=== PATIENT | male | born 1960 | race Two or more races ===

== ENCOUNTER 2021-10-10 12:40 | Inpatient (IN) | payer OTHER ==
[~2021-10-10] VITALS: Ht 185.4 cm; Wt 111.1 kg
[2021-10-10] MEDS ORDERED: LORAZEPAM 1 MG TABLET FOR AGITATION/ANXIETY PO PRN (15:00)
[2021-10-10] MEDS ORDERED: MAGNESIUM HYDROXIDE 30 ML UDC PO PRN (15:00)
[2021-10-10] MEDS ORDERED: ZOLPIDEM TARTRATE 10 MG TABLET PO PRN (15:00)
[2021-10-10 16:00] VITALS: BP 135/84
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
[2021-10-10 20:37] VITALS: BP 142/86
[2021-10-11 08:00] VITALS: BP 155/97
[2021-10-11] MEDS ORDERED: HYDROCHLOROTHIAZIDE 25 MG TABLET PO SCH (09:00)
[2021-10-11] MEDS ORDERED: LOSARTAN POTASSIUM 50 MG TABLET PO SCH (09:00)
[2021-10-11] MEDS ORDERED: ATENOLOL 50 MG TABLET PO SCH (09:00)
[2021-10-11 16:00] VITALS: BP 151/86
--- NOTE | 2021-10-11 20:11 | NUR ---
patient remains isolative,withdrawn,blunted affect,no verbalization of thoughts and feelings.No s/s of acute distress noted,denies SI/HI.Will continue to monitor q15 min rounds for safety.
[2021-10-11 20:17] VITALS: BP 143/96
--- NOTE | 2021-10-11 21:51 | NUR ---
patient remains isolative,withdrawn,blunted affect,no verbalization of thoughts and feelings.No s/s of acute distress noted,denies SI/HI.Will continue to monitor q15 min rounds for safety.
[2021-10-12 08:00] VITALS: BP 149/90
[2021-10-12] MEDS: LOSARTAN PO SCH (08:10)
[2021-10-12] MEDS: ATENOLOL 50 MG PO SCH (08:11)
[2021-10-12] MEDS: HYDROCHLOROTHIAZIDE PO SCH (08:11)
[2021-10-12 16:00] VITALS: BP 128/85
--- NOTE | 2021-10-12 19:45 | NUR ---
RN OPENING NOTES: RECEIVED PATIENT IN ROOM, AWAKE, A/O X3. APPROPRIATE AFFECT, PASSIVE, COOPERATIVE. ADMITS TO V/A HALLUCINATIONS. NO S/S OF DISTRESS NOTED. RESPIRATION EVEN AND UNLABORED WITH EQUAL RISE AND FALL OF THE CHEST, ON ROOM AIR. OFFERED FLUID AND SNACKS TOLERATED. BED IN LOWEST POSITION AND LOCKED, SIDE RAILS UP X2 FOR SAFETY. CALL MICHELLE WITHIN REACH. WILL CONTINUE TO MONITOR Q15 MIN FOR SAFETY, MOOD AND BEHAVIOR.
[2021-10-12 20:00] VITALS: BP 137/95
--- NOTE | 2021-10-13 06:51 | NUR ---
GPS RN CLOSING NOTES: PATIENT IS CURRENTLY AWAKE, A/O X3. PATIENT SLEPT 7HR THIS SHIFT. NO S/S OF DISTRESS NOTED. RESPIRATION EVEN AND UNLABORED WITH EQUAL RISE AND FALL OF THE CHEST, ON ROOM AIR. ALL PATIENT CARE NEEDS HAVE BEEN MET ANTICIPATED. WILL CONTINUE TO MONITOR AND ENDORSE TO AM SHIFT TO FOLLOW UP.
[2021-10-13 08:00] VITALS: BP 138/93
[2021-10-13] MEDS: LOSARTAN PO SCH (08:20)
[2021-10-13] MEDS: ATENOLOL 50 MG PO SCH (08:21)
[2021-10-13] MEDS: HYDROCHLOROTHIAZIDE PO SCH (08:21)
--- NOTE | 2021-10-13 09:40 | NUR ---
RN Notes: Received pt. awake in bed, responsive to staffs, no distress and no agitation noted. Ate 100% for breakfast, compliant on meds. Pt. went for smoking. Encouraged to verbalize feelings and motivated to attend group activity. Needs attended and will continue to monitor for safety.
[2021-10-13 16:00] VITALS: BP 128/91
--- NOTE | 2021-10-13 20:02 | NUR ---
GPS RN NOTE: RECEIVED PATIENT RESTING IS IN HIS BED, ISOLATIVE, DENIES SI/HI AT THIS TIME. CALM AND COOPERATIVE. NO ACUTE DISTRESS NOTED. AMBULATORY, STEADY GAIT. ABLE TO MAKE NEEDS KNOWN. ALL NEEDS ATTENDED AND ANTICIPATED. SAFETY MEASURES IN PLACE. WILL CONTINUE MONITORING Q15MIN FOR SAFETY AND BEHAVIOR.
[2021-10-13 20:10] VITALS: BP 142/93
[2021-10-14] MEDS: ATENOLOL 50 MG PO SCH (09:33)
[2021-10-14] MEDS: HYDROCHLOROTHIAZIDE PO SCH (09:33)
[2021-10-14] MEDS: LOSARTAN PO SCH (09:33)
[2021-10-14 16:36] VITALS: BP 152/86
--- NOTE | 2021-10-14 19:30 | NUR ---
GPS RN NOTE, RECEIVED PATIENT AWAKE AND IN BED, NO S/S OR COMPLAINTS OF PAIN AT THIS TIME. PATIENT IS DISPLAYING NO S/S OF APPARENT DISTRESS AT THIS TIME. PATIENT BREATHING IS UNLABORED WITH EQUAL RISE AND FALL OF THE CHEST. PATIENT IS ALERT AND ORIENTED X 3 ON ROOM AIR WITH A SPO2 99%. PATIENT IS COMPLIANT WITH MEDICATIONS, CALM, POLITE, MAKES NEEDS KNOWN, AND COOPERATIVE. PATIENT DENIES SUICIDAL AND HOMICIDAL IDEATIONS AT THIS TIME. PATIENT ASSISTED WITH TURNING AND REPOSITIONING Q2HR AND PRN FOR COMFORT AND CIRCULATION. PATIENT HAS NO NEEDS AT THIS TIME. PATIENT EDUCATED ON THE USE OF THE CALL MICHELLE. PATIENT BED SIDE RAILS UP X 2 FOR SAFETY. PATIENT BED IS LOCKED, LOW, WITH BED ALARM ON. WILL CONTINUE TO MONITOR THIS PATIENT Q15 MINUTES WITH THE HELP OF STAFF TO MAINTAIN SAFETY.
[2021-10-14 20:00] VITALS: BP 126/88
[2021-10-15 08:00] VITALS: BP 143/77
[2021-10-15] MEDS: ATENOLOL 50 MG PO SCH (08:39)
[2021-10-15] MEDS: LOSARTAN PO SCH (08:39)
[2021-10-15] MEDS: HYDROCHLOROTHIAZIDE PO SCH (08:39)
--- NOTE | 2021-10-15 09:39 | NUR ---
RN-CO: RECEIVED PATIENT AWAKE, COMPLIANT WITH WITH MEDICATIONS AND TREATMENT. GOES OUT TO SMOKE. HE DENIED PAIN AND DISCOMFORTS. I WILL CONTINUE TO MONITOR AND NOTIFY .
--- NOTE | 2021-10-15 21:39 | NUR ---
Received patient in bed awake,guarded and paranoid but pleasant upon approach.Patient goes out to smoke with MD order.No s/s of acute distress noted.Will continue tomonitor q15 min rounds for safety.
[2021-10-16 08:00] VITALS: BP 138/94
[2021-10-16] MEDS: ATENOLOL 50 MG PO SCH (08:56)
[2021-10-16] MEDS: HYDROCHLOROTHIAZIDE PO SCH (08:56)
[2021-10-16] MEDS: LOSARTAN PO SCH (08:56)
[2021-10-16] MEDS: IBUPROFEN 200 MG TABLET PO PRN (14:33)
[2021-10-16 16:00] VITALS: BP 128/78
--- NOTE | 2021-10-16 16:25 | NUR ---
Patient alert ,verbally responsive ,poor insight ,poor judgment ,easily irritable and anxious ,socialize with select peers ,no plan for self care .
--- NOTE | 2021-10-16 20:32 | NUR ---
Patient remains withdrawn,limited visibility,blunted affect,no s/s of acute distress noted.Will continue to monitor q15 min rounds for safety.
[2021-10-16 20:53] VITALS: BP 138/76
[2021-10-17 08:00] VITALS: BP 157/93
[2021-10-17] MEDS: HYDROCHLOROTHIAZIDE PO SCH (08:50)
[2021-10-17] MEDS: LOSARTAN PO SCH (08:50)
[2021-10-17] MEDS: ATENOLOL 50 MG PO SCH (08:50)
--- NOTE | 2021-10-17 09:00 | NUR ---
Patient alert ,verbally responsive ,poor insight ,poor judgment ,easily irritable and anxious ,labile ,hearing voices ,no plan for self care .
[2021-10-17] MEDS ORDERED: LORAZEPAM 1 MG TABLET FOR AGITATION/ANXIETY PO PRN (13:00)
--- NOTE | 2021-10-17 13:00 | NUR ---
Patient alert ,verbally responsive ,poor insight ,poor judgment ,easily irritable and anxious ,labile ,hearing voices ,no plan for self care .
[2021-10-17 16:00] VITALS: BP 95/60
[2021-10-17 20:53] VITALS: BP 134/74
--- NOTE | 2021-10-18 05:35 | NUR ---
Patient remains preoccupied to his own thoughts,blunted affect,blunted affect,no s/s ofa cute distress noted.Will continue to monitor q15 min rounds for safety.
[2021-10-18 08:00] VITALS: BP 108/56
[2021-10-18] MEDS: ATENOLOL 50 MG PO SCH (08:13)
[2021-10-18] MEDS: LOSARTAN PO SCH (08:13)
[2021-10-18] MEDS: HYDROCHLOROTHIAZIDE PO SCH (08:13)
[2021-10-18] MEDS: INVEST MED Kar XT OR PLACEBO 50/20 MG PO SCH ×2 (09:48→21:25)
--- NOTE | 2021-10-18 10:45 | NUR ---
RN-CO: PATIENT IS COOPERATIVE TO CARE. HE STATED THAT HE STILL HAS AH/VH BUT HE DENIED COMMAND HALLUCINATION. HE GOES OUT MOST OF THE TIME TO SMOKE. HE WATCHES TV WITH PEERS IN THE DINNING ROOM. I DENIED ADVERSE REACTION IN THE INVESTIGATIONAL MEDICINE.
[2021-10-18 16:00] VITALS: BP 154/90
[2021-10-18 20:32] VITALS: BP 141/86
--- NOTE | 2021-10-18 22:49 | NUR ---
GPS/WHARF TENDER HELPER NOTES: PT. IN HIS ROOM AWAKE. NO DISTRESS OR AGITATION NOTED. QUIET AT THIS TIME. COOPERATIVE. NO C/O PAIN OR DISCOMFORT. SAFETY ENVIRONMENT OBSERVED AT ALL TIMES. WILL CONTINUE TO MONITOR Q 15 MIN FOR SAFETY AND BEHAVIOR.
--- NOTE | 2021-10-18 22:50 | NUR ---
GPS/CREW CHIEF NOTES: PT. REQUESTED FOR AMBIEN 10MG PO PRN ORDERED. BUT PT. NOT IN OMNICELL AND UNABLE TO PULL OUT MEDICATION. PT. UPSET. CALLED OUTSIDE PHARMACY AND THEY STATED THEY CAN'T DO ANYTHING ON THEIR END. ALSO NOTIFIED ADMITTING, POSITION CLASSIFICATION SPECIALIST AND DR. HE AWARE. AFTER EXPLAINING SITUATION TO PT., PT. STATED THAT ITS FINE AND HE WILL JUST TAKE IT LEIF. NIGHT.
--- NOTE | 2021-10-19 07:15 | NUR ---
RN-NOTES RECEIVED PATIENT SITTING IN BED INTERACTING WITH ROOM MATE,NO ACUTE DISTRESS NOTED.
[2021-10-19 08:00] VITALS: BP 145/97
--- NOTE | 2021-10-19 08:05 | NUR ---
RN-NOTES PATIENT OFF THE UNIT FOR SMOKING.
[2021-10-19] MEDS: ATENOLOL 50 MG PO SCH (09:04)
[2021-10-19] MEDS: LOSARTAN PO SCH (09:04)
[2021-10-19] MEDS: HYDROCHLOROTHIAZIDE PO SCH (09:04)
--- NOTE | 2021-10-19 09:05 | NUR ---
RN-NOTES PATENT BACK IN THE UNIT,NO ACUTE DISTRESS NOTED.
--- NOTE | 2021-10-19 09:45 | NUR ---
RN-NOTES PATIENT OFF THE UNIT FOR SMOKING.
--- NOTE | 2021-10-19 10:15 | NUR ---
RN-NOTES PATENT BACK IN THE UNIT,NO ACUTE DISTRESS NOTED.
[2021-10-19] MEDS: INVEST MED Kar XT OR PLACEBO 50/20 MG PO SCH ×2 (10:24→21:49)
[2021-10-19] MEDS ORDERED: LORAZEPAM 1 MG TABLET FOR AGITATION/ANXIETY PO PRN (12:30)
[2021-10-19 16:00] VITALS: BP 156/107
--- NOTE | 2021-10-19 19:46 | NUR ---
RN OPENING NOTES: RECEIVED PATIENT IN BED, AWAKE, A/O X3. APPROPRIATE AFFECT, CALM AND COOPERATIVE. PATIENT DENIES SI/HI, A/V HALLUCINATIONS AT THIS TIME. NO S/S OF DISTRESS. RESPIRATION EVEN AND UNLABORED WITH EQUAL RISE AND FALL OF THE CHEST, ON ROOM AIR. OFFERED FLUID AND SNACKS TOLERATED. BED IN LOWEST POSITION AND LOCKED, SIDE RAILS UP X2 FOR SAFETY. CALL MICHELLE WITHIN REACH. WILL CONTINUE TO MONITOR Q15 MIN FOR SAFETY, MOOD AND BEHAVIOR.
[2021-10-19 20:00] VITALS: BP 159/97
[2021-10-19] MEDS: ZOLPIDEM TARTRATE 10 MG TABLET PO PRN (21:10)
--- NOTE | 2021-10-19 21:11 | NUR ---
GPS RN NOTES: Patient requested for sleep medication. Ambien 10mg/1tab given PO at 2109. Will continue to monitor.
--- NOTE | 2021-10-20 07:03 | NUR ---
GPS RN CLOSING NOTES: PATIENT IS AWAKE, A/O X3. PATIENT SLEPT 7HR THIS SHIFT. NO S/S OF DISTRESS NOTED. RESPIRATION EVEN AND UNLABORED WITH EQUAL RISE AND FALL OF THE CHEST, ON ROOM AIR. ALL PATIENT CARE NEEDS HAVE BEEN MET ANTICIPATED. WILL CONTINUE TO MONITOR AND ENDORSE TO AM SHIFT TO FOLLOW UP.
--- NOTE | 2021-10-20 07:15 | NUR ---
RN-NOTES RECEIVED PT IN THE ROOM AWAKE INTERACTING WITH ROOM MATE,EASILY IRRITABLE AND ANGRY COMPLIANT WITH MEDICATION. GOES OUT WITH ANOTHER CLINICAL TRIAL PT TO SMOKE. WILL CONTINUE TO MONITOR FOR SAFETY AND BEHAVIOR.
[2021-10-20 08:00] VITALS: BP 122/91
[2021-10-20] MEDS: ATENOLOL 50 MG PO SCH (08:39)
[2021-10-20] MEDS: HYDROCHLOROTHIAZIDE PO SCH (08:39)
[2021-10-20] MEDS: LOSARTAN PO SCH (08:39)
[2021-10-20] MEDS: INVEST MED Kar XT OR PLACEBO 50/20 MG PO SCH ×2 (10:04→22:11)
[2021-10-20] MEDS: MAG HYDROX/AL HYDROX/SIMETH 30 ML UDC PO PRN (11:01)
--- NOTE | 2021-10-20 11:10 | NUR ---
RN-NOTES PATIENT REQUESTING MAALOX FOR HIS HEARTBURN. MAALOX 30ML GIVEN PRN ORDER. WILL CONT. MONITORING .
--- NOTE | 2021-10-20 12:10 | NUR ---
RN-NOTES PATIENT STATED" MAALOX HELP WITH THE HEARTBURN".
--- NOTE | 2021-10-20 14:20 | NUR ---
RN-NOTES PATIENT WAS OFF THE UNIT NET MAKER BY VARUN (DR. HE STAFF) IN STABLE CONDITION.
--- NOTE | 2021-10-20 14:30 | NUR ---
RN-NOTES PATIENT BACK IN THE UNIT ACCOMPANIED BY VARUN (DR. HE STAFF) IN STABLE CONDITION.
[2021-10-20 16:00] VITALS: BP 158/103
[2021-10-20 20:00] VITALS: BP 143/94
--- NOTE | 2021-10-20 20:10 | NUR ---
GPS RN NOTE, PATIENT HAS A COMPLAINT OF FEELING ANXIOUS AND IS REQUESTING ATIVAN AT THIS TIME. PATIENT VITAL SIGNS ARE STABLE. GAVE ATIVAN 1 MG PO Q6HR PRN ORDERED. WILL REASSESS FOR ANXIETY AND I WILL CONTINUE TO MONITOR THIS PATIENT WITH THE HELP OF STAFF.
[2021-10-20 20:41] VITALS: BP 143/94
[2021-10-21] MEDS: MAG HYDROX/AL HYDROX/SIMETH 30 ML UDC PO PRN (01:30)
--- NOTE | 2021-10-21 01:31 | NUR ---
GPS RN NOTE, PATIENT HAS A COMPLAINT OF INDIGESTION AND IS REQUESTING MAALOX AT THIS TIME. PATIENT VITAL SIGNS ARE STABLE. GAVE MAALOX 30ML PO Q6HR PRN ORDERED. WILL REASSESS FOR INDIGESTION AND I WILL CONTINUE TO MONITOR THIS PATIENT WITH THE HELP OF STAFF.
--- NOTE | 2021-10-21 02:30 | NUR ---
GPS RN NOTE, PATIENT HAS A COMPLAINT OF FREQUENT URINATION THAT IS KEEPING UP AT NIGHT AND REQUESTING FLOMAX. WILL ENDORSE TO A.M. SHIFT NURSE TO INFORM DR HE OF PATIENT COMPLAINT AND REQUEST. WILL CONTINUE TO MONITOR THIS PATIENT WITH THE HELP OF STAFF.
[2021-10-21 08:00] VITALS: BP 138/93
[2021-10-21] MEDS: LOSARTAN PO SCH ×2 (08:35→17:49)
[2021-10-21] MEDS: ATENOLOL 50 MG PO SCH (08:35)
[2021-10-21] MEDS: HYDROCHLOROTHIAZIDE PO SCH ×2 (08:36→17:49)
[2021-10-21] MEDS: INVEST MED Kar XT OR PLACEBO 50/20 MG PO SCH ×2 (10:15→21:57)
[2021-10-21 20:00] VITALS: BP 130/94
[2021-10-21] MEDS: ZOLPIDEM TARTRATE 10 MG TABLET PO PRN (21:57)
[2021-10-21] MEDS: TAMSULOSIN 0.4 MG CAP.SR.24H PO SCH (21:57)
--- NOTE | 2021-10-21 21:57 | NUR ---
GPS RN NOTE, PATIENT HAS A COMPLAINT OF NOT BEING ABLE TO SLEEP AND IS REQUESTING AMBIEN AT THIS TIME. PATIENT VITAL SIGNS ARE STABLE. GAVE AMBIEN 10MG PO HS PRN ORDERED. WILL REASSESS FOR INSOMNIA AND I WILL CONTINUE TO MONITOR THIS PATIENT WITH THE HELP OF STAFF.
[2021-10-22] MEDS: IBUPROFEN 200 MG TABLET PO PRN ×2 (06:21→21:43)
--- NOTE | 2021-10-22 06:24 | NUR ---
GPS RN NOTE, PATIENT HAS A COMPLAINT OF GENERALIZED PAIN AT 8 OUT 10 ON THE PAIN SCALE AND IS REQUESTING IBUPROFEN AT THIS TIME. PATIENT VITAL SIGNS ARE STABLE. GAVE IBUPROFEN 600 MG PO Q8HR PRN ORDERED . WILL REASSESS PAIN AND I WILL CONTINUE TO MONITOR THIS PATIENT WITH THE HELP OF STAFF.
[2021-10-22] MEDS: LOSARTAN PO SCH ×2 (08:06→16:18)
[2021-10-22] MEDS: ATENOLOL 50 MG PO SCH (08:06)
[2021-10-22] MEDS: HYDROCHLOROTHIAZIDE PO SCH ×2 (08:06→16:18)
[2021-10-22] MEDS: INVEST MED Kar XT OR PLACEBO 50/20 MG PO SCH ×2 (10:03→21:59)
--- NOTE | 2021-10-22 10:43 | NUR ---
RN-CO: PATIENT STATED HE STILL HAS AH/VH. HE C/O HEARTBURN SINCE HE TOOK INVESTIGATIONAL MEDICINE. HE GOES OUT TO SMOKE EVERY TIME. HE IS COOPERATIVE TO STAFF.
--- NOTE | 2021-10-22 19:40 | NUR ---
GPS RN NOTE RECEIVED PATIENT AWAKE AND IN BED, NO S/S OR C/O PAIN AT THIS TIME. PATIENT IS DISPLAYING NO S/S OF APPARENT DISTRESS AT THIS TIME. PATIENT BREATHING IS UNLABORED WITH EQUAL RISE AND FALL OF THE CHEST. PATIENT IS ALERT AND ORIENTED X 4, ON ROOM AIR. PATIENT IS COMPLIANT WITH MEDICATIONS, CALM, POLITE, MAKES NEEDS KNOWN, AND COOPERATIVE. PATIENT DENIES SUICIDAL AND HOMICIDAL IDEATIONS AT THIS TIME. PATIENT EDUCATED ON THE USE OF THE CALL MICHELLE. PATIENT BED SIDE RAILS UP X 2 FOR SAFETY. PATIENT BED IS LOCKED, LOW, WITH BED ALARM ON. WILL CONTINUE TO MONITOR THIS PATIENT Q15 MINUTES WITH THE HELP OF STAFF TO MAINTAIN SAFETY.
[2021-10-22 20:12] VITALS: BP 149/88
[2021-10-22 20:18] VITALS: BP 149/88
--- NOTE | 2021-10-22 20:35 | NUR ---
GPS RN NOTE PATIENT IS OUT OF UNIT FOR SMOKE BREAK.
--- NOTE | 2021-10-22 21:09 | NUR ---
PATIENT BACK TO THE UNIT FROM SMOKE BREAK.
[2021-10-22] MEDS: TAMSULOSIN 0.4 MG CAP.SR.24H PO SCH (21:38)
--- NOTE | 2021-10-22 21:45 | NUR ---
GPS RN NOTE: HEADACHE PATIENT C/O HEADACHE AND WANTED TO TAKE MOTRIN. PRN IBUPROFEN 600 MG PO ADMINISTERED ORDERED. WILL CONTINUE TO MONITOR.
[2021-10-22] MEDS: ZOLPIDEM TARTRATE 10 MG TABLET PO PRN (22:14)
--- NOTE | 2021-10-22 22:16 | NUR ---
GPS RN NOTE: INSOMNIA PATIENT COMPLAINT OF NOT BEING ABLE TO SLEEP AND IS REQUESTING AMBIEN AT THIS TIME. PATIENT VITAL SIGNS ARE STABLE. GAVE AMBIEN 10MG PO HS PRN ORDERED. WILL REASSESS FOR INSOMNIA AND I WILL CONTINUE TO MONITOR THIS PATIENT WITH THE HELP OF STAFF.
--- NOTE | 2021-10-23 05:48 | NUR ---
PATIENT IS OUT OF UNIT FOR SMOKE BREAK.
--- NOTE | 2021-10-23 06:19 | NUR ---
PATIENT BACK TO THE UNIT FROM SMOKE BREAK.
--- NOTE | 2021-10-23 06:26 | NUR ---
GPS RN NOTE PATIENT SLEPT WELL AFTER TAKING AMBIEN PRN. MED COMPLAINT. NO BEHAVIORAL EPISODE NOTED THROUGH OUT THE NIGHT.
[2021-10-23 08:00] VITALS: BP 118/61
[2021-10-23] MEDS: HYDROCHLOROTHIAZIDE PO SCH ×2 (08:45→17:40)
[2021-10-23] MEDS: LOSARTAN PO SCH ×2 (08:45→17:40)
[2021-10-23] MEDS: ATENOLOL 50 MG PO SCH (08:45)
[2021-10-23] MEDS: INVEST MED Kar XT OR PLACEBO 50/20 MG PO SCH ×2 (09:35→21:40)
[2021-10-23] MEDS: MAG HYDROX/AL HYDROX/SIMETH 30 ML UDC PO PRN (10:01)
--- NOTE | 2021-10-23 13:00 | NUR ---
Patient remains isolative and withdrawn ,no interaction with peers ,no plan for self care ,labile and cooperative ,will continue to monitor for safety q15 minutes ,encourage patient to verbalize feelings and thoughts redirect as needed.
[2021-10-23 16:00] VITALS: BP 116/71
--- NOTE | 2021-10-23 18:06 | NUR ---
Patient alert ,verbally responsive ,poor insight ,poor judgment,preoccupied with his own thoughts,patient hearing voices ,easily irritable and anxious no plan for self care.
[2021-10-23] MEDS: IBUPROFEN 200 MG TABLET PO PRN (18:08)
--- NOTE | 2021-10-23 20:17 | NUR ---
RN OPENING NOTES: RECEIVED PATIENT AMBULATING IN HALLWAY ON HIS WAY FOR A SMOKE BREAK WITH PEERS. APPROPRIATE AFFECT, CALM AND COOPERATIVE. DENIES SI/HI, A/V HALLUCINATIONS AT THIS TIME. NO S/S OF DISTRESS. RESPIRATION EVEN AND UNLABORED WITH EQUAL RISE AND FALL OF THE CHEST, ON ROOM AIR. WILL CONTINUE TO MONITOR.
[2021-10-23 20:21] VITALS: BP 143/76
[2021-10-23] MEDS: ZOLPIDEM TARTRATE 10 MG TABLET PO PRN (21:14)
--- NOTE | 2021-10-23 21:16 | NUR ---
GPS RN NOTES: PATIENT REQUESTED FOR SLEEP MEDICATION D/T INSOMNIA. AMBIEN 10MG GIVEN PO AT 2113. WILL CONTINUE TO MONITOR.
[2021-10-23] MEDS: TAMSULOSIN 0.4 MG CAP.SR.24H PO SCH (21:40)
--- NOTE | 2021-10-24 06:54 | NUR ---
GPS RN CLOSING NOTES: PATIENT IS AWAKE, A/O X3. PATIENT SLEPT 5HR THIS SHIFT. PATIENT LEFT THE UNIT 3X FOR A SMOKE THIS SHIFT. NO S/S OF DISTRESS NOTED. RESPIRATION EVEN AND UNLABORED WITH EQUAL RISE AND FALL OF THE CHEST, ON ROOM AIR. ALL PATIENT CARE NEEDS HAVE BEEN MET ANTICIPATED. WILL CONTINUE TO MONITOR AND ENDORSE TO AM SHIFT TO FOLLOW UP.
[2021-10-24 08:00] VITALS: BP 130/95
[2021-10-24] MEDS: ATENOLOL 50 MG PO SCH (08:15)
[2021-10-24] MEDS: HYDROCHLOROTHIAZIDE PO SCH ×2 (08:16→17:53)
[2021-10-24] MEDS: LOSARTAN PO SCH ×2 (08:16→17:54)
[2021-10-24] MEDS: INVEST MED Kar XT OR PLACEBO 50/20 MG PO SCH ×2 (09:57→21:59)
[2021-10-24] MEDS: IBUPROFEN 200 MG TABLET PO PRN ×2 (10:35→21:59)
--- NOTE | 2021-10-24 10:35 | NUR ---
given motrin for headache.leaving floor often for smoke.
[2021-10-24 16:00] VITALS: BP 113/68
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
[2021-10-24 17:53] VITALS: BP 120/67
--- NOTE | 2021-10-24 18:00 | NUR ---
RN NOTES: RECEIVED PATIENT FROM GPS AMBULATORY AND GOING OUT FOR A SMOKE BREAK WITH ROOMMATE. WITH APPROPRIATE AFFECT, CALM AND COOPERATIVE. DENIES SI/HI, A/V HALLUCINATIONS AT THIS TIME. NO S/S OF DISTRESS. RESPIRATION EVEN AND UNLABORED WITH EQUAL RISE AND FALL OF THE CHEST, ON ROOM AIR. WILL CONTINUE TO MONITOR.
--- NOTE | 2021-10-24 18:33 | NUR ---
RN NOTES PATIENT IS OUT FOR A SMOKE BREAK. WILL ENDORSE TO NEXT SHIFT FOR ULICES.
[2021-10-24 20:00] VITALS: BP 94/45
--- NOTE | 2021-10-24 21:44 | NUR ---
RN OPENING NOTES Patient is A&Ox4. Calm and cooperative. States he is feeling good and is not having any psych symptoms at this time. Patient is having pleasant conversation/interacting with roommate. No side effects from investigational med. Will continue to monitor. Addendum: 10/24/21 at 2146 by DOLORES CAMPOS RN time 1999
[2021-10-24] MEDS: TAMSULOSIN 0.4 MG CAP.SR.24H PO SCH (21:59)
[2021-10-24 23:33] VITALS: BP 94/45
--- NOTE | 2021-10-25 06:48 | NUR ---
Patient stable overnight. No behaviors. Slept intermittently. Denies any side effects from investigational meds. Currently awake in room in no signs of distress.
--- NOTE | 2021-10-25 07:22 | NUR ---
RN OPENING NOTES RECEIVED PATIENT IN BED, AWAKE, A/O X4, VERBALLY RESPONSIVE. NO SIGNS OF ACUTE DISTRESS NOTED. ON ROOM AIR, NO SOB NOTED. NO IV ACCESS. REMAINS ON CLINICAL TRIAL. NO SIGNS OF UNTOWARD BEHAVIOR NOTED. SAFETY MEASURES IN PLACE. WILL CONTINUE TO MONITOR.
[2021-10-25 08:00] VITALS: BP 116/85
[2021-10-25] MEDS: LOSARTAN PO SCH ×2 (09:29→17:24)
[2021-10-25] MEDS: HYDROCHLOROTHIAZIDE PO SCH ×2 (09:30→17:24)
[2021-10-25] MEDS: ATENOLOL 50 MG PO SCH (09:30)
[2021-10-25] MEDS: INVEST MED Kar XT OR PLACEBO 50/20 MG PO SCH ×2 (10:02→22:00)
[2021-10-25 16:00] VITALS: BP 112/85
--- NOTE | 2021-10-25 18:53 | NUR ---
RN CLOSING NOTES PATIENT IN BED, AWAKE, ALERT AND ORIENTED X4. STABLE ON ROOM AIR. AMBULATORY. REMAINS ON CLINICAL TRIAL. DENIES ANY ADVERSE REACTION FROM INVESTIGATIONAL MEDICATION. NO IV ACCESS. SAFETY MEASURES MAINTAINED. WILL ENDORSE TO NEXT SHIFT FOR CONTINUITY OF CARE.
--- NOTE | 2021-10-25 19:15 | NUR ---
RN OPENING NOTES RECEIVED PATIENT LAYING AWAKE IN BED. A/O X4. PATIENT WITH REGULAR AND UNLABORED BREATHING ON ROOM AIR TOLERATED WELL. NO SIGNS AND SYMPTOMS OF DISTRESS NOTED AT THIS TIME. NO COMPLAINS OF PAIN OR DISCOMFORT AT THIS TIME. SAFETY PRECAUTIONS ENFORCED WITH BED LOCKED AND AT LOWEST POSITION. CALL LIGHT WITHIN REACH AT ALL TIMES. WILL CONTINUE TO MONITOR PATIENT.
[2021-10-25 20:00] VITALS: BP 120/83
[2021-10-25] MEDS: IBUPROFEN 200 MG TABLET PO PRN (22:02)
[2021-10-25] MEDS: TAMSULOSIN 0.4 MG CAP.SR.24H PO SCH (22:03)
--- NOTE | 2021-10-26 06:55 | NUR ---
RN CLOSING NOTES PATIENT STILL LAYING AWAKE IN BED. A/O X4. PATIENT WITH REGULAR AND UNLABORED BREATHING ON ROOM AIR TOLERATED WELL. NO SIGNS AND SYMPTOMS OF DISTRESS NOTED AT THIS TIME. NO COMPLAINS OF PAIN OR DISCOMFORT AT THIS TIME. SAFETY PRECAUTIONS ENFORCED WITH BED LOCKED AND AT LOWEST POSITION. CALL LIGHT WITHIN REACH AT ALL TIMES. WILL ENDORSE CONTINUITY OF CARE TO DAY SHIFT NURSE.
--- NOTE | 2021-10-26 07:48 | NUR ---
RN OPENING NOTES Patient seen comfortably lying in bed, breathing even and unlabored, no SOB, no apparent distress noted, denies any pain or discomfort at this time, no grimacing. Call light left within reach, safety precautions in place, brakes locked, side rails up X 2, will monitor closely for any changes.
[2021-10-26 08:00] VITALS: BP 153/100
[2021-10-26] MEDS: LOSARTAN PO SCH ×2 (09:08→16:47)
[2021-10-26] MEDS: ATENOLOL 50 MG PO SCH (09:08)
[2021-10-26] MEDS: HYDROCHLOROTHIAZIDE PO SCH ×2 (09:08→16:47)
[2021-10-26] MEDS: BISACODYL SUPP (10 MG) 10 MG/SUPP.RECT SUPP.RECT RC PRN (09:47)
--- NOTE | 2021-10-26 10:00 | NUR ---
Patient's investigational medication given at 10:00am, scanner was not working properly, medication scanned at 10:03am but given at 10:00am. No apparent distress noted with patient at this time.
[2021-10-26] MEDS: INVEST MED Kar XT OR PLACEBO 50/20 MG PO SCH ×2 (10:03→22:01)
[2021-10-26] MEDS: SENNOSIDES 8.6 MG TABLET PO SCH ×2 (12:54→21:26)
[2021-10-26] MEDS: IBUPROFEN 200 MG TABLET PO PRN ×2 (12:58→21:35)
--- NOTE | 2021-10-26 18:22 | NUR ---
RN CLOSING NOTES Patient lying in bed, no shortness of breath, respirations even and unlabored, denies any pain or discomfort, no apparent distress noted. Patient on monitoring for tremors, none noted during shift, no hallucinations, and no delusions during shift. All medications given per MD order, tolerating well, kept clean and dry, all needs attended, call light left within reach, safety precautions in place, brakes locked, side rails up X 2, will endorse to next shift for continuity of care.
--- NOTE | 2021-10-26 19:31 | NUR ---
MS RN OPENING NOTES: PATIENT WAS ON CLINICAL TRIAL AMBULATORY A/OX4 ABLE TO MAKE NEEDS KNOWN, DURING ROUND PATIENT WAS NOT IN ROOM PER AM CN PATIENT WAS SMOKING, ON ROOM AIR SATURATING WELL, WILL CONTINUE TO MONITOR.
[2021-10-26 20:00] VITALS: BP 127/90
[2021-10-26] MEDS: TAMSULOSIN 0.4 MG CAP.SR.24H PO SCH (22:01)
--- NOTE | 2021-10-27 06:52 | NUR ---
MS RN CLOSING NOTES: PATIENT SLEEP IN BED COMFORTABLY, AROUSABLE TO VERBAL STIMULI, BED IN LOW POSITION, CALL LIGHTS WITHIN REACH, NO COMPLAIN OF PAIN AND DISCOMFORT AT THIS TIME, ON ROOM AIR SATURATING WELL, PATIENT IS A/OX4 AMBULATORY, ON MEDICATION COMPLIANCE, NO CHANGES ON BEHAVIOR WAS OBSERVED, ON CONTINUE MONITORING, ENDORSE TO INCOMING SHIFT.
[2021-10-27] MEDS: IBUPROFEN 200 MG TABLET PO PRN (06:54)
--- NOTE | 2021-10-27 07:30 | NUR ---
MS RN OPENING NOTES RECEIVED PATIENT IN BED WITH EYES CLOSED. EASILY AWAKENS TO VERBAL STIMULI, A/O X4. ON RA WITH NO S/SX OF RESPIRATORY DISTRESS NOTED. NO PAIN VERBALIZED AT THIS TIME. PATIENT IS CALM AND COOPERATIVE ON CLINICAL OBSERVATION. SAFETY MEASURES IN PLACE: BED IN LOWEST POSITION, WHEELS LOCKED, SIDE RAILS UP X2, CALL LIGHT WITHIN REACH. WILL CONTINUE TO MONITOR
[2021-10-27 07:54] VITALS: BP 144/78
[2021-10-27] MEDS: HYDROCHLOROTHIAZIDE PO SCH ×2 (08:56→16:57)
[2021-10-27] MEDS: SENNOSIDES 8.6 MG TABLET PO SCH ×2 (08:56→22:00)
[2021-10-27] MEDS: ATENOLOL 50 MG PO SCH (08:57)
[2021-10-27] MEDS: LOSARTAN PO SCH ×2 (08:57→16:57)
[2021-10-27] MEDS: INVEST MED Kar XT OR PLACEBO 50/20 MG PO SCH ×2 (09:49→22:00)
[2021-10-27 16:03] VITALS: BP 109/78
[2021-10-27] MEDS: ACETAMINOPHEN ES 500 MG TABLET PO PRN (18:25)
--- NOTE | 2021-10-27 18:49 | NUR ---
MS RN CLOSING NOTES PATIENT REMAINED CALM AND COOPERATIVE DURING SHIFT. A/O X4. NO CHANGES IN CONDITION. ALL MEDICATIONS TAKEN AND SAFETY MEASURES IN PLACE: BED IN LOWEST POSITION, WHEELS LOCKED, SIDE RAILS UP X2, CALL LIGHT WITHIN REACH. WILL ENDORSE TO PAINTINGS RESTORER NURSE FOR ULICES
[2021-10-27 20:00] VITALS: BP 127/89
--- NOTE | 2021-10-27 20:30 | NUR ---
RN OPENING NOTE PATIENT JUST CAME BACK FROM A SMOKE BREAK. NOT IN ANY APPARENT DISTRESS. PATIENT IS A/O X 4, ABLE TO MAKE NEEDS KNOWN. CURRENTLY ON RA, TOLERATING WELL. BREATHING EVEN AND UNLABORED. PATIENT IS A CLINICAL TRIAL PATIENT OF DR. HOWARD. PATIENT DOES NOT REPORT ANY PAIN OR DISCOMFORT AT THIS TIME. NO IV ACCESS NOTED. SAFETY MEASURES IN PLACE: BED LOCKED AND IN LOWEST POSITION, CALL LIGHT WITHIN REACH, SIDE RAILS UP. WILL MONITOR PATIENT CLOSELY.
[2021-10-27] MEDS: TAMSULOSIN 0.4 MG CAP.SR.24H PO SCH (22:00)
[2021-10-28 08:00] VITALS: BP 109/70
--- NOTE | 2021-10-28 08:11 | NUR ---
RN OPENING NOTE PATIENT RECEIVED IN BED, AO x 4, ABLE TO RESPONDS ALL STIMULI. IN NO ACUTE DISTRESS NOTED. RESPIRATORY EVEN AND UNLABORED ON ROOM AIR. SKIN IS WARM TO TOUCH, KEEP CLEAN/DRY. KEPT ELEVATED HOB FOR ENSURE AIRWAY AND ASPIRATION PRECAUTION, ALSO LOWEST POSITION OF THE BED, S/R UP X 2, ALL SAFETY PRECAUTION APPLIED. CALL LIGHT WITHIN REACH, WILL CONTINUE TO MONITOR.
[2021-10-28] MEDS: ATENOLOL 50 MG PO SCH (08:39)
[2021-10-28] MEDS: HYDROCHLOROTHIAZIDE PO SCH ×2 (08:42→17:00)
[2021-10-28] MEDS: LOSARTAN PO SCH ×2 (08:42→17:00)
[2021-10-28] MEDS: SENNOSIDES 8.6 MG TABLET PO SCH ×2 (09:52→21:53)
[2021-10-28] MEDS: INVEST MED Kar XT OR PLACEBO 50/20 MG PO SCH ×2 (09:56→21:53)
[2021-10-28] MEDS: IBUPROFEN 200 MG TABLET PO PRN (12:41)
--- NOTE | 2021-10-28 18:30 | NUR ---
RN CLOSE NOTE PATIENT IN BED, IN NO ACUTE DISTRESS OBSERVED. RESPIRATION EVEN AND UNLABORED ON ROOM AIR. SKIN IS WARM TO TOUCH KEEP CLEAN//DRY. KEPT ELEVATED HOB FOR ENSURE AIRWAY AND ASPIRATION PRECAUTION. ALSO LOWEST POSITION OF THE BED FOR SAFETY. CALL LIGHT WITHIN REACH, WILL ENDORSE TO GEOPHYSICAL PROSPECTING PERMIT AGENT.
[2021-10-28 20:36] VITALS: BP 102/72
--- NOTE | 2021-10-28 20:37 | NUR ---
RN OPENING NOTE PATIENT IN BED, AWAKE USING HIS PHONE. NOT IN ANY APPARENT DISTRESS. PATIENT IS A/O X 4, ABLE TO MAKE NEEDS KNOWN. CURRENTLY ON RA, TOLERATING WELL. BREATHING EVEN AND UNLABORED. PATIENT IS INDEPENDENT WITH ADLS AND AMBULATION. PATIENT IS A CLINICAL TRIAL PATIENT OF DR. HOWARD. PATIENT DOES NOT REPORT ANY PAIN OR DISCOMFORT AT THIS TIME. NO IV ACCESS NOTED. SAFETY MEASURES IN PLACE: BED LOCKED AND IN LOWEST POSITION, CALL LIGHT WITHIN REACH, SIDE RAILS UP. WILL MONITOR PATIENT CLOSELY.
[2021-10-28] MEDS: TAMSULOSIN 0.4 MG CAP.SR.24H PO SCH (21:53)
--- NOTE | 2021-10-29 07:38 | NUR ---
RN OPENING NOTE RECEIVED PATIENT IN BED, AO x 4, ABLE TO RESPONDS ALL STIMULI. IN NO ACUTE DISTRESS NOTED. RESPIRATORY EVEN AND UNLABORED ON ROOM AIR. SKIN IS WARM TO TOUCH, KEEP CLEAN/DRY. SAFETY PRECAUTIONS IN PLACE: BED IN LOWEST LOCKED POSITION OF THE BED, S/R UP X 2, SIDE RAILS UP X 2. CALL LIGHT WITHIN REACH, WILL CONTINUE TO MONITOR.
[2021-10-29] MEDS: ATENOLOL 50 MG PO SCH (09:25)
[2021-10-29] MEDS: HYDROCHLOROTHIAZIDE PO SCH ×2 (09:25→16:20)
[2021-10-29] MEDS: SENNOSIDES 8.6 MG TABLET PO SCH ×2 (09:25→20:37)
[2021-10-29] MEDS: LOSARTAN PO SCH ×2 (09:25→16:21)
[2021-10-29] MEDS: INVEST MED Kar XT OR PLACEBO 50/20 MG PO SCH ×2 (10:05→21:33)
--- NOTE | 2021-10-29 18:28 | NUR ---
RN CLOSING NOTE PATIENT IN BED, AO x 4, ABLE TO RESPONDS ALL STIMULI. IN NO ACUTE DISTRESS NOTED. RESPIRATORY EVEN AND UNLABORED ON ROOM AIR. SKIN IS WARM TO TOUCH, KEEP CLEAN/DRY. SAFETY PRECAUTIONS IN PLACE: BED IN LOWEST LOCKED POSITION OF THE BED, S/R UP X 2, SIDE RAILS UP X 2. CALL LIGHT WITHIN REACH. NO EPS NTED. WILL ENDORSE TO ONCOMING SHIFT FOR ULICES.
--- NOTE | 2021-10-29 20:00 | NUR ---
RN OPENING NOTE PATIENT RESTING IN HIS ROOM. NOT IN ANY APPARENT DISTRESS. PATIENT IS A/O X 4, ABLE TO MAKE NEEDS KNOWN. CURRENTLY ON RA, TOLERATING WELL. BREATHING EVEN AND UNLABORED. PATIENT DOES NOT REPORT ANY PAIN OR DISCOMFORT AT THIS TIME. SAFETY MEASURES IN PLACE: BED LOCKED AND IN LOWEST POSITION, CALL LIGHT WITHIN REACH, SIDE RAILS UP. WILL CONTINUE TO MONITOR FOR SAFETY AND BEHAVIOR .
[2021-10-29 20:17] VITALS: BP 109/83
[2021-10-29] MEDS: TAMSULOSIN 0.4 MG CAP.SR.24H PO SCH (21:33)
--- NOTE | 2021-10-30 06:43 | NUR ---
RN CLOSING NOTES: PATIENT REMAINED CALM AND COOPERATIVE DURING SHIFT. A/O X4. NO CHANGES IN CONDITION. ALL MEDICATIONS TAKEN AND SAFETY MEASURES IN PLACE, DENIES ANY PAIN DISCOMFORT AT THIS TIME, CALL LIGHT WITHIN REACH. WILL CONTINUE TO MONITOR FOR SAFETY AND BEHAVIOR ,WILL ENDORSE TO DAY SHIFT NURSE FOR UILCES.
--- NOTE | 2021-10-30 07:44 | NUR ---
MS RN OPENING NOTES PATIENT RECEIVED IN HIS ROOM. A/O X 4, ABLE TO MAKE NEEDS KNOWN, DENIES ANY PAIN OR DISCOMFORTS AT THIS TIME. PT ON CLINICAL TRIAL. AMBULATORY WITH STEADY GAIT. ON ROOM AIR, TOLERATING WELL. BREATHING EVEN AND UNLABORED. CALL LIGHT WITHIN REACH. WILL CONTINUE TO MONITOR PT FOR SAFETY AND BEHAVIOR.
[2021-10-30 08:00] VITALS: BP 109/69
[2021-10-30] MEDS: LOSARTAN PO SCH ×2 (08:50→17:02)
[2021-10-30] MEDS: ATENOLOL 50 MG PO SCH (08:50)
[2021-10-30] MEDS: HYDROCHLOROTHIAZIDE PO SCH ×2 (08:50→17:02)
[2021-10-30] MEDS: SENNOSIDES 8.6 MG TABLET PO SCH ×2 (08:55→21:55)
[2021-10-30] MEDS: INVEST MED Kar XT OR PLACEBO 50/20 MG PO SCH ×2 (10:05→22:07)
[2021-10-30 16:00] VITALS: BP 151/80
--- NOTE | 2021-10-30 18:31 | NUR ---
MS RN CLOSING NOTES PATIENT RESTING IN HIS BED AT THIS TIME. A/O X4. ABLE TO MAKE NEEDS KNOWN. NO C/O PAIN OR DISCOMFORTS VOICED DURING SHIFT. DENIES VISUAL AND AUDITORY HALLUCINATIONS. PT IS AMBULATORY. ON ROOM AIR, BREATHING EVEN AND UNLABORED. INVESTIGATIONAL MEDICATION GIVEN AND TOLERATED WITH NO S/S OF ADVERSE REACTIONS NOTED. BED IN LOWEST LOCKED POSITION WITH SR-UP X2. CALL LIGHT WITHIN REACH. WILL ENDORSE ULICES TO CADDIE NURSE.
[2021-10-30 20:00] VITALS: BP 117/75
--- NOTE | 2021-10-30 20:16 | NUR ---
MS/TELE/RN AT INITIAL SHIFT ROUND AT 1930, RECEIVED PATIENT LYING IN BED AWAKE, ALERT, ORIENTED, COMFORTABLE, NO C/O PAIN, NO DISTRESS NOTED, CALL LIGHT IN REACH. INFORMED PATIENT NOT TO EAT NOR DRINK AT 2100, ONE HOUR PRIOR TO TAKING THE INVESTIGATIONAL MEDICATION AT 2200. VERBALISED UNDERSTANDING. ALL NEEDS ATTENDED. WILL MONITOR.
--- NOTE | 2021-10-30 21:04 | NUR ---
MS/TELE/RN NO CHANGE IN CONDITION. ENDORSED TO JAQUELINE RIGGINS, FOR CONTINUITY OF CARE.
[2021-10-30] MEDS: TAMSULOSIN 0.4 MG CAP.SR.24H PO SCH (21:55)
[2021-10-31 08:00] VITALS: BP 109/75
[2021-10-31] MEDS: HYDROCHLOROTHIAZIDE PO SCH ×2 (08:16→16:01)
[2021-10-31] MEDS: LOSARTAN PO SCH ×2 (08:16→16:01)
[2021-10-31] MEDS: ATENOLOL 50 MG PO SCH (08:16)
[2021-10-31] MEDS: SENNOSIDES 8.6 MG TABLET PO SCH ×2 (08:17→22:01)
[2021-10-31] MEDS: INVEST MED Kar XT OR PLACEBO 50/20 MG PO SCH ×2 (10:02→21:59)
[2021-10-31 16:00] VITALS: BP 100/71
--- NOTE | 2021-10-31 18:17 | NUR ---
MS RN CLOSING NOTES PATIENT RESTING IN HIS BED AT THIS TIME. A/O X4. ABLE TO MAKE NEEDS KNOWN. NO C/O PAIN OR DISCOMFORTS VOICED DURING SHIFT. DENIES VISUAL AND AUDITORY HALLUCINATIONS. PT IS AMBULATORY. ON ROOM AIR, BREATHING EVEN AND UNLABORED. INVESTIGATIONAL MEDICATION GIVEN AND TOLERATED WITH NO S/S OF ADVERSE REACTIONS NOTED. BED IN LOWEST LOCKED POSITION WITH SR-UP X2. CALL LIGHT WITHIN REACH. WILL ENDORSE ON COMING SHIFT
--- NOTE | 2021-10-31 19:30 | NUR ---
MS RN OPENING NOTES PATIENT RESTING IN HIS BED AT THIS TIME. A/O X4. ABLE TO MAKE NEEDS KNOWN. DENIES VISUAL AND AUDITORY HALLUCINATIONS. PT IS AMBULATORY. ON ROOM AIR, BREATHING EVEN AND UNLABORED. INVESTIGATIONAL MEDICATION GIVEN AND TOLERATED WELL. PER PT WOULD LIKE TO GET EYE DROPS FOR RED EYES TOMORROW WILL ENDORSE TO DAY SHIFT NURSE. BED IN LOWEST LOCKED POSITION WITH SR-UP X2. CALL LIGHT WITHIN REACH. WILL CONTINUE TO MONITOR.
[2021-10-31 20:00] VITALS: BP 127/81
[2021-10-31] MEDS: TAMSULOSIN 0.4 MG CAP.SR.24H PO SCH (22:01)
--- NOTE | 2021-11-01 06:42 | NUR ---
MS RN CLOSING NOTES PATIENT RESTING IN HIS BED AT THIS TIME. A/O X4. ABLE TO MAKE NEEDS KNOWN. DENIES VISUAL AND AUDITORY HALLUCINATIONS. PT IS AMBULATORY. ON ROOM AIR, BREATHING EVEN AND UNLABORED. INVESTIGATIONAL MEDICATION GIVEN AND TOLERATED WELL. PER PT WOULD LIKE TO GET EYE DROPS FOR RED EYES TODAY WILL ENDORSE TO DAY SHIFT NURSE. BED IN LOWEST LOCKED POSITION WITH SR-UP X2. CALL LIGHT WITHIN REACH. WILL ENDORSE CARE TO DAY SHIFT.
[2021-11-01] MEDS: SENNOSIDES 8.6 MG TABLET PO SCH ×2 (08:37→21:59)
[2021-11-01] MEDS: LOSARTAN PO SCH (08:37)
[2021-11-01] MEDS: HYDROCHLOROTHIAZIDE PO SCH ×2 (08:37→16:05)
[2021-11-01] MEDS: ATENOLOL 50 MG PO SCH (08:37)
[2021-11-01] MEDS: INVEST MED Kar XT OR PLACEBO 50/20 MG PO SCH ×2 (09:50→22:00)
--- NOTE | 2021-11-01 11:46 | NUR ---
RN NOTE PATIENT COMPLAINED OF ITCHY WATERY EYES, NOTIFIED GAVE NEW ORDER FOR ARTIFICIAL TEARS
[2021-11-01] MEDS ORDERED: POLYVINYL ALCOHOL 15 ML BOTTLE EACHEYE PRN (12:00)
[2021-11-01] MEDS: LOSARTAN POTASSIUM 50 MG TABLET PO SCH (16:05)
[2021-11-01] MEDS: IBUPROFEN 200 MG TABLET PO PRN (18:27)
--- NOTE | 2021-11-01 19:30 | NUR ---
RN OPENING NOTES RECEIVED PT IN BED, AWAKE, WATCHING TV. AOx4, ABLE TO MAKE NEEDS KNOWN. ON RA AND TOLERATING WELL. NO SOB NOTED. NO S/SX OF RESPIRATORY DISTRESS NOTED. CLINICAL TRIAL PATIENT WITH NO IV ACCESS PRESENT. SAFETY PRECAUTIONS IN PLACE: BED IN LOWEST, LOCKED POSITION, SIDERAILS UPx2, AND BRAKES ON. TABLE AND CALL LIGHT WITHIN REACH. WILL CONTINUE TO MONITOR.
[2021-11-01 20:00] VITALS: BP 123/90
[2021-11-01] MEDS: TAMSULOSIN 0.4 MG CAP.SR.24H PO SCH (21:59)
[2021-11-02 04:00] VITALS: BP 115/84
--- NOTE | 2021-11-02 06:43 | NUR ---
RN CLOSING NOTES PT IN BED, AWAKE. AOx4, ABLE TO MAKE NEEDS KNOWN. ON RA AND TOLERATING WELL. NO SOB NOTED. NO S/SX OF RESPIRATORY DISTRESS NOTED. CLINICAL TRIAL PATIENT WITH NO IV ACCESS PRESENT. INVESTIGATIONAL MEDICATION ADMINISTERED ON TIME. ALL NEEDS MET. PT KEPT CLEAN AND DRY. SAFETY PRECAUTIONS IN PLACE: BED IN LOWEST, LOCKED POSITION, SIDERAILS UPx2, AND BRAKES ON. TABLE AND CALL LIGHT WITHIN REACH. WILL ENDORSE TO ONCOMING SHIFT FOR ULICES.
[2021-11-02 08:00] VITALS: BP 121/78
--- NOTE | 2021-11-02 08:00 | NUR ---
RN OPENING NOTE PATIENT IN BED RESTING, AWAKE, A/O X4, NO S/S OF PAIN NOTED AT THIS TIME. ON ROOM AIR, NO DISTRESS OR SHORTNESS OF BREATH NOTED. NO IV ACCESS, CLINICAL TRIAL PATIENT. FALL AND SAFETY MEASURES IN PLACE, BED IN LOW AND LOCK POSITION, CALL LIGHT AND TABLE WITHIN EASY REACH, SIDE RAILS UP X2. WILL CONTINUE TO MONITOR.
[2021-11-02] MEDS: HYDROCHLOROTHIAZIDE PO SCH ×2 (09:30→17:37)
[2021-11-02] MEDS: ATENOLOL 50 MG PO SCH (09:31)
[2021-11-02] MEDS: SENNOSIDES 8.6 MG TABLET PO SCH ×2 (09:31→20:12)
[2021-11-02] MEDS: LOSARTAN POTASSIUM 50 MG TABLET PO SCH ×2 (09:31→17:38)
[2021-11-02] MEDS: INVEST MED Kar XT OR PLACEBO 50/20 MG PO SCH ×2 (09:32→21:31)
[2021-11-02 16:00] VITALS: BP 122/98
[2021-11-02] MEDS: ACETAMINOPHEN ES 500 MG TABLET PO PRN (16:08)
--- NOTE | 2021-11-02 18:50 | NUR ---
RN CLOSING NOTE PATIENT IN BED RESTING, AWAKE, A/O X4, NO S/S OF PAIN NOTED AT THIS TIME. ON ROOM AIR, NO DISTRESS OR SHORTNESS OF BREATH NOTED. NO IV ACCESS, CLINICAL TRIAL PATIENT. ALL SCHEDULE MEDICATIONS ADMINISTERED. FALL AND SAFETY MEASURES IN PLACE, BED IN LOW AND LOCK POSITION, CALL LIGHT AND TABLE WITHIN EASY REACH, SIDE RAILS UP X2. WILL ENDORSE TO PILOT.
--- NOTE | 2021-11-02 19:15 | NUR ---
MS RN OPENING NOTES: RECEIVED PATIENT RESTING IN BED, AWAKE, TALKING TO HIS ROOMMATE. NO S/S OF DISTRESS NOTED. NO COMPLAIN OF PAIN. CALL LIGHT WITHIN REACH. BED IN LOWEST AND LOCKED POSITION.
[2021-11-02 20:00] VITALS: BP 115/84
[2021-11-02] MEDS: IBUPROFEN 200 MG TABLET PO PRN (20:13)
[2021-11-02] MEDS: TAMSULOSIN 0.4 MG CAP.SR.24H PO SCH (21:31)
--- NOTE | 2021-11-03 07:00 | NUR ---
MS RN OPENING NOTES PATIENT A/O X 4, AMBULATORY WITH STEADY GAIT, TOLERATING WELL ON ROOM AIR WITH NO S/S OF RESPIRATORY DISTRESS. NO COMPLAINTS OF PAIN OR DISCOMFORT AT THIS TIME. SAFETY MEASURES IN PLACE: BED IN LOWEST LOCKED POSITION, SIDE RAILS UP X 2, CALL LIGHT WITHIN REACH. WILL CONTINUE TO MONITOR.
[2021-11-03 08:00] VITALS: BP 119/83
[2021-11-03] MEDS: SENNOSIDES 8.6 MG TABLET PO SCH ×2 (08:59→21:07)
[2021-11-03] MEDS: LOSARTAN POTASSIUM 50 MG TABLET PO SCH ×2 (08:59→16:58)
[2021-11-03 09:00] VITALS: BP 120/97
[2021-11-03] MEDS: ATENOLOL 50 MG PO SCH ×2 (09:00→09:47)
[2021-11-03] MEDS: HYDROCHLOROTHIAZIDE PO SCH ×3 (09:00→16:58)
[2021-11-03] MEDS: INVEST MED Kar XT OR PLACEBO 50/20 MG PO SCH ×2 (09:47→21:08)
[2021-11-03 16:16] VITALS: BP 109/58
[2021-11-03] MEDS: ACETAMINOPHEN ES 500 MG TABLET PO PRN ×2 (17:01→21:07)
--- NOTE | 2021-11-03 17:04 | NUR ---
MS RN NOTES PATIENT COMPLAINT OF 3/10 LOWER BACK PAIN AND REQUESTING PAIN MEDICATION. PRN TYLENOL 1000 MG PO ADMINISTERED ORDERED. WILL CONTINUE TO MONITOR FOR S/S OF PAIN.
--- NOTE | 2021-11-03 19:00 | NUR ---
MS RN CLOSING NOTE PATIENT A/O X 4, AMBULATORY WITH STEADY GAIT, TOLERATING WELL ON ROOM AIR WITH NO S/S OF RESPIRATORY DISTRESS. NO COMPLAINTS OF PAIN OR DISCOMFORT AT THIS TIME. SAFETY MEASURES IN PLACE: BED IN LOWEST LOCKED POSITION, SIDE RAILS UP X 2, CALL LIGHT WITHIN REACH. WILL ENDORSE TO SEWING MACHINE ATTACHMENT TESTER FOR ULICES.
--- NOTE | 2021-11-03 19:40 | NUR ---
MS RN OPENING NOTES PATIENT RECEIVED LEAVING UNIT TO GO SMOKE, PER MD HAS PERMISSION; PATIENT ALERT AND ORIENTED X4; BREATHING EVEN AND UNLABORED; TOLERATES ROOM AIR WELL; AMBULATORY WITH STEADY GAIT; PER MD ORDER, CONTINUE INVESTIGATIONAL DRUG IS, NO HOLDS ON ANY MEDICATIONS AT THIS TIME; SAFETY PRECAUTIONS IMPLEMENTED, BED LOCKED IN LOW POSITION; CALL LIGHT ON BED/WITHIN REACH; WILL CONT PLAN OF CARE AND CONT TO MONITOR FOR SAFETY AND BEHAVIOR
[2021-11-03 20:00] VITALS: BP 125/75
--- NOTE | 2021-11-03 21:04 | NUR ---
MS PARSONS NOTES PATIENT REQUESTING TYLENOL 1000MG FOR PAIN RELIEF. PER PROTOCOL PATIENT ALREADY HAD MED 1700, IT IS PRESCRIBED Q8HR PRN; PATIENT ADAMANT ON NEEDING PAIN MED FOR HIS PAIN. PATIENT OFFERED MOTRIN BUT PATIENT REFUSED IBUPROFEN; PATIENT WAS INFORMED MED IS NOT DUE. PATIENT CONSTANTLY CALLING FOR PAIN MEDICATION, CHARGE NURSE AWARE; PAIN MED GIVEN AND PATIENT WENT TO BED; WILL INFORM ONCOMING SHIFT. WILL CONT TO MONITOR Addendum: 11/04/21 at 321 by ANGELLA MCNEIL RN INCIDENT REPORT FILED. NURSE FROM PREVIOUS SHIFT DID NOT ENDORSE HE HAD JUST RECENTLY GIVEN PAIN MEDICATION; DID NOT REALIZE MEDICATION WAS ALREADY GIVEN DUE TO PATIENT BEING TOO ADAMANT. Addendum: 11/04/21 at 033 by ANGELLA MCNEIL RN PATIENT KEPT CALLING NURSING STATION, SPECIFICALLY ASKING FOR TYLENOL. CHARGE NURSE AWARE
[2021-11-03] MEDS: TAMSULOSIN 0.4 MG CAP.SR.24H PO SCH (21:25)
--- NOTE | 2021-11-04 04:51 | NUR ---
MS RN NOTES PATIENT UPSET, PATIENT IS IN PAIN AND WANTS TYLENOL AGAIN, PATIENT DOESN'T CARE FOR MOTRIN. PATIENT STATED, "THIS IS WHY I CANNOT FUCK YA'LL BECAUSE YOU GUYS CAN'T GIVE ME ANY PAIN MEDICATION WHEN I AM IN PAIN. PATIENT WAS RE-INFORMED AND RE-EDUCATED OF DR. REYNOSO. PATIENT UNABLE TO RECEIVE TYLENOL UNTIL LATER TODAY. PATIENT REALLY UPSET, SAID "FUCK OFF". PATIENT WALKED OUT OF ROOM AND LEFT UNIT FOR SOME AIR. PATIENT ALLOWED TO GO OUTSIDE, PER MD. CHARGE NURSE MADE AWARE, WILL CONT TO MONITOR
--- NOTE | 2021-11-04 05:03 | NUR ---
MS RN NOTES MADE MD AWARE OF PATIENT'S BEHAVIOR AND REQUEST IF POSSIBLE TO CHANGE ORDER FROM Q8 TO Q6. PATIENT STILL NOT BACK ON UNIT. CHARGE NURSE ALSO AWARE OF SITUATION, WILL CONT TO MONITOR
--- NOTE | 2021-11-04 05:07 | NUR ---
MS RN NOTES PATIENT BACK ON UNIT.
--- NOTE | 2021-11-04 05:13 | NUR ---
MS RN NOTES PATIENT VERY UPSET, PATIENT VERBALIZING HE WANTS TO LEAVE AMA DUE TO [facility]OPS NOT PROVIDING RELIEF FOR ITCHINESS/DRYNESS/REDNESS AND FOR HOSPITAL NOT BEING ABLE TO PROVIDE PAIN RELIEF WHEN HE IS IN PAIN. MD MADE AWARE; CHARGE NURSE AWARE. AWAITING FOR MD ORDERS, WILL CONT TO MONITOR
--- NOTE | 2021-11-04 05:35 | NUR ---
MS RN NOTES PATIENT SHOWERING AT THIS TIME
--- NOTE | 2021-11-04 06:36 | NUR ---
MS RN CLOSING NOTES PATIENT RESTING IN BED COMFORTABLY, BREATHING EVEN AND UNLABORED; NO SOB NOTED; TOLERATING ROOM AIR WELL; NO DISTRESS NOTED AT THIS TIME, NO PAIN NOTED AT THIS TIME; PATIENT AMBULATORY WITH STEADY GAIT, ABLE TO MAKE NEEDS KNOWN. A/OX4, PATIENT HAS A LOT OF CONCERNS, CHARGE NURSE IS AWARE; MD MADE AWARE, AWAITING FOR NEW ORDERS AND TO SPEAK WITH MD. WILL INFORM DAY SHIFT. PATIENT ALSO WANTS TO SPEAK TO MD IF POSSIBLE. PATIENT APOLOGIZED FOR PRIOR BEHAVIOR AND FOR YELLING/CURSING AT STAFF; ALL NEEDS RENDERED; SAFETY PRECAUTIONS IMPLEMENTED; BED LOCKED IN LOW POSITION; SIDE RAILSX2, CALL LIGHT WITHIN REACH; WILL ENDORSE ULICES TO ONCOMING SHIFT.
--- NOTE | 2021-11-04 07:00 | NUR ---
MS RN OPENING NOTES PATIENT RESTING IN BED, A/O X 4, TOLERATING WELL ON ROOM AIR WITH NO S/S RESPIRATORY DISTRESS. BREATHING EVEN AND UNLABORED WITH NO S/S OF PAIN OR DISCOMFORT AT THIS TIME. PATIENT AMBULATORY WITH STEADY GAIT. SAFETY MEASURES IN PLACE: BED IN LOWEST LOCKED POSITION, SIDE RAILS UP X 2, CALL LIGHT WITHIN REACH. WILL CONTINUE TO MONITOR.
--- NOTE | 2021-11-04 07:37 | NUR ---
RN NOTE GAVE NEW ORDER FOR TYLENOL Q4HRS PRN FOR PAIN
[2021-11-04 08:00] VITALS: BP 133/100
[2021-11-04] MEDS: HYDROCHLOROTHIAZIDE PO SCH ×2 (08:53→17:58)
[2021-11-04] MEDS: ATENOLOL 50 MG PO SCH (08:54)
[2021-11-04] MEDS: SENNOSIDES 8.6 MG TABLET PO SCH ×2 (08:54→21:27)
[2021-11-04] MEDS: LOSARTAN POTASSIUM 50 MG TABLET PO SCH ×2 (08:55→17:58)
[2021-11-04] MEDS: INVEST MED Kar XT OR PLACEBO 50/20 MG PO SCH ×2 (10:08→22:02)
[2021-11-04] MEDS: ACETAMINOPHEN ES 500 MG TABLET PO PRN (11:58)
--- NOTE | 2021-11-04 11:58 | NUR ---
MS RN NOTES PATIENT COMPLAINT OF 3/10 LOWER BACK PAIN AND REQUESTING MEDICATION. PRN TYLENOL 1000 MG PO ADMINISTERED ORDERED. WILL CONTINUE TO MONITOR S/S OF PAIN.
[2021-11-04 16:00] VITALS: BP 155/100
--- NOTE | 2021-11-04 19:00 | NUR ---
MS RN CLOSING NOTE PATIENT RESTING IN BED, A/O X 4, TOLERATING WELL ON ROOM AIR WITH NO S/S RESPIRATORY DISTRESS. BREATHING EVEN AND UNLABORED WITH NO S/S OF PAIN OR DISCOMFORT AT THIS TIME. PATIENT AMBULATORY WITH STEADY GAIT. SAFETY MEASURES IN PLACE: BED IN LOWEST LOCKED POSITION, SIDE RAILS UP X 2, CALL LIGHT WITHIN REACH. WILL ENDORSE TO PLUSH WEAVER FOR ULICES.
--- NOTE | 2021-11-04 19:35 | NUR ---
RN NOTES RECEIVED PATIENT AWAKE ON BED, A/OX4, AMBULATORY DENIES PAIN, NO SOB CALL [facility] WITHIN REACH, SIDERILSUPX2, WILL CONTINUE TO MONITOR
[2021-11-04 20:00] VITALS: BP_SYST 108; BP_SYST 129; BP_DIAS 85
[2021-11-04] MEDS: TAMSULOSIN 0.4 MG CAP.SR.24H PO SCH (21:29)
--- NOTE | 2021-11-05 06:02 | NUR ---
RN NOTES RECEIVED PATIENT AWAKE ON BED, A/OX4, AMBULATORY DENIES PAIN, NO SOB CALL [facility] WITHIN REACH, [id number], WILL CONTINUE TO MONITOR Addendum: 11/05/21 at 0604 by SHABANA LOPEZ RN WRONG TIME AND DATE
--- NOTE | 2021-11-05 06:04 | NUR ---
RN NOTES AWAKE, DENIES PAIN CLM AND COOPERATIVE, PT. NEEDS ATTENDED
--- NOTE | 2021-11-05 07:19 | NUR ---
MS RN OPENING NOTE RECEIVED PATIENT RESTING IN BED, A/O X 4. ON ROOM AIR, TOLERATING WELL. NO S/S OF PAIN OR DISCOMFORT AT THIS TIME. PATIENT UNDER INVESTIGATIONAL DRUG, UNDER DR. HE. PATIENT AMBULATORY WITH STEADY GAIT. SAFETY MEASURES IN PLACE: BED IN LOWEST LOCKED POSITION, SIDE RAILS UP X 2, CALL LIGHT WITHIN REACH. WILL CONTINUE TO MONITOR.
[2021-11-05 08:00] VITALS: BP 111/60
[2021-11-05] MEDS: ATENOLOL 50 MG PO SCH (08:48)
[2021-11-05] MEDS: HYDROCHLOROTHIAZIDE PO SCH ×2 (08:48→17:22)
[2021-11-05] MEDS: SENNOSIDES 8.6 MG TABLET PO SCH ×2 (08:48→21:20)
[2021-11-05] MEDS: LOSARTAN POTASSIUM 50 MG TABLET PO SCH ×2 (08:49→17:22)
[2021-11-05] MEDS: INVEST MED Kar XT OR PLACEBO 50/20 MG PO SCH ×2 (10:04→21:58)
--- NOTE | 2021-11-05 13:20 | NUR ---
MS RN NOTE VS WNL. PATIENT REMAINS STABLE WITH NO BEHAVIORAL PROBLEMS.
[2021-11-05 16:00] VITALS: BP 105/78
--- NOTE | 2021-11-05 18:54 | NUR ---
MS RN CLOSING NOTE PATIENT AWAKE, A/O X 4. ON ROOM AIR, TOLERATING WELL. NO S/S OF PAIN OR DISCOMFORT AT THIS TIME. PATIENT UNDER INVESTIGATIONAL DRUG, UNDER DR. HE. PATIENT AMBULATORY WITH STEADY GAIT. SAFETY MEASURES IN PLACE: BED IN LOWEST LOCKED POSITION, SIDE RAILS UP X 2, CALL LIGHT WITHIN REACH. NO BEHAVIORAL PROBLEM, EPS OR AKATHISIA DURING THE SHIFT. ENDORSED TO NEXT SHIFT FOR CONTINUITY OF CARE.
[2021-11-05 20:00] VITALS: BP 116/71
--- NOTE | 2021-11-05 20:13 | NUR ---
MS RN NOTES: RECEIVED PATIENT IN BED, A/O X3. APPROPRIATE AFFECT, CALM AND COOPERATIVE. DENIES A/V HALLUCINATIONS, DENIES SI/HI AT THIS TIME. NO S/S OF DISTRESS. RESPIRATION EVEN AND UNLABORED WITH EQUAL RISE AND FALL OF THE CHEST, ON ROOM AIR. OFFERED FLUID AND SNACKS TOLERATED. WILL CONTINUE TO MONITOR.
[2021-11-05 20:20] VITALS: BP 116/71
[2021-11-05] MEDS: TAMSULOSIN 0.4 MG CAP.SR.24H PO SCH (21:58)
--- NOTE | 2021-11-06 03:52 | NUR ---
MS RN NOTES: PATIENT REFUSED WEEKLY SKIN ASSESSMENT. PER PATIENT "MY SKIN IS OKAY".
--- NOTE | 2021-11-06 06:59 | NUR ---
GPS RN CLOSING NOTES: PATIENT IS CURRENTLY OUT OF THE UNIT FOR A SMOKE BREAK. COMPLIANT WITH MEDS THIS SHIFT. NO S/S OF DISTRESS NOTED. RESPIRATION EVEN AND UNLABORED WITH EQUAL RISE AND FALL OF THE CHEST, ON ROOM AIR. ALL PATIENT CARE NEEDS HAVE BEEN MET ANTICIPATED. WILL CONTINUE TO MONITOR AND ENDORSE TO AM SHIFT.
--- NOTE | 2021-11-06 07:47 | NUR ---
RN OPENING NOTE Patient sitting on bed, about to eat his breakfast. A/O x 4, able to make needs known. On room air, breathing evenly and unlabored. No SOB or s/s of distress noted. No IV access due to clinical trial status. Safety precautions in place: bed in low, locked position; siderails up x 2; call light within reach. Will continue to monitor.
[2021-11-06 08:00] VITALS: BP 129/85
[2021-11-06] MEDS: HYDROCHLOROTHIAZIDE PO SCH ×2 (09:10→17:06)
[2021-11-06] MEDS: ATENOLOL 50 MG PO SCH (09:10)
[2021-11-06] MEDS: LOSARTAN POTASSIUM 50 MG TABLET PO SCH ×2 (09:10→17:06)
[2021-11-06] MEDS: SENNOSIDES 8.6 MG TABLET PO SCH ×2 (09:10→21:04)
--- NOTE | 2021-11-06 10:01 | NUR ---
RN NOTE Patient not in his room, will wait for patient to come back to give his investigational drug.
--- NOTE | 2021-11-06 10:26 | NUR ---
RN NOTE Called patient to return to room for investigational drug, patient said he will return to room.
[2021-11-06] MEDS: INVEST MED Kar XT OR PLACEBO 50/20 MG PO SCH ×2 (10:46→21:04)
--- NOTE | 2021-11-06 10:46 | NUR ---
RN NOTE Patient just got back to his room, investigational drug given.
[2021-11-06] MEDS: MAG HYDROX/AL HYDROX/SIMETH 30 ML UDC PO PRN ×2 (12:26→21:08)
--- NOTE | 2021-11-06 12:26 | NUR ---
RN NOTE Patient complained of indigestion, PRN Maalox given. Will continue to monitor patient.
[2021-11-06 16:00] VITALS: BP 135/87
--- NOTE | 2021-11-06 18:54 | NUR ---
MS RN CLOSING NOTE Patient in bed, resting. A/O x 4, able to make needs known. Stable on room air, breathing evenly and unlabored. No SOB or s/s of distress noted. No IV access due to clinical trial status. No akathisia, tremors, or EPS noted. Patient reports to have visual and auditory hallucinations earlier today, but stated that hallucinations were not as much as before. Safety precautions maintained: bed in low, locked position; siderails up x 2; call light within reach. Will endorse to slot shift supervisor nurse for ULICES.
--- NOTE | 2021-11-06 19:35 | NUR ---
MS RN OPENING NOTES: RECEIVED PATIENT IN THE ROOM, AWAKE, A/O X4 NO S/S OF DISTRESS NOTED. NO COMPLAIN OF PAIN. CALL LIGHT WITHIN REACH. BED IN LOWEST AND LOCKED POSITION. REMINDED PATIENT NPO AFTER 2200, AND NO ATIVAN AND AMBIEN TONIGHT, PATIENT VERBALIZED UNDERSTANDING.
[2021-11-06 20:00] VITALS: BP 126/76
--- NOTE | 2021-11-06 20:10 | NUR ---
ANDREZ FERNANDEZ AWARE THAT PATIENT IS NPO AFTER 2200.
[2021-11-06] MEDS: TAMSULOSIN 0.4 MG CAP.SR.24H PO SCH (21:04)
--- NOTE | 2021-11-07 07:30 | NUR ---
RN MS NOTES PT IN BED, AWAKE, ALERT AND ORIENTED, NOT IN PAIN OR DISTRESS, AMBULATES IN THE ROOM WITH STEADY GAIT, CALL LIGHT WITHIN REACH.
[2021-11-07] MEDS: SENNOSIDES 8.6 MG TABLET PO SCH ×2 (09:00→21:39)
[2021-11-07] MEDS: HYDROCHLOROTHIAZIDE PO SCH ×2 (09:00→17:42)
[2021-11-07] MEDS: LOSARTAN POTASSIUM 50 MG TABLET PO SCH ×2 (09:00→17:42)
[2021-11-07] MEDS: ATENOLOL 50 MG PO SCH (09:00)
--- NOTE | 2021-11-07 09:30 | NUR ---
RN NOTES PT WAS PICKED UP FOR LAB DRAW, KEPT NPO.
--- NOTE | 2021-11-07 10:00 | NUR ---
RN NOTES INVESTIGATIONAL MED SCHEDULED AT 1000 NOT YET GIVEN, PT IS OUT FOR LAB DRAW.
[2021-11-07] MEDS: INVEST MED Kar XT OR PLACEBO 50/20 MG PO SCH ×2 (12:51→21:39)
[2021-11-07] MEDS ORDERED: LORAZEPAM 1 MG TABLET FOR AGITATION/ANXIETY PO PRN (13:00)
[2021-11-07] MEDS ORDERED: ZOLPIDEM TARTRATE 10 MG TABLET PO PRN (13:00)
--- NOTE | 2021-11-07 18:54 | NUR ---
RN NOTES PT IN HIS ROOM, NO COMPLAINT OF PAIN OR ANY DISCOMFORT, COMPLIANT WITH MEDS, NO BEHAVIOR PROBLEM AT THIS TIME.
--- NOTE | 2021-11-07 19:27 | NUR ---
MS RN OPENING NOTES PATIENT RECEIVED RESTING IN BED; PATIENT ALERT AND ORIENTED X4; BREATHING EVEN AND UNLABORED; TOLERATES ROOM AIR WELL; AMBULATORY WITH STEADY GAIT; PER MD, PT HAS PERMISSION TO LEAVE UNIT TO SMOKE BUT MUST USE SIGN IN AND SIGN OUT SHEET; PER MD ORDER, CONTINUE INVESTIGATIONAL DRUG IS, NO HOLDS ON ANY MEDICATIONS OR DIET AT THIS TIME; SAFETY PRECAUTIONS IMPLEMENTED, BED LOCKED IN LOW POSITION; CALL LIGHT ON BED/WITHIN REACH; WILL CONT PLAN OF CARE AND CONT TO MONITOR FOR SAFETY AND BEHAVIOR
[2021-11-07 20:00] VITALS: BP 109/70
[2021-11-07] MEDS: TAMSULOSIN 0.4 MG CAP.SR.24H PO SCH (21:39)
[2021-11-07] MEDS: MAG HYDROX/AL HYDROX/SIMETH 30 ML UDC PO PRN (21:44)
--- NOTE | 2021-11-08 06:45 | NUR ---
MS RN CLOSING NOTES PATIENT RESTING IN BED; PATIENT ALERT AND ORIENTED X4; BREATHING EVEN AND UNLABORED; TOLERATES ROOM AIR WELL; AMBULATORY WITH STEADY GAIT; PER MD, PT HAS PERMISSION TO LEAVE UNIT TO SMOKE BUT MUST USE SIGN IN AND SIGN OUT SHEET; PER MD ORDER, CONTINUE INVESTIGATIONAL DRUG IS, NO HOLDS ON ANY MEDICATIONS OR DIET AT THIS TIME; PT DENIES PAIN, NO DISTRESS NOTED; NO IV SITE, MD AWARE; ALL NEEDS RENDERED; SAFETY PRECAUTIONS IMPLEMENTED, BED LOCKED IN LOW POSITION; CALL LIGHT ON BED/WITHIN REACH; WILL ENDORSE CONTINUITY OF CARE TO ONCOMING SHIFT
--- NOTE | 2021-11-08 07:30 | NUR ---
RN MS NOTES PT IN BED, AWAKE, ALERT AND ORIENTED, EATING BREAKFAST, NO COMPLAINT OF PAIN AT THIS TIME, RESPIRATIONS NORMAL, AMBULATES WITH STEADY GAIT, CALL LIGHT WITHIN REACH, NEEDS ATTENDED.
[2021-11-08 08:00] VITALS: BP 109/74
[2021-11-08] MEDS: LOSARTAN POTASSIUM 50 MG TABLET PO SCH ×2 (09:33→17:13)
[2021-11-08] MEDS: SENNOSIDES 8.6 MG TABLET PO SCH ×2 (09:33→20:23)
[2021-11-08] MEDS: HYDROCHLOROTHIAZIDE PO SCH ×2 (09:34→17:12)
[2021-11-08] MEDS: ATENOLOL 50 MG PO SCH (09:34)
[2021-11-08] MEDS: INVEST MED Kar XT OR PLACEBO 50/20 MG PO SCH ×2 (10:00→22:01)
[2021-11-08 16:00] VITALS: BP 110/64
--- NOTE | 2021-11-08 17:30 | NUR ---
RN MS NOTES PT IN HIS ROOM, AWAKE, ALERT AND ORIENTED, EATING DINNER, NO COMPLAINT OF PAIN, NOT IN DISTRESS, PM MEDS GIVEN ORDERED, COMPLIANT WITH CARE, NO BEHAVIOR PROBLEM NOTED.
--- NOTE | 2021-11-08 19:40 | NUR ---
Patient is on unit A&Ox4. Denies side effects of investigational meds though does report constipation. Will give routine senna and prune juice and check back. No behavioral issues at this time. Will continue with plan of care.
[2021-11-08 20:00] VITALS: BP 117/69
[2021-11-08] MEDS: BISACODYL SUPP (10 MG) 10 MG/SUPP.RECT SUPP.RECT RC PRN (20:30)
--- NOTE | 2021-11-08 21:00 | NUR ---
Patient reports not having BM in 2.5 days requests suppository. Given as per order. Taught patient the correct way to self administer. Patient verbalized understanding and taught back. Will reassess if effective.
[2021-11-08] MEDS: TAMSULOSIN 0.4 MG CAP.SR.24H PO SCH (22:01)
--- NOTE | 2021-11-09 06:18 | NUR ---
RN CLOSING NOTES Patient is A&Ox4. Woke up early to smoke outside at 0430. Patient reports still unable to have BM. Patient states he usually has his BMs after breakfast. Advised patient to wait until after breakfast and if no BM by lunch follow up with AM staff. Educated pt. that staying hydrated helps especially warm water. No behaviors overnight. Patient currently laying in bed awake. Denies needs at this time.
--- NOTE | 2021-11-09 07:40 | NUR ---
RN OPENING NOTE PATIENT RECEIVED, AO X 4, ABLE TO RESPONDS ALL STIMULI. IN NO ACUTE DISTRESS NOTED. RESPIRATORY EVEN AND UNLABORED ON ROOM. SKIN IS WARM TO TOUCH, KEEP CLEAN/DRY, INTACT IV SITE. KEPT ELEVATED HOB FOR ENSURE AIRWAY AND ASPIRATION PRECAUTION, ALSO LOWEST POSITION OF THE BED, S/R UP X 2, ALL SAFETY PRECAUTION APPLIED. CALL LIGHT WITHIN REACH, WILL CONTINUE TO MONITOR.
[2021-11-09] MEDS: HYDROCHLOROTHIAZIDE PO SCH ×2 (09:18→18:36)
[2021-11-09] MEDS: ATENOLOL 50 MG PO SCH (09:18)
[2021-11-09] MEDS: BISACODYL SUPP (10 MG) 10 MG/SUPP.RECT SUPP.RECT RC PRN (09:18)
[2021-11-09] MEDS: LOSARTAN POTASSIUM 50 MG TABLET PO SCH ×2 (09:19→18:37)
[2021-11-09] MEDS: SENNOSIDES 8.6 MG TABLET PO SCH ×2 (09:19→21:03)
[2021-11-09] MEDS: INVEST MED Kar XT OR PLACEBO 50/20 MG PO SCH ×2 (09:57→21:58)
--- NOTE | 2021-11-09 17:42 | NUR ---
RN CLOSE NOTE PATIENT IN BED, IN NO ACUTE DISTRESS OBSERVED. RESPIRATION EVEN AND UNLABORED ON ROOM AIR. SKIN IS WARM TO TOUCH KEEP CLEAN//DRY, INTACT IV SITE, ORAL CARE PROVIDED. KEPT ELEVATED HOB FOR ENSURE AIRWAY AND ASPIRATION PRECAUTION. ALSO LOWEST POSITION OF THE BED FOR SAFETY. CALL LIGHT WITHIN REACH, WILL ENDORSE TO MAINTENANCE ASSOCIATE.
[2021-11-09 20:00] VITALS: BP 130/84
--- NOTE | 2021-11-09 20:55 | NUR ---
RN NOTES RECEIVED PATIENT AWAKE ON BED, A/OX4, AMBULATORY CALM AND COOPERATIVE, NOT IN DISTRESS, DENIES PAIN, CALL LIGHT WITHIN REACH, SIDERAILSUPX2, WILL CONTINUE TO MONITOR Addendum: 11/09/21 at 2055 by SHABANA LOPEZ RN RIGHT TIME 1999
[2021-11-09] MEDS: TAMSULOSIN 0.4 MG CAP.SR.24H PO SCH (21:03)
--- NOTE | 2021-11-10 06:43 | NUR ---
RN NOTES AWAKE, NOT IN DISTRESS, NO PAIN NOTED, MORNING CARE RENDERED
--- NOTE | 2021-11-10 07:34 | NUR ---
RN OPENING NOTE PATIENT RECEIVED IN BED, AO X 4, ABLE TO RESPONDS ALL STIMULI. IN NO ACUTE DISTRESS NOTED. RESPIRATORY EVEN AND UNLABORED ON ROOM. SKIN IS WARM TO TOUCH, KEEP CLEAN/DRY. KEPT ELEVATED HOB FOR ENSURE AIRWAY AND ASPIRATION PRECAUTION, ALSO LOWEST POSITION OF THE BED, S/R UP X 2, ALL SAFETY PRECAUTION APPLIED. CALL LIGHT WITHIN REACH, WILL CONTINUE TO MONITOR.
[2021-11-10 08:21] VITALS: BP 107/65
[2021-11-10] MEDS: HYDROCHLOROTHIAZIDE PO SCH ×2 (09:00→17:09)
[2021-11-10] MEDS: LOSARTAN POTASSIUM 50 MG TABLET PO SCH ×2 (09:00→17:11)
[2021-11-10] MEDS: ATENOLOL 50 MG PO SCH ×2 (09:00→17:09)
[2021-11-10] MEDS: SENNOSIDES 8.6 MG TABLET PO SCH ×2 (09:49→21:24)
[2021-11-10] MEDS: INVEST MED Kar XT OR PLACEBO 50/20 MG PO SCH ×2 (10:00→21:25)
[2021-11-10 16:33] VITALS: BP 126/62
--- NOTE | 2021-11-10 18:29 | NUR ---
RN CLOSE NOTE PATIENT REMANS AO X4, IN NO ACUTE DISTRESS OBSERVED. RESPIRATION EVEN AND UNLABORED ON ROOM AIR. SKIN IS WARM TO TOUCH KEEP CLEAN//DRY. KEPT ELEVATED HOB FOR ENSURE AIRWAY AND ASPIRATION PRECAUTION. ALSO LOWEST POSITION OF THE BED FOR SAFETY. CALL LIGHT WITHIN REACH, WILL ENDORSE TO SLP TEACHER.
--- NOTE | 2021-11-10 19:37 | NUR ---
RN OPENING NOTE PATIENT HAS SIGNED OUT FOR A CIGARETTE BREAK UPON COMING ON SHIFT. PER DAY SHIFT NURSE, PATIENT A/OX4. NO S/S OF DISTRESS. NO IV ACCESS PATIENT IS HERE FOR A CLINICAL TRIAL. SAFETY MEASURES IN PLACE: BED AT LOWEST POSITION, LOCKED, RAILS UP X2, CALL MICHELLE ON BED AND THEREFORE WITHIN REACH UPON PATIENT'S RETURN. WILL CONTINUE TO MONITOR PATIENT THROUGHOUT SHIFT.
[2021-11-10 20:18] VITALS: BP 114/67
[2021-11-10] MEDS: ACETAMINOPHEN ES 500 MG TABLET PO PRN (20:29)
[2021-11-10] MEDS: TAMSULOSIN 0.4 MG CAP.SR.24H PO SCH (21:25)
--- NOTE | 2021-11-11 06:55 | NUR ---
RN CLOSING NOTE PATIENT ASLEEP IN BED. A/OX4. NO S/S OF DISTRESS; BREATHING ON RM AIR W/O DIFFICULTY. NO IV ACCESS PATIENT IS HERE FOR A CLINICAL TRIAL. SAFETY MEASURES IN PLACE: BED AT LOWEST POSITION, LOCKED, RAILS UP X2, CALL MICHELLE ON BED AND THEREFORE WITHIN REACH UPON PATIENT'S RETURN. WILL ENDORSE TO NEXT SHIFT FOR ULICES.
--- NOTE | 2021-11-11 07:35 | NUR ---
RN OPENING NOTE PATIENT ASLEEP IN BED. A/OX4. NO S/S OF DISTRESS; BREATHING ON RM AIR W/O DIFFICULTY. NO IV ACCESS PATIENT IS HERE FOR A CLINICAL TRIAL. SAFETY MEASURES IN PLACE: BED AT LOWEST POSITION, LOCKED, RAILS UP X2, CALL MICHELLE ON BED AND THEREFORE WITHIN REACH UPON PATIENT'S RETURN. WILL CONTINUE TO MONITOR.
[2021-11-11 08:00] VITALS: BP 113/77
[2021-11-11] MEDS: SENNOSIDES 8.6 MG TABLET PO SCH ×2 (08:33→22:00)
[2021-11-11] MEDS: LOSARTAN POTASSIUM 50 MG TABLET PO SCH ×2 (08:33→17:00)
[2021-11-11] MEDS: HYDROCHLOROTHIAZIDE PO SCH ×2 (08:33→17:00)
[2021-11-11] MEDS: INVEST MED Kar XT OR PLACEBO 50/20 MG PO SCH ×2 (10:25→22:00)
[2021-11-11 16:00] VITALS: BP 127/75
--- NOTE | 2021-11-11 19:06 | NUR ---
RN CLOSING NOTE PATIENT WENT OUT AND HE HAVEN'T BEEN BACK FOR MORE THAN 2 HOURS. A/OX4. NO S/S OF DISTRESS; BREATHING ON RM AIR W/O DIFFICULTY. NO IV ACCESS PATIENT IS HERE FOR A CLINICAL TRIAL. SAFETY MEASURES IN PLACE: BED AT LOWEST POSITION, LOCKED, RAILS UP X2, CALL MICHELLE ON BED AND THEREFORE WITHIN REACH UPON PATIENT'S RETURN. WILL ENDORSE TO NEXT SHIFT FOR ULICES.
--- NOTE | 2021-11-11 19:15 | NUR ---
RN OPENING NOTES RECEIVED PATIENT LAYING AWAKE IN BED. A/0 X4. PATIENT WITH REGULAR AND UNLABORED BREATHING ON ROOM AIR , TOLERATED WELL. NO SIGNS AND SYMPTOMS OF DISTRESS NOTED AT THIS TIME. NO COMPLAINS OF PAIN OR DISCOMFORT AT THIS TIME. SAFETY PRECAUTIONS ENFORCED WITH BED LOCKED AND AT LOWEST POSITION. CALL LIGHT WITHIN REACH AT ALL TIMES. WILL CONTINUE TO MONITOR PATIENT.
[2021-11-11 20:00] VITALS: BP 106/63
[2021-11-11] MEDS: TAMSULOSIN 0.4 MG CAP.SR.24H PO SCH (22:00)
--- NOTE | 2021-11-12 06:42 | NUR ---
RN CLOSING NOTES PATIENT STILL LAYING AWAKE IN BED. A/0 X4. PATIENT WITH REGULAR AND UNLABORED BREATHING ON ROOM AIR , TOLERATED WELL. NO SIGNS AND SYMPTOMS OF DISTRESS NOTED AT THIS TIME. NO COMPLAINS OF PAIN OR DISCOMFORT AT THIS TIME. SAFETY PRECAUTIONS ENFORCED WITH BED LOCKED AND AT LOWEST POSITION. CALL LIGHT WITHIN REACH AT ALL TIMES. WILL ENDORSE CONTINUITY OF CARE TO DAY SHIFT NURSE.
--- NOTE | 2021-11-12 07:50 | NUR ---
MS RN OPENING NOTE Patient sitting on bed, about to eat his breakfast. A/O x 4, able to make needs known. On room air, breathing evenly and unlabored. No SOB or s/s of distress noted. No IV access due to clinical trial status. No complains of any pain or discomfort at this time. Safety precautions in place: bed in low, locked position; siderails up x 2; call light within reach. Will continue to monitor.
[2021-11-12 08:00] VITALS: BP 137/90
[2021-11-12] MEDS: LOSARTAN POTASSIUM 50 MG TABLET PO SCH ×2 (08:33→16:42)
[2021-11-12] MEDS: ATENOLOL 50 MG PO SCH (08:34)
[2021-11-12] MEDS: SENNOSIDES 8.6 MG TABLET PO SCH ×2 (08:34→21:50)
[2021-11-12] MEDS: HYDROCHLOROTHIAZIDE PO SCH ×2 (08:34→16:41)
[2021-11-12] MEDS: INVEST MED Kar XT OR PLACEBO 50/20 MG PO SCH ×2 (09:57→22:01)
[2021-11-12 16:00] VITALS: BP 144/92
--- NOTE | 2021-11-12 18:52 | NUR ---
MS RN CLOSING NOTE Patient in bed, awake. A/O x 4, able to make needs known. stable on room air, breathing evenly and unlabored. No SOB or s/s of distress noted. No IV access due to clinical trial status. No akathisia, tremors or EPS noted. Safety precautions maintained: bed in low, locked position; siderails up x 2; call light within reach. Will endorse to cow trimmer nurse for ULICES.
[2021-11-12 20:00] VITALS: BP 126/85
[2021-11-12] MEDS: TAMSULOSIN 0.4 MG CAP.SR.24H PO SCH (21:50)
--- NOTE | 2021-11-13 07:31 | NUR ---
MS RN OPENING NOTES RECEIVED PATIENT RESTING IN BED. A/OX4. ON ROOM AIR, NO S/S OF DISTRESS NOTED, BREATHING EVEN AND UNLABORED. NO IV ACCESS PER CLINICAL TRIAL PROTOCOL. SAFETY MEASURES IN PLACE: BED AT LOWEST LOCKED POSITION, SIDE RAILS UP X2, CALL MICHELLE W/I EASY REACH. WILL CONTINUE TO MONITOR.
[2021-11-13 08:00] VITALS: BP 117/69
[2021-11-13] MEDS: ATENOLOL 50 MG PO SCH (10:00)
[2021-11-13] MEDS: HYDROCHLOROTHIAZIDE PO SCH ×2 (10:01→16:39)
[2021-11-13] MEDS: INVEST MED Kar XT OR PLACEBO 50/20 MG PO SCH ×2 (10:01→22:00)
[2021-11-13] MEDS: SENNOSIDES 8.6 MG TABLET PO SCH ×2 (10:03→21:45)
[2021-11-13] MEDS: LOSARTAN POTASSIUM 50 MG TABLET PO SCH ×2 (10:08→16:41)
--- NOTE | 2021-11-13 18:22 | NUR ---
MS RN CLOSING NOTE PATIENT RESTING IN BED AT THIS TIME. A/O X4. ABLE TO MAKE NEEDS KNOWN. AMBULATORY WITH STEADY GAIT. ON ROOM AIR, TOLERATING WELL, BREATHING EVEN AND UNLABORED, NO SOB NOTED DURING SHIFT. NO IV ACCESS PER CLINICAL TRIAL POLICY. NO AKATHISIA, TREMORS OR EPS NOTED DURING SHIFT. SAFETY MEASURES IN PLACE: BED AT LOWEST POSITION, LOCKED, RAILS UP X2, CALL MICHELLE ON BED AND THEREFORE WITHIN REACH UPON PATIENT'S RETURN. WILL ENDORSE ULICES TO BUSINESS TRANSFORMATION CONSULTANT NURSE.
--- NOTE | 2021-11-13 19:45 | NUR ---
MS RN OPENING NOTE RECEIVED PATIENT IN BED WATCHING TV. A/OX4. NO S/S OF APPARENT DISTRESS IN ROOM AIR. NO S/O PAIN. NOT EXHIBITING S/S OF ANY PSYCH INSTABILITY, AKATHISIA, TREMORS. NO IV ACCESS PATIENT IS CLINICAL TRIAL. REMINDED OF 2200 MEDICATIONS. WILL CONTINUE WITH PATIENT'S CARE PLAN.
[2021-11-13 20:00] VITALS: BP 91/56
--- NOTE | 2021-11-13 21:08 | NUR ---
MS RN NOTE PATIENT NOT IN ROOM AT THIS TIME.
[2021-11-13] MEDS: TAMSULOSIN 0.4 MG CAP.SR.24H PO SCH (21:45)
--- NOTE | 2021-11-14 07:30 | NUR ---
MS RN OPENING NOTE RECEIVED PATIENT IN BED WATCHING TV. A/OX4. NO S/S OF APPARENT DISTRESS IN ROOM AIR. NO S/O PAIN. NOT EXHIBITING S/S OF ANY PSYCH INSTABILITY, AKATHISIA, TREMORS. NO IV ACCESS SAFETY MEASURES IN PLACED. PATIENT IS CLINICAL TRIAL. WILL CONTINUE TO MONITOR
[2021-11-14 08:00] VITALS: BP 122/73
[2021-11-14] MEDS: ATENOLOL 50 MG PO SCH (08:56)
[2021-11-14] MEDS: HYDROCHLOROTHIAZIDE PO SCH ×2 (08:56→16:40)
[2021-11-14] MEDS: SENNOSIDES 8.6 MG TABLET PO SCH ×2 (08:57→21:32)
[2021-11-14] MEDS: LOSARTAN POTASSIUM 50 MG TABLET PO SCH ×2 (08:57→16:39)
[2021-11-14] MEDS: INVEST MED Kar XT OR PLACEBO 50/20 MG PO SCH ×2 (10:03→22:00)
[2021-11-14 16:00] VITALS: BP 128/79
--- NOTE | 2021-11-14 18:43 | NUR ---
MS RN CLOSING NOTE RECEIVED PATIENT IN BED WATCHING TV. A/OX4. NO S/S OF APPARENT DISTRESS IN ROOM AIR. NO S/O PAIN. NOT EXHIBITING S/S OF ANY PSYCH INSTABILITY, AKATHISIA, TREMORS. NO IV ACCESS SAFETY MEASURES IN PLACED. PATIENT IS CLINICAL TRIAL. WILL ENDORSE TO ONCOMING PM SHIFT FOR ULICES
--- NOTE | 2021-11-14 19:45 | NUR ---
MS RN OPENING NOTE PATIENT WENT DOWN DURING CHANGE OF SHIFT REPORT. REMINDED OF HIS 2200 MEDICATION. PATIENT ACKNOWLEDGED.
[2021-11-14 20:00] VITALS: BP 83/59
[2021-11-14] MEDS: TAMSULOSIN 0.4 MG CAP.SR.24H PO SCH (21:32)
--- NOTE | 2021-11-15 06:55 | NUR ---
MS RN CLOSING NOTE WANT DOWN BEFORE ULICES REPORT. MADE PATIENT SIGNED ON SIGNING SHEET.
--- NOTE | 2021-11-15 07:35 | NUR ---
MS RN OPENING NOTES RECEIVED PATIENT IN HIS ROOM STANDING. A/OX4. ABLE TO MAKE NEEDS KNOWN, DENIES PAIN OR ANY DISCOMFORTS AT THIS TIME. ON ROOM AIR, NO S/S OF DISTRESS NOTED, BREATHING EVEN AND UNLABORED. NO IV ACCESS PER CLINICAL TRIAL PROTOCOL. SAFETY MEASURES IN PLACED. CALL LIGHT W/I EASY REACH OF PT. WILL CONTINUE TO MONITOR.
[2021-11-15 08:00] VITALS: BP 98/72
[2021-11-15] MEDS: LOSARTAN POTASSIUM 50 MG TABLET PO SCH ×2 (09:00→17:19)
[2021-11-15] MEDS: HYDROCHLOROTHIAZIDE PO SCH ×2 (09:00→17:17)
[2021-11-15] MEDS: ATENOLOL 50 MG PO SCH (09:00)
[2021-11-15] MEDS: SENNOSIDES 8.6 MG TABLET PO SCH ×2 (09:35→21:15)
[2021-11-15] MEDS: INVEST MED Kar XT OR PLACEBO 50/20 MG PO SCH ×2 (09:57→22:03)
[2021-11-15 16:00] VITALS: BP 129/75
--- NOTE | 2021-11-15 18:54 | NUR ---
MS RN CLOSING NOTE PATIENT IN BED CHATTING WITH HIS ROOM MATE. A/O X4. ABLE TO MAKE NEEDS KNOWN. AMBULATORY WITH STEADY GAIT. ON ROOM AIR, TOLERATING WELL, BREATHING EVEN AND UNLABORED, NO SOB NOTED DURING SHIFT. NO IV ACCESS PER CLINICAL TRIAL POLICY. NO AKATHISIA, TREMORS OR EPS NOTED DURING SHIFT. NO BEHAVIORAL PROBLEM NOTED THIS SHIFT. SAFETY MEASURES IN PLACE. CALL LIGHT W/I REACH. 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
[2021-11-15 20:00] VITALS: BP 108/69
[2021-11-15] MEDS: TAMSULOSIN 0.4 MG CAP.SR.24H PO SCH (22:03)
--- NOTE | 2021-11-16 08:00 | NUR ---
RN NOTES AMBULATORY W/ STEADY GAIT; CONTINUES ON CT, NO ADVERSE CHANGE NOTED. SAFETY MEASURES IN PLACE. WILL CONTINUE TO MONITOR.
[2021-11-16] MEDS: ATENOLOL 50 MG PO SCH (08:53)
[2021-11-16] MEDS: SENNOSIDES 8.6 MG TABLET PO SCH ×2 (08:54→21:53)
[2021-11-16] MEDS: HYDROCHLOROTHIAZIDE PO SCH ×2 (08:54→16:28)
[2021-11-16] MEDS: LOSARTAN POTASSIUM 50 MG TABLET PO SCH ×2 (08:54→16:28)
[2021-11-16] MEDS: INVEST MED Kar XT OR PLACEBO 50/20 MG PO SCH ×2 (10:00→22:00)
[2021-11-16 16:00] VITALS: BP 112/54
--- NOTE | 2021-11-16 19:31 | NUR ---
RN OPENING NOTES RECEIVED PT IN BED, AWAKE, VERBAL. AOx4. ON RA AND TOLERATING WELL. NO SOB NOTED. NO S/SX OF RESPIRATORY DISTRESS NOTED. NO IV ACCESS PATIENT IS CLINCAL TRIAL PATIENT. SAFETY PRECAUTIONS IN PLACE: BED IN LOWEST, LOCKED POSITION, SIDERAILS UPx2, AND BRAKES ON. TABLE AND CALL LIGHT WITHIN REACH. WILL CONTINUE TO MONITOR.
[2021-11-16 20:00] VITALS: BP 105/63
[2021-11-16] MEDS: TAMSULOSIN 0.4 MG CAP.SR.24H PO SCH (21:53)
--- NOTE | 2021-11-17 06:51 | NUR ---
RN CLOSING NOTES PT IN BED, AWAKE, VERBAL. AOx4. ON RA AND TOLERATING WELL. NO SOB NOTED. NO S/SX OF RESPIRATORY DISTRESS NOTED. NO IV ACCESS PATIENT IS CLINCAL TRIAL PATIENT. ALL NEEDS MET. PT KEPT CLEAN AND DRY. ADMINISTERED INVESTIGATIONAL MEDICATIONS. HELD LORAZEPAM AND AMBIEN PER MD ORDER AFTER 2200. SAFETY PRECAUTIONS IN PLACE: BED IN LOWEST, LOCKED POSITION, SIDERAILS UPx2, AND BRAKES ON. TABLE AND CALL LIGHT WITHIN REACH. WILL ENDORSE TO ONCOMING SHIFT FOR ULICES.
[2021-11-17] MEDS: ATENOLOL 50 MG PO SCH (08:19)
[2021-11-17] MEDS: HYDROCHLOROTHIAZIDE PO SCH ×2 (08:19→17:05)
[2021-11-17] MEDS: SENNOSIDES 8.6 MG TABLET PO SCH ×2 (08:20→21:53)
[2021-11-17] MEDS: LOSARTAN POTASSIUM 50 MG TABLET PO SCH ×2 (08:20→17:06)
[2021-11-17 08:21] VITALS: BP 130/81
[2021-11-17] MEDS: INVEST MED Kar XT OR PLACEBO 50/20 MG PO SCH ×2 (09:40→21:53)
[2021-11-17] MEDS ORDERED: ZOLPIDEM TARTRATE 10 MG TABLET PO PRN (13:00)
[2021-11-17] MEDS ORDERED: LORAZEPAM 1 MG TABLET FOR AGITATION/ANXIETY PO PRN (13:00)
--- NOTE | 2021-11-17 19:02 | NUR ---
RN NOTES CONTINUES ON CLINICAL TRIAL; CT MEDS GIVEN TODAY. NO ADVERSE CHANGE NOTED. SAFETY MEASURES MAINTAINED. WILL ENDORSE TO BRAKE COUPLER ROAD FREIGHT RN FOR ULICES.
--- NOTE | 2021-11-17 19:30 | NUR ---
RN OPENING NOTE PATIENT IN BED, AWAKE WATCHING TV. PATIENT IS A CLINICAL TRIAL PATIENT OF DR. HE. PATIENT IS A/O X 4 ABLE TO MAKE NEEDS KNOWN. PATIENT INDEPENDENT WITH ACTIVITIES. NO IV ACCESS NOTED. PATIENT IS ON RA, TOLERATING WELL. BREATHING EVEN AND UNLABORED. SAFETY MEASURES IN PLACE: BED LOCKED AND IN LOWEST POSITION, CALL LIGHT WITHIN REACH, SIDE RAILS UP. WILL MONITOR PATIENT CLOSELY.
[2021-11-17 20:00] VITALS: BP 124/68
[2021-11-17] MEDS: TAMSULOSIN 0.4 MG CAP.SR.24H PO SCH (21:53)
--- NOTE | 2021-11-17 21:56 | NUR ---
RN NOTE STUDY MEDS GIVEN SUCCESSFULLY
--- NOTE | 2021-11-18 06:56 | NUR ---
RN CLOSING NOTE PATIENT IN BED, AWAKE. PATIENT IS A CLINICAL TRIAL PATIENT OF DR. HE. PATIENT IS A/O X 4 ABLE TO MAKE NEEDS KNOWN. PATIENT INDEPENDENT WITH ACTIVITIES. NO IV ACCESS NOTED. PATIENT IS ON RA, TOLERATING WELL. BREATHING EVEN AND UNLABORED. SAFETY MEASURES IN PLACE: BED LOCKED AND IN LOWEST POSITION, CALL LIGHT WITHIN REACH, SIDE RAILS UP. ALL NEEDS MET AND ATTENDED. ALL ORDERS CARRIED OUT. WILL ENDORSE TO DAY SHIFT NURSE FOR ULICES.
[2021-11-18 08:00] VITALS: BP 136/100
[2021-11-18] MEDS: SENNOSIDES 8.6 MG TABLET PO SCH ×2 (09:10→21:06)
[2021-11-18] MEDS: LOSARTAN POTASSIUM 50 MG TABLET PO SCH ×2 (09:10→17:18)
[2021-11-18] MEDS: ATENOLOL 50 MG PO SCH (09:11)
[2021-11-18] MEDS: HYDROCHLOROTHIAZIDE PO SCH ×2 (09:11→17:19)
[2021-11-18] MEDS: INVEST MED Kar XT OR PLACEBO 50/20 MG PO SCH ×2 (09:57→21:06)
[2021-11-18 16:00] VITALS: BP 136/100
--- NOTE | 2021-11-18 18:00 | NUR ---
received pt. in am,vitals stable,down to smoke often.mood stable,day uneventful.
--- NOTE | 2021-11-18 19:35 | NUR ---
MS RN OPENING NOTES: RECEIVED PATIENT RESTING IN BED, NO S/S OF DISTRESS NOTED. NO COMPLAIN OF PAIN. CALL LIGHT WITHIN REACH. BED IN LOWEST AND LOCKED POSITION.
[2021-11-18 20:00] VITALS: BP_SYST 128; BP_SYST 132; BP_DIAS 93; BP_DIAS 94
[2021-11-18] MEDS: TAMSULOSIN 0.4 MG CAP.SR.24H PO SCH (21:06)
--- NOTE | 2021-11-19 07:18 | NUR ---
MS RN OPENING NOTES RECEIVED PATIENT AWAKE AND RESTING IN BED. A/OX4. ABLE TO MAKE NEEDS KNOWN, DENIES PAIN OR ANY DISCOMFORTS AT THIS TIME. ON ROOM AIR, NO S/S OF DISTRESS NOTED, BREATHING EVEN AND UNLABORED. NO IV ACCESS PER CLINICAL TRIAL PROTOCOL. SAFETY MEASURES IN PLACED. CALL LIGHT W/I EASY REACH OF PT. WILL CONTINUE TO MONITOR.
[2021-11-19] MEDS: LOSARTAN POTASSIUM 50 MG TABLET PO SCH ×2 (08:59→16:46)
[2021-11-19] MEDS: SENNOSIDES 8.6 MG TABLET PO SCH ×2 (09:00→21:33)
[2021-11-19] MEDS: HYDROCHLOROTHIAZIDE PO SCH ×2 (09:00→16:42)
[2021-11-19] MEDS: ATENOLOL 50 MG PO SCH (09:00)
[2021-11-19] MEDS: INVEST MED Kar XT OR PLACEBO 50/20 MG PO SCH ×2 (10:02→21:33)
--- NOTE | 2021-11-19 18:44 | NUR ---
MS PARSONS OPENING NOTES PT AWAKE WATCHING TELEVISION AT THIS TIME. A/OX4, ABLE TO VERBALIZED NEEDS. NO COMPLAINT OF ANY PAIN AT THIS TIME.NO CARDIAC OR RESPIRATORY DISTRESS NOTED, ON ROOM AIR TOLERATED WELL. NO IV ACCESS PER PT IS ON CLINICAL TRIAL. SAFETY MEASURES MAINTAINED. CALL LIGHT IN EASY REACH FOR HELP. WILL ENDORSE ULICES TO NEXT SHIFT. Addendum: 11/19/21 at 1859 by VERA PAINTING RN DISREGARD THE PROGRESS NOTES, ITS NOT OPENING NOTES . ITS CLOSING NOTES.
--- NOTE | 2021-11-19 18:59 | NUR ---
MS RN CLOSING NOTES: PT AWAKE WATCHING TELEVISION AT THIS TIME. A/OX4, ABLE TO VERBALIZED NEEDS. NO COMPLAINT OF ANY PAIN AT THIS TIME.NO CARDIAC OR RESPIRATORY DISTRESS NOTED, ON ROOM AIR TOLERATED WELL. NO IV ACCESS PER PT IS ON CLINICAL TRIAL. SAFETY MEASURES MAINTAINED. CALL LIGHT IN EASY REACH FOR HELP. WILL ENDORSE ULICES TO NEXT SHIFT.
--- NOTE | 2021-11-19 19:59 | NUR ---
MS RN OPENING NOTES PT AWAKE WATCHING TELEVISION AT THIS TIME. A/OX4, ABLE TO VERBALIZED NEEDS. NO COMPLAINT OF ANY PAIN AT THIS TIME.ON ROOM AIR TOLERATED WELL.NO SIGN SOB/DISTRESS NOTED.CONTINUE ON CLINICAL TRIAL. SAFETY MEASURES MAINTAINED. CALL LIGHT IN EASY REACH FOR HELP.CONTINUE TO MONITOR.
[2021-11-19 20:00] VITALS: BP 101/67
[2021-11-19] MEDS: TAMSULOSIN 0.4 MG CAP.SR.24H PO SCH (21:33)
[2021-11-20 02:49] VITALS: BP 101/67
--- NOTE | 2021-11-20 06:36 | NUR ---
MS RN CLOSING NOTES PATIENT IN BED SLEEPING NO SIGN SOB/DISTRESS NOTED.ON ROOM AIR XIMENA WELL. NO COMPLAINE OF PAIN DURING SHIFT. STILL ON CLINICAL TRIAL. SAFETY MEASURES MAINTAINED. CALL LIGHT IN EASY REACH. WILL ENDORSE TO NEXT SHIFT.
--- NOTE | 2021-11-20 07:30 | NUR ---
MS RN OPENING NOTES RECEIVED PATIENT ON BED, AWAKE AND A/O X4. ON ROOM AIR TOLERATING WELL. NO SOB NOTED. NOT IN DISTRESS. WITH NO COMPLAINTS OF PAIN OR DISCOMFORT AT THIS TIME. WITH NO IV ACCESS. ON CLINICAL TRIAL STATUS. SAFETY MEASURES IN PLACED. CALL LIGHT WITHIN REACH. BED ON LOWEST LOCKED POSITION, SIDE RAILS UP X2. WILL CONTINUE TO MONITOR.
[2021-11-20] MEDS: SENNOSIDES 8.6 MG TABLET PO SCH ×2 (08:55→21:50)
[2021-11-20] MEDS: HYDROCHLOROTHIAZIDE PO SCH ×2 (08:55→16:18)
[2021-11-20] MEDS: ATENOLOL 50 MG PO SCH (08:55)
[2021-11-20] MEDS: LOSARTAN POTASSIUM 50 MG TABLET PO SCH ×2 (08:55→16:18)
[2021-11-20] MEDS: INVEST MED Kar XT OR PLACEBO 50/20 MG PO SCH ×2 (10:00→21:50)
--- NOTE | 2021-11-20 10:00 | NUR ---
RN NOTE INVESTIGATIONAL MEDICATION GIVEN.
[2021-11-20 16:00] VITALS: BP 123/76
--- NOTE | 2021-11-20 18:29 | NUR ---
MS RN CLOSING NOTES PATIENT ON BED, AWAKE AND A/O X4. ON ROOM AIR TOLERATING WELL. NO SOB NOTED. NOT IN DISTRESS. WITH NO COMPLAINTS OF PAIN OR DISCOMFORT AT THIS TIME. WITH NO IV ACCESS. ON CLINICAL TRIAL STATUS. DUE MEDS GIVEN. SAFETY MEASURES IN PLACED. CALL LIGHT WITHIN REACH. BED ON LOWEST LOCKED POSITION, SIDE RAILS UP X2. WILL ENDORSE TO NEXT SHIFT FOR ULICES.
--- NOTE | 2021-11-20 19:20 | NUR ---
RN NOTE PT AWAKE IN BED, WATCHING TV. A/OX4. DENIES ANY PAIN. DENIES SOB. NO BEHAVIORAL ISSUES NOTED. SAFETY INSTRUCTIONS PROVIDED AND INSTRUCTED TO CALL FOR ANY ASSISTANCE NEEDED. PT VERBALIZED UNDERSTANDING. WILL CONT TO MONITOR.
[2021-11-20 20:00] VITALS: BP 141/80
[2021-11-20] MEDS: TAMSULOSIN 0.4 MG CAP.SR.24H PO SCH (21:53)
--- NOTE | 2021-11-21 07:15 | NUR ---
MS RN NOTES PATIENT IN BED ALERT ORIENTED X 4. NO ACUTE DISTRESS NOTED. BREATHING UNLABORED. SAFETY MEASURES IN PLACE. CALL LIGHT WITHIN REACH. WILL CONTINUE TO MONITOR ACCORDINGLY.
[2021-11-21 08:00] VITALS: BP 127/73
[2021-11-21] MEDS: INVEST MED Kar XT OR PLACEBO 50/20 MG PO SCH (10:00)
[2021-11-21] MEDS: ATENOLOL 50 MG PO SCH (10:51)
[2021-11-21 10:52] VITALS: BP 127/73
[2021-11-21] MEDS: LOSARTAN POTASSIUM 50 MG TABLET PO SCH (10:52)
[2021-11-21] MEDS: HYDROCHLOROTHIAZIDE PO SCH (10:52)
[2021-11-21] MEDS: SENNOSIDES 8.6 MG TABLET PO SCH (10:52)
--- NOTE | 2021-11-21 10:57 | NUR ---
Investigational medication not given and not delivered by pharmacy, patient for discharge home. Dr coughlin aware
--- NOTE | 2021-11-21 11:20 | NUR ---
MS INSTRUCTIONAL SUPPORT SERVICES DIRECTOR NOTES PATIENT DISCHARGE HOME, ALERT ORIENTED X 4. NO ACUTE DISTRESS NOTED. BREATHING UNLABORED. DISCHARGE INSTRUCTIONS GIVEN TO THE PATIENT, VERBALIZED UNDERSTANDING. ALL BELONGINGS ACCOUNTED FOR. ASSISTED TO THE LOBBY WITH TARUN FROM DR PATTON'S OFFICE IN STABLE CONDITION
== END 2021-11-21 10:55 | disposition home or self-care (01) | DRG 951 ==
LOC: MEDOV2 14:00 → MED 10-24 18:09
PROVIDERS: ADMIT Psychiatry & Neurology Psychiatry; ATTEND Psychiatry & Neurology Psychiatry
DX: Z00.6 Encounter for examination for normal comparison and control in clinical research program (principal); F20.0 Paranoid schizophrenia; F41.9 Anxiety disorder, unspecified; G47.00 Insomnia, unspecified; I10 Essential (primary) hypertension; K59.00 Constipation, unspecified; H57.89 Other specified disorders of eye and adnexa
CPT/HCPCS: 87081-TC; G0378

== ENCOUNTER 2022-05-08 14:40 | Inpatient (IN) | payer OTHER ==
[2022-05-07 20:00] VITALS: BP 135/64
[~2022-05-08] VITALS: Ht 185.4 cm; Wt 112.5 kg
[2022-05-08 15:24] VITALS: BP 105/65
[2022-05-08] MEDS ORDERED: MAGNESIUM HYDROXIDE 30 ML UDC PO PRN (15:30)
[2022-05-08] MEDS ORDERED: MAG HYDROX/AL HYDROX/SIMETH 30 ML UDC PO PRN (15:30)
[2022-05-08] MEDS ORDERED: LORAZEPAM 1 MG TABLET FOR AGITATION PO PRN (15:30)
--- NOTE | 2022-05-08 15:30 | NUR ---
RN ADMITTING NOTES PATIENT ARRIVED ON UNIT AMBULATORY WITH SUITCASE. A.Ox4 ABLE TO MAKE NEEDS KNOWN. NO IV ACCESS, ON ROOM AIR NO S/S OF RESPIRATORY DISTRESS. NO COMPLAINT OF PAIN OR DISCOMFORT. FULL BODY ASSESSMENT COMPLETED: CARDIAC WNL, RESPIRATORY WNL, SKIN INTACT, GI/ PATIENT IS CONTINENT AND USES BATHROOM. V/S TAKEN AND STABLE. PATIENT ORIENTED TO ROOM, UNIT, STAFF AND CALL LIGHT. ALL BELONGINGS DOCUMENTED. SAFETY MEASURES IN PLACE: BED LOCKED AND IN LOWEST POSITION, SIDE RAILS UP x2, CALL LIGHT WITHIN REACH. WILL CONTINUE TO MONITOR.
[2022-05-08 16:03] VITALS: BP 105/65
[2022-05-08] MEDS: HCTZ 25 MG PO SCH (17:00)
[2022-05-08] MEDS: LOSARTAN 50 MG PO SCH (17:00)
--- NOTE | 2022-05-08 17:19 | NUR ---
RN NOTES PATIENT REFUSED EVENING HOME MEDICATION, SAID HE WILL TAKE IT TOMORROW. WILL CONTINUE TO MONITOR.
--- NOTE | 2022-05-08 18:37 | NUR ---
RN CLOSING NOTES PATIENT AWAKE IN BED, A/Ox4, ABLE TO MAKE NEEDS KNOWN. STABLE ON ROOM AIR NO S/S OF RESPIRATORY DISTRESS, NO S/S OF PAIN OR DISCOMFORT NOTED. NO IV ACCESS, SKIN INTACT. SAFETY MEASURES MAINTAINED: BED LOCKED AND IN LOWEST POSITION, SIDE RAILS UP x2, CALL LIGHT WITHIN REACH. WILL ENDORSE TO NEXT SHIFT ANY ULICES.
--- NOTE | 2022-05-08 19:25 | NUR ---
RN OPENING NOTES RECEIVED PT LAYING IN BED, AWAKE, ON PHONE. AOx4,ABLE TO MAKE NEEDS KNOWN. ON RA AND TOLERATING WELL. NO SOB NOTED. NO S/SX OF RESPIRATORY DISTRESS NOTED. IV IS NOT PRESENT D/T CLINICAL TRIAL STATUS. SAFETY PRECAUTIONS IN PLACE: BED IN LOWEST, LOCKED POSITION, SIDERAILS UPx2, AND BRAKES ON. TABLE AND CALL LIGHT WITHIN REACH. ALL NEEDS MET AT THIS TIME.
[2022-05-08] MEDS ORDERED: ABILIFY 20 MG PO ONE (22:00)
[2022-05-08] MEDS ORDERED: ARIPIPRAZOLE 5 MG TABLET ONE (22:14)
--- NOTE | 2022-05-09 06:56 | NUR ---
RN CLOSING NOTES PT LAYING IN BED, ASLEEP, AWAKENS TO VERBAL STIMULI. AOx4,ABLE TO MAKE NEEDS KNOWN. ON RA AND TOLERATING WELL. NO SOB NOTED. NO S/SX OF RESPIRATORY DISTRESS NOTED. IV IS NOT PRESENT D/T CLINICAL TRIAL STATUS. ALL ORDERS CARRIED OUT. ALL NEEDS MET. PT KEPT CLEAN AND DRY. SAFETY PRECAUTIONS IN PLACE: BED IN LOWEST, LOCKED POSITION, SIDERAILS UPx2, AND BRAKES ON. TABLE AND CALL LIGHT WITHIN REACH. WILL ENDORSE TO ONCOMING SHIFT FOR ULICES.
--- NOTE | 2022-05-09 07:30 | NUR ---
RN Receiving Report PT AOx4 able to express his own concerns. Patient states he has no complains, ambulating unit, steady gait. Discussed plan of care with patient he verbalized agreement. All safety precautions taken, call light and table within reach. Bed at lowest position. Will continue to monitor throughout shift and provide care as needed.
[2022-05-09 08:00] VITALS: BP 172/99
[2022-05-09] MEDS: HCTZ 25 MG PO SCH ×2 (08:55→17:30)
[2022-05-09] MEDS: TAMSULOSIN 0.4 MG PO SCH (08:56)
[2022-05-09] MEDS: LOSARTAN 50 MG PO SCH ×2 (08:56→17:29)
[2022-05-09 16:00] VITALS: BP 144/73
--- NOTE | 2022-05-09 18:09 | NUR ---
RN Closing Report PT AOx4 able to express his own concerns. All medications have been administered as ordered. Patient able to ambulate around nursing floor safely. All safety precautions taken, call light and table within reach. Bed at lowest position. Will continue to monitor throughout shift and provide care as needed.
--- NOTE | 2022-05-09 19:51 | NUR ---
RN NOTES PATIENT NOT IN ROOM AT THIS TIME.
[2022-05-09 20:00] VITALS: BP 152/111
--- NOTE | 2022-05-09 20:00 | NUR ---
RN OPENING NOTES RECEIVED PT IN ROOM, AWAKE, WATCHING TV. AOx4, ABLE TO MAKE NEEDS KNOWN. ON RA AND TOLERATING WELL. NO SOB NOTED. NO S/SX OF RESPIRATORY DISTRESS NOTED. NO IV ACCESS DUE TO CLINICAL TRIAL STATUS. SAFETY PRECAUTIONS IN PLACE: BED IN LOWEST, LOCKED POSITION, SIDERAILS UPx2, AND BRAKES ON. TABLE AND CALL LIGHT WITHIN REACH. ALL NEEDS MET AT THIS TIME.
[2022-05-09] MEDS ORDERED: ABILIFY 15 MG PO ONE (22:00)
--- NOTE | 2022-05-10 07:30 | NUR ---
RN Receiving Report. Patient AOx4, able to express his own concerns. Patient ambulating in his room, steady gait, performing ADL's. Patient shows no signs of distress or discomfort. Introduced myself and discussed plan of care with patient, patient agrees. All safety precautions taken, call light and table within reach, bed at lowest position.
--- NOTE | 2022-05-10 07:34 | NUR ---
RN CLOSING NOTES PT IN ROOM, AWAKE, WATCHING TV. AOx4, ABLE TO MAKE NEEDS KNOWN. ON RA AND TOLERATING WELL. NO SOB NOTED. NO S/SX OF RESPIRATORY DISTRESS NOTED. NO IV ACCESS DUE TO CLINICAL TRIAL STATUS. ALL ORDERS CARRIED OUT. ALL NEEDS MET. PT KEPT CLEAN AND DRY. SAFETY PRECAUTIONS IN PLACE: BED IN LOWEST, LOCKED POSITION, SIDERAILS UPx2, AND BRAKES ON. TABLE AND CALL LIGHT WITHIN REACH. WILL ENDORSE TO ONCOMING SHIFT FOR ULICES.
[2022-05-10 09:03] VITALS: BP 130/92
[2022-05-10] MEDS: TAMSULOSIN 0.4 MG PO SCH (09:33)
[2022-05-10] MEDS: LOSARTAN 50 MG PO SCH ×2 (09:33→16:15)
[2022-05-10] MEDS: HCTZ 25 MG PO SCH ×2 (09:33→16:15)
--- NOTE | 2022-05-10 18:36 | NUR ---
RN Closing Report. Patient AOx4 able to express his own concerns. Patient remained safe throughout shift, all safety precautions taken. Patient ambulated around unit, steady gait, no incidents to report. Call light and table within reach, bed at lowest position. Will endorse report to night nurse for continuity of care.
--- NOTE | 2022-05-10 19:55 | NUR ---
noc rn opening received patient a/ox4. no s/s of apparent distress on room air. denies any pain at this time. safety in place. will continue with the plan of care for patient.
[2022-05-10 20:45] VITALS: BP 123/70
[2022-05-10] MEDS ORDERED: ABILIFY 5 MG PO ONE (22:00)
--- NOTE | 2022-05-11 07:09 | NUR ---
noc rn closing note patient in bed with eyes closed, easy to arouse. no s/s of apparent distress on room air. denies pain at this time. all needs attended. scheduled medication administered. safety kept in place the whole shift. will endorse to morning shift rn for continuity of care.
[2022-05-11 08:40] VITALS: BP 108/70
[2022-05-11] MEDS: HCTZ 25 MG PO SCH ×2 (09:00→19:16)
[2022-05-11] MEDS: LOSARTAN 50 MG PO SCH ×2 (09:00→19:17)
[2022-05-11] MEDS: TAMSULOSIN 0.4 MG PO SCH (12:23)
[2022-05-11] MEDS: IBUPROFEN 200 MG TABLET PO PRN (12:32)
[2022-05-11 16:34] VITALS: BP 128/72
--- NOTE | 2022-05-11 19:30 | NUR ---
MS RN OPENING NOTES RECEIVED PATIENT SITTING ON BED. A/O X4, IN PLEASANT MOOD. BREATHING EVEN AND NON-LABORED ON ROOM AIR. NOT IN APPARENT DISTRESS. DENIES PAIN AT THIS TIME. NO IV ACCESS, ON CLINICAL TRIAL. SAFETY MEASURES IN PLACE: BED LOCKED AND IN LOWEST POSITION, SIDE RAILS UP x2, CALL LIGHT WITHIN REACH. WILL CONTINUE POC.
[2022-05-11 20:00] VITALS: BP 103/68
--- NOTE | 2022-05-11 20:26 | NUR ---
RN CLOSING NOTES PT IN BED AOx4, ABLE TO MAKE NEEDS KNOWN. BREATHING ON RA AND TOLERATING WELL. NO SOB NOTED. NO S/SX OF RESPIRATORY DISTRESS NOTED. NO IV ACCESS DUE TO CLINICAL TRIAL STATUS. ALL ORDERS CARRIED OUT. ALL NEEDS MET. PT KEPT CLEAN AND DRY. ALL SAFETY MEASURES IN PLACE: BED IN LOWEST, LOCKED POSITION, SIDERAILS UPx2. TABLE AND CALL LIGHT WITHIN REACH. WILL ENDORSE TO ONCOMING SHIFT FOR ULICES.
--- NOTE | 2022-05-12 06:32 | NUR ---
MS RN CLOSING NOTES PATIENT LYING IN BED ASLEEP, EASY TO AROUSE. A/O X4. ABLE TO VERBALIZED NEEDS. NO SOB OR NOTED, TOLERATING ROOM AIR WELL. NOT IN ACUTE DISTRESS. NO PAIN NOTED. AFEBRILE. NO IV ACCESS, ON CLINICAL TRIAL. NO UNUSUAL BEHAVIOR NOTED DURING SHIFT. ALL DUE MEDS GIVEN AND NEEDS ATTENDED. SAFETY MEASURES MAINTAINED. WILL ENDORSE TO NEXT SHIFT FOR ULICES.
--- NOTE | 2022-05-12 08:00 | NUR ---
MS RN OPENING NOTES RECEIVED PATIENT SITTING ON BED. A/O X4, IN PLEASANT MOOD. NO SOB OR DISTRESS NOTED , ON ROOM AIR. . N O C/O OF PAIN AND DISCOMFORT AT THIS TIME. NO IV ACCESS, ON CLINICAL TRIAL. NO BEHAVIOR NOTED , SAFETY MEASURES IN PLACE: BED LOCKED AND IN LOWEST POSITION, SIDE RAILS UP x2, CALL LIGHT WITHIN REACH. WILL CONTINUE POC.
[2022-05-12] MEDS: TAMSULOSIN 0.4 MG PO SCH (08:52)
[2022-05-12] MEDS: LOSARTAN 50 MG PO SCH ×2 (08:52→17:27)
[2022-05-12] MEDS: HCTZ 25 MG PO SCH ×2 (08:52→17:27)
--- NOTE | 2022-05-12 18:33 | NUR ---
MS RN CLOSING NOTES PATIENT ON BED AWAKE A/O X4, IN PLEASANT MOOD. NO SOB OR DISTRESS NOTED , ON ROOM AIR. . ALL DUE MEDS GIVEN ORDERED , NO C/O OF PAIN AND DISCOMFORT AT THIS TIME. NO IV ACCESS, ON CLINICAL TRIAL. NO BEHAVIOR NOTED , SAFETY MEASURES IN PLACE: BED LOCKED AND IN LOWEST POSITION, SIDE RAILS UP x2, CALL LIGHT WITHIN REACH. WILL ENDORSED TO NEXT SHIFT .
--- NOTE | 2022-05-12 19:30 | NUR ---
MS RN OPENING NOTES PATIENT WALKING IN HALLWAY AT BEGINNING OF SHIFT. A/O X 4 AND ABLE TO MAKE NEEDS KNOWN. PLEASANT AND SOCIAL WITH STAFF. VITAL SIGNS STABLE. NO DYSPNEA OR SOB NOTED. BREATHING IS EVEN AND UNLABORED ON ROOM AIR. DENIES PAIN OR DISCOMFORT. PATIENT IS HERE FOR A CLINICAL TRIAL AND DOES NOT HAVE IV ACCESS. NO BEHAVIORS NOTED. SAFETY MEASURES IN PLACE: BED LOCKED AND IN LOWEST POSITION, SIDE RAILS UP x2, CALL LIGHT WITHIN REACH. WILL CONTINUE TO MONITOR DURING SHIFT.
[2022-05-12 20:00] VITALS: BP_SYST 123; BP_SYST 124; BP_SYST 153; BP_DIAS 58; BP_DIAS 73; BP_DIAS 78
--- NOTE | 2022-05-12 23:55 | NUR ---
MS RN NOTE CHARGE NURSE SHABANA IS TAKING OVER CARE OF THIS PATIENT ON CLINICAL TRIAL. HE IS CURRENTLY LYING IN BED ASLEEP. VSS OF 1999. BREATHING IS EVEN AND UNLABORED. NO BEHAVIORS OR MENTAL STATUS CHANGES NOTED DURING SHIFT. NO MEDICATIONS WERE HELD THIS SHIFT PER ADMISSION ORDERS.
[2022-05-13 08:00] VITALS: BP 103/60
--- NOTE | 2022-05-13 08:08 | NUR ---
MS RN CLOSING NOTE PATIENT SLEEPING IN BED. A/O X 4 AND ABLE TO MAKE NEEDS KNOWN. PLEASANT AND SOCIAL WITH STAFF. VITAL SIGNS STABLE. NO DYSPNEA OR SOB NOTED. BREATHING IS EVEN AND UNLABORED ON ROOM AIR. DENIES PAIN OR DISCOMFORT. PATIENT IS HERE FOR A CLINICAL TRIAL AND DOES NOT HAVE IV ACCESS. NO BEHAVIORS OR MENTAL STATUS CHANGES NOTED. SAFETY MEASURES MAINTAINED: BED LOCKED AND IN LOWEST POSITION, SIDE RAILS UP x2, CALL LIGHT WITHIN REACH. WILL ENDORSE TO NEXT SHIFT FOR ULICES.
[2022-05-13] MEDS: LOSARTAN 50 MG PO SCH ×2 (09:25→16:41)
[2022-05-13] MEDS: TAMSULOSIN 0.4 MG PO SCH (09:26)
[2022-05-13] MEDS: HCTZ 25 MG PO SCH ×2 (09:27→16:41)
[2022-05-13 16:00] VITALS: BP 143/100
--- NOTE | 2022-05-13 18:50 | NUR ---
MS PARSONS OPENING NOTES PATIENT ON BED AWAKE AND A/O X4. ON ROOM AIR TOLERATING WELL. NO SOB NOTED. NOT IN DISTRESS. WITH NO IV ACCESS. ON CLINICAL TRIAL. DUE MEDS GIVEN. SAFETY MEASURES IN PLACED. CALL LIGHT WITHIN REACH. BED ON LOWEST LOCKED POSITION, SIDE RAILS UP X2. WILL ENDORSE TO NEXT SHIFT FOR ULICES. Addendum: 05/13/22 at 1852 by FACUNDO MEYER RN ERROR.
--- NOTE | 2022-05-13 18:52 | NUR ---
MS RN CLOSING NOTES PATIENT ON BED AWAKE AND A/O X4. ON ROOM AIR TOLERATING WELL. NO SOB NOTED. NOT IN DISTRESS. WITH NO IV ACCESS. ON CLINICAL TRIAL. DUE MEDS GIVEN. SAFETY MEASURES IN PLACED. CALL LIGHT WITHIN REACH. BED ON LOWEST LOCKED POSITION, SIDE RAILS UP X2. WILL ENDORSE TO NEXT SHIFT FOR ULICES.
--- NOTE | 2022-05-13 19:51 | NUR ---
MS RN OPENING NOTES RECEIVED PATIENT IN BED AAOX4 XIMENA WELL ON ROOM AIR.NO SOB/DISTRESS NOTED,NO IV ACCESS, ON CLINICAL TRIAL.NO BEHAVIOR CHANGES AT THIS TIME,SAFETY MEASURES IN PLACE: CALL LIGHT WITHIN REACH. WILL CONTINUE TO MONITOR.
[2022-05-13 20:00] VITALS: BP 127/72
--- NOTE | 2022-05-14 06:24 | NUR ---
MS RN CLOSING NOTES; PATIENT IN BED AAOX4 XIMENA WELL ON ROOM AIR.NO SOB/DISTRESS NOTED,NO IV ACCESS, ON CLINICAL TRIAL.NO BEHAVIOR CHANGES AT THIS TIME,SAFETY MEASURES IN PLACE: CALL LIGHT WITHIN REACH. WILL ENDORSED TO NEXT SHIFT.
[2022-05-14 08:00] VITALS: BP 114/77
[2022-05-14] MEDS: HCTZ 25 MG PO SCH ×2 (10:05→17:00)
[2022-05-14] MEDS: LOSARTAN 50 MG PO SCH ×2 (10:05→17:00)
[2022-05-14] MEDS: TAMSULOSIN 0.4 MG PO SCH (10:05)
[2022-05-14 16:00] VITALS: BP 141/91
[2022-05-14 20:00] VITALS: BP 112/73
[2022-05-15 08:00] VITALS: BP 110/75
--- NOTE | 2022-05-15 08:08 | NUR ---
MS RN OPENING NOTES: RECEIVED PATIENT SITTING ON BED. A/O X4, ABLE TO MAKE NEEDS KNOWN. NO S/S SOB AND ACUTE DISTRESS NOTED, ON ROOM AIR TOLERATING WELL. NO C/O OF PAIN AND DISCOMFORT AT THIS TIME. NO IV ACCESS, ON CLINICAL TRIAL. SAFETY MEASURES IN PLACE: BED LOCKED AND IN LOWEST POSITION, SIDE RAILS UP x2, CALL LIGHT WITHIN REACH. WILL CONTINUE WITH PLAN OF CARE DURING SHIFT.
--- NOTE | 2022-05-15 09:00 | NUR ---
AM VITALS FOR HTN MEDS BP- 110/75, HR- 79
[2022-05-15] MEDS: HCTZ 25 MG PO SCH ×2 (09:17→16:50)
[2022-05-15] MEDS: LOSARTAN 50 MG PO SCH ×2 (09:17→16:50)
[2022-05-15] MEDS: TAMSULOSIN 0.4 MG PO SCH (09:17)
--- NOTE | 2022-05-15 16:58 | NUR ---
PM VITALS BP- 112/67 HR- 99
--- NOTE | 2022-05-15 18:59 | NUR ---
MS RN CLOSING NOTES: PT CURRENTLY NOT IN ROOM, LEFT AROUND 530PM. ALL DUE MEDS GIVEN AND NEEDS MET, ENDORSED TO PM SHIFT.
--- NOTE | 2022-05-15 19:15 | NUR ---
no rn opening patient not in room during change of shift report.
--- NOTE | 2022-05-15 19:47 | NUR ---
MS PARSONS OPENING NOTES: PT CURRENTLY NOT IN ROOM. Addendum: 05/15/22 at 2019 by RADHA SHEN RN WRONG PT.
[2022-05-15 20:00] VITALS: BP 132/74
--- NOTE | 2022-05-15 20:20 | NUR ---
rn note patient currently in room. a/ox4. no s/s of apparent distress on room air. no c/o pain at this time. introduced self to patient and encouraged to verbalized needs/ concerns. safety in place. will cont. with plan of care for patient.
--- NOTE | 2022-05-16 07:22 | NUR ---
noc rn closing report given to Colby for continuity of patient care.
--- NOTE | 2022-05-16 07:35 | NUR ---
RN OPENING NOTES - CLINICAL TRIAL RECEIVED PATIENT IN BED, LISTENING TO MUSIC, AOX4, COOPERATIVE, PATIENT IS ON ROOM AIR, NOT IN ANY APPARENT DISTRESS, DENIES PAIN AT THIS TIME, NO IV LINE PER PROTOCOL. SAFETY PRECAUTIONS IN PLACE, BED IN LOWEST POSITION, SIDE RAILS UP, TRAY TABLE AND CALL LIGHT WITHIN REACH. WILL CONTINUE TO MONITOR DURING MY SHIFT.
[2022-05-16 08:00] VITALS: BP 112/46
[2022-05-16] MEDS: HCTZ 25 MG PO SCH ×2 (09:08→17:26)
[2022-05-16] MEDS: LOSARTAN 50 MG PO SCH ×2 (09:08→17:26)
[2022-05-16] MEDS: TAMSULOSIN 0.4 MG PO SCH (09:08)
--- NOTE | 2022-05-16 16:55 | NUR ---
RN NOTES CURRENTLY NOT IN THE ROOM FOR THE 1700 HOME MEDS. WILL CHECK AGAIN.
--- NOTE | 2022-05-16 18:22 | NUR ---
RN CLOSING NOTES - CLINICAL TRIAL PATIENT IN BED, EATING DINNER, AOX4, COOPERATIVE, ON ROOM AIR, NOT IN ANY APPARENT DISTRESS, DIDNT SHOW ANY CHANGES IN BEHAVIOR DURING MY SHIFT. NO IV LINE PER PROTOCOL. ALL NEEDS MET, ALL DUE MEDS GIVE, SAFETY PRECAUTIONS IN PLACE, BED IN LOWEST POSITION, SIDE RAILS UP, TRAY TABLE AND CALL LIGHT WITHIN REACH. WILL ENDORSE TO PAID INTERN NURSE.
--- NOTE | 2022-05-16 19:19 | NUR ---
RN OPENING NOTES - CLINICAL TRIAL PATIENT AOX4,COOPERATIVE, ON ROOM AIR, NOT IN ANY APPARENT DISTRESS, DOES NOT SHOW ANY CHANGES IN BEHAVIOR AT THIS TIME. NO IV LINE PER PROTOCOL. ALL NEEDS MET, SAFETY PRECAUTIONS IN PLACE, BED IN LOWEST POSITION, SIDE RAILS UP, TRAY TABLE AND CALL LIGHT WITHIN REACH.
[2022-05-16 20:00] VITALS: BP 107/76
--- NOTE | 2022-05-17 06:40 | NUR ---
RN CLOSING NOTES - CLINICAL TRIAL PATIENT AOX4,COOPERATIVE, ON ROOM AIR, NOT IN ANY APPARENT DISTRESS, DOES NOT SHOW ANY CHANGES IN BEHAVIOR AT THIS TIME. NO IV LINE PER PROTOCOL. ALL NEEDS MET, SAFETY PRECAUTIONS IN PLACE, BED IN LOWEST POSITION, SIDE RAILS UP, TRAY TABLE AND CALL LIGHT WITHIN REACH. WILL ENDORSE CARE TO DAY SHIFT NURSE.
--- NOTE | 2022-05-17 07:10 | NUR ---
RN OPENING NOTES PATIENT AWAKE IN ROOM RESTING, A/O X 4. NO S/S OF PAIN NOTED AT THIS TIME. ON ROOM AIR, NO DISTRESS OR SHORTNESS OF BREATH NOTED. NO IV ACCESS, CLINICAL TRIAL PATIENT. FALL AND SAFETY MEASURES IN PLACE, BED IN LOW LOCK POSITION, CALL LIGHT AND TABLE WITHIN EASY REACH, SIDE RAILS UP X2. WILL CONTINUE TO MONITOR.
[2022-05-17] MEDS: LOSARTAN 50 MG PO SCH ×2 (09:05→17:13)
[2022-05-17] MEDS: TAMSULOSIN 0.4 MG PO SCH (09:05)
[2022-05-17 10:30] VITALS: BP 102/70
[2022-05-17] MEDS: HCTZ 25 MG PO SCH ×2 (10:30→17:13)
--- NOTE | 2022-05-17 19:37 | NUR ---
RN CLOSING NOTES PATIENT AWAKE IN ROOM RESTING, A/O X 4. NO S/S OF PAIN NOTED AT THIS TIME. ON ROOM AIR, NO DISTRESS OR SHORTNESS OF BREATH NOTED. NO IV ACCESS, CLINICAL TRIAL PATIENT. FALL AND SAFETY MEASURES IN PLACE, BED IN LOW LOCK POSITION, CALL LIGHT AND TABLE WITHIN EASY REACH, SIDE RAILS UP X2. WILL ENDORSE TO CARRIER PACKER.
[2022-05-17 20:39] VITALS: BP 161/90
--- NOTE | 2022-05-18 06:16 | NUR ---
END OF SHIFT REPORT Patient is Alert Oriented x4. Independent with ambulation. No SI/HI, calm, no aggressive behavior. No IV line, no labs. Patient on Clinical Trial. Plan to start study drug medication on 05/26/22. Will endorse to oncoming RN.
[2022-05-18 07:00] VITALS: BP 123/65
--- NOTE | 2022-05-18 07:00 | NUR ---
MS RN OPENING NOTES PATIENT CURRENTLY OUT OF UNIT, WILL ASSESS UPON RETURN
[2022-05-18] MEDS: LOSARTAN 50 MG PO SCH ×3 (08:28→18:04)
[2022-05-18] MEDS: TAMSULOSIN 0.4 MG PO SCH ×2 (08:28→09:00)
[2022-05-18] MEDS: HCTZ 25 MG PO SCH ×3 (08:28→18:04)
--- NOTE | 2022-05-18 12:20 | NUR ---
MS RN NOTES PATIENT RETURNED TO UNIT. A/O X 3, ABLE TO MAKE NEEDS KNOWN, TOLERATING ON ROOM AIR WITH NO S/S RESPIRATORY DISTRESS. NO COMPLAINTS OF PAIN OR DISCOMFORT AT THIS TIME. SAFETY MEASURES IN PLACE: BED IN LOWEST LOCKED POSITION, SIDE RAILS UP X 2, CALL LIGHT WITHIN REACH. WILL CONTINUE TO MONITOR.
--- NOTE | 2022-05-18 19:30 | NUR ---
noc rn opening received patient in bed, a/ox4. no s/s of apparent distress on room air. denies pain at this time. introduced myself to patient and encouraged to verbalized any needs and concerns. will continue with plan of care.
[2022-05-18 20:00] VITALS: BP 124/76
--- NOTE | 2022-05-19 07:43 | NUR ---
MS RN OPENING NOTES: RECEIVED PATIENT SITTING IN BED. A/O X4, ABLE TO MAKE NEEDS KNOWN. NO NOTED S/S SOB AND ACUTE DISTRESS, ON ROOM AIR TOLERATING WELL. NO C/O OF PAIN AND DISCOMFORT AT THIS TIME. NO IV ACCESS, ON CLINICAL TRIAL. SAFETY MEASURES IN PLACE: BED LOCKED AND IN LOWEST POSITION, SIDE RAILS UP x2, CALL LIGHT WITHIN REACH. WILL CONTINUE WITH PLAN OF CARE DURING SHIFT.
--- NOTE | 2022-05-19 07:56 | NUR ---
noc rn closing report given to Beth for continuity of patient care.
[2022-05-19 08:00] VITALS: BP 126/79
[2022-05-19] MEDS: TAMSULOSIN 0.4 MG PO SCH (08:38)
[2022-05-19] MEDS: LOSARTAN 50 MG PO SCH ×2 (08:39→18:02)
[2022-05-19] MEDS: HCTZ 25 MG PO SCH ×2 (08:39→18:01)
--- NOTE | 2022-05-19 08:39 | NUR ---
AM VITALS - BP - 126/79, HR- 78
--- NOTE | 2022-05-19 18:41 | NUR ---
MS RN CLOSING NOTES: PATIENT SITTING IN BED. A/O X4, ABLE TO MAKE NEEDS KNOWN. NO NOTED S/S SOB AND ACUTE DISTRESS, ON ROOM AIR TOLERATING WELL. NO C/O OF PAIN AND DISCOMFORT AT THIS TIME. NO IV ACCESS, ON CLINICAL TRIAL. AM AND PM HOME MEDS GIVEN, ALL NEEDS ARE MET. SAFETY MEASURES IN PLACE: BED LOCKED AND IN LOWEST POSITION, SIDE RAILS UP x2, CALL LIGHT AND TABLE WITHIN REACH; WILL ENDORSE TO PM SHIFT.
[2022-05-19 20:00] VITALS: BP 128/84
--- NOTE | 2022-05-19 20:06 | NUR ---
RN OPENING NOTE PATIENT AWAKE IN BED. A/OX4. NO S/S OF DISTRESS, BREATHING WITHOUT DIFFICULTY ON ROOM AIR. PATIENT IS CLINICAL TRIAL. SAFETY MEASURES IN PLACE: BED LOCKED AND AT LOWEST POSITION, RAILS UP X2, CALL MICHELLE WITHIN REACH. WILL CONTINUE TO MONITOR PATIENT.
--- NOTE | 2022-05-20 06:56 | NUR ---
RN CLOSING NOTE PATIENT HAS SIGNED OUT TO GO FOR A CIGARETTE, AND IS EXPECTED BACK SOON. A/OX4. NO S/S OF DISTRESS, BREATHING WITHOUT DIFFICULTY ON ROOM AIR. NO BEHAVIORAL CHANGES OF NOTE. PATIENT HAS BEEN COOPERATIVE AND CORDIAL WITH STAFF. SAFETY MEASURES IN PLACE: BED LOCKED AND AT LOWEST POSITION, RAILS UP X2, CALL MICHELLE WITHIN REACH. WILL ENDORSE TO NEXT SHIFT FOR ULICES.
[2022-05-20 08:37] VITALS: BP 116/78
[2022-05-20] MEDS: TAMSULOSIN 0.4 MG PO SCH (09:16)
[2022-05-20] MEDS: LOSARTAN 50 MG PO SCH ×2 (09:16→16:12)
[2022-05-20] MEDS: HCTZ 25 MG PO SCH ×2 (09:16→16:12)
--- NOTE | 2022-05-20 18:02 | NUR ---
SHIFT SUMMARY PATIENT IS A/O X4, ON RA SATURATING WELL. AMBULATORY WITH STEADY GAIT. MEDS GIVEN ORDERED. TOLERATING DIET WELL. SAFETY MEASURES MAINTAINED. BED IN LOWEST POSITION, BRAKES LOCKED. SIDE RAILS UP X2. CALL LIGHT WITHIN REACH. WILL ENDORSE CONTINUITY OF CARE TO ONCOMING SHIFT.
--- NOTE | 2022-05-20 19:50 | NUR ---
RN OPENING NOTE PATIENT AWAKE IN BED, ALERT/ORIENTED X 4, PT ABLE TO MAKE NEEDS KNOW. PT STABLE ON RA, NO S/S OF DISTRESS OR SOB NOTED, BREATHING EVEN AND UNLABORED. NO IV ACCESS D/T CLINICAL TRIAL STATUS. PATIENT AMBULATORY AND STEADY. SAFETY MEASURES IN PLACE: CALL LIGHT AND TABLE WITHIN REACH, BED LOCKED IN LOWEST POSITION, SIDE RAILS UP X 2. WILL CONTINUE TO MONITOR PATIENT
[2022-05-20 20:00] VITALS: BP 102/66
[2022-05-20] MEDS: ZOLPIDEM TARTRATE 10 MG TABLET PO PRN (20:56)
[2022-05-20] MEDS: IBUPROFEN 200 MG TABLET PO PRN (20:56)
[2022-05-21] MEDS: IBUPROFEN 200 MG TABLET PO PRN ×3 (05:08→21:38)
--- NOTE | 2022-05-21 07:04 | NUR ---
MS RN CLOSING NOTE PATIENT AWAKE IN BED, ALERT/ORIENTED X 4, PT ABLE TO MAKE NEEDS KNOW. PT STABLE ON RA, NO S/S OF DISTRESS OR SOB NOTED, BREATHING EVEN AND UNLABORED. NO IV ACCESS D/T CLINICAL TRIAL STATUS. PATIENT AMBULATORY AND STEADY. MEDICATIONS GIVEN ORDERED, PT NEEDS MET THROUGHOUT SHIFT. SAFETY MEASURES IN PLACE: CALL LIGHT AND TABLE WITHIN REACH, BED LOCKED IN LOWEST POSITION, SIDE RAILS UP X 2. WILL ENDORSE TO DAYSHIFT NURSE FOR CONTINUITY OF CARE
[2022-05-21 08:00] VITALS: BP 125/78
[2022-05-21] MEDS: TAMSULOSIN 0.4 MG PO SCH (09:11)
[2022-05-21] MEDS: LOSARTAN 50 MG PO SCH ×2 (09:11→17:33)
[2022-05-21] MEDS: HCTZ 25 MG PO SCH ×2 (09:11→17:33)
[2022-05-21 16:00] VITALS: BP 114/66
--- NOTE | 2022-05-21 18:40 | NUR ---
RN CLOSING NOTES PATIENT AWAKE IN ROOM RESTING, A/O X 4. NO S/S OF PAIN NOTED AT THIS TIME. ON ROOM AIR, NO DISTRESS OR SHORTNESS OF BREATH NOTED. NO IV ACCESS, CLINICAL TRIAL PATIENT. SCHEDULE MEDICATIONS ADMINISTERED. FALL AND SAFETY MEASURES IN PLACE, BED IN LOW LOCK POSITION, CALL LIGHT AND TABLE WITHIN EASY REACH, SIDE RAILS UP X2. WILL ENDORSE TO RADIO MECHANIC HELPER.
--- NOTE | 2022-05-21 19:30 | NUR ---
MS RN OPENING NOTE RECEIVED PT AWAKE IN BED. A/O X4 AND ABLE TO MAKE NEEDS KNOWN. PT STABLE ON ROOM AIR. NO SOB OR S/S OF RESPIRATORY DISTRESS. BREATHING EVEN AND UNLABORED. NO IV ACCESS DUE TO CLINICAL TRAIL STATUS. SAFETY PRECAUTIONS IN PLACE. BED IN LOWEST LOCKED POSITION, HOB ELEVATED, SIDE RAILS UP X2, AND CALL LIGHT AND TABLE WITHIN REACH. ALL NEEDS MET AT THIS TIME.
[2022-05-21 20:00] VITALS: BP 113/67
[2022-05-21] MEDS: ZOLPIDEM TARTRATE 10 MG TABLET PO PRN (21:38)
--- NOTE | 2022-05-21 21:38 | NUR ---
RN NOTE PT COMPLAINED OF HEADACHE 11/28. ADMINISTERED IBUPROFIN 600 MG ORDERED FOR MODERATE PAIN. PT ALSO REQUESTED SLEEPING MEDICATION. ADMINISTERED AMBIEN 10 MG ORDERED FOR INSOMNIA. SNACKS PROVIDED. ALL NEEDS MET AT THIS TIME.
[2022-05-22] MEDS: IBUPROFEN 200 MG TABLET PO PRN (06:37)
--- NOTE | 2022-05-22 06:40 | NUR ---
RN NOTE PT COMPLAINED OF HEADACHE 11/28. ADMINISTERED IBUPROFIN 600 MG ORDERED FOR MODERATE PAIN. ALL NEEDS MET AT THIS TIME.
--- NOTE | 2022-05-22 06:53 | NUR ---
MS RN CLOSING NOTE PT AWAKE IN BED. A/O X4 AND ABLE TO MAKE NEEDS KNOWN. PT STABLE ON ROOM AIR. NO SOB OR S/S OF RESPIRATORY DISTRESS. BREATHING EVEN AND UNLABORED. NO IV ACCESS DUE TO CLINICAL TRAIL STATUS. ALL DUE MEDS GIVEN ORDERED. SAFETY PRECAUTIONS IN PLACE AT ALL TIMES. BED IN LOWEST LOCKED POSITION, HOB ELEVATED, SIDE RAILS UP X2, AND CALL LIGHT AND TABLE WITHIN REACH. ALL NEEDS MET AT THIS TIME AND WILL ENDORSE TO ONCOMING NURSE FOR ULICES.
--- NOTE | 2022-05-22 07:00 | NUR ---
RN OPENING NOTE RECEIVED PATIENT IN BED, AWAKE,ALERT AND ORIENTED X 4. NO SOB OR CARDIAC DISTRESS NOTED. PER NOC SHIFT NO BEHAVIORAL CHANGES OBSERVED. WILL MONITOR PT ACCORDINGLY. SAFETY MEASURES IN PLACE. KEPT BED IN LOWEST AND LOCKED POSITION. CALL LIGHT WITHIN EASY REACH. KEPT RESTED AND COMFORTABLE.
[2022-05-22] MEDS: LOSARTAN 50 MG PO SCH ×3 (08:54→16:43)
[2022-05-22] MEDS: TAMSULOSIN 0.4 MG PO SCH (08:54)
[2022-05-22] MEDS: HCTZ 25 MG PO SCH ×3 (08:54→16:43)
--- NOTE | 2022-05-22 16:43 | NUR ---
RN NOTES: PATIENT BLOOD PRESSURE IS LOW 98/58, 65HR. PATIENT MADE AWARE.
--- NOTE | 2022-05-22 19:00 | NUR ---
alert and orientated x4 friendly and polite leaves the floor but does return
--- NOTE | 2022-05-23 07:08 | NUR ---
MS RN OPENING NOTES RECEIVED PATIENT AWAKE WALKING THE HALLS. A/Ox4, ABLE TO MAKE NEEDS KNOWN. ON ROOM AIR, NO S/S OF RESPIRATORY DISTRESS. NO IV ACCESS, CLINICAL TRIAL. HAS BATHROOM PRIVILEGE. SAFETY PRECAUTIONS IN PLACE. BED IN LOWEST LOCKED POSITION, HOB ELEVATED, SIDE RAILS UP X2, AND CALL LIGHT AND TABLE WITHIN REACH. WILL CONTINUE TO MONITOR.
[2022-05-23 08:00] VITALS: BP 142/72
[2022-05-23] MEDS: LOSARTAN 50 MG PO SCH ×2 (08:44→16:05)
[2022-05-23] MEDS: HCTZ 25 MG PO SCH ×2 (08:44→16:05)
[2022-05-23] MEDS: TAMSULOSIN 0.4 MG PO SCH (08:45)
--- NOTE | 2022-05-23 18:36 | NUR ---
MS RN CLOSING NOTES PATIENT AWAKE IN ROOM, A/Ox4, ABLE TO MAKE NEEDS KNOWN. STABLE ON ROOM AIR, NO S/S OF RESPIRATORY DISTRESS. NO IV ACCESS, CLINICAL TRIAL. HAS BATHROOM PRIVILEGE. ALL PRESCRIBED MEDICATION ADMINISTERED. SAFETY PRECAUTIONS MAINTAINED: BED IN LOWEST LOCKED POSITION, HOB ELEVATED, SIDE RAILS UP X2, AND CALL LIGHT AND TABLE WITHIN REACH. WILL ENDORSE TO NEXT SHIFT ANY ULICES.
[2022-05-23 20:00] VITALS: BP 91/42
--- NOTE | 2022-05-23 21:33 | NUR ---
received in bed asleep lyingleft side rep even and unlabored
[2022-05-24] MEDS: IBUPROFEN 200 MG TABLET PO PRN (02:16)
--- NOTE | 2022-05-24 02:19 | NUR ---
RN NOTE PRIMARY RN OCCUPIED WITH RAPID RESPONSE OF ANOTHER PATIENT AT THIS TIME. PATIENT REQUESTING ATIVAN AND IBUPROFEN. VERIFIED WITH RN IF OKAY TO GIVE. MEDICATIONS GIVEN ORDERED
[2022-05-24 08:00] VITALS: BP 115/74
[2022-05-24] MEDS: TAMSULOSIN 0.4 MG PO SCH (09:14)
[2022-05-24] MEDS: HCTZ 25 MG PO SCH ×2 (09:14→17:14)
[2022-05-24] MEDS: LOSARTAN 50 MG PO SCH ×2 (09:14→17:14)
[2022-05-24 17:57] VITALS: BP 115/71
--- NOTE | 2022-05-24 19:35 | NUR ---
MS RN OPENING NOTE RECEIVED PATIENT SLEEPING IN BED. A/Ox4, ABLE TO MAKE NEEDS KNOWN. ON ROOM AIR, NO S/S OF RESPIRATORY DISTRESS. NO IV ACCESS NOTED. PT ON CLINICAL TRIAL. HAS BATHROOM PRIVILEGE. SAFETY PRECAUTIONS IN PLACE. BED IN LOWEST LOCKED POSITION, HOB ELEVATED, SIDE RAILS UP X2, AND CALL LIGHT AND TABLE WITHIN REACH. WILL CONTINUE TO MONITOR.
[2022-05-24 20:00] VITALS: BP 108/45
[2022-05-25] MEDS: IBUPROFEN 200 MG TABLET PO PRN ×2 (01:12→17:49)
--- NOTE | 2022-05-25 06:58 | NUR ---
MS RN CLOSING NOTE LEFT PT WALKING IN HALLWAY. A/O x4, ABLE TO MAKE NEEDS KNOWN. ON RA, BREATHING EVENLY AND UNLABORED. NO SOB NOTED. NO S/SX OF RESPIRATORY DISTRESS NOTED. NO C/O PAIN OR DISCOMFORT AT THIS TIME. PT HAD AN EPISODE OF HEADACHE DURING SHIFT. MOTRIN WAS ADMINISTERED TO PT. MED WAS EFFECTIVE. NO IV ACCESS. SAFETY PRECAUTIONS IN PLACE: BED IN LOWEST, LOCKED POSITION, SIDE RAILS UP x2, AND BRAKES ON. TABLE AND CALL LIGHT WITHIN REACH. WILL ENDORSE PT TO INCOMING SHIFT NURSE FOR ULICES.
--- NOTE | 2022-05-25 07:40 | NUR ---
RN OPENING NOTE- CLINICAL TRIAL PT AWAKE, A/Ox4, ABLE TO MAKE NEEDS KNOWN. ON ROOM AIR, NO S/S OF RESPIRATORY DISTRESS. NO IV ACCESS NOTED. NO HALLUCINATIONS, NO DELUSIONS, NO EPS OR TREMULOUSNESS, SAFETY PRECAUTIONS IN PLACE. BED IN LOWEST LOCKED POSITION, HOB ELEVATED, SIDE RAILS UP X2, AND CALL LIGHT AND TABLE WITHIN REACH. WILL CONTINUE TO MONITOR. ASSIST PRN
[2022-05-25] MEDS: LOSARTAN 50 MG PO SCH ×2 (09:00→17:00)
[2022-05-25] MEDS: HCTZ 25 MG PO SCH ×2 (09:00→17:00)
[2022-05-25] MEDS: TAMSULOSIN 0.4 MG PO SCH (09:45)
[2022-05-25] MEDS ORDERED: LORAZEPAM 1 MG TABLET FOR AGITATION PO PRN (13:00)
[2022-05-25] MEDS ORDERED: ZOLPIDEM TARTRATE 10 MG TABLET PO PRN (13:00)
[2022-05-25 16:00] VITALS: BP 109/61
--- NOTE | 2022-05-25 18:36 | NUR ---
RN CLOSING NOTE- CLINICAL TRIAL PT NO CHANGES. A/Ox4, ABLE TO MAKE NEEDS KNOWN. ON ROOM AIR, NO S/S OF RESPIRATORY DISTRESS. NO IV ACCESS NOTED. NO HALLUCINATIONS, NO DELUSIONS, NO EPS OR TREMULOUSNESS, SAFETY PRECAUTIONS IN PLACE. BED IN LOWEST LOCKED POSITION, HOB ELEVATED, SIDE RAILS UP X2, AND CALL LIGHT AND TABLE WITHIN REACH. WILL CONTINUE TO MONITOR. ASSIST PRN
--- NOTE | 2022-05-25 19:40 | NUR ---
RN OPENING NOTE RECEIVED PATIENT IN BED; AWAKE, ALERT AND ORIENTED X 4; WALKING IN THE HALLWAY WITH STEADY GAIT. ON ROOM AIR; TOLERATING WELL. BREATHING EVEN AND NONLABORED. NO S/S OF RESPIRATORY DISTRESS. NO IV ACCESS. ON CLINICAL TRIAL. ABLE TO MAKE NEEDS KNOWN. SAFETY MEASURES IMPLEMENTED: CALL LIGHT AND TABLE WITHIN REACH, SIDE RAILS UP X 2, BED IN LOWEST LOCKED POSITION. WILL CONTINUE PLAN OF CARE.
[2022-05-25 20:00] VITALS: BP 108/53
--- NOTE | 2022-05-26 07:00 | NUR ---
RN CLOSING NOTE PATIENT IN BED; AWAKE, A/O X 4. STABLE ON ROOM AIR. BREATHING EVENLY AND NONLABORED. NOT IN ANY FORM OF RESPIRATORY DISTRESS. NO IV ACCESS. ON CLINICAL TRIAL. ALL NEEDS ATTENDED. SAFETY MEASURES MAINTAINED: CALL LIGHT AND TABLE WITHIN REACH, SIDE RAILS UP X 2, BED IN LOWEST LOCKED POSITION. ENDORSED TO MORNING SHIFT FOR ULICES.
--- NOTE | 2022-05-26 07:30 | NUR ---
RN Receiving report. Patient AOx4 able to express his own concerns. Patient ambulates through unit with no balance issues. Discussed plan of care, patient verbalized understanding. All safety precautions taken, call light and table within reach, bed at lowest position. Will continue to monitor and provide care as needed.
[2022-05-26 08:00] VITALS: BP_SYST 132; BP_SYST 142; BP_DIAS 76; BP_DIAS 91
[2022-05-26] MEDS: HCTZ 25 MG PO SCH ×3 (09:10→17:00)
[2022-05-26] MEDS: TAMSULOSIN 0.4 MG PO SCH (09:10)
[2022-05-26] MEDS: LOSARTAN 50 MG PO SCH ×3 (09:10→17:00)
[2022-05-26] MEDS: INVEST MED CVL-231-2002 PO SCH (09:11)
--- NOTE | 2022-05-26 10:05 | NUR ---
rn supervisor electronics assembly informed that pt did not return from out of pass. called x2 on his cell phone, no answer. Clinical trial team informed. Addendum: 05/26/22 at 2243 by JEFF GIANG this note is for 2100
--- NOTE | 2022-05-26 16:00 | NUR ---
Med Non-Admin Did not administered 1600 meds since patient is not in unit. Called, l/m on cell #
--- NOTE | 2022-05-26 18:30 | NUR ---
Med Non-Admin Did not administered 1600 meds since patient is not in unit. Called l/m to call back
--- NOTE | 2022-05-26 18:38 | NUR ---
RN Closing Note Patient AOx4 able to express his own concerns. Patient remained safe throughout shift. All safety precautions taken, call light and table within reach, bed at lowest position. Will endorse to night nurse for continuity of care.
--- NOTE | 2022-05-26 19:30 | NUR ---
RN OPENING NOTE PT NOT ON UNIT AT THIS TIME. WAS ENDORSED FROM PREVIOUS SHIFT THEY HAVE LEFT MESSAGES FOR PT. CALLED PT AND LEFT MESSAGE WELL. LEFT MESSAGE FOR DR HE AT THIS TIME. CHARGE NURSE JEFF ROSALES.
--- NOTE | 2022-05-26 20:38 | NUR ---
RN NOTE TRIED CALLING PT AGAIN, LEFT VOICEMAIL. NO RESPONSE YET FROM DR HE. CHARGE NURSE JEFF ROSALES.
--- NOTE | 2022-05-26 21:00 | NUR ---
rn supervisor home energy consultant informed that pt did not return from out of pass. called x2 on his cell phone, no answer. Clinical trial team informed.
--- NOTE | 2022-05-26 21:40 | NUR ---
RN NOTE WAS ABLE TO SPEAK TO DR HE CLINICAL TRAIL COORDINATOR JACEY CONNERILLO AT . INFORMED HER THAT PATIENT IS NOT ON THE UNIT AND IS NOT REACHABLE BY PHONE, MULTIPLE MESSAGES LEFT. ALSO INFORMED THAT MESSAGE WAS SENT TO DR HE WITH NO RESPONSE. SHE STATED "I WILL LET DR HE KNOW". CHARGE NURSE JEFF ROSALES.
--- NOTE | 2022-05-27 04:58 | NUR ---
RN NOTE RECEIVED MESSAGE FROM DR HE STATING "WELL. WE'LL SEE WHAT HAPPENS." INFORMED HIM THAT PT STILL NOT ARRIVED ON UNIT AT THIS TIME AND THAT WE WILL KEEP HIM UPDATED IF PT RETURNS THIS MORNING. CHANGE NURSE AND INTEGRATION SPECIALIST AWARE.
--- NOTE | 2022-05-27 05:43 | NUR ---
RN NOTE PT RETURNED TO THE UNIT A THIS TIME. LEFT MESSAGE FOR DR HE. PT STATED HE STAYED AT HIS SISTERS HOUSE BECAUSE THE BUSSES STOPPED RUNNING AND HE HAD NO WAY TO GET BACK. INFORMED PT THAT HE SHOULD HAVE CALLED TO INFORM US AND PT STATED HE UNDERSTOOD. CHARGE NURSE AND FINANCIAL PROCESSING CLERK AWARE.
[2022-05-27] MEDS: IBUPROFEN 200 MG TABLET PO PRN (06:05)
--- NOTE | 2022-05-27 06:05 | NUR ---
RN NOTE PT COMPLAINED OF HEADACHE 10/29. ADMINISTERED MOTRIN 600 MG FOR MODERATE PAIN ORDERED. MADE COMFORTABLE IN BED. ALL NEEDS MET AT THIS TIME.
--- NOTE | 2022-05-27 06:38 | NUR ---
RN CLOSING NOTE PT AWAKE IN BED. A/O X4 AND ABLE TO MAKE NEEDS KNOWN. PT STABLE ON ROOM AIR. NO SOB OR S/S OF RESPIRATORY DISTRESS. BREATHING EVEN AND UNLABORED. NO IV ACCESS DUE TO CLINICAL TRAIL STATUS. SAFETY PRECAUTIONS IN PLACE. BED IN LOWEST LOCKED POSITION, SIDE RAILS UP X2, AND CALL LIGHT AND TABLE WITHIN REACH. ALL NEEDS MET AT THIS TIME AND WILL ENDORSE TO ONCOMING NURSE FOR ULICES.
--- NOTE | 2022-05-27 07:30 | NUR ---
RN Opening Note. Patient AOx4 able to express his own concerns. Patient ambulates through unit with no balance issues. Discussed plan of care, patient verbalized understanding. All safety precautions taken, call light and table within reach, bed at lowest position. Will continue to monitor and provide care as needed.
[2022-05-27] MEDS: TAMSULOSIN 0.4 MG PO SCH (08:41)
[2022-05-27] MEDS: LOSARTAN 50 MG PO SCH ×2 (08:42→17:52)
[2022-05-27] MEDS: HCTZ 25 MG PO SCH ×2 (08:42→17:52)
[2022-05-27] MEDS: INVEST MED CVL-231-2002 PO SCH (09:31)
[2022-05-27] MEDS: ACETAMINOPHEN ES 500 MG TABLET PO PRN (12:08)
[2022-05-27 20:00] VITALS: BP 119/64
--- NOTE | 2022-05-27 20:31 | NUR ---
RN Opening Note. Patient AOx4 able to express his own concerns. Patient ambulates through unit with no balance issues. Discussed plan of care, patient verbalized understanding. All safety precautions taken, call light and table within reach, bed at lowest position. all safety measures followed.
--- NOTE | 2022-05-28 06:41 | NUR ---
RN Closing Note Patient AOx4 able to express his own concerns.all nursing needs met. candlelight within reach. will endorse care to day shift nurse.
[2022-05-28 08:00] VITALS: BP 106/71
[2022-05-28] MEDS: TAMSULOSIN 0.4 MG PO SCH (09:30)
[2022-05-28] MEDS: LOSARTAN 50 MG PO SCH ×2 (09:30→17:14)
[2022-05-28] MEDS: HCTZ 25 MG PO SCH ×2 (09:37→17:15)
[2022-05-28] MEDS: INVEST MED CVL-231-2002 PO SCH (09:57)
[2022-05-28 17:00] VITALS: BP 154/78
--- NOTE | 2022-05-28 18:25 | NUR ---
RN CLOSING NOTE PATIENT RECEIVED IN BED AND AWAKE. A/O X 4, AND ABLE TO AMBULATE THROUGHOUT UNIT AND VERBALIZE NEEDS. PATIENT REMAINS ON CLINICAL TRIAL STATUS. TOLERATED ALL SCHEDULED MEDICATIONS WELL. INVESTIGATIONAL MEDICATION ADMINISTERED @ 1000. TOLERATED WELL. PATIENT TOLERATED ALL MEALS AND OTHER RENDERED CARE WELL. SAFETY MEASURES IN PLACE WITH BED LOW AND LOCKED. SIDE-RAIL UP X2 WITH CALL LIGHT WITHIN REACH. WILL CONTINUE TO MONITOR.
[2022-05-28 20:00] VITALS: BP 127/72
--- NOTE | 2022-05-29 07:39 | NUR ---
noc rn closing report given to JAQUELINE Cruz for continuity of patient care.
[2022-05-29 08:02] VITALS: BP 131/79
[2022-05-29] MEDS: HCTZ 25 MG PO SCH ×2 (09:03→16:52)
[2022-05-29] MEDS: LOSARTAN 50 MG PO SCH ×2 (09:03→16:52)
[2022-05-29] MEDS: TAMSULOSIN 0.4 MG PO SCH (09:03)
[2022-05-29] MEDS: INVEST MED CVL-231-2002 PO SCH (10:01)
[2022-05-29 16:00] VITALS: BP 118/85
--- NOTE | 2022-05-29 18:26 | NUR ---
RN CLOSING NOTE PATIENT RECEIVED SITTING ON AND AWAKE. A/O X 4, AND ABLE TO AMBULATE THROUGHOUT UNIT AND VERBALIZE NEEDS. PATIENT REMAINS ON CLINICAL TRIAL STATUS. TOLERATED ALL SCHEDULED MEDICATIONS WELL. INVESTIGATIONAL MEDICATION ADMINISTERED @ 1000. TOLERATED WELL. PATIENT TOLERATED ALL MEALS AND OTHER RENDERED CARE WELL. SAFETY MEASURES IN PLACE WITH BED LOW AND LOCKED. SIDE-RAIL UP X2 WITH CALL LIGHT WITHIN REACH. WILL CONTINUE TO MONITOR.
--- NOTE | 2022-05-29 20:24 | NUR ---
noc rn opening received patient in bed on the phone with someone. alert and oriented. no s/s of apparent distress. no c/o pain. introduced myself. and encouraged to verbalized needs and concerns. will continue with plan of care.
--- NOTE | 2022-05-30 07:30 | NUR ---
RN OPENING NOTES PATIENT AWAKE IN BED RESTING, A/O X 4. NO S/S OF PAIN NOTED AT THIS TIME. ON ROOM AIR, NO DISTRESS OR SHORTNESS OF BREATH NOTED. NO IV ACCESS, CLINICAL TRIAL PATIENT. FALL AND SAFETY MEASURES IN PLACE, BED IN LOW LOCK POSITION, CALL LIGHT AND TABLE WITHIN EASY REACH, SIDE RAILS UP X2. WILL CONTINUE TO MONITOR.
--- NOTE | 2022-05-30 07:31 | NUR ---
noc rn closing needs attended. report given to JAQUELINE Jesus for continuity of care.
[2022-05-30] MEDS: TAMSULOSIN 0.4 MG PO SCH (09:45)
[2022-05-30] MEDS: LOSARTAN 50 MG PO SCH ×2 (09:45→17:18)
[2022-05-30] MEDS: HCTZ 25 MG PO SCH ×2 (09:45→17:18)
[2022-05-30] MEDS: INVEST MED CVL-231-2002 PO SCH (10:00)
--- NOTE | 2022-05-30 18:30 | NUR ---
RN CLOSING NOTES PATIENT AWAKE IN BED RESTING, A/O X 4. NO S/S OF PAIN NOTED AT THIS TIME. ON ROOM AIR, NO DISTRESS OR SHORTNESS OF BREATH NOTED. NO IV ACCESS, CLINICAL TRIAL PATENT. SCHEDULE MEDICATIONS ADMINISTERED. ALL NEEDS ATTENDED AND ANTICIPATED. FALL AND SAFETY MEASURES IN PLACE, BED IN LOW LOCK POSITION, CALL LIGHT AND TABLE WITHIN EASY REACH, SIDE RAILS UP X2. WILL ENDORSE TO OPERATIONS SUPERVISOR CHEMICAL CLEANING.
--- NOTE | 2022-05-30 19:15 | NUR ---
RN NOTES: UPON ENDORSEMENT HE IS LYING ON HIS BED, WHEN RN ENTERED HE WAS ASLEEP, AFTER SOMETIME HE GET UP, ORIENTED TO UNIT AND STAFF ON DUTY.NO SIGN OF RESPIRATORY DISCOMFORT, NO PAIN, WILL CONTINUE TO MONITOR BEHAVIOR AND FOR ANY SYMPTOMS, KEPT CALL LIGHT WIHTIN EASY REACH, SAFETY PRECAUTION OBSERVED.
--- NOTE | 2022-05-31 02:32 | NUR ---
RN NOTES: ASLEEP IN THE NIGHT HE DID NOT GET UP AND GO DOWN IN THE EVENING TIME.
[2022-05-31 04:00] VITALS: BP 111/78
--- NOTE | 2022-05-31 04:00 | NUR ---
RN NOTES: UPON HE WAKE UP HE WENT DOWN TO SMOKE AT AROUND 0400.
--- NOTE | 2022-05-31 07:05 | NUR ---
RN NOTES: HE DID NOT RETUNRED BACK YET UPON ENDORSEMENT, HE SLEEP WELL LAST NIGHT, NO BEHAVIOR NOTED, ENDORSED FOR CONTINUITY OF CARE.
--- NOTE | 2022-05-31 07:28 | NUR ---
RN NOTES: WHILE DOING ENDORSEMENT TO INCOMING SHIFT HE CAME BACK TO HIS ROOM.
[2022-05-31 08:00] VITALS: BP 120/79
[2022-05-31] MEDS: TAMSULOSIN 0.4 MG PO SCH (09:19)
[2022-05-31] MEDS: HCTZ 25 MG PO SCH ×2 (09:23→17:14)
[2022-05-31] MEDS: LOSARTAN 50 MG PO SCH ×2 (09:23→17:14)
[2022-05-31] MEDS: INVEST MED CVL-231-2002 PO SCH (09:57)
--- NOTE | 2022-05-31 19:10 | NUR ---
MS RN CLOSING NOTE PATIENT IN BED, AWAKE,ALERT AND ORIENTED X 4. NO SOB OR CARDIAC DISTRESS NOTED. NO BEHAVIORAL CHANGES OBSERVED IN MORNING SHIFT. KEPT RESTED AND COMFORTABLE. SAFETY MEASURES IN PLACE. KEPT BED IN LOWEST AND LOCKED POSITION. CALL LIGHT WITHIN EASY REACH. ENDORSED TO NOC SHIFT FOR ULICES.
--- NOTE | 2022-05-31 19:30 | NUR ---
MS RN OPENING NOTES RECEIVED PATIENT LAYING IN BED AWAKE. A/O X4. BREATHING EVEN AND NON-LABORED ON ROOM AIR. NOT IN APPARENT DISTRESS. DENIES PAIN AT THIS TIME. NO IV ACCESS, ON CLINICAL TRIAL. SAFETY PRECAUTIONS IN PLACE: BED LOW AND LOCKED, SIDE RAILS UP X2, CALL LIGHT WITHIN REACH. WILL CONTINUE POC.
[2022-05-31 20:00] VITALS: BP 119/64
--- NOTE | 2022-06-01 06:31 | NUR ---
MS RN CLOSING NOTES PATIENT IN BED SLEEPING INTERMITTENTLY. A/O X4. NO SOB OR NOTED, TOLERATING ROOM AIR WELL. AFEBRILE. NO UNUSUAL BEHAVIOR NOTED THROUGHOUT THE SHIFT. SAFETY PRECAUTIONS MAINTAINED. WILL ENDORSE TO NEXT SHIFT FOR ULICES.
[2022-06-01 07:00] VITALS: BP 121/79
--- NOTE | 2022-06-01 07:26 | NUR ---
MS RN OPENING NOTES PATIENT CURRENTLY NOT PRESENT IN THE UNIT.
[2022-06-01] MEDS: HCTZ 25 MG PO SCH ×2 (08:29→17:16)
[2022-06-01] MEDS: TAMSULOSIN 0.4 MG PO SCH (08:29)
[2022-06-01] MEDS: LOSARTAN 50 MG PO SCH ×2 (08:29→17:16)
[2022-06-01] MEDS: INVEST MED CVL-231-2002 PO SCH (12:00)
--- NOTE | 2022-06-01 19:30 | NUR ---
MS RN OPENING NOTE RECEIVED PATIENT IN BED; AWAKE, ALERT AND ORIENTED X 4. ON ROOM AIR; TOLERATING WELL. BREATHING EVEN AND NONLABORED. NO S/S OF RESPIRATORY DISTRESS. DENIES ANY PAIN OR DISCOMFORT AT THIS TIME. NO IV ACCESS. ON CLINICAL TRIAL. ABLE TO MAKE NEEDS KNOWN. FALL AND SAFETY PRECAUTIONS IMPLEMENTED: CALL LIGHT AND TABLE WITHIN EASY REACH, SIDE RAILS UP X 2, BED IN LOWEST LOCKED POSITION. WILL CONTINUE PLAN OF CARE.
--- NOTE | 2022-06-01 19:35 | NUR ---
MS JAQUELINE Opening Note Received patient in bed; awake, alert and oriented x 2; with episodes of confusion. Breathing even and nonlabored. On room air; tolerating well. Not in any form of respiratory distress. No s/s of any pain or discomfort noted at this time. With IV access on right hand 20g; intact and patent running with 1/2 NS 1L regulated @ 75 ml/hr; flushes well. Able to make needs known. Safety precautions implemented: call light and table within reach, side rails up x 3, bed in lowest locked position. Will continue plan of care. Addendum: 06/02/22 at 0523 by DAVID LUCERO RN This is a wrong entry.
[2022-06-01 20:00] VITALS: BP 139/87
--- NOTE | 2022-06-01 20:39 | NUR ---
MS RN CLOSING NOTES PATIENT LAYING IN BED AWAKE. A/O X4. BREATHING EVEN AND NON-LABORED ON ROOM AIR. NOT IN APPARENT DISTRESS. DENIES PAIN AT THIS TIME. NO IV ACCESS, ON CLINICAL TRIAL. SAFETY PRECAUTIONS IN PLACE: BED LOW AND LOCKED, SIDE RAILS UP X2, CALL LIGHT WITHIN REACH. ALL DUE MEDS GIVEN ORDERED. WILL ENDORSE FOR ULICES.
[2022-06-01 22:31] VITALS: BP 139/87
--- NOTE | 2022-06-02 06:40 | NUR ---
MS RN CLOSING NOTE PATIENT IN BED; AWAKE, A/O X 4. STABLE ON ROOM AIR. BREATHING EQUAL AND UNLABORED. IN NO APPARENT DISTRESS. NO C/O ANY PAIN OR DISCOMFORT AT THIS TIME. NO IV ACCESS. ON CLINICAL TRIAL. SAFETY PRECAUTIONS MAINTAINED: CALL LIGHT AND TABLE WITHIN EASY REACH, SIDE RAILS UP X 2, BED IN LOWEST LOCKED POSITION. ENDORSED TO MORNING SHIFT FOR ULICES.
--- NOTE | 2022-06-02 07:20 | NUR ---
MS RN OPENING NOTES PATIENT IN BED ALERT ORIENTED X 4, NO ACUTE DISTRESS NOTED, BREATHING UNLABORED, NO SOB NOTED. DENIED ANY PAIN. SAFETY MEASURES IN PLACE, CALL LIGHT WITHIN REACH. WILL CONTINUE TO MONITOR ACCORDINGLY.
[2022-06-02 08:00] VITALS: BP 111/69
[2022-06-02] MEDS: TAMSULOSIN 0.4 MG PO SCH (08:34)
[2022-06-02] MEDS: LOSARTAN 50 MG PO SCH ×2 (08:34→16:17)
[2022-06-02] MEDS: HCTZ 25 MG PO SCH ×2 (08:34→16:17)
[2022-06-02] MEDS: INVEST MED CVL-231-2002 PO SCH (10:15)
[2022-06-02 16:00] VITALS: BP 103/67
--- NOTE | 2022-06-02 19:00 | NUR ---
MS RN CLOSING NOTES PATIENT IN BED ALERT ORIENTED X 4, NO ACUTE DISTRESS NOTED, BREATHING UNLABORED, NO SOB NOTED. DENIED ANY PAIN. SAFETY MEASURES IN PLACE, CALL LIGHT WITHIN REACH. WILL ENDORSE TO NIGHT NURSE FOR CONTINUITY OF CARE.
--- NOTE | 2022-06-02 19:30 | NUR ---
MS RN OPENING NOTE RECEIVED PATIENT IN BED ALERT ORIENTED X 4. NO ACUTE DISTRESS NOTED, BREATHING EVEN UNLABORED, NO SOB NOTED. DENIED ANY PAIN OR DISCOMFORT. SAFETY MEASURES IN PLACE: SIDE RAILS INCREASED X 2, CALL LIGHT WITHIN REACH, BED LOCKED IN LOW POSITION. WILL CONTINUE TO MONITOR ACCORDINGLY.
[2022-06-02 20:00] VITALS: BP 118/75
--- NOTE | 2022-06-03 07:30 | NUR ---
MS RN NOTE REPORT GIVEN TO CHARGE NURSE SHABANA FOR CONTINUITY OF CARE.
[2022-06-03 08:00] VITALS: BP 121/58
[2022-06-03] MEDS: HCTZ 25 MG PO SCH ×2 (09:49→16:31)
[2022-06-03] MEDS: TAMSULOSIN 0.4 MG PO SCH (09:49)
[2022-06-03] MEDS: LOSARTAN 50 MG PO SCH ×2 (09:49→16:31)
[2022-06-03] MEDS: INVEST MED CVL-231-2002 PO SCH (09:50)
--- NOTE | 2022-06-03 10:07 | NUR ---
MS RN OPENING NOTE RECEIVED PATIENT IN BED ALERT ORIENTED X 4. NO ACUTE DISTRESS NOTED, BREATHING EVEN UNLABORED, NO SOB NOTED. DENIED ANY PAIN OR DISCOMFORT. SAFETY MEASURES IN PLACE: SIDE RAILS INCREASED X 2, CALL LIGHT WITHIN REACH, BED LOCKED IN LOW POSITION.ALL DUE MEDICATIONS GIVEN, TOLERATED WELL. WILL CONTINUE PLAN OF CARE.
[2022-06-03 20:00] VITALS: BP 104/61
--- NOTE | 2022-06-03 22:00 | NUR ---
MS RN NOTE REPORT GIVEN TO CHARGE NURSE SHABANA FOR CONTINUITY OF CARE.
[2022-06-04 08:00] VITALS: BP 107/74
[2022-06-04] MEDS: HCTZ 25 MG PO SCH ×2 (09:34→17:47)
[2022-06-04] MEDS: TAMSULOSIN 0.4 MG PO SCH (09:34)
[2022-06-04] MEDS: LOSARTAN 50 MG PO SCH ×2 (09:34→17:46)
[2022-06-04] MEDS: INVEST MED CVL-231-2002 PO SCH (10:25)
--- NOTE | 2022-06-04 19:49 | NUR ---
noc rn opening received patient in bed. alert and oriented. no s/s of apparent distress. no c/o pain. introduced myself. and encouraged to verbalized needs and concerns. will continue with plan of care.
[2022-06-04 20:00] VITALS: BP 129/68
--- NOTE | 2022-06-05 07:30 | NUR ---
MS RN OPENING NOTE RECEIVED PT AWAKE AND RESTING IN BED. PT IS ON CLINICAL TRIAL. PT IS AMBULATORY. A/O X4, ABLE TO MAKE NEEDS KNOWN. ON ROOM AIR, TOLERATING WELL. NO SOB NOTED. NOT IN ANY SIGN OF RESPIRATORY DISTRESS. PT HAS NO IV ACCESS. NO BEHAVIOR PROBLEM NOTED AT THIS TIME. SAFETY MEASURE IN PLACE: BED IN LOWEST AND LOCKED POSITION, BED RAILS UPX2, AND CALL LIGHT WITHIN REACH. WILL CONTINUE TO MONITOR PT.
--- NOTE | 2022-06-05 07:38 | NUR ---
noc rn closing needs attended. report given to alyssa Valero for continuity of patient care.
[2022-06-05] MEDS: LOSARTAN 50 MG PO SCH ×2 (09:02→16:27)
[2022-06-05] MEDS: HCTZ 25 MG PO SCH ×2 (09:02→16:27)
[2022-06-05] MEDS: TAMSULOSIN 0.4 MG PO SCH (09:02)
[2022-06-05] MEDS: INVEST MED CVL-231-2002 PO SCH (10:01)
--- NOTE | 2022-06-05 18:52 | NUR ---
MS RN CLOSING NOTE PT AWAKE AND RESTING IN BED. PT IS ON CLINICAL TRIAL. PT IS AMBULATORY. A/O X4, ABLE TO MAKE NEEDS KNOWN. ON ROOM AIR, TOLERATING WELL. NO SOB NOTED. NOT IN ANY SIGN OF RESPIRATORY DISTRESS. PT HAS NO IV ACCESS. NO BEHAVIOR PROBLEM NOTED AT THIS TIME. ALL NEEDS ATTENDED. KEPT CLEAN AND COMFORTABLE. SAFETY MEASURE IN PLACE: BED IN LOWEST AND LOCKED POSITION, BED RAILS UPX2, AND CALL LIGHT WITHIN REACH. WILL ENDORSE TO GASOLINE PUMP INSTALLER NURSE FOR ULICES.
--- NOTE | 2022-06-05 19:30 | NUR ---
MS RN OPENING NOTES RECEIVED PATIENT LAYING IN BED AWAKE. A/O X4. BREATHING EVEN AND NON-LABORED ON ROOM AIR. NOT IN APPARENT DISTRESS. DENIES PAIN AT THIS TIME. NO IV ACCESS, ON CLINICAL TRIAL. PATIENT PROVIDED WITH SNACKS PER REQUEST. SAFETY PRECAUTIONS IN PLACE: BED LOW AND LOCKED, SIDE RAILS UP X2, CALL LIGHT WITHIN REACH.
[2022-06-05 20:22] VITALS: BP 100/53
[2022-06-06 07:00] VITALS: BP 127/83
--- NOTE | 2022-06-06 07:16 | NUR ---
MS RN CLOSING NOTES PATIENT WALKING IN THE HALLWAY. IN STABLE CONDITION THROUGHOUT THE SHIFT. NO BEHAVIORAL ISSUES NOTED. ALL NEEDS ATTENDED. SAFETY PRECAUTIONS MAINTAINED. WILL ENDORSE TO NEXT SHIFT FOR ULICES.
[2022-06-06] MEDS: LOSARTAN 50 MG PO SCH ×2 (09:10→16:54)
[2022-06-06] MEDS: HCTZ 25 MG PO SCH ×2 (09:11→16:54)
[2022-06-06] MEDS: TAMSULOSIN 0.4 MG PO SCH (09:11)
[2022-06-06] MEDS: INVEST MED CVL-231-2002 PO SCH (10:06)
[2022-06-06 16:00] VITALS: BP 110/65
--- NOTE | 2022-06-06 18:44 | NUR ---
MS RN CLOSING NOTE PT AWAKE AND RESTING IN BED. PT IS ON CLINICAL TRIAL. PT IS AMBULATORY. A/O X4, ABLE TO MAKE NEEDS KNOWN. ON ROOM AIR, TOLERATING WELL. NO SOB NOTED. NOT IN ANY SIGN OF RESPIRATORY DISTRESS. PT HAS NO IV ACCESS. NO BEHAVIOR PROBLEM NOTED AT THIS TIME. ALL NEEDS ATTENDED. KEPT CLEAN AND COMFORTABLE. SAFETY MEASURE IN PLACE: BED IN LOWEST AND LOCKED POSITION, BED RAILS UPX2, AND CALL LIGHT WITHIN REACH. WILL ENDORSE TO FILLETER NURSE FOR ULICES.
--- NOTE | 2022-06-06 19:10 | NUR ---
MS RN OPENING NOTES RECEIVED PATIENT SITTING IN BED. AWAKE. A/O X4. BREATHING EVEN AND NON-LABORED ON ROOM AIR. NO S/S OF SOB OR DISTRESS. PATIENT DENIES OF HAVING PAIN. PATIENT IS ON CLINICAL TRIAL, NO IV ACCESS. EDUCATED PATIENT TO LET NURSE KNOW IF HE HAD BEHAVIORAL CHANGES; PATIETN VERBALIZED UNDERSTANDING . SAFETY PRECAUTIONS IN PLACE: BED IN LOW AND LOCKED POSITION, SIDE RAILS UP X2, CALL LIGHT WITHIN REACH. WILL CONTINUE MONITORING PATIENT'S CONDITION; AND PROVIDE PATIENT CARE NEEDED.
[2022-06-06 20:00] VITALS: BP 123/78
--- NOTE | 2022-06-07 07:27 | NUR ---
MS RN OPENING NOTES PATIENT RESTING IN HIS BED AT THIS TIME. A/O X4. ABLE TO MAKE NEEDS KNOWN, DENIES PAIN OR ANY DISCOMFORTS AT THIS TIME. ON ROOM AIR, BREATHING EVEN AND NON-LABORED, NO S/S OF SOB OR DISTRESS NOTED. PATIENT IS ON CLINICAL TRIAL. CALL LIGHT WITHIN REACH. WILL CONTINUE MONITORING PATIENT'S BEHAVIOR.
--- NOTE | 2022-06-07 07:30 | NUR ---
MS RN CLOSING NOTE CHANGE SHIFT REPORT GIVEN TO DEVORAH. NEED TO ENDORSE AND FOLLOW UP WITH THE MEDICATION AND PATIENT CARE ARRANGEMENT ON 06/07/2022 AND 06/14/2022. PATIENT IS IN HIS ROOM, DRINKING COFFEE. NO S/S OF DISTRESS; NO COMPLAINS OF PAIN. PATIENT DENIES OF HAVING ANY BEHAVIORAL CHANGES OR THOUGHTS.
[2022-06-07 08:00] VITALS: BP 142/97
[2022-06-07] MEDS: TAMSULOSIN 0.4 MG PO SCH (08:57)
[2022-06-07] MEDS: LOSARTAN 50 MG PO SCH ×2 (08:57→17:13)
[2022-06-07] MEDS: HCTZ 25 MG PO SCH ×2 (08:58→17:13)
[2022-06-07] MEDS: INVEST MED CVL-231-2002 PO SCH (10:03)
[2022-06-07 16:00] VITALS: BP 117/80
--- NOTE | 2022-06-07 18:36 | NUR ---
MS RN CLOSING NOTES PT IN HIS ROOM RIGHT NOW TIDYING UP HIS BED. A/O X4, ABLE TO MAKE NEEDS KNOWN. AMBULATORY WITH STEADY GAIT. ON ROOM AIR, TOLERATING WELL, NO SOB NOTED DURING THE DAY. ON CLINICAL TRIAL MEDICATION AND TOLERATED WELL. NO INAPPROPRIATE BEHAVIOR EXHIBITED DURING SHIFT. NEEDS ATTENDED WELL. CALL LIGHT WITHIN REACH. WILL ENDORSE PLAN OF CARE TO DRY ICE MAKER NURSE.
--- NOTE | 2022-06-07 19:40 | NUR ---
MS RN Opening Note Received patient in bed; awake, alert and oriented x 4. On room air; tolerating well. Breathing equal and unlabored. No s/s of respiratory distress. Denies any pain or discomfort at this time. No IV access. On clinical trial. Able to make needs known. Fall and safety precautions implemented: call light and table within reach, side rails up x 2, bed in lowest locked position. Will continue plan of care.
[2022-06-07 20:00] VITALS: BP 142/77
--- NOTE | 2022-06-08 06:50 | NUR ---
MS RN Closing Note Patient in bed; awake, a/o x 4. Stable on room air. Breathing equal and unlabored. No s/s of respiratory distress. Denies any pain or discomfort at this time. No IV access. On clinical trial. Needs attended. Fall and safety precautions maintained: call light and table within reach, side rails up x 2, bed in lowest locked position. Endorsed to morning shift for ha.
--- NOTE | 2022-06-08 07:25 | NUR ---
MS RN OPENING NOTES PATIENT RECEIVED IN HIS BED AWAKE, A/O X4. ABLE TO MAKE NEEDS KNOWN, DENIES PAIN OR ANY DISCOMFORTS AT THIS TIME. ON ROOM AIR, BREATHING EVEN AND UN-LABORED, NO S/S OF SOB OR DISTRESS NOTED. PATIENT IS ON CLINICAL TRIAL. CALL LIGHT WITHIN REACH. WILL CONTINUE MONITORING PATIENT'S BEHAVIOR.
[2022-06-08 08:00] VITALS: BP 149/86
[2022-06-08] MEDS: LOSARTAN 50 MG PO SCH ×2 (08:28→16:14)
[2022-06-08] MEDS: HCTZ 25 MG PO SCH ×2 (08:28→16:14)
[2022-06-08] MEDS: TAMSULOSIN 0.4 MG PO SCH (08:28)
[2022-06-08] MEDS: INVEST MED CVL-231-2002 PO SCH (10:06)
[2022-06-08] MEDS ORDERED: ZOLPIDEM TARTRATE 10 MG TABLET PO PRN (13:00)
[2022-06-08] MEDS ORDERED: LORAZEPAM 1 MG TABLET FOR AGITATION PO PRN (13:00)
[2022-06-08 16:00] VITALS: BP 131/76
--- NOTE | 2022-06-08 18:46 | NUR ---
MS RN CLOSING NOTES PT WENT OUTSIDE TO SMOKE AT THIS TIME. HE IS A/O X4, ABLE TO MAKE NEEDS KNOWN. AMBULATORY WITH STEADY GAIT. ON ROOM AIR, TOLERATING WELL, NO SOB NOTED DURING THE DAY. ON CLINICAL TRIAL MEDICATION, TOLERATED WELL WITH NO INAPPROPRIATE BEHAVIOR EXHIBITED DURING SHIFT. WILL ENDORSE PLAN OF CARE TO SUPERVISOR NATURAL GAS PLANT NURSE.
[2022-06-08 20:00] VITALS: BP 123/79
[2022-06-09 08:06] VITALS: BP 125/81
[2022-06-09] MEDS: TAMSULOSIN 0.4 MG PO SCH (09:29)
[2022-06-09] MEDS: LOSARTAN 50 MG PO SCH ×2 (09:29→17:29)
[2022-06-09] MEDS: HCTZ 25 MG PO SCH ×2 (09:29→17:29)
[2022-06-09] MEDS: INVEST MED CVL-231-2002 PO SCH (09:30)
[2022-06-09 15:47] VITALS: BP 93/53
--- NOTE | 2022-06-09 19:51 | NUR ---
bulmaro rn opening patient sleeping during ha report.
[2022-06-10 07:00] VITALS: BP 135/81
--- NOTE | 2022-06-10 07:13 | NUR ---
MS RN OPENING NOTES RECEIVED PATIENT SLEEPING IN BED, ON ROOM AIR NO S/S OF RESPIRATORY DISTRESS. PATIENT IS CLINICAL TRAIL, NO IV ACCESS. A/Ox4, NO BEHAVIORAL ISSUES NOTED. SKIN INTACT, ABLE TO MAKE NEEDS KNOWN. SAFETY MEASURES IN PLACE: BED LOCKED AND IN LOWEST POSITION, CALL LIGHT WITHIN REACH, HOB ELEVATED, SIDE RAILS UPx2. WILL CONTINUE TO MONITOR.
--- NOTE | 2022-06-10 09:00 | NUR ---
RN NOTES PATIENT LEFT UNIT @0800, HAS NOT RETURNED YET, WILL ADMINISTER MEDICATION UPON RETURN.
[2022-06-10] MEDS: TAMSULOSIN 0.4 MG PO SCH (11:32)
[2022-06-10] MEDS: LOSARTAN 50 MG PO SCH ×2 (11:32→17:03)
[2022-06-10] MEDS: HCTZ 25 MG PO SCH ×2 (11:32→17:03)
[2022-06-10] MEDS: INVEST MED CVL-231-2002 PO SCH (11:32)
[2022-06-10 16:00] VITALS: BP 136/68
[2022-06-10] MEDS: ACETAMINOPHEN ES 500 MG TABLET PO PRN (18:45)
--- NOTE | 2022-06-10 18:49 | NUR ---
RN NOTES PATIENT COMPLAINED OF PAIN, REQUESTED PRN ES TYLENOL. MEDICATION ADMINISTERED, WILL CONTINUE TO MONITOR.
--- NOTE | 2022-06-10 18:54 | NUR ---
MS RN CLOSING NOTES PATIENT IN BED, WATCHING TV. STABLE ON ROOM AIR NO S/S OF RESPIRATORY DISTRESS. PATIENT IS CLINICAL TRAIL, NO IV ACCESS. A/Ox4, NO BEHAVIORAL ISSUES NOTED. SKIN INTACT, ABLE TO MAKE NEEDS KNOWN. SAFETY MEASURES MAINTAINED: BED LOCKED AND IN LOWEST POSITION, CALL LIGHT WITHIN REACH, HOB ELEVATED, SIDE RAILS UPx2. WILL ENDORSE TO NEXT SHIFT ANY ULICES.
--- NOTE | 2022-06-10 19:30 | NUR ---
noc rn opening received patient, was in the rest room during rounds. alert and oriented. no s/s of apparent distress. no c/o pain. introduced myself. and encouraged to verbalized needs and concerns. will continue with plan of care.
[2022-06-10 20:00] VITALS: BP 116/84
[2022-06-11 08:00] VITALS: BP 140/86
[2022-06-11] MEDS: TAMSULOSIN 0.4 MG PO SCH (09:55)
[2022-06-11] MEDS: LOSARTAN 50 MG PO SCH ×2 (09:55→17:38)
[2022-06-11] MEDS: HCTZ 25 MG PO SCH ×2 (09:55→17:38)
[2022-06-11] MEDS: INVEST MED CVL-231-2002 PO SCH (09:55)
[2022-06-11] MEDS: ACETAMINOPHEN ES 500 MG TABLET PO PRN (10:04)
[2022-06-11 16:00] VITALS: BP 136/80
--- NOTE | 2022-06-11 19:02 | NUR ---
RN CLOSING NOTE PATIENT RECEIVED IN BED AND AWAKE. REMAINS A/O X 4, AND ABLE TO AMBULATE THROUGHOUT UNIT AND VERBALIZE NEEDS. PATIENT REMAINS ON CLINICAL TRIAL STATUS. TOLERATED ALL SCHEDULED MEDICATIONS WELL INVESTIGATIONAL MEDICATION ADMINISTERED @ 1000. PATIENT TOLERATED ALL MEALS AND OTHER CARE GIVEN. SAFETY MEASURES IN PLACE WITH BED LOW AND LOCKED. SIDE-RAIL UP X2 WITH CALL LIGHT WITHIN REACH. WILL CONTINUE TO MONITOR.
--- NOTE | 2022-06-11 20:20 | NUR ---
RN OPENING NOTE PATIENT SLEEPING IN BED, PT ALERT/ORIENTED X 4, PT ABLE TO MAKE NEEDS KNOWN. PT STABLE ON RA, NO S/S OF DISTRESS OR SOB NOTED, BREATHING EVEN AND UNLABORED. NO IV ACCESS D/T CLINICAL TRIAL STATUS. SAFETY MEASURES IN PLACE: CALL LIGHT WITHIN REACH, SIDE RAILS UP X 2, BED LOCKED IN LOWEST POSITION. WILL CONTINUE TO MONITOR PATIENT
--- NOTE | 2022-06-12 06:54 | NUR ---
RN CLOSING NOTE PATIENT AWAKE IN ROOM, PT ALERT/ORIENTED X 4, PT ABLE TO MAKE NEEDS KNOWN. PT STABLE ON RA, NO S/S OF DISTRESS OR SOB NOTED, BREATHING EVEN AND UNLABORED. NO IV ACCESS D/T CLINICAL TRIAL STATUS. PATIENT NEEDS MET THROUGHOUT SHIFT. NO BEHAVIORAL OR MEDICAL CHANGES. SAFETY MEASURES IN PLACE: CALL LIGHT WITHIN REACH, SIDE RAILS UP X 2, BED LOCKED IN LOWEST POSITION. WILL ENDORSE TO DAYSHIFT RN FOR CONTINUITY OF CARE
[2022-06-12] MEDS: LOSARTAN 50 MG PO SCH ×2 (10:07→17:40)
[2022-06-12] MEDS: HCTZ 25 MG PO SCH ×2 (10:07→17:40)
[2022-06-12] MEDS: TAMSULOSIN 0.4 MG PO SCH (10:07)
[2022-06-12] MEDS: INVEST MED CVL-231-2002 PO SCH (10:07)
--- NOTE | 2022-06-12 19:58 | NUR ---
MS RN CLOSING NOTE PT AWAKE AND RESTING IN BED. PT IS ON CLINICAL TRIAL. PT IS AMBULATORY. A/O X4, ABLE TO MAKE NEEDS KNOWN. ON ROOM AIR, TOLERATING WELL. NO SOB NOTED. NOT IN ANY SIGN OF RESPIRATORY DISTRESS. PT HAS NO IV ACCESS. NO BEHAVIOR PROBLEM NOTED AT THIS TIME. ALL NEEDS ATTENDED. KEPT CLEAN AND COMFORTABLE. SAFETY MEASURE IN PLACE: BED IN LOWEST AND LOCKED POSITION, BED RAILS UPX2, AND CALL LIGHT WITHIN REACH. WILL ENDORSE TO ANIMATION DIRECTOR NURSE FOR ULICES.
--- NOTE | 2022-06-12 20:15 | NUR ---
RN OPENING NOTE PATIENT RETURNED TO UNIT FROM SMOKING OUTSIDE, PT ALERT/ORIENTED X 4, PT ABLE TO MAKE NEEDS KNOWN. PATIENT STATES HE HAS NO NEEDS AT THIS TIME. PT STABLE ON RA, NO S/S OF DISTRESS OR SOB NOTED, BREATHING EVEN AND UNLABORED. PATIENT PLEASANT, NO BEHAVIORAL ISSUES NOTED AT THIS TIME. SAFETY MEASURES IN PLACE: CALL LIGHT WITHIN REACH, SIDE RAILS UP X 2, BED LOCKED IN LOWEST POSITION, WILL CONTINUE TO MONITOR PATIENT
[2022-06-12 20:51] VITALS: BP 106/67
--- NOTE | 2022-06-13 06:59 | NUR ---
RN CLOSING NOTE PATIENT LAYING IN BED, PT ALERT/ORIENTED X 4, PT ABLE TO MAKE NEEDS KNOWN. PT STABLE ON RA, NO S/S OF DISTRESS OR SOB NOTED, BREATHING EVEN AND UNLABORED. NO IV ACCESS D/T CLINICAL TRIAL STATUS. PATIENT NEEDS MET THROUGHOUT SHIFT. NO BEHAVIORAL OR MEDICAL CHANGES. SAFETY MEASURES IN PLACE: CALL LIGHT WITHIN REACH, SIDE RAILS UP X 2, BED LOCKED IN LOWEST POSITION. WILL ENDORSE TO DAYSHIFT RN FOR CONTINUITY OF CARE
[2022-06-13 08:00] VITALS: BP 133/87
[2022-06-13] MEDS: TAMSULOSIN 0.4 MG PO SCH (08:23)
[2022-06-13] MEDS: LOSARTAN 50 MG PO SCH ×2 (08:23→16:17)
[2022-06-13] MEDS: HCTZ 25 MG PO SCH ×2 (08:23→16:17)
[2022-06-13] MEDS: INVEST MED CVL-231-2002 PO SCH (10:01)
[2022-06-13 15:57] VITALS: BP 118/74
--- NOTE | 2022-06-13 18:31 | NUR ---
MS RN CLOSING NOTE PT AWAKE AND RESTING IN BED. PT IS ON CLINICAL TRIAL. PT IS AMBULATORY. A/O X4, ABLE TO MAKE NEEDS KNOWN. ON ROOM AIR, TOLERATING WELL. NO SOB NOTED. NOT IN ANY SIGN OF RESPIRATORY DISTRESS. PT HAS NO IV ACCESS. NO BEHAVIOR PROBLEM NOTED AT THIS TIME. ALL NEEDS ATTENDED. KEPT CLEAN AND COMFORTABLE. SAFETY MEASURE IN PLACE: BED IN LOWEST AND LOCKED POSITION, BED RAILS UPX2, AND CALL LIGHT WITHIN REACH. WILL ENDORSE TO LABOR LAW PROFESSOR NURSE FOR ULICES.
--- NOTE | 2022-06-13 19:30 | NUR ---
MS RN OPENING NOTE RECEIVED PT IN BED, AWAKE, AMBULATORY, AND A/O X 4. ABLE TO VERBALIZE NEEDS. PT IS ON CLINICAL TRIAL. ON ROOM AIR, TOLERATING WELL. NO SOB NOTED UPON ASSESSMENT. NO S/SX OF ACUTE RESPIRATORY DISTRESS NOTED. PT HAS NO IV ACCESS. NO BEHAVIOR PROBLEM NOTED AT THIS TIME. ALL SAFETY MEASURES IN PLACE: BED IN LOWEST AND LOCKED POSITION, BED RAILS UP X 2, AND CALL LIGHT WITHIN REACH. WILL CONTINUE TO MONITOR PT.
[2022-06-13 20:00] VITALS: BP 125/76
--- NOTE | 2022-06-14 06:03 | NUR ---
RN NOTE NO SIGNIFICANT CHANGES T/O THE NIGHT. NO BEHAVIORAL PROBLEM NOTED. WILL ENDORSE TO AM SHIFT NURSE FOR ULICES.
[2022-06-14] MEDS: HCTZ 25 MG PO SCH ×2 (08:07→16:21)
[2022-06-14] MEDS: TAMSULOSIN 0.4 MG PO SCH (08:07)
[2022-06-14] MEDS: LOSARTAN 50 MG PO SCH ×2 (08:07→16:21)
[2022-06-14 08:27] VITALS: BP 137/81
[2022-06-14] MEDS: INVEST MED CVL-231-2002 PO SCH (10:03)
[2022-06-14 17:24] VITALS: BP 126/62
--- NOTE | 2022-06-14 18:35 | NUR ---
MS RN CLOSING NOTE PT AWAKE AND RESTING IN BED. PT IS ON CLINICAL TRIAL. PT IS AMBULATORY. A/O X4, ABLE TO MAKE NEEDS KNOWN. ON ROOM AIR, TOLERATING WELL. NO SOB NOTED. NOT IN ANY SIGN OF RESPIRATORY DISTRESS. PT HAS NO IV ACCESS. NO BEHAVIOR PROBLEM NOTED AT THIS TIME. ALL NEEDS ATTENDED. KEPT CLEAN AND COMFORTABLE. SAFETY MEASURE IN PLACE: BED IN LOWEST AND LOCKED POSITION, BED RAILS UPX2, AND CALL LIGHT WITHIN REACH. WILL ENDORSE TO SENIOR GRANTS OFFICER NURSE FOR ULICES.
--- NOTE | 2022-06-14 19:29 | NUR ---
MS PARSONS OPENING NOTE PT AWAKE AND RESTING IN BED. PT IS ON CLINICAL TRIAL. PT IS AMBULATORY. A/O X4, ABLE TO MAKE NEEDS KNOWN. ON ROOM AIR, TOLERATING WELL. NO SOB NOTED. NOT IN ANY SIGN OF RESPIRATORY DISTRESS. PT HAS NO IV ACCESS. NO BEHAVIOR PROBLEM NOTED AT THIS TIME. ALL NEEDS ATTENDED. KEPT CLEAN AND COMFORTABLE. SAFETY MEASURE IN PLACE: BED IN LOWEST AND LOCKED POSITION, BED RAILS UPX2, AND CALL LIGHT WITHIN REACH. PT TO BE NPO POST 2100 FOR LAB TESTING TOMORROW REMINDED PT OF THIS. Addendum: 06/15/22 at 0647 by RADHA SHEN RN PT NOT HAVING LABS TOMMORROW HE WILL HAVE THEM SATURDAY
--- NOTE | 2022-06-15 06:47 | NUR ---
MS RN CLOSING NOTE PT AWAKE AND RESTING IN BED. PT IS ON CLINICAL TRIAL. PT IS AMBULATORY. A/O X4, ABLE TO MAKE NEEDS KNOWN. ON ROOM AIR, TOLERATING WELL. NO SOB NOTED. NOT IN ANY SIGN OF RESPIRATORY DISTRESS. PT HAS NO IV ACCESS. NO BEHAVIOR PROBLEM NOTED AT THIS TIME. ALL NEEDS ATTENDED. KEPT CLEAN AND COMFORTABLE. SAFETY MEASURE IN PLACE: BED IN LOWEST AND LOCKED POSITION, BED RAILS UPX2, AND CALL LIGHT WITHIN REACH. WILL ENDORSE CARE TO DAY SHIFT NURSE.
--- NOTE | 2022-06-15 07:30 | NUR ---
RN MS NOTES PT IN HIS ROOM, AWAKE, ALERT AND ORIENTED, NO COMPLAINT OF PAIN, NOT IN DISTRESS, NO BEHAVIOR PROBLEM NOTED.
[2022-06-15 08:12] VITALS: BP 108/64
[2022-06-15] MEDS: LOSARTAN 50 MG PO SCH ×2 (08:43→17:27)
[2022-06-15] MEDS: TAMSULOSIN 0.4 MG PO SCH (08:43)
[2022-06-15] MEDS: HCTZ 25 MG PO SCH ×2 (08:44→17:27)
[2022-06-15] MEDS: INVEST MED CVL-231-2002 PO SCH (09:56)
[2022-06-15] MEDS ORDERED: LORAZEPAM 1 MG TABLET FOR AGITATION PO PRN (13:00)
[2022-06-15] MEDS ORDERED: ZOLPIDEM TARTRATE 10 MG TABLET PO PRN (13:00)
--- NOTE | 2022-06-15 18:13 | NUR ---
RN MS NOTES PT IN BED, AWAKE, ALERT AND ORIENTED, DENIES PAIN, NOT IN DISTRESS, PM MEDS GIVEN ORDERED, COMPLIANT AND COOPERATIVE, NO BEHAVIOR PROBLEM NOTED.
--- NOTE | 2022-06-15 19:05 | NUR ---
MS RN OPENING NOTES PATIENT IS LYING IN BED WATCHING TV. A/O X4. HE IS ON ROOM AIR, BREATHING EVEN AND NON-LABORED; TOLERATED WELL. NO S/S OF SOB OR DISTRESS. PATIENT DENIES OF HAVING PAIN. PATIENT IS ON CLINICAL TRIAL, NO IV ACCESS. EDUCATED PATIENT TO LET NURSE KNOW IF HE HAD BEHAVIORAL CHANGES; PATIETN VERBALIZED UNDERSTANDING . SAFETY PRECAUTIONS IN PLACE: BED IN LOW AND LOCKED POSITION, SIDE RAILS UP X 2, CALL LIGHT WITHIN REACH. WILL CONTINUE MONITORING PATIENT'S CONDITION AND PROVIDE PATIENT CARE NEEDED.
--- NOTE | 2022-06-16 07:09 | NUR ---
MS RN OPENING NOTES RECEIVED PATIENT AWAKE IN BED ON ROOM AIR, NO S/S OF RESPIRATORY DISTRESS. PATIENT IS A/Ox4. NO IV ACCESS SKIN INTACT. SAFETY PRECAUTIONS IN PLACE: BED LOCKED AND IN LOWEST POSITION, SIDE RAILS UPx2, HOB ELEVATED, CALL LIGHT WITHIN REACH. WILL CONTINUE TO MONITOR.
--- NOTE | 2022-06-16 07:31 | NUR ---
MS RN CLOSING NOTES PATIENT IS IN BED SLEEPING. HE IS ON ROOM AIR, BREATHING EVEN AND UNLABORED; TOLERATED WELL. NO S/S OF SOB OR DISTRESS. PATIENT DENIES OF HAVING BEHAVIORAL CHANGES . SAFETY PRECAUTIONS IN PLACE: BED IN LOW AND LOCKED POSITION, SIDE RAILS UP X 2, CALL LIGHT WITHIN REACH. WILL ENDORSE NEXT SHIFT NURSE FOR CONTINUE PATIENT CARE.
[2022-06-16 08:00] VITALS: BP 106/73
[2022-06-16] MEDS: LOSARTAN 50 MG PO SCH ×2 (09:06→16:31)
[2022-06-16] MEDS: TAMSULOSIN 0.4 MG PO SCH (09:06)
[2022-06-16] MEDS: HCTZ 25 MG PO SCH ×2 (09:06→16:31)
[2022-06-16] MEDS: INVEST MED CVL-231-2002 PO SCH (09:07)
[2022-06-16 15:55] VITALS: BP 96/56
--- NOTE | 2022-06-16 16:32 | NUR ---
RN NOTES PATIENT NOTED WITH DECREASED BLOOD PRESSURE, HOME MEDICATION HELD.
--- NOTE | 2022-06-16 18:47 | NUR ---
MS RN CLOSING NOTES PATIENT AWAKE IN BED ON ROOM AIR, NO S/S OF RESPIRATORY DISTRESS. PATIENT IS A/Ox4. NO IV ACCESS SKIN INTACT. ALL PRESCRIBED MEDICATION ADMINISTERED. SAFETY PRECAUTIONS MAINTAINED: BED LOCKED AND IN LOWEST POSITION, SIDE RAILS UPx2, HOB ELEVATED, CALL LIGHT WITHIN REACH. WILL ENDORSE TO NEXT SHIFT ANY ULICES.
[2022-06-17 08:00] VITALS: BP 123/77
[2022-06-17] MEDS: INVEST MED CVL-231-2002 PO SCH (09:59)
[2022-06-17] MEDS: HCTZ 25 MG PO SCH ×2 (10:02→17:42)
[2022-06-17] MEDS: TAMSULOSIN 0.4 MG PO SCH (10:02)
[2022-06-17] MEDS: LOSARTAN 50 MG PO SCH ×2 (10:02→17:42)
--- NOTE | 2022-06-17 18:30 | NUR ---
RN CLOSING NOTE PATIENT RECEIVED IN BED AND AWAKE. REMAINS A/O X 4, AND ABLE TO AMBULATE THROUGHOUT UNIT AND VERBALIZE NEEDS. PATIENT REMAINS ON CLINICAL TRIAL STATUS. TOLERATED ALL SCHEDULED MEDICATIONS WELL INVESTIGATIONAL MEDICATION ADMINISTERED @ 1000. PATIENT TOLERATED ALL MEALS AND OTHER CARE GIVEN, WITH NO REFUSALS OF MEALS. SAFETY MEASURES IN PLACE WITH BED LOW AND LOCKED. SIDE-RAIL UP X2 WITH CALL LIGHT WITHIN REACH. WILL CONTINUE TO MONITOR.
[2022-06-17 20:27] VITALS: BP 112/74
[2022-06-18 08:00] VITALS: BP 126/77
[2022-06-18] MEDS: HCTZ 25 MG PO SCH ×2 (09:39→16:50)
[2022-06-18] MEDS: LOSARTAN 50 MG PO SCH ×2 (09:39→16:50)
[2022-06-18] MEDS: TAMSULOSIN 0.4 MG PO SCH (09:40)
[2022-06-18] MEDS: INVEST MED CVL-231-2002 PO SCH (09:57)
[2022-06-18 16:00] VITALS: BP 120/70
--- NOTE | 2022-06-18 18:32 | NUR ---
RN CLOSING NOTE PATIENT RECEIVED IN BED AND AWAKE. REMAINS A/O X 4, .AND ABLE TO VERBALIZE NEEDS. PATIENT OBSERVED AMBULATING THROUGHOUT. REMAINS ON CLINICAL TRIAL STATUS. TOLERATED ALL SCHEDULED MEDICATIONS WELL INVESTIGATIONAL MEDICATION ADMINISTERED @ 1000. PATIENT TOLERATED ALL MEALS AND OTHER CARE GIVEN, WITH NO REFUSALS OF MEALS. SAFETY MEASURES IN PLACE WITH BED LOW AND LOCKED. SIDE-RAIL UP X2 WITH CALL LIGHT WITHIN REACH. WILL CONTINUE TO MONITOR.
--- NOTE | 2022-06-18 19:35 | NUR ---
MS RN OPENING NOTE RECEIVED PATIENT SLEEPING IN BED. PT A/O X4, ABLE TO VERBALIZE NEEDS. ON ROOM AIR, NO S/S OF RESPIRATORY DISTRESS. NO IV ACCESS, SKIN IS INTACT. SAFETY PRECAUTIONS IN PLACE: BED LOCKED, AND IN LOWEST POSITION, SIDE RAILS UP x2, HOB ELEVATED, CALL LIGHT WITHIN REACH. WILL CONTINUE TO MONITOR PT.
--- NOTE | 2022-06-19 07:00 | NUR ---
MS RN CLOSING NOTE LEFT PATIENT IN BED, SLEEPING. PT A/O X 4, AND ABLE TO VERBALIZE NEEDS. PT ON CLINICAL TRIAL STATUS. ALL NEEDS ATTENDED. SAFETY MEASURES IN PLACE WITH BED LOW AND LOCKED POSITION, SIDE-RAILS UP X2 WITH CALL LIGHT WITHIN REACH. WILL ENDORSE TO AM SHIFT NURSE FOR ULICES.
--- NOTE | 2022-06-19 07:55 | NUR ---
RN OPENING NOTE PT AWAKE IN ROOM, . PT A/O X4, ABLE TO VERBALIZE NEEDS. ON ROOM AIR, NO S/S OF RESPIRATORY DISTRESS. NO IV ACCESS, SKIN IS INTACT. NO TREMORS, DENIES SI HI [facility], SAFETY PRECAUTIONS IN PLACE: BED LOCKED, AND IN LOWEST POSITION, SIDE RAILS UP x2, HOB ELEVATED, CALL LIGHT WITHIN REACH. WILL CONTINUE TO MONITOR PT.
[2022-06-19 08:00] VITALS: BP 118/91
[2022-06-19] MEDS: HCTZ 25 MG PO SCH ×2 (08:56→17:00)
[2022-06-19] MEDS: TAMSULOSIN 0.4 MG PO SCH (08:56)
[2022-06-19] MEDS: LOSARTAN 50 MG PO SCH ×2 (08:57→17:00)
[2022-06-19] MEDS: INVEST MED CVL-231-2002 PO SCH (10:03)
[2022-06-19 16:00] VITALS: BP 115/62
--- NOTE | 2022-06-19 18:54 | NUR ---
RN CLOSING NOTE - PT AWAKE IN ROOM, . PT A/O X4, ABLE TO VERBALIZE NEEDS. ON ROOM AIR, NO S/S OF RESPIRATORY DISTRESS. NO IV ACCESS, SKIN IS INTACT. NO TREMORS, DENIES SI HI [facility], SAFETY PRECAUTIONS IN PLACE: BED LOCKED, AND IN LOWEST POSITION, SIDE RAILS UP x2, HOB ELEVATED, CALL LIGHT WITHIN REACH. WILL CONTINUE TO MONITOR PT.
--- NOTE | 2022-06-19 19:30 | NUR ---
MS RN OPENING NOTE RECEIVED PATIENT SLEEPING IN BED. PT A/O X4, ABLE TO VERBALIZE NEEDS. ON ROOM AIR WITH NO S/S OF RESPIRATORY DISTRESS. NO IV ACCESS, SKIN IS INTACT. SAFETY PRECAUTIONS IN PLACE: BED LOCKED, AND IN LOWEST POSITION, SIDE RAILS UP x2, HOB ELEVATED, CALL LIGHT WITHIN REACH. WILL CONTINUE TO MONITOR PT.
[2022-06-19 21:20] VITALS: BP 83/46
--- NOTE | 2022-06-20 07:10 | NUR ---
MS RN CLOSING NOTE PATIENT SLEEPING IN BED. PT A/O X4, ABLE TO VERBALIZE NEEDS. STABLE ON ROOM AIR WITH NO S/S OF RESPIRATORY DISTRESS. NO IV ACCESS, SKIN IS INTACT. SAFETY PRECAUTIONS MAINTAINED: BED LOCKED, AND IN LOWEST POSITION, SIDE RAILS UP x2, HOB ELEVATED, CALL LIGHT WITHIN REACH. WILL ENDORSE ULICES TO PHYSICIAN PEDIATRICIAN NURSE.
--- NOTE | 2022-06-20 07:35 | NUR ---
RN OPENING NOTES - CLINICAL TRIAL RECEIVED PATIENT IN BED, WATCHING TV, AOX4, COOPERATIVE, PATIENT IS ON ROOM AIR, NOT IN ANY APPARENT DISTRESS, DENIES PAIN AT THIS TIME, NO IV LINE PER PROTOCOL. SAFETY PRECAUTIONS IN PLACE, BED IN LOWEST POSITION, SIDE RAILS UP, TRAY TABLE AND CALL LIGHT WITHIN REACH. WILL CONTINUE TO MONITOR DURING MY SHIFT.
[2022-06-20 08:00] VITALS: BP 101/65
[2022-06-20] MEDS: HCTZ 25 MG PO SCH ×2 (08:54→16:58)
[2022-06-20] MEDS: TAMSULOSIN 0.4 MG PO SCH (08:54)
[2022-06-20] MEDS: LOSARTAN 50 MG PO SCH ×2 (08:54→16:58)
[2022-06-20] MEDS: INVEST MED CVL-231-2002 PO SCH (09:09)
[2022-06-20 16:00] VITALS: BP 124/69
[2022-06-20] MEDS: ACETAMINOPHEN ES 500 MG TABLET PO PRN (16:58)
--- NOTE | 2022-06-20 19:15 | NUR ---
RN CLOSING NOTES - CLINICAL TRIAL PATIENT IN BED, EATING DINNER, AOX4, COOPERATIVE, ON ROOM AIR, NOT IN ANY APPARENT DISTRESS, DIDNT SHOW ANY CHANGES IN BEHAVIOR DURING MY SHIFT. NO IV LINE PER PROTOCOL. ALL NEEDS MET, ALL DUE MEDS GIVE, SAFETY PRECAUTIONS IN PLACE, BED IN LOWEST POSITION, SIDE RAILS UP, TRAY TABLE AND CALL LIGHT WITHIN REACH. WILL ENDORSE HEALTH SYSTEM SHIFT NURSE.
--- NOTE | 2022-06-20 19:30 | NUR ---
MS RN OPENING NOTES RECEIVED PATIENT LAYING IN BED. A/O X4, HAVING AN ARGUMENT WITH ROOM MATE. ADVISED BOTH PATIENTS TO CALM DOWN, CALLED SECURITY. PATIENT HAS NO C/O PAIN OR DISCOMFORT. BREATHING EVEN AND NON-LABORED ON ROOM AIR. NO IV ACCESS, ON CLINICAL TRIAL. SAFETY PRECAUTIONS IN PLACE: BED LOW AND LOCKED, SIDE RAILS UP X2, CALL LIGHT WITHIN REACH. WILL CONTINUE POC.
[2022-06-20 20:00] VITALS: BP 147/86
--- NOTE | 2022-06-20 23:30 | NUR ---
MS RN NOTES ENDORSED TO PADMAJA DONALD.
[2022-06-21 07:00] VITALS: BP 132/90
--- NOTE | 2022-06-21 07:47 | NUR ---
RN OPENING NOTES - CLINICAL TRIAL RECEIVED PATIENT IN BED, WATCHING TV, AOX4, COOPERATIVE, ON ROOM AIR, NOT IN ANY APPARENT DISTRESS, BREATHING EVEN AND UNLABORED, DENIES PAIN AT THIS TIME, NO IV LINE PER PROTOCOL. SAFETY PRECAUTIONS IN PLACE, BED IN LOWEST POSITION, SIDE RAILS UP, TRAY TABLE AND CALL LIGHT WITHIN REACH. WILL CONTINUE TO MONITOR DURING MY SHIFT.
[2022-06-21] MEDS: TAMSULOSIN 0.4 MG PO SCH (08:07)
[2022-06-21] MEDS: LOSARTAN 50 MG PO SCH ×2 (08:07→16:32)
[2022-06-21] MEDS: HCTZ 25 MG PO SCH ×2 (08:07→16:37)
[2022-06-21] MEDS: INVEST MED CVL-231-2002 PO SCH (09:05)
[2022-06-21 16:00] VITALS: BP 133/74
--- NOTE | 2022-06-21 19:25 | NUR ---
RN CLOSING NOTES - CLINICAL TRIAL PATIENT IN BED, EATING DINNER, AOX4, COOPERATIVE, ON ROOM AIR, NOT IN ANY APPARENT DISTRESS, DIDNT SHOW ANY CHANGES IN BEHAVIOR DURING MY SHIFT. NO IV LINE PER PROTOCOL. ALL NEEDS MET, ALL DUE MEDS GIVE, SAFETY PRECAUTIONS IN PLACE, BED IN LOWEST POSITION, SIDE RAILS UP, TRAY TABLE AND CALL LIGHT WITHIN REACH. PATIENT IS AWARE THAT AMBIEN AND LORAZEPAM ARE ON HOLD TONIGHT. WILL ENDORSE TONIGHT SHIFT NURSE.
--- NOTE | 2022-06-21 19:30 | NUR ---
MS RN OPENING NOTES RECEIVED PATIENT LAYING IN BED AWAKE. A/O X4. BREATHING EVEN AND NON-LABORED ON ROOM AIR. NOT IN APPARENT DISTRESS. C/O MILD HEADACHE. NO IV ACCESS, ON CLINICAL TRIAL. REMINDED PATIENT THAT AMBIEN AND LORAZEPAM WILL BE ON HOLD TONIGHT AT 2100, VERBALIZED UNDERSTANDING. SAFETY PRECAUTIONS IN PLACE: BED LOW AND LOCKED, SIDE RAILS UP X2, CALL LIGHT WITHIN REACH. WILL CONTINUE TO MONITOR BEHAVIOR.
[2022-06-21 20:00] VITALS: BP 128/69
[2022-06-21] MEDS: ACETAMINOPHEN ES 500 MG TABLET PO PRN (20:02)
--- NOTE | 2022-06-21 20:03 | NUR ---
MS RN NOTES PRN TYLENOL 1000MG GIVEN TO PATIENT FOR HEADACHE. TOLERATED WELL.
--- NOTE | 2022-06-22 06:45 | NUR ---
MS RN CLOSING NOTES PATIENT WOKE UP AROUND 0400 AND WENT DOWNSTAIRS. JUST GOT BACK TO HIS ROOM. STABLE THROUGHOUT THE NIGHT. NO UNUSUAL BEHAVIOR NOTED. ALL DUE MEDS GIVEN AND NEEDS ATTENDED. SAFETY PRECAUTIONS MAINTAINED. WILL ENDORSE TO NEXT SHIFT FOR ULICES.
--- NOTE | 2022-06-22 07:00 | NUR ---
MS RN OPENING NOTES PATIENT CURRENTLY OFF OF UNIT, WILL ASSESS PATIENT UPON RETURN TO UNIT.
[2022-06-22] MEDS: TAMSULOSIN 0.4 MG PO SCH ×2 (09:00→09:06)
[2022-06-22] MEDS: LOSARTAN 50 MG PO SCH ×3 (09:00→17:00)
[2022-06-22] MEDS: HCTZ 25 MG PO SCH ×3 (09:00→17:00)
[2022-06-22] MEDS: INVEST MED CVL-231-2002 PO SCH ×2 (09:05→10:00)
--- NOTE | 2022-06-22 10:00 | NUR ---
MS RN NOTES PATIENT RECEIVED INVESTIGATIONAL DRUG IN OUTSIDE CLINIC TODAY, WAS ADVISED NOT TO ADMINISTER INVESTIGATIONAL DRUG IN HOSPITAL BY MD. INVESTIGATIONAL DRUG DOSE WAS RETURNED TO PHARMACY.
--- NOTE | 2022-06-22 11:00 | NUR ---
MS RN NOTES PATIENT LAYING IN BED, A/O X 3, ABLE TO MAKE NEEDS KNOWN, TOLERATING WELL ON ROOM AIR WITH NO S/S RESPIRATORY DISTRESS. NO COMPLAINTS OF PAIN OR DISCOMFORT AT THIS TIME. SAFETY MEASURES IN PLACE: BED IN LOWEST LOCKED POSITION, SIDE RAILS UP X 2, CALL LIGHT WITHIN REACH. WILL CONTINUE TO MONITOR.
[2022-06-22] MEDS ORDERED: ZOLPIDEM TARTRATE 10 MG TABLET PO PRN (13:00)
[2022-06-22] MEDS ORDERED: LORAZEPAM 1 MG TABLET FOR AGITATION PO PRN (13:00)
--- NOTE | 2022-06-22 18:42 | NUR ---
MS RN CLOSING NOTES PATIENT LAYING IN BED, A/O X 3, ABLE TO MAKE NEEDS KNOWN, TOLERATING WELL ON ROOM AIR WITH NO S/S RESPIRATORY DISTRESS. NO COMPLAINTS OF PAIN OR DISCOMFORT AT THIS TIME. SAFETY MEASURES IN PLACE: BED IN LOWEST LOCKED POSITION, SIDE RAILS UP X 2, CALL LIGHT WITHIN REACH. ALL NEEDS MET. WILL ENDORSE TO DISPATCH MACHINE RUNNER FOR ULICES.
--- NOTE | 2022-06-22 19:31 | NUR ---
RECEIVED PATIENT IN BED, ALERT/ORIENTED X4, ROOM AIR, NO DISTRESS, NO MEDICATION SCHEDULED FOR TONIGHT. WILL CONTINUE TO MONITOR.
[2022-06-22 20:00] VITALS: BP 127/84
[2022-06-22 20:30] VITALS: BP 127/84
[2022-06-22] MEDS: ACETAMINOPHEN ES 500 MG TABLET PO PRN (23:11)
--- NOTE | 2022-06-23 06:09 | NUR ---
NO CHANGE DURING SHIFT, SLEPT FOR 6 HOURS, NO BEHAVIORAL DISTURBANCE.
--- NOTE | 2022-06-23 07:20 | NUR ---
RN OPENING NOTES RECEIVED PATIENT IN BED AWAKE. A/O X4, VERBALLY RESPONSIVE. NO SIGNS OF ACUTE DISTRESS NOTED. DENIES ANY PAIN OR DISCOMFORT. REMAINS ON CLINICAL TRIAL. NO IV ACCESS. PATIENT APPEARS CALM AND PLEASANT. SAFETY MEASURE IN PLACE. BED IN LOWEST AND LOCKED POSITION. SIDE RAILS UP X2, CALL LIGHT AND TABLE PLACED WITHIN EASY REACH. WILL CONTINUE TO MONITOR PATIENT.
[2022-06-23 08:00] VITALS: BP 126/65
[2022-06-23] MEDS: TAMSULOSIN 0.4 MG PO SCH (08:57)
[2022-06-23] MEDS: HCTZ 25 MG PO SCH ×2 (08:57→17:11)
[2022-06-23] MEDS: LOSARTAN 50 MG PO SCH ×2 (08:58→17:11)
[2022-06-23] MEDS: INVEST MED CVL-231-2002 PO SCH (09:23)
[2022-06-23 16:00] VITALS: BP 123/74
--- NOTE | 2022-06-23 18:44 | NUR ---
RN CLOSING NOTE PATIENT IN BED AWAKE. A/O X4, VERBALLY RESPONSIVE. NO SIGNS OF ACUTE DISTRESS NOTED. REMAINS ON CLINICAL TRIAL. DUE MEDS GIVEN, NO ADVERSE REACTION NOTED. PATIENT PLEASANT AND COOPERATIVE . NO UNTOWARD BEHAVIOR NOTED. SAFETY MEASURE MAINTAINED, BED IN LOWEST AND LOCKED POSITION. SIDE RAILS UP X2, CALL LIGHT AND TABLE PLACED WITHIN EASY REACH. WILL ENDORSE TO NEXT SHIFT FOR CONTINUITY OF CARE.
--- NOTE | 2022-06-23 19:30 | NUR ---
MS RN NOTES RECEIVED PATIENT AWAKE IN BED.PATIENT IS A/O TIMES 4. NO SOB NOTED. NO DISTRESS NOTED. NOTED WITH PAIN . WILL ADMINISTER TYLENOL . ABLE TO MAKE NEEDS KNOWN. ALL SAFETY MEASURES IN PLACE. BED LOCKED IN THE LOWEST POSITION. CALL LIGHT AND TABLE IN EASY REACH. SIDE RAILS UP TIMES 2. WILL CONTINUE TO MONITOR CLOSELY.
[2022-06-23] MEDS: ACETAMINOPHEN ES 500 MG TABLET PO PRN (19:39)
[2022-06-23 20:00] VITALS: BP 111/64
--- NOTE | 2022-06-24 06:55 | NUR ---
MS RN CLOSING NOTES PATIENT AWAKE IN BED.PATIENT IS A/O TIMES 4. NO SOB NOTED. NO DISTRESS NOTED. ABLE TO MAKE NEEDS KNOWN. ALL SAFETY MEASURES IN PLACE. BED LOCKED IN THE LOWEST POSITION. CALL LIGHT AND TABLE IN EASY REACH. SIDE RAILS UP TIMES 2. NO BEHAVIORAL CHANGES NOTED. WILL ENDORSE FOR ULICES.
[2022-06-24 08:00] VITALS: BP 132/92
[2022-06-24] MEDS: INVEST MED CVL-231-2002 PO SCH (10:41)
[2022-06-24] MEDS: HCTZ 25 MG PO SCH ×2 (10:42→18:27)
[2022-06-24] MEDS: TAMSULOSIN 0.4 MG PO SCH (10:42)
[2022-06-24] MEDS: LOSARTAN 50 MG PO SCH ×2 (10:43→18:27)
[2022-06-24 16:00] VITALS: BP 124/83
[2022-06-24 20:00] VITALS: BP 129/81
--- NOTE | 2022-06-25 05:35 | NUR ---
RN CLOSING NOTES - CLINICAL TRIAL PATIENT IN BED, SLEEPING, EASILY AWAKEN, AOX4, COOPERATIVE, ON ROOM AIR, NOT IN ANY APPARENT DISTRESS, DIDNT SHOW ANY CHANGES IN BEHAVIOR DURING MY SHIFT. NO IV LINE PER PROTOCOL. ALL NEEDS MET, ALL DUE MEDS GIVE, SAFETY PRECAUTIONS IN PLACE, BED IN LOWEST POSITION, SIDE RAILS UP, TRAY TABLE AND CALL LIGHT WITHIN REACH. ENDORSED TO THE RN FOR CONTINUITY OF CARE.
--- NOTE | 2022-06-25 07:00 | NUR ---
MS RN OPENING NOTES: RECEIVED PT IN BED, AWAKE ALERT AND ORIENTED X4 AND ABLE TO MAKE NEEDS KNOWN. NO SOB OR CARDIAC DISTRESS NOTED, DENIES PAIN/DISCOMFORT AT THIS TIME. PER MUD BOSS RN NO HALLUCINATIONS/BEHAVIORAL ISSUES NOTED. NO IV ACCESS PT IS CLINICAL TRIAL.SAFETY MEASURES MAINTAINED: BED LOCKED AND IN LOWEST POSITION, SIDE RAILS UP X 2. CALL BUTTON IN EASY REACH FOR HELP.
[2022-06-25 08:00] VITALS: BP 154/84
[2022-06-25] MEDS: LOSARTAN 50 MG PO SCH ×2 (09:26→17:13)
[2022-06-25] MEDS: HCTZ 25 MG PO SCH ×2 (09:27→17:13)
[2022-06-25] MEDS: TAMSULOSIN 0.4 MG PO SCH (09:28)
[2022-06-25] MEDS: INVEST MED CVL-231-2002 PO SCH (10:09)
[2022-06-25 16:00] VITALS: BP 137/80
--- NOTE | 2022-06-25 18:43 | NUR ---
MS RN CLOSING NOTES: PATIENT IN BED, AWAKE ALERT AND ORIENTED X4 AND ABLE TO MAKE NEEDS KNOWN. NO SOB OR CARDIAC DISTRESS NOTED, DENIES PAIN/DISCOMFORT AT THIS TIME. NO HALLUCINATIONS/BEHAVIORAL ISSUES NOTED. NO IV ACCESS PT IS CLINICAL TRIAL.SAFETY MEASURES MAINTAINED: BED LOCKED AND IN LOWEST POSITION, SIDE RAILS UP X 2. CALL BUTTON IN EASY REACH FOR HELP. ENDORSED TO METAL CRAFTS TEACHER RN FOR CONTINUITY OF CARE.
--- NOTE | 2022-06-25 19:41 | NUR ---
RN OPENING NOTE PATIENT AWAKE IN BED. A/OX4. NO S/S OF DISTRESS, BREATHING WITHOUT DIFFICULTY ON ROOM AIR. PATIENT PRESENTS IN PLEASANT AND COOPERATIVE MOOD. SAFETY MEASURES IN PLACE: BED LOCKED AND AT LOWEST POSITION, RAILS UP X2, CALL MICHELLE WITHIN REACH. WILL CONTINUE TO MONITOR PATIENT.
[2022-06-25 20:00] VITALS: BP 105/69
--- NOTE | 2022-06-26 06:54 | NUR ---
RN CLOSING NOTE PATIENT AWAKE IN BED. A/OX4. NO S/S OF DISTRESS, BREATHING WITHOUT DIFFICULTY ON ROOM AIR. NO CHANGES IN BEHAVIOUR NOTED. PATIENT COMPLIANT AND CONSISTENTLY IN A PLEASANT MOOD. PATIENT NON-MALODOROUS. SAFETY MEASURES IN PLACE: BED LOCKED AND AT LOWEST POSITION, RAILS UP X2, CALL MICHELLE WITHIN REACH. WILL ENDORSE TO NEXT SHIFT FOR ULICES.
--- NOTE | 2022-06-26 07:40 | NUR ---
RN OPENING NOTE PT AWAKE IN ROOM. A/O X4, ABLE TO VERBALIZE NEEDS. ON ROOM AIR, NO S/S OF RESPIRATORY DISTRESS. DENIES PAIN AT THIS TIME. NO IV ACCESS, SKIN IS INTACT. NO TREMORS, DENIES SI HI AH VH. SAFETY PRECAUTIONS IN PLACE. BED IN LOWEST AND LOCKED POSITION, HOB ELEVATED, SIDE RAILS UP X2, AND CALL LIGHT AND TABLE WITHIN REACH. WILL CONTINUE TO MONITOR AND ASSIST.
[2022-06-26] MEDS: TAMSULOSIN 0.4 MG PO SCH (09:00)
[2022-06-26] MEDS: LOSARTAN 50 MG PO SCH ×2 (09:00→16:55)
[2022-06-26] MEDS: HCTZ 25 MG PO SCH ×2 (09:00→16:55)
[2022-06-26] MEDS: INVEST MED CVL-231-2002 PO SCH (10:05)
--- NOTE | 2022-06-26 18:46 | NUR ---
RN CLOSING NOTE PT AWAKE IN ROOM. PT A/O X4, ABLE TO VERBALIZE NEEDS. ON ROOM AIR, NO S/S OF RESPIRATORY DISTRESS. NO IV ACCESS, SKIN IS INTACT. NO TREMORS, DENIES SI HI AH VH, SAFETY PRECAUTIONS IN PLACE. BED IN LOWEST AND LOCKED POSITION, HOB ELEVATED, SIDE RAILS UP X2, CALL LIGHT AND TABLE WITHIN REACH. WILL ENDORSE TO [employer] OF [employer] NURSE FOR ULICES.
--- NOTE | 2022-06-26 19:53 | NUR ---
RN OPENING NOTE PATIENT ASLEEP IN BED. A/OX4. NO S/S OF DISTRESS; BREATHING WITHOUT DIFFICULTY ON ROOM AIR. NON-MALODOROUS. SAFETY MEASURES IN PLACE: BED LOCKED AND AT LOWEST POSITION, RAILS UP X2, CALL MICHELLE WITHIN REACH. WILL CONTINUE TO MONITOR PATIENT.
[2022-06-26 22:01] VITALS: BP 108/66
--- NOTE | 2022-06-27 06:54 | NUR ---
RN CLOSING NOTE PATIENT AWAKE IN BED. NO S/S OF DISTRESS, BREATHING WITHOUT DIFFICULTY ON ROOM AIR. PATIENT HAS BEEN COOPERATIVE, PLEASANT. PATIENT NON-MALODOROUS. SAFETY MEASURES IN PLACE: BED LOCKED AND IN LOWEST POSITION, RAILS UP X2, CALL MICHELLE WITHIN REACH. WILL ENDORSE TO NEXT SHIFT FOR ULICES.
[2022-06-27 07:00] VITALS: BP 147/80
[2022-06-27 07:08] VITALS: BP 110/70
[2022-06-27] MEDS: LOSARTAN 50 MG PO SCH ×2 (15:42→17:00)
[2022-06-27] MEDS: TAMSULOSIN 0.4 MG PO SCH (15:42)
[2022-06-27] MEDS: HCTZ 25 MG PO SCH ×2 (15:42→17:00)
[2022-06-27] MEDS: INVEST MED CVL-231-2002 PO SCH (15:43)
--- NOTE | 2022-06-27 19:30 | NUR ---
MS RN NOTES RECEIVED PATIENT AWAKE IN BED.PATIENT IS A/O TIMES 4. NO SOB NOTED. NO DISTRESS NOTED. ABLE TO MAKE NEEDS KNOWN. ALL SAFETY MEASURES IN PLACE. BED LOCKED IN THE LOWEST POSITION. CALL LIGHT AND TABLE IN EASY REACH. SIDE RAILS UP TIMES 2. WILL CONTINUE TO MONITOR CLOSELY.
[2022-06-27 20:00] VITALS: BP 130/78
--- NOTE | 2022-06-28 06:39 | NUR ---
MS RN CLOSING NOTES PATIENT AWAKE IN BED.PATIENT IS A/O TIMES 4. NO SOB NOTED. NO DISTRESS NOTED. ABLE TO MAKE NEEDS KNOWN. ALL SAFETY MEASURES IN PLACE. BED LOCKED IN THE LOWEST POSITION. CALL LIGHT AND TABLE IN EASY REACH. SIDE RAILS UP TIMES 2. WILL ENDORSE FOR ULICES.
--- NOTE | 2022-06-28 07:05 | NUR ---
MS RN PATIENT AT [facility], ALERT,ORIENTED X4, CLINICAL TRIAL PATIENT OF DR. tam, not in any form of distress, will monitor patient.
[2022-06-28 08:00] VITALS: BP 113/68
[2022-06-28] MEDS: TAMSULOSIN 0.4 MG PO SCH (09:40)
[2022-06-28] MEDS: LOSARTAN 50 MG PO SCH ×2 (09:40→17:08)
[2022-06-28] MEDS: HCTZ 25 MG PO SCH ×2 (09:41→17:08)
[2022-06-28] MEDS: INVEST MED CVL-231-2002 PO SCH (09:41)
--- NOTE | 2022-06-28 10:00 | NUR ---
ms shah breakfast served,due meds given,tolerated well.
--- NOTE | 2022-06-28 12:00 | NUR ---
ms rn was seen by dr. khan, no orders at this time.
--- NOTE | 2022-06-28 17:15 | NUR ---
ms rn on bed, waiting for dinner, no distress noted.
[2022-06-28] MEDS: ACETAMINOPHEN ES 500 MG TABLET PO PRN (19:01)
--- NOTE | 2022-06-28 19:40 | NUR ---
MS RN OPENING NOTE RECEIVED PATIENT IN BED; AWAKE, ALERT AND ORIENTED X 4. ON ROOM AIR; TOLERATING WELL. BREATHING EVEN AND NONLABORED. NOT IN ANY FORM OF RESPIRATORY DISTRESS. DENIES ANY PAIN OR DISCOMFORT AT THIS TIME. NO IV ACCESS. ON CLINICAL TRIAL. ABLE TO MAKE NEEDS KNOWN. FALL AND SAFETY PRECAUTIONS IMPLEMENTED: CALL LIGHT AND TABLE WITHIN EASY REACH, SIDE RAILS UP X 2, BED IN LOWEST LOCKED POSITION. WILL CONTINUE TO MONITOR THROUGHOUT SHIFT.
[2022-06-28 20:00] VITALS: BP 115/62
[2022-06-28 21:11] VITALS: BP 115/62
[2022-06-29 07:00] VITALS: BP 142/85
--- NOTE | 2022-06-29 07:10 | NUR ---
ms rn received on bed, awake,alert,oriented x4,not in any form of distress,respirations even and unlabored,no sob noted, clinical trial of dr. tam, will monitor patient.
[2022-06-29] MEDS: LOSARTAN 50 MG PO SCH ×2 (09:34→17:26)
[2022-06-29] MEDS: HCTZ 25 MG PO SCH ×2 (09:35→17:26)
[2022-06-29] MEDS: TAMSULOSIN 0.4 MG PO SCH (09:36)
[2022-06-29] MEDS: INVEST MED CVL-231-2002 PO SCH (09:36)
[2022-06-29] MEDS ORDERED: LORAZEPAM 1 MG TABLET FOR AGITATION PO PRN (13:00)
[2022-06-29] MEDS ORDERED: ZOLPIDEM TARTRATE 10 MG TABLET PO PRN (13:00)
[2022-06-29 20:00] VITALS: BP 90/43
--- NOTE | 2022-06-30 07:10 | NUR ---
ms rn received on bed, awake,alert,oriented x4.clinical trial patient of dr. tam, denies pain at this time, patient is compliant w/ his meds,all needs attended.
[2022-06-30 08:00] VITALS: BP 130/73
[2022-06-30] MEDS: HCTZ 25 MG PO SCH ×2 (09:10→17:55)
[2022-06-30] MEDS: LOSARTAN 50 MG PO SCH ×2 (09:10→17:55)
[2022-06-30] MEDS: TAMSULOSIN 0.4 MG PO SCH (09:11)
[2022-06-30] MEDS: INVEST MED CVL-231-2002 PO SCH (10:41)
[2022-06-30 16:00] VITALS: BP 126/70
--- NOTE | 2022-06-30 19:10 | NUR ---
RN opening notes Received Pt from morning nurse. Pt is sleeping in bed comfortably. Pt is alert and orientedX4. On room air. No SOB. No S/s of distress noted. Pt is a clinical trial. No IV sites. Safety precautions is maintained. bed at low position, brakes locked, side rails upX2. hob elevated and call light is within reach. Will continue to monitor.
[2022-07-01 04:00] VITALS: BP 136/88
[2022-07-01 08:00] VITALS: BP 130/88
[2022-07-01] MEDS: TAMSULOSIN 0.4 MG PO SCH (09:14)
[2022-07-01] MEDS: INVEST MED CVL-231-2002 PO SCH (09:14)
[2022-07-01] MEDS: LOSARTAN 50 MG PO SCH ×2 (09:15→17:39)
[2022-07-01] MEDS: HCTZ 25 MG PO SCH ×2 (09:15→17:20)
--- NOTE | 2022-07-01 11:30 | NUR ---
RN opening notes Received patient awake in bed a/ox4. On room air. No SOB. No S/s of distress noted. Pt is a clinical trial. No IV sites. Safety precautions is maintained. bed at low position, brakes locked, side rails upX2. hob elevated and call light is within reach. Will continue to monitor.
--- NOTE | 2022-07-01 11:39 | NUR ---
RN closing notes Pt is sitting in bed comfortably talking on the phone. Pt is alert and orientedX4. On room air. No SOB. No S/s of distress noted. Routine meds were given as ordered. Kept Pt clean, dry and comfortable. Safety precautions is maintained. bed at low position, brakes locked, side rails upX2. hob elevated and call light is within reach. Will endorse to am nurse for ULICES.
[2022-07-01 16:00] VITALS: BP 150/98
--- NOTE | 2022-07-01 18:47 | NUR ---
RN closing notes Pt awake,alert and orientedX4. On room air. No SOB. No S/s of distress noted. Routine meds were given as ordered. Kept Pt clean, dry and comfortable. Safety precautions is maintained. bed at low position, brakes locked, side rails upX2. hob elevated and call light is within reach. Will endorse to night nurse
--- NOTE | 2022-07-01 19:40 | NUR ---
RN OPENING NOTES: RECEIVED PATIENT AWAKE IN BED, BED IN LOW POSITION CALL LIGHTS WITHIN REACH, NO COMPLAIN OF PAIN AND DISCOMFORT AT THIS TIME, ON ROOM AIR SATURATING WELL, PATIENT IS A/OX4 ABLE TO MAKE NEEDS KNOWN, AMBULATORY, ON CLINICAL TRIAL NO CHANGES IN BEHAVIOR WAS OBSERVED, PATIENT KEPT CLEAN AND DRY ALL NEEDS MET WILL CONTINUE TO MONITOR.
--- NOTE | 2022-07-02 06:01 | NUR ---
RN CLOSING NOTES: PATIENT AWAKE IN BED BED IN LOW POSITION,CALL LIGHTS WITHIN REACH, NO COMPLAIN OF PAIN AND DISCOMFORT AT THIS TIME, ON ROOM AIR SATURATING WELL, PATIENT IS A/OX4 AMBULATORY, ON CLINICAL TRIAL NO CHANGES IN BEHAVIOR WAS OBSERVED, PATIENT KEPT CLEAN AND DRY ALL NEEDS MET, ENDORSE TO INCOMING SHIFT.
--- NOTE | 2022-07-02 07:40 | NUR ---
RN OPENING NOTE RECEIVED PT AWAKE IN ROOM, . PT A/O X4, ABLE TO VERBALIZE NEEDS. ON ROOM AIR, NO S/S OF RESPIRATORY DISTRESS. NO IV ACCESS, SKIN IS INTACT. NO TREMORS, DENIES SI HI [facility], SAFETY PRECAUTIONS IN PLACE: BED LOCKED, AND IN LOWEST POSITION, SIDE RAILS UP x2, HOB ELEVATED, CALL LIGHT WITHIN REACH. WILL CONTINUE TO MONITOR PT.
[2022-07-02 08:00] VITALS: BP 123/74
[2022-07-02] MEDS: LOSARTAN 50 MG PO SCH ×2 (09:29→16:51)
[2022-07-02] MEDS: HCTZ 25 MG PO SCH ×2 (09:30→16:52)
[2022-07-02] MEDS: TAMSULOSIN 0.4 MG PO SCH (09:31)
[2022-07-02] MEDS: INVEST MED CVL-231-2002 PO SCH (10:03)
[2022-07-02 17:00] VITALS: BP 111/61
--- NOTE | 2022-07-02 18:45 | NUR ---
RN CLOSING NOTE PT AWAKE IN ROOM, . PT A/O X4, ABLE TO VERBALIZE NEEDS. ON ROOM AIR, NO S/S OF RESPIRATORY DISTRESS. NO IV ACCESS, SKIN IS INTACT. NO TREMORS, DENIES SI HI [facility]. SAFETY MEASURES IMPLEMENTED. ALL NEEDS MET AND ATTENDED. ALL ORDERS CARRIED OUT. WILL ENDORSED TO HOT HEADER OPERATOR NURSE FOR ULICES.
--- NOTE | 2022-07-02 19:30 | NUR ---
noc rn opening received patient in room. introduced my self. encouraged verbalized needs and concerns. will cont. with plan of care.
[2022-07-02 20:00] VITALS: BP 118/65
--- NOTE | 2022-07-03 07:32 | NUR ---
noc rn closing needs attended. report given to JAQUELINE Grimes for continuity of patient care.
--- NOTE | 2022-07-03 07:35 | NUR ---
RN OPENING NOTE RECEIVED PT AWAKE IN ROOM, . PT A/O X4, ABLE TO VERBALIZE NEEDS. ON ROOM AIR, NO S/S OF RESPIRATORY DISTRESS. NO IV ACCESS, SKIN IS INTACT. NO TREMORS, DENIES SI HI [facility], SAFETY PRECAUTIONS IN PLACE: BED LOCKED, AND IN LOWEST POSITION, SIDE RAILS UP x2, HOB ELEVATED, CALL LIGHT WITHIN REACH. WILL CONTINUE TO MONITOR PT.
[2022-07-03] MEDS: HCTZ 25 MG PO SCH ×2 (08:57→16:40)
[2022-07-03] MEDS: TAMSULOSIN 0.4 MG PO SCH (08:58)
[2022-07-03] MEDS: LOSARTAN 50 MG PO SCH ×2 (08:59→16:48)
[2022-07-03] MEDS: INVEST MED CVL-231-2002 PO SCH (09:58)
--- NOTE | 2022-07-03 18:55 | NUR ---
RN CLOSING NOTE PT AWAKE IN ROOM, . PT A/O X4, ABLE TO VERBALIZE NEEDS. ON ROOM AIR, NO S/S OF RESPIRATORY DISTRESS. NO IV ACCESS, SKIN IS INTACT. NO TREMORS, DENIES SI HI [facility]. SAFETY MEASURES IMPLEMENTED. ALL NEEDS MET AND ATTENDED. ALL ORDERS CARRIED OUT. WILL ENDORSED TO EXPEDITIONARY FIGHTING VEHICLE CREWMAN NURSE FOR ULICES.
--- NOTE | 2022-07-03 19:30 | NUR ---
rn opening note patient in room during ha report. introduced myself and encouraged verbalized needs and concerns. will continue with patient care plan.
[2022-07-03 20:00] VITALS: BP 128/68
--- NOTE | 2022-07-04 07:36 | NUR ---
noc rn closing needs attended. report given to JAQUELINE Jesus for continuity of patient care.
--- NOTE | 2022-07-04 07:45 | NUR ---
RN OPENING NOTE PATIENT AWAKE IN BED RESTING AT THE MOMENT A/O X 4. NO S/S OF PAIN NOTED AT THIS TIME. ON ROOM AIR, NO DISTRESS OR SHORTNESS OF BREATH NOTED. NO IV ACCESS, CLINICAL TRIAL PATIENT. FALL AND SAFETY MEASURES IN PLACE, BED IN LOW AND LOCK POSITION, CALL LIGHT AND TABLE WITHIN EASY REACH, SIDE RAILS UP X2. WILL CONTINUE TO MONITOR.
[2022-07-04] MEDS: TAMSULOSIN 0.4 MG PO SCH (09:24)
[2022-07-04] MEDS: HCTZ 25 MG PO SCH ×2 (09:25→17:55)
[2022-07-04] MEDS: LOSARTAN 50 MG PO SCH ×2 (09:26→17:55)
[2022-07-04] MEDS: INVEST MED CVL-231-2002 PO SCH (10:25)
--- NOTE | 2022-07-04 19:34 | NUR ---
RN CLOSING NOTE PATIENT AWAKE IN BED RESTING AT THE MOMENT A/O X 4. NO S/S OF PAIN NOTED AT THIS TIME. ON ROOM AIR, NO DISTRESS OR SHORTNESS OF BREATH NOTED. NO IV ACCESS, CLINICAL TRIAL PATIENT. SCHEDULE MEDICATIONS ADMINISTERED FALL AND SAFETY MEASURES IN PLACE, BED IN LOW AND LOCK POSITION, CALL LIGHT AND TABLE WITHIN EASY REACH, SIDE RAILS UP X2. WILL ENDORSE TO SNOW REMOVER.
[2022-07-04 20:00] VITALS: BP 90/49
--- NOTE | 2022-07-04 20:00 | NUR ---
RN OPENING NOTE PATIENT ASLEEP IN BED. A/OX4. NO S/S OF DISTRESS, BREATHING WITHOUT DIFFICULTY ON ROOM AIR. NO BEHAVIOURAL CHANGES NOTED; NON-MALODOROUS. SAFETY MEASURES IN PLACE: BED LOCKED AND AT LOWEST POSITION, RAILS UP X2, CALL MICHELLE WITHIN REACH. WILL CONTINUE TO MONITOR PATIENT.
--- NOTE | 2022-07-05 06:58 | NUR ---
RN CLOSING NOTE PATIENT ASLEEP IN BED. A/OX4. NO S/S OF DISTRESS, BREATHING WITHOUT DIFFICULTY ON ROOM AIR. PATIENT COMPLETELY AND CONTINUOUSLY COOPERATIVE; NON-MALODOROUS. SAFETY MEASURES IN PLACE: BED LOCKED AND IN PLACE, RAILS UP X2, CALL MICHELLE WITHIN REACH. WILL ENDORSE TO NEXT SHIFT FOR ULICES.
--- NOTE | 2022-07-05 07:10 | NUR ---
MS RN RECEIVED ON BED, AWAKE,ALERT,ORIENTED X4, CLINICAL TRIAL OF DR. OLIVIER, NOT IN ANY FORM OF DISTRESS, RESPIRATIONS EVEN AND UNLABORED,NO SOB NOTED.WILL MONITOR PATIENT.
[2022-07-05 08:00] VITALS: BP 113/85
[2022-07-05] MEDS: TAMSULOSIN 0.4 MG PO SCH (09:14)
[2022-07-05] MEDS: LOSARTAN 50 MG PO SCH ×2 (09:15→17:03)
[2022-07-05] MEDS: HCTZ 25 MG PO SCH ×2 (09:16→17:02)
[2022-07-05] MEDS: INVEST MED CVL-231-2002 PO SCH (10:06)
--- NOTE | 2022-07-05 17:59 | NUR ---
ms rn inside room,no distress noted, all needs attended.
--- NOTE | 2022-07-05 19:43 | NUR ---
RN OPENING NOTE RECEIVED PATIENT ASLEEP IN BED. A/OX4 ABLE TO MAKE NEEDS KNOWN, ON ROOM AIR.NO SOB/DISTRESS NOTED, NO BEHAVIORAL CHANGES AT THIS TIME,SAFETY MEASURES IN PLACE: BED LOCKED AND AT LOWEST POSITION, RAILS UP X2, CALL MICHELLE WITHIN REACH. WILL CONTINUE TO MONITOR.
[2022-07-05 20:00] VITALS: BP 130/63
--- NOTE | 2022-07-06 06:18 | NUR ---
RN CLOSING NOTES; PATIENT ASLEEP IN BED. A/OX4 ABLE TO MAKE NEEDS KNOWN, ON ROOM AIR.NO SOB/DISTRESS NOTED, NO BEHAVIORAL CHANGES DURING SHIFT,SAFETY MEASURES IN PLACE: BED LOCKED AND AT LOWEST POSITION, RAILS UP X2, CALL MICHELLE WITHIN REACH. WILL ENDORSED TO NEXT SHIFT.
[2022-07-06 07:00] VITALS: BP 126/81
--- NOTE | 2022-07-06 07:20 | NUR ---
MS RN RECEIVED ON BED, AWAKE,ALERT,ORIENTED X4, CLINICAL TRIAL PATIENT OD DR. OLIVIER, DENIES PAIN AT THIS TIME, WILL MONITOR PATIENT,ALL NEEDS ATTENDED.
[2022-07-06] MEDS: HCTZ 25 MG PO SCH ×2 (09:00→17:05)
--- NOTE | 2022-07-06 09:00 | NUR ---
MS JAQUELINE BREAKFAST SERVED,DUE MEDS GIVEN,TOLERATED WELL.CALLED RX FOR MISSING ONE MED.
[2022-07-06] MEDS: TAMSULOSIN 0.4 MG PO SCH (09:56)
[2022-07-06] MEDS: LOSARTAN 50 MG PO SCH ×2 (09:56→17:05)
[2022-07-06] MEDS: INVEST MED CVL-231-2002 PO SCH (09:57)
--- NOTE | 2022-07-06 17:24 | NUR ---
ms rn on bed, no change of condition,all needs attended.
--- NOTE | 2022-07-06 19:30 | NUR ---
MS RN OPENING NOTES RECEIVED PATIENT AWAKE IN BED.PATIENT IS A/O TIMES 4. NO SOB NOTED. NO DISTRESS NOTED. ABLE TO MAKE NEEDS KNOWN. ALL SAFETY MEASURES IN PLACE. BED LOCKED IN THE LOWEST POSITION. CALL LIGHT AND TABLE IN EASY REACH. SIDE RAILS UP TIMES 2. WILL CONTINUE TO MONITOR CLOSELY.
[2022-07-06 20:00] VITALS: BP 108/61
--- NOTE | 2022-07-07 06:36 | NUR ---
MS RN CLOSING NOTES PATIENT AWAKE IN BED.PATIENT IS A/O TIMES 4. NO SOB NOTED. NO DISTRESS NOTED. ABLE TO MAKE NEEDS KNOWN. ALL SAFETY MEASURES IN PLACE. NO BEHAVIORAL CHANGES NOTED DURING SHIFT.BED LOCKED IN THE LOWEST POSITION. CALL LIGHT AND TABLE IN EASY REACH. SIDE RAILS UP TIMES 2. WILL ENDORSE FOR ULICES.
--- NOTE | 2022-07-07 07:30 | NUR ---
RN MS NOTES PT AWAKE, SITTING IN BED, EATING BREAKFAST, NO COMPLAINT OF PAIN, NOT IN DISTRESS, CALL LIGHT WITHIN REACH.
[2022-07-07 08:00] VITALS: BP 131/92
[2022-07-07] MEDS: LOSARTAN 50 MG PO SCH ×2 (08:35→17:00)
[2022-07-07] MEDS: ACETAMINOPHEN ES 500 MG TABLET PO PRN (08:36)
[2022-07-07] MEDS: HCTZ 25 MG PO SCH ×2 (08:36→16:59)
[2022-07-07] MEDS: TAMSULOSIN 0.4 MG PO SCH (08:36)
[2022-07-07] MEDS: INVEST MED CVL-231-2002 PO SCH (10:00)
[2022-07-07 16:00] VITALS: BP 126/89
--- NOTE | 2022-07-07 17:30 | NUR ---
RN MS NOTES PT IN BED, RESTING, NO BEHAVIOR PROBLEM NOTED, NEEDS ATTENDED.
[2022-07-08 08:00] VITALS: BP 120/94
[2022-07-08] MEDS: TAMSULOSIN 0.4 MG PO SCH (09:56)
[2022-07-08] MEDS: HCTZ 25 MG PO SCH ×2 (09:56→16:54)
[2022-07-08] MEDS: LOSARTAN 50 MG PO SCH ×2 (09:57→16:53)
[2022-07-08] MEDS: INVEST MED CVL-231-2002 PO SCH (09:59)
[2022-07-08 16:00] VITALS: BP 118/75
--- NOTE | 2022-07-08 19:30 | NUR ---
noc rn opening patient in room during ha report. introduced myself and encouraged patient to verbalized needs and concerns. will cont. to monitor.
[2022-07-08 20:41] VITALS: BP 114/74
[2022-07-09] MEDS: TAMSULOSIN 0.4 MG PO SCH ×3 (09:00→10:53)
[2022-07-09] MEDS: HCTZ 25 MG PO SCH ×3 (09:00→10:51)
[2022-07-09] MEDS: LOSARTAN 50 MG PO SCH ×3 (09:00→10:53)
[2022-07-09] MEDS: INVEST MED CVL-231-2002 PO SCH ×2 (10:00→10:23)
--- NOTE | 2022-07-09 10:09 | NUR ---
Patient's morning medications including investigative drug not given. Patient stated that he is already at Dr. Juan's office.
--- NOTE | 2022-07-09 10:53 | NUR ---
Patient discharged. Discharge instructions given and explained. Patient departed unit ambulatory.
[2022-07-09] MEDS ORDERED: LORAZEPAM 1 MG TABLET FOR AGITATION PO PRN (13:00)
[2022-07-09] MEDS ORDERED: ZOLPIDEM TARTRATE 10 MG TABLET PO PRN (13:00)
== END 2022-07-09 10:50 | disposition home or self-care (01) | DRG 951 ==
LOC: MED 14:40
PROVIDERS: ADMIT Psychiatry & Neurology Psychiatry; ATTEND Psychiatry & Neurology Psychiatry
DX: Z00.6 Encounter for examination for normal comparison and control in clinical research program (principal); F20.0 Paranoid schizophrenia; I10 Essential (primary) hypertension; F41.9 Anxiety disorder, unspecified; N40.0 Benign prostatic hyperplasia without lower urinary tract symptoms
CPT/HCPCS: 87081-TC; G0378

== ENCOUNTER 2022-10-09 09:49 | Inpatient (IN) | payer OTHER ==
[~2022-10-09] VITALS: Ht 185.4 cm; Wt 118.8 kg
[2022-10-09 15:00] VITALS: BP 103/70
[2022-10-09] MEDS ORDERED: IBUPROFEN 200 MG TABLET PO PRN (15:30)
[2022-10-09] MEDS ORDERED: ZOLPIDEM TARTRATE 10 MG TABLET PO PRN (15:30)
[2022-10-09] MEDS ORDERED: MAGNESIUM HYDROXIDE 30 ML UDC PO PRN (15:30)
[2022-10-09] MEDS ORDERED: LORAZEPAM 1 MG TABLET FOR AGITATION PO PRN (15:30)
[2022-10-09] MEDS ORDERED: MAG HYDROX/AL HYDROX/SIMETH 30 ML UDC PO PRN (15:30)
[2022-10-09 16:00] VITALS: BP 103/70
--- NOTE | 2022-10-09 16:28 | NUR ---
CT/MS RN-ADMISSION NOTES GIOVANNA FROM DR HE OFFICE BROUGHT IN A 61 Y/O MALE PATIENT AT 1430 FOR CLINICAL TRIAL WITH DX OF SCHIZOPHRENIA. PATIENT IS A/O X4. ABLE TO VERBALIZED NEEDS, DENIES PAIN OR ANY DISCOMFORTS, SAME DENIES SI/HI, VISUAL/AUDITORY HALLUCINATIONS AT THIS TIME. PT IS AMBULATORY WITH STEADY GAIT. ON ROOM AIR, BREATHING EVEN AND UNLABORED, NO ACUTE DISTRESS NOTED. PATIENT WAS ORIENTED IN THE UNIT, STAFF AND UNIT POLICIES. NO SKIN ISSUES NOTED. PATIENT CAN KEEP ALL PERSONAL BELONGINGS IN HIS ROOM AND CAN BE OFF UNIT FOR SMOKING. ALL SAFETY MEASURES IMPLEMENTED: BED IN LOWEST LOCKED POSITION AND CALL LIGHT W/I REACH. WILL CONTINUE TO MONITOR PT FOR SAFETY AND BEHAVIOR.
[2022-10-09] MEDS: HOME MED MISCELLANEOUS PO SCH (17:09)
--- NOTE | 2022-10-09 18:37 | NUR ---
MS RN CLOSING NOTES PATIENT RESTING IN BED WATCHING TV AT THIS TIME. A/O X4. ABLE TO MAKE NEEDS KNOWN. AMBULATORY. ON ROOM AIR, TOLERATING WELL, BREATHING EVEN AND UNLABORED. NEEDS ATTENDED WELL. SAFETY MEASURES KEPT IN PLACE: BED LOCKED AND IN LOWEST POSITION, SIDE RAILS UP X2 AND CALL LIGHT WITHIN REACH. WILL ENDORSE ULICES & POC TO NUCLEAR EQUIPMENT TEST ENGINEER NURSE.
[2022-10-09 20:00] VITALS: BP 137/99
--- NOTE | 2022-10-09 20:24 | NUR ---
RN OPENING NOTE PATIENT AWAKE IN BED. A/OX4. NO S/S OF DISTRESS, BREATHING WITHOUT DIFFICULTY ON ROOM AIR. PATIENT IS COOPERATIVE, PLEASANT DEMEANOR, AND NON-MALODOROUS. PATIENT IS RELAXING IN HIS BED. PATIENT STATED LAST CLINICAL TRIAL WAS FRUITFUL IN TREATING HIM W/ HIS SCHIZOPHRENIA, AND SEEMED HOPEFULLY AGAIN THIS TIME AROUND. SAFETY MEASURES IN PLACE: BED LOCKED AND AT LOWEST POSITION, MID-FOWLERS, RAILS UP X2, CALL MICHELLE WITHIN REACH. WILL CONTINUE TO MONITOR PATIENT.
[2022-10-09] MEDS ORDERED: HOME MED MISCELLANEOUS PO SCH ×2 (22:00)
--- NOTE | 2022-10-10 06:57 | NUR ---
RN CLOSING NOTE PATIENT ASLEEP IN BED. A/OX4. NO S/S OF DISTRESS, BREATHING WITHOUT DIFFICULTY ON ROOM AIR. PATIENT HAS SLEPT MOST OF THE SHIFT. PATIENT CORDIAL, POLITE, COOPERATIVE WITH STAFF. PATIENT'S APPEARANCE KEMPT. SAFETY MEASURES IN PLACE: BED LOCKED AND AT LOWEST POSITION, MID-FOWLERS, RAILS UP X2, CALL MICHELLE WITHIN REACH. WILL ENDORSE TO NEXT SHIFT FOR ULICES.
--- NOTE | 2022-10-10 07:30 | NUR ---
MS RN OPENING NOTE RECEIVED PT AWAKE AND RESTING IN BED. PT IS A/O X4, ABLE TO MAKE NEEDS KNOWN. PT ON ROOM AIR, TOLERATING WELL. NO SOB NOTED. NOT IN ANY SIGN OF RESPIRATORY DISTRESS. PT IS UNDER CLINICAL TRIAL. NO EPISODES OF UNTOWARD BEHAVIOR AT THIS TIME. SAFETY MEASURES IN PLACE: BED IN LOWEST AND LOCKED POSITION, SIDE RAILS UPX2, AND CALL LIGHT WITHIN REACH. WILL CONTINUE PT WITH PLAN OF CARE.
[2022-10-10 08:00] VITALS: BP 123/76
[2022-10-10] MEDS: HOME MED MISCELLANEOUS PO SCH ×7 (09:00→16:52)
--- NOTE | 2022-10-10 09:49 | NUR ---
RN NOTE ALL HOME MEDICATIONS SCHEDULED AT 0900 NOT ADMINISTERED. PT IS NOT IN THE UNIT AT THIS TIME.
[2022-10-10 16:00] VITALS: BP 137/79
--- NOTE | 2022-10-10 18:44 | NUR ---
MS RN CLOSING NOTE PT AWAKE AND RESTING IN BED. PT IS A/O X4, ABLE TO MAKE NEEDS KNOWN. PT ON ROOM AIR, TOLERATING WELL. NO SOB NOTED. NOT IN ANY SIGN OF RESPIRATORY DISTRESS. PT IS UNDER CLINICAL TRIAL. NO EPISODES OF UNTOWARD BEHAVIOR AT THIS TIME. ALL NEEDS ATTENDED. KEPT CLEAN AND COMFORTABLE AT ALL TIMES. SAFETY MEASURES IN PLACE: BED IN LOWEST AND LOCKED POSITION, SIDE RAILS UPX2, AND CALL LIGHT WITHIN REACH. WILL ENDORSE TO REGIONAL PLANNER NURSE FOR ULICES.
--- NOTE | 2022-10-10 19:05 | NUR ---
MS JAQUELINE OPENING NOTE PATIENT IS RESTING IN BED WATCHING TV. PT IS ALERT AND ORIENTED, AO X 2. SHE IS VERY FORGETFUL. PT IS ON RA, TOLERATED WELL. NO S/S OF DISTRESS OR SOB. PT DENIES OF HAVING ANY PAIN AT THIS MOMENT. IV ACCESS IS AT HER L WRIST, #20G, RUNNING D5 1/2NS @ 75 ML / HR. IV SITE IS PATENT AND INTACT. PT HAS PERSAUD CATHETER, DRAINING CLEAR, LIGHT YELLOW COLOR URINE FREELY. TEACH THE PT TO USE THE CALL LIGHT WHEN SHE NEEDS HELP. PT VERBALIZED UNDERSTANDING. SAFETY MEASURES ARE IN PLACED: BED IN LOWEST AND LOCKED POSITION; SIDE RAILS UP X 2; CALL LIGHT AND TABLE ARE WITHIN EASY REACH. WILL MONITOR THE PT AND PROVIDE THE CARE PT NEEDS. Addendum: 10/11/22 at 0032 by RYANN HOOPER RN ERROR. WRONG PT
--- NOTE | 2022-10-10 19:30 | NUR ---
MS RN OPENING NOTE PATIENT IS IN HIS ROOM WATCHING TV. HE IS ON CLINICAL TRIAL. PT IS ALERT AND ORIENTED, AO X 4. HE IS ON RA, TOLERATED WELL. NO S/S OF DISTRESS OR SOB. PT HAS ON IV ACCESS. HE DENIES OF HAVING PAIN OR DISCOMFORT. PT IS CALM; NO ANY BEHAVIORAL PROBLEM. SAFETY MEASURES ARE IN PLACED: BED IN LOWEST AND LOCKED POSITION; SIDE RAILS UP X 2; CALL LIGHT AND TABLE ARE WITHIN EASY REACH. WILL MONITOR THE PT AND PROVIDE THE CARE PT NEEDS.
[2022-10-10 20:00] VITALS: BP 135/88
[2022-10-10] MEDS ORDERED: HOME MED MISCELLANEOUS PO SCH ×2 (22:00)
--- NOTE | 2022-10-11 06:33 | NUR ---
MS RN CLOSING NOTE PATIENT WOKE UP AND RESTING IN BED. HE IS ALERT AND ORIENTED, AO X 4. HE IS ON RA, TOLERATED WELL. NO S/S OF DISTRESS OR SOB. PT DOES NOT HAVE IV ACCESS. HE DENIES OF HAVING PAIN OR DISCOMFORT. PT IS CALM; NOT SEEING ANY BEHAVIORAL PROBLEMS ON HIM . SAFETY MEASURES ARE IN PLACED: BED IN LOWEST AND LOCKED POSITION; SIDE RAILS UP X 2; CALL LIGHT AND TABLE ARE WITHIN EASY REACH. WILL ENDORSE NEXT SHIFT NURSE FOR CONTINUING PT CARE.
--- NOTE | 2022-10-11 08:21 | NUR ---
MS RN OPENING NOTE PATIENT IN BED RESTING. ALERT AND ORIENTED. ON RA, TOLERATED WELL WITH NO SOB OR S/S OF DISTRESS. BREATHING EVEN AND UNLABORED. ALL SAFETY MEASURES ARE IN PLACED WITH BED IN LOWEST AND LOCKED POSITION, SIDE RAILS UP X 2, AND CALL LIGHT AND TABLE ARE WITHIN REACH. WILL CONTINUE TO MONITOR.
[2022-10-11 08:29] VITALS: BP 113/61
[2022-10-11] MEDS: HOME MED MISCELLANEOUS PO SCH ×5 (08:50→22:01)
--- NOTE | 2022-10-11 18:56 | NUR ---
MS RN CLOSING NOTE PATIENT IN BED RESTING. ALERT AND ORIENTED X 4. ON RA, TOLERATING WELL WITH NO SOB OR S/S OF DISTRESS. BREATHING EVEN AND UNLABORED. ALL SAFETY MEASURES ARE IN PLACED WITH BED IN LOWEST AND LOCKED POSITION, SIDE RAILS UP X 2, AND CALL LIGHT AND TABLE ARE WITHIN REACH. WILL ENDORSE TO ONCOMING SHIFT FOR ULICES.
--- NOTE | 2022-10-11 19:31 | NUR ---
MS RN OPENING NOTES: RECEIVED PATIENT SLEEP IN BED COMFORTABLY, AROUSABLE TO STIMULI, BED IN LOW POSITION, CALL LIGHTS WITHIN REACH, NO COMPLAIN OF PAIN AND DISCOMFORT AT THIS TIME, ON ROOM AIR SATURATING WELL, PATIENT IS AMBULATORY, ABLE TO MAKE NEEDS KNOWN, ON CLINICAL TRIAL, NO CHANGES IN BEHAVIOR WAS OBSERVED, PATIENT KEPT CLEAN AND DRY ALL NEEDS MET WILL CONTINUE TO MONITOR.
[2022-10-11 20:00] VITALS: BP 105/64
--- NOTE | 2022-10-12 06:14 | NUR ---
MS RN CLOSING NOTES: PATIENT SLEEP IN BED COMFORTABLY, AROUSABLE TO VERBAL STIMULI, BED IN LOW POSITION CALL LIGHTS WITHIN REACH, NO COMPLAIN OF PAIN AND DISCOMFORT AT THIS TIME, PATIENT IS A/O X4 ABLE TO MAKE NEEDS KNOWN, ON CLINICAL TRIAL, NO CHANGES IN BEHAVIOR WAS OBSERVED, PATIENT KEPT CLEAN AND DRY ALL NEEDS MET ENDORSE TO INCOMING SHIFT.
--- NOTE | 2022-10-12 07:30 | NUR ---
RN NOTE RECEIVED PATIENT SITING IN BED, EATING BREAKFAST. NO SIGNS OF ACUTE DISTRESS NOTED. ON ROOM AIR, NO SOB NOTED, BREATHING EVEN AND UNLABORED. DENIES ANY PAIN OR DISCOMFORT. ON CLINICAL TRIAL. NO IV ACCESS. SAFETY MEASURE IN PLACE. WILL CONTINUE TO MONITOR PATIENT.
[2022-10-12] MEDS: HOME MED MISCELLANEOUS PO SCH ×5 (08:05→21:35)
--- NOTE | 2022-10-12 18:56 | NUR ---
RN CLOSING NOTE PATIENT IN BED, AWAKE, A/O X4, VERBALLY RESPONSIVE AND ABLE TO MAKE NEEDS KNOWN. NO SIGNS OF ACUTE DISTRESS NOTED. REMAINS STABLE ON ROOM AIR. BREATHING EVEN AND UNLABORED. DENIES ANY PAIN OR DISCOMFORT. ALL DUE MEDS GIVEN, TAKEN WELL. REMAINS ON CLINICAL TRIAL. NO UNTOWARD BEHAVIOR NOTED THROUGHOUT THE SHIFT. SAFETY MEASURE MAINTAINED. WILL ENDORSE TO NIGHTH SHIFT FOR CONTINUITY OF CARE.
--- NOTE | 2022-10-12 19:19 | NUR ---
RN OPENING NOTE PATIENT IN BED, AWAKE, A/O X4, VERBALLY RESPONSIVE AND ABLE TO MAKE NEEDS KNOWN. NO SIGNS OF ACUTE DISTRESS NOTED. REMAINS STABLE ON ROOM AIR. BREATHING EVEN AND UNLABORED. DENIES ANY PAIN OR DISCOMFORT. REMAINS ON CLINICAL TRIAL. NO BEHAVIOR ISSUES NOTED AT THIS TIME SAFETY MEASURE MAINTAINED.
[2022-10-12 20:00] VITALS: BP 128/73
--- NOTE | 2022-10-13 07:03 | NUR ---
RN CLOSING NOTE PT AWAKE, A/O X4, VERBALLY RESPONSIVE AND ABLE TO MAKE NEEDS KNOWN. NO SIGNS OF ACUTE DISTRESS NOTED. REMAINS STABLE ON ROOM AIR. BREATHING EVEN AND UNLABORED. DENIES ANY PAIN OR DISCOMFORT. REMAINS ON CLINICAL TRIAL. NO BEHAVIOR ISSUES NOTED AT THIS TIME SAFETY MEASURE MAINTAINED. PT GOING OUT FOR A SMOKE BREAK AT THIS TIME.
--- NOTE | 2022-10-13 07:25 | NUR ---
RN OPENING NOTE RECEIVED PATIENT IN BED, AWAKE, AMBULATORY. A/O X4, ABLE TO MAKE NEEDS KNOWN. DENIES ANY PAIN OR DISCOMFORT AT THIS TIME. ON ROOM AIR, NO SIGNS OF ACUTE DISTRESS NOTED. PATIENT ON CLINICAL TRIAL. NO IV ACCESS. SAFETY MEASURES IN PLACE: BED LOCKED AND IN LOWEST POSITION, SIDE RAILS UP X 2, CALL LIGHT AND TRAY TABLE WITHIN EASY REACH. WILL CONTINUE TO MONITOR.
[2022-10-13 08:00] VITALS: BP 133/94
[2022-10-13] MEDS: HOME MED MISCELLANEOUS PO SCH ×5 (08:03→21:01)
--- NOTE | 2022-10-13 18:41 | NUR ---
RN CLOSING NOTE PATIENT RESTING IN BED. A/O X 4, CALM AND COOPERATIVE. ABLE TO MAKE NEEDS KNOWN. DID NOT C/O PAIN/DISCOMFORT WITHIN THE SHIFT. ON ROOM AIR, TOLERATED WELL. NO IV ACCESS. NEEDS ATTENDED. SAFETY MEASURES IN PLACE: BED LOCKED AND IN LOWEST POSITION, SIDE RAILS UP X 2, CALL LIGHT AND TRAY TABLE WITHIN EASY REACH. WILL ENDORSE ULICES TO FLUORESCENT LAMP REPLACER.
[2022-10-13 20:00] VITALS: BP 128/83
[2022-10-14 07:00] VITALS: BP 139/86
--- NOTE | 2022-10-14 07:15 | NUR ---
RN OPENING NOTE PATIENT IN BED, AWAKE, AMBULATORY. A/O X4, ABLE TO MAKE NEEDS KNOWN. NO PAIN OR DISCOMFORT AT THIS TIME. ON ROOM AIR, NO SIGNS OF ACUTE DISTRESS NOTED. PATIENT ON CLINICAL TRIAL. NO IV ACCESS. ALL SAFETY MEASURES IN PLACE: BED LOCKED AND IN LOWEST POSITION, SIDE RAILS UP X 2, CALL LIGHT AND TRAY TABLE WITHIN EASY REACH. WILL CONTINUE TO MONITOR THE PATIENT
[2022-10-14] MEDS: HOME MED MISCELLANEOUS PO SCH ×5 (08:01→21:10)
--- NOTE | 2022-10-14 09:53 | NUR ---
Patient ran out of owned Tamsulosin med 0.4 mg po daily scheduled today at 9am. Informed Dr Collins who approved supply coming from [facility] pharmacy. Charge nurse aware
[2022-10-14] MEDS ORDERED: TAMSULOSIN 0.4 MG CAP.SR.24H PO SCH (11:00)
--- NOTE | 2022-10-14 18:46 | NUR ---
RN CLOSING NOTE PATIENT IN BED, AWAKE, AMBULATORY. A/O X4, ABLE TO MAKE NEEDS KNOWN. NO PAIN OR DISCOMFORT AT THIS TIME. ON ROOM AIR, NO SIGNS OF ACUTE DISTRESS NOTED. PATIENT ON CLINICAL TRIAL. NO IV ACCESS. ALL MEDICATIONS GIVEN SCHEDULED AND PER MD ORDER. ALL SAFETY MEASURES IN PLACE: BED LOCKED AND IN LOWEST POSITION, SIDE RAILS UP X 2, CALL LIGHT AND TRAY TABLE WITHIN EASY REACH. WILL ENDORSE TO PUBLICIST NURSE FOR ULICES.
--- NOTE | 2022-10-14 19:05 | NUR ---
MS RN OPENING NOTE RECEIVED PATIENT IN BED, AWAKE, AMBULATORY. A/O X4, ABLE TO MAKE NEEDS KNOWN. NO PAIN OR DISCOMFORT AT THIS TIME. ON ROOM AIR, NO SIGNS OF ACUTE DISTRESS NOTED. PATIENT ON CLINICAL TRIAL. NO IV ACCESS. ALL SAFETY MEASURES IN PLACE: BED LOCKED AND IN LOWEST POSITION, SIDE RAILS UP X 2, CALL LIGHT AND TRAY TABLE WITHIN EASY REACH. WILL CONTINUE TO MONITOR CLOSELY.
[2022-10-14 20:00] VITALS: BP 150/93
[2022-10-14] MEDS: TAMSULOSIN 0.4 MG CAP.SR.24H PO SCH (21:10)
--- NOTE | 2022-10-15 06:28 | NUR ---
MS RN BURT NOTE PATIENT AWAKE, AMBULATORY. A/O X4, ABLE TO MAKE NEEDS KNOWN. NO PAIN OR DISCOMFORT AT THIS TIME. ON ROOM AIR, NO SIGNS OF ACUTE DISTRESS NOTED. PATIENT ON CLINICAL TRIAL. NO IV ACCESS. ALL SAFETY MEASURES IN PLACE: BED LOCKED AND IN LOWEST POSITION, SIDE RAILS UP X 2, CALL LIGHT AND TRAY TABLE WITHIN EASY REACH. WILL ENDORSE FOR ULICES.
--- NOTE | 2022-10-15 07:20 | NUR ---
RN NOTES PATIENT CURRENTLY OUT OF UNIT. ENDORSED TO INCOMING SHIFT NURSE DEONDRE FOR CONTINUITY OF CARE .
--- NOTE | 2022-10-15 07:38 | NUR ---
MS RN OPENING NOTE (DAYSHIFT) Patient still off unit not in his room. Will continue to re-check and look out for patient's return to unit.
[2022-10-15 08:39] VITALS: BP 144/92
[2022-10-15] MEDS: HOME MED MISCELLANEOUS PO SCH ×3 (12:09→19:18)
--- NOTE | 2022-10-15 18:56 | NUR ---
MS RN CLOSING NOTE (DAYSHIFT) PATIENT IN BED, AWAKE, AMBULATORY. A/O X4, ABLE TO MAKE NEEDS KNOWN. NO PAIN OR DISCOMFORT AT THIS TIME. ON ROOM AIR, NO SIGNS OF ACUTE DISTRESS NOTED. PATIENT ON CLINICAL TRIAL. NO IV ACCESS. ALL MEDICATIONS GIVEN SCHEDULED AND PER MD ORDER. ALL SAFETY MEASURES IN PLACE: BED LOCKED AND IN LOWEST POSITION, SIDE RAILS UP X 2, CALL LIGHT AND TRAY TABLE WITHIN EASY REACH. NO ABNORMAL BEHAVIOR NOTED. WILL ENDORSE TO DRESSMAKER HELPER NURSE FOR ULICES.
[2022-10-15 20:00] VITALS: BP 133/76
[2022-10-15] MEDS: TAMSULOSIN 0.4 MG CAP.SR.24H PO SCH (21:21)
--- NOTE | 2022-10-16 06:43 | NUR ---
MS RN CLOSING NOTE PATIENT IN BED, AWAKE, AMBULATORY. A/O X4, ABLE TO MAKE NEEDS KNOWN. NO PAIN OR DISCOMFORT AT THIS TIME. ON ROOM AIR, NO SIGNS OF ACUTE DISTRESS NOTED. PATIENT ON CLINICAL TRIAL. NO IV ACCESS. ALL SAFETY MEASURES IN PLACE: BED LOCKED AND IN LOWEST POSITION, SIDE RAILS UP X 2, CALL LIGHT AND TRAY TABLE WITHIN EASY REACH. WILL ENDORSE FOR ULICES.
[2022-10-16 08:00] VITALS: BP 134/91
[2022-10-16] MEDS: HOME MED MISCELLANEOUS PO SCH ×3 (08:50→16:56)
[2022-10-16 16:00] VITALS: BP 138/84
--- NOTE | 2022-10-16 18:51 | NUR ---
MS RN CLOSING NOTE PATIENT IN BED, AWAKE, AMBULATORY. A/O X4, ABLE TO MAKE NEEDS KNOWN. NO PAIN OR DISCOMFORT AT THIS TIME. ON ROOM AIR, NO SIGNS OF ACUTE DISTRESS NOTED. PATIENT ON CLINICAL TRIAL. NO IV ACCESS. ALL DUE MEDS GIVEN ORDERED , WENT OUT ON PASS TO SMOKE , ALL SAFETY MEASURES IN PLACE: BED LOCKED AND IN LOWEST POSITION, SIDE RAILS UP X 2, CALL LIGHT AND TRAY TABLE WITHIN EASY REACH. WILL CONTINUE TO MONITOR CLOSELY.
--- NOTE | 2022-10-16 19:55 | NUR ---
MS RN OPENING NOTES RECEIVED PATIENT IN BED, AWAKE, AMBULATORY. A/O X4, ABLE TO MAKE NEEDS KNOWN. NO PAIN OR DISCOMFORT AT THIS TIME. ON ROOM AIR, NO SIGNS OF ACUTE DISTRESS NOTED. PATIENT ON CLINICAL TRIAL. NO IV ACCESS. ALL SAFETY MEASURES IN PLACE: BED LOCKED AND IN LOWEST POSITION, SIDE RAILS UP X 2, CALL LIGHT AND TRAY TABLE WITHIN EASY REACH. WILL CONTINUE TO MONITOR CLOSELY.
[2022-10-16 20:05] VITALS: BP 143/90
[2022-10-16] MEDS: TAMSULOSIN 0.4 MG CAP.SR.24H PO SCH (22:23)
[2022-10-17 07:00] VITALS: BP 140/89
--- NOTE | 2022-10-17 07:10 | NUR ---
RN OPENING NOTE- NO CHANGES, PATIENT IN BED, AWAKE, AMBULATORY. A/O X4, ABLE TO MAKE NEEDS KNOWN. NO PAIN OR DISCOMFORT AT THIS TIME. ON ROOM AIR, NO SIGNS OF ACUTE DISTRESS NOTED. PATIENT ON CLINICAL TRIAL. NO EPS, DENIES SI HI AH VH, NO IV ACCESS. ALL SAFETY MEASURES IN PLACE: BED LOCKED AND IN LOWEST POSITION, SIDE RAILS UP X 2, CALL LIGHT AND TRAY TABLE WITHIN EASY REACH. MONITOR / ASSIST
--- NOTE | 2022-10-17 07:33 | NUR ---
MS RN [id number] NOTES PATIENT IN BED, AWAKE, AMBULATORY. A/O X4, ABLE TO MAKE NEEDS KNOWN. NO PAIN OR DISCOMFORT AT THIS TIME. ON ROOM AIR, NO SIGNS OF ACUTE DISTRESS NOTED. PATIENT ON CLINICAL TRIAL. NO IV ACCESS. ALL SAFETY MEASURES IN PLACE: BED LOCKED AND IN LOWEST POSITION, SIDE RAILS UP X 2, CALL LIGHT AND TRAY TABLE WITHIN EASY REACH. WILL ENDORSE TO THE NEXT SHIFT.
[2022-10-17] MEDS: HOME MED MISCELLANEOUS PO SCH ×3 (09:06→17:54)
[2022-10-17] MEDS ORDERED: LORAZEPAM 1 MG TABLET FOR AGITATION PO PRN (13:00)
[2022-10-17] MEDS ORDERED: ZOLPIDEM TARTRATE 10 MG TABLET PO PRN (13:00)
--- NOTE | 2022-10-17 18:35 | NUR ---
RN CLOSING NOTE- PATIENT AMBULATORY. A/O X4, ABLE TO MAKE NEEDS KNOWN. NO PAIN OR DISCOMFORT AT THIS TIME. ON ROOM AIR, NO SIGNS OF ACUTE DISTRESS NOTED. PATIENT ON CLINICAL TRIAL. NO EPS, DENIES SI HI AH VH. NO IV ACCESS. ALL SAFETY MEASURES IN PLACE: BED LOCKED AND IN LOWEST POSITION, SIDE RAILS UP X 2, CALL LIGHT AND TRAY TABLE WITHIN EASY REACH. WILL ENDORSE TO THE NEXT SHIFT.
--- NOTE | 2022-10-17 19:45 | NUR ---
MS RN OPENING NOTES - PATIENT JUST CAME BACK FROM SMOKING. A/O X4. BREATHING EVEN AND NON-LABORED ON ROOM AIR. NOT IN APPARENT DISTRESS. NO C/O PAIN AT THIS TIME. NO IV ACCESS, ON CLINICAL TRIAL. SAFETY PRECAUTIONS IN PLACE: BED LOCKED AND IN LOW POSITION, SIDE RAILS UP X2, CALL LIGHT WITHIN REACH. WILL CONTINUE TO MONITOR FOR SAFETY AND BEHAVIOR.
[2022-10-17 20:00] VITALS: BP 129/76
[2022-10-17 21:00] VITALS: BP 129/76
[2022-10-17] MEDS: TAMSULOSIN 0.4 MG CAP.SR.24H PO SCH (21:05)
[2022-10-18 07:00] VITALS: BP 127/93
--- NOTE | 2022-10-18 07:00 | NUR ---
MS RN CLOSING NOTES - PATIENT RESTING IN BED, ABLE TO VERBALIZE NEEDS. NO CARDIAC OR RESPIRATORY DISTRESS NOTED. AFEBRILE. DENIES PAIN AT THIS TIME. INSTRUCTED TO WAIT FOR BLOOD DRAW BEFORE EATING, OKAY TO DRINK FLUIDS. ALL DUE MEDS GIVEN AND NEEDS ATTENDED. SAFETY PRECAUTIONS MAINTAINED. WILL ENDORSE TO NEXT SHIFT FOR ULICES.
--- NOTE | 2022-10-18 07:15 | NUR ---
RN OPENING NOTE- UNCHANGED, PATIENT IN ROOM, AWAKE, AMBULATORY. A/O X4, ABLE TO MAKE NEEDS KNOWN. FOR AM LABS AT DR HE OFFICE. NO PAIN OR DISCOMFORT AT THIS TIME. ON ROOM AIR, NO SIGNS OF ACUTE DISTRESS NOTED. PATIENT ON CLINICAL TRIAL. NO EPS, DENIES SI HI AH VH, NO IV ACCESS. DENIES SI HI AH VH, NO EPS, NO TREMORS. ALL SAFETY MEASURES IN PLACE: BED LOCKED AND IN LOWEST POSITION, SIDE RAILS UP X 2, CALL LIGHT AND TRAY TABLE WITHIN EASY REACH. MONITOR / ASSIST
[2022-10-18] MEDS: HOME MED MISCELLANEOUS PO SCH ×3 (08:31→16:04)
[2022-10-18 16:00] VITALS: BP 120/68
--- NOTE | 2022-10-18 18:26 | NUR ---
RN CLOSING NOTE- PT REMAINS THE SAME, AWAKE, AMBULATORY. A/O X4, ABLE TO MAKE NEEDS KNOWN. NO PAIN OR DISCOMFORT AT THIS TIME. ON ROOM AIR, NO SIGNS OF ACUTE DISTRESS NOTED. PATIENT ON CLINICAL TRIAL. NO EPS, DENIES SI HI AH VH, NO IV ACCESS. DENIES SI HI AH VH, NO EPS, NO TREMORS. ALL SAFETY MEASURES IN PLACE: BED LOCKED AND IN LOWEST POSITION, SIDE RAILS UP X 2, CALL LIGHT AND TRAY TABLE WITHIN EASY REACH. MONITOR / ASSIST
--- NOTE | 2022-10-18 19:00 | NUR ---
RN OPENING NOTES PT IS AWAKE IN HIS ROOM. PT IS A/0 X 4, ABLE TO MAKE NEEDS KNOWN. PT IS IN RA, TOLERATING WELL, BREATHING EVEN AND UNLABORED @ THIS TIME. PT HAS NO IV PRESENT. SAFETY MEASURES IS IN PLACE. BED AT ITS LOWEST AND LOCKED POSITION. SIDE RAILS UP X 2. BEDSIDE TABLE AND CALL LIGHT IS EASY REACH. WILL CONTINUE TO MONITOR PT ACCORDINGLY.
[2022-10-18 20:00] VITALS: BP 153/86
[2022-10-18] MEDS: TAMSULOSIN 0.4 MG CAP.SR.24H PO SCH (21:12)
[2022-10-18 22:00] VITALS: BP 153/86
--- NOTE | 2022-10-19 06:39 | NUR ---
RN CLOSING NOTE PT IS AWAKE AND RESTING COMFORTABLY IN BED IN HIS ROOM. PT IS A/0 X 4, ABLE TO MAKE NEEDS KNOWN. PT IS IN RA, W/ NO S & SX OF RESPIRATORY DISTRESS NOTED @ THIS TIME. PT HAS NO IV PRESENT. NO BEHAVIORAL CHANGES OBSERVED @ THIS TIME. SAFETY MEASURES IS IN PLACE. BED AT ITS LOWEST AND LOCKED POSITION. SIDE RAILS UP X 2. BEDSIDE TABLE AND CALL LIGHT IS EASY REACH. WILL ENDORSE PT TO THE NEXT SHIFT FOR CONTINUITY OF CARE.
[2022-10-19 07:00] VITALS: BP 173/107
--- NOTE | 2022-10-19 07:42 | NUR ---
RN OPENING NOTE PT IS ASLEEP, EASILY BEING AWAKENED. PT IS A/O X 4, ABLE TO MAKE NEEDS KNOWN. PT IS ON RA, TOLERATING WELL, BREATHING EVEN AND NON LABORED. PT HAS NO IV PRESENT. PATIENT IS ON CT. SAFETY MEASURES IN PLACE, BED AT LOWEST AND LOCKED POSITION. SIDE RAILS UP X 2. BEDSIDE TABLE AND CALL LIGHT IS EASY REACH. WILL CONTINUE AND ASSIST.
[2022-10-19] MEDS: HOME MED MISCELLANEOUS PO SCH ×3 (08:35→17:13)
--- NOTE | 2022-10-19 18:49 | NUR ---
RN CLOSING NOTE PT IS AWAKE AND RESTING COMFORTABLY IN BED IN HIS ROOM. PT IS A/O X 4, ABLE TO MAKE NEEDS KNOWN. PT IS ON RA, NO S/S OF RESPIRATORY DISTRESS/ SOB NOTED AT THIS TIME. PT HAS NO IV PRESENT. PATIENT IS ON CLINICAL TRIAL. NO BEHAVIORAL CHANGES OBSERVED DURING THE SHIFT. SAFETY MEASURES IS IN PLACE. BED AT LOWEST AND LOCKED POSITION. SIDE RAILS UP X 2. BEDSIDE TABLE AND CALL LIGHT WITHIN EASY REACH. WILL ENDORSE PT TO ONCOMING RN SHIFT FOR ULICES.
--- NOTE | 2022-10-19 19:10 | NUR ---
CEMENT MASON MAINTENANCE INITIAL NOTES Got report from am nurse and saw patient signing for going down for his smoking break with other clinical trial patient. He states he will come back later. No signs of any discomfort noted. will continue monitoring.
[2022-10-19 20:00] VITALS: BP 143/78
[2022-10-19] MEDS: TAMSULOSIN 0.4 MG CAP.SR.24H PO SCH (22:06)
--- NOTE | 2022-10-20 06:56 | NUR ---
OIL AND GAS WELL TREATMENT OPERATOR CLOSING NOTES PT WOKE UP AND ASKING FOR CREAMER AND SUGAR THEN HE WENT DOWN FOR SMOKE . SLEPT WELL AND NO SIGNS OF ANY BEHAVIORAL CHANGES NOTED . HE'S CALMED, COOPERATIVE AND PLEASANT TO STAFF. WILL CONTINUE MONITORING. ENDORSE TO AM NURSE FOR CONTINUITY OF CARE.
--- NOTE | 2022-10-20 07:30 | NUR ---
MS RN OPENING NOTES RECEIVED PATIENT SITING ON BED AWAKE AND A/O X4. ON ROOM AIR TOLERATING WELL. NOT IN DISTRESS. WITH NO IV ACCESS. ON CLINICAL TRIAL STATUS. NO UNUSUAL CHANGE OF BEHAVIOR. SAFETY MEASURES IN PLACE, CALL LIGHT WITHIN REACH. BED ON LOWEST LOCKED POSITION, SIDE RAILS UP X2. WILL CONTINUE TO MONITOR.
[2022-10-20 08:00] VITALS: BP 143/102
[2022-10-20] MEDS: HOME MED MISCELLANEOUS PO SCH ×3 (08:03→16:08)
[2022-10-20 16:02] VITALS: BP 153/101
--- NOTE | 2022-10-20 18:09 | NUR ---
MS RN CLOSING NOTES PATIENT ON BED AWAKE AND A/O X4. ON ROOM AIR TOLERATING WELL. NOT IN DISTRESS. WITH NO IV ACCESS. ON CLINICAL TRIAL STATUS. NO UNUSUAL CHANGE OF BEHAVIOR. DUE MEDS GIVEN. SAFETY MEASURES IN PLACE, CALL LIGHT WITHIN REACH. BED ON LOWEST LOCKED POSITION, SIDE RAILS UP X2. WILL ENDORSE TO NEXT SHIFT FOR ULICES.
--- NOTE | 2022-10-20 19:30 | NUR ---
PATIENT NOT IN ROOM AT THIS TIME
[2022-10-20 20:00] VITALS: BP 122/83
--- NOTE | 2022-10-20 21:00 | NUR ---
MS RN OPENING NOTES - PATIENT BACK IN HIS ROOM, HE SAID HE IS DOING HIS LAUNDRY DOWNSTAIRS. A/O X4. BREATHING EVEN AND NON-LABORED ON ROOM AIR. NOT IN APPARENT DISTRESS. DENIES PAIN AT THIS TIME. NO IV ACCESS, ON CLINICAL TRIAL. SAFETY PRECAUTIONS IN PLACE: BED LOCKED AND IN LOW POSITION, SIDE RAILS UP X2, CALL LIGHT WITHIN REACH. WILL CONTINUE TO MONITOR FOR SAFETY AND BEHAVIOR.
[2022-10-20] MEDS: TAMSULOSIN 0.4 MG CAP.SR.24H PO SCH (21:09)
[2022-10-20 21:16] VITALS: BP 122/83
--- NOTE | 2022-10-21 06:52 | NUR ---
MS RN CLOSING NOTES - NO UNUSUAL BEHAVIOR OBSERVED THROUGHOUT THE NIGHT. NO SOB OR . DENIES PAIN, N/V. ALL DUE MEDS GIVEN AND NEEDS ATTENDED. SAFETY PRECAUTIONS MAINTAINED. WILL ENDORSE TO NEXT SHIFT FOR ULICES.
[2022-10-21 07:00] VITALS: BP 148/96
--- NOTE | 2022-10-21 07:30 | NUR ---
PT RECEIVED RESTING COMFORTABLY IN BED. NO S/S OR C/O PAIN OR DISTRESS NOTED. SIDE RAILS UP X2, CALL LIGHT LEFT WITHIN REACH. WILL CONTINUE PLAN OF CARE.
[2022-10-21] MEDS: HOME MED MISCELLANEOUS PO SCH ×3 (08:45→17:00)
[2022-10-21 10:00] VITALS: BP 148/96
[2022-10-21 16:00] VITALS: BP 137/92
--- NOTE | 2022-10-21 18:30 | NUR ---
CHANGE OF SHIFT REPORT PT RESTING COMFORTABLY IN BED. NO S/S OR C/O PAIN OR DISTRESS NOTED. SIDE RAILS UP X2, CALL LIGHT LEFT WITHIN REACH. PT KEPT CLEAN, DRY, AND COMFORTABLE. WILL GIVE REPORT TO BECCA PARSONS.
--- NOTE | 2022-10-21 19:23 | NUR ---
MED HELD PT NOT IN ROOM
--- NOTE | 2022-10-21 20:01 | NUR ---
PATIENT ABSENT IN THE DEPARTMENT AT THIS TIME.
[2022-10-21] MEDS: TAMSULOSIN 0.4 MG CAP.SR.24H PO SCH (21:53)
--- NOTE | 2022-10-21 21:53 | NUR ---
MS RN OPENING NOTES - PATIENT BACK IN HIS ROOM, HE SAID HE WAS JUST SITTING IN HIS CAR AND WATCHING MOVIES IN HIS PHONE. A/O X4, GUARDED AND PARANOID BEHAVIOR NOTED. BREATHING EVEN AND NON-LABORED ON ROOM AIR. NOT IN APPARENT DISTRESS. DENIES PAIN AT THIS TIME. NO IV ACCESS, ON CLINICAL TRIAL. SAFETY PRECAUTIONS IN PLACE: BED LOCKED AND IN LOW POSITION, SIDE RAILS UP X2, CALL LIGHT WITHIN REACH. WILL CONTINUE TO MONITOR FOR SAFETY AND BEHAVIOR.
[2022-10-21 22:00] VITALS: BP 150/86
--- NOTE | 2022-10-22 06:34 | NUR ---
MS RN CLOSING NOTES - PATIENT LEFT THE UNIT AT 0610. NO SOB OR NOTED. NO C/O PAIN, N/V/D/C. ABLE TO VERBALIZE NEEDS. NO UNUSUAL BEHAVIOR SEEN THROUGHOUT THE NIGHT. ALL NEEDS ATTENDED AND ANTICIPATED. SAFETY MEASURES MAINTAINED. WILL ENDORSE TO NEXT SHIFT FOR ULICES.
--- NOTE | 2022-10-22 07:00 | NUR ---
MS RN OPENING NOTES PATIENT AWAKE, NO SOB OR NOTED. NO C/O PAIN, N/V/D/C. ABLE TO VERBALIZE NEEDS. NO UNUSUAL BEHAVIOR SEEN. PATIENT REQUESTED FOR HIS MEDICATIONS BUT ADVISED THAT 8AM WOULD BE THE EARLIEST MED RELEASE PER SCHEDULE. SAFETY MEASURES MAINTAINED. WILL CONTINUE TO MONITOR FOR ULICES.
[2022-10-22 08:00] VITALS: BP 153/100
[2022-10-22] MEDS: HOME MED MISCELLANEOUS PO SCH ×4 (08:08→21:16)
--- NOTE | 2022-10-22 19:38 | NUR ---
MS RN CLOSING NOTES PATIENT LEFT THE UNIT AT 0510 AND HASN'T COME BACK. SISTER TICO - [employer]: , WAS CALLED AT 1938 TO INFORM THAT THE PATIENT HAS SCHEDULED MEDICATION TO TAKE TONIGHT. LEFT 2 [facility] PHONE NUMBERS FOR SISTER TICO TO RETURN CALL FOR UPDATES. SISTER TICO COMMITTED TO CONTACT THE PATIENT AND REACH OUT TO [facility] LATER FOR ANY UPDATES. MEDS NOT YET TAKEN ENDORSED TO NURSE REBOLLAR FOR ULICES. Addendum: 10/22/22 at 1950 by CYNTHIA PRATT JR, RN IF FOR ANY REASON, PATIENT DID NOT RETURN, DR HE WILL BE INFORMED BY [facility] NURSE
[2022-10-22 20:00] VITALS: BP 120/97
--- NOTE | 2022-10-22 20:00 | NUR ---
POPCORN ATTENDANT INITIAL NOTES Seen pt in bed resting at this time. per Charge nurse he just came back around 19:45. Vital signs checked BP 120/74, PULSE 94, RESP 20, TEMP 98 , O2 sat 97%. Denies any discomfort. no signs of distress noted. No signs of any behavioral issue at this time. will continue monitoring. Place call light at reach.
[2022-10-22] MEDS: TAMSULOSIN 0.4 MG CAP.SR.24H PO SCH (21:25)
--- NOTE | 2022-10-23 06:52 | NUR ---
TELEVISION AUDIO ENGINEER CLOSING NOTES PATIENT ASLEEP IN BED. A/OX4. NO S/S OF DISTRESS, BREATHING WITHOUT DIFFICULTY ON ROOM AIR. PATIENT HAS SLEPT MOST OF THE SHIFT. PATIENT CALM , POLITE, COOPERATIVE WITH STAFF. PATIENT'S APPEARANCE KEMPT. SAFETY MEASURES IN PLACE: BED LOCKED AND AT LOWEST POSITION, MID-FOWLERS, RAILS UP X2, CALL MICHELLE WITHIN REACH. WILL ENDORSE TO AM NURSE FOR CONTINUITY OF CARE.
--- NOTE | 2022-10-23 07:24 | NUR ---
MS RN OPENING NOTE RECEIVED PATIENT AWAKE IN BED, AWAKE, AMBULATORY. A/O X4, ABLE TO MAKE NEEDS KNOWN. NO PAIN OR DISCOMFORT AT THIS TIME. ON ROOM AIR, NO SIGNS OF ACUTE DISTRESS NOTED. PATIENT ON CLINICAL TRIAL. NO IV ACCESS. ALL SAFETY MEASURES IN PLACE: BED LOCKED AND IN LOWEST POSITION, SIDE RAILS UP X 2, CALL LIGHT AND TRAY TABLE WITHIN EASY REACH. WILL CONTINUE TO MONITOR CLOSELY.
[2022-10-23 07:30] VITALS: BP 144/89
[2022-10-23] MEDS: HOME MED MISCELLANEOUS PO SCH ×3 (07:49→17:07)
--- NOTE | 2022-10-23 08:10 | NUR ---
RN NOTES PATIENT LEAVE @ 0810 AND VERBALIZED THAT HE'S GOING TO DR. HE.
[2022-10-23 16:00] VITALS: BP 142/100
--- NOTE | 2022-10-23 16:31 | NUR ---
RN NOTES PATIENT MOVED FROM ROOM 317-2 TO ROOM 316-2 THIS AFTERNOON.
--- NOTE | 2022-10-23 18:35 | NUR ---
MS RN CLOSING NOTES PATIENT WATCHING TV IN HIS ROOM, NO SOB OR NOTED. NO C/O PAIN. ABLE TO VERBALIZE NEEDS. NO UNUSUAL BEHAVIOR SEEN THROUGHOUT THE DAY. ALL NEEDS ATTENDED AND ANTICIPATED. SAFETY MEASURES MAINTAINED. WILL ENDORSE TO WELLNESS NURSE NURSE FOR ULICES.
[2022-10-23 20:00] VITALS: BP 138/70
--- NOTE | 2022-10-23 20:20 | NUR ---
RN OPENING NOTE PATIENT BACK IN ROOM WATCHING TV, WENT FOR A SMOKE. PATIENT ALERT/ORIENTED X 4, PT ABLE TO MAKE NEEDS KNOWN. INFORMED PATIENT THAT PER MD ORDERS CANNOT GIVE AMBIEN OR ATIVAN AFTER 2200, ASKED IF HE NEEDED EITHER MEDICATION BEFORE THEN BUT PATIENT REFUSED. SAFETY MEASURES IN PLACE: CALL LIGHT WITHIN REACH, SIDE RAILS UP X 2, BED LOCKED IN LOWEST POSITION. WILL CONTINUE TO MONITOR PATIENT
[2022-10-23] MEDS: TAMSULOSIN 0.4 MG CAP.SR.24H PO SCH (21:31)
--- NOTE | 2022-10-24 07:02 | NUR ---
RN CLOSING NOTE PATIENT AWAKE IN ROOM. PATIENT ALERT/ORIENTED X 4, PT ABLE TO MAKE NEEDS KNOWN. NO SIGNIFICANT CHANGES THIS SHIFT, NO BEHAVIORAL ISSUES NOTED, PT SLEPT WELL. SAFETY MEASURES IN PLACE: CALL LIGHT WITHIN REACH, SIDE RAILS UP X 2, BED LOCKED IN LOWEST POSITION. WILL ENDORSE TO DAYSHIFT RN FOR CONTINUITY OF CARE
--- NOTE | 2022-10-24 07:30 | NUR ---
MS RN OPENING NOTES RECEIVED PT AWAKE IN ROOM. ALERT, ORIENTED X4. ON ROOM AIR, AMBULATORY. DENIES PAIN/SOB. NO DISTRESS NOTED. NO BEHAVIORAL ISSUES NOTED. SAFETTY MEASURES IN PLACED. CALL LIGHT WITHIN REACH. WILL ADMINISTER MEDICATIONS SCHEDULED. WILL CONTINUE TO MONITOR.
[2022-10-24 08:00] VITALS: BP 152/104
[2022-10-24] MEDS: HOME MED MISCELLANEOUS PO SCH ×3 (08:37→18:04)
[2022-10-24] MEDS ORDERED: LORAZEPAM 1 MG TABLET FOR AGITATION PO PRN (13:00)
[2022-10-24] MEDS ORDERED: ZOLPIDEM TARTRATE 10 MG TABLET PO PRN (13:00)
--- NOTE | 2022-10-24 18:32 | NUR ---
MS RN CLOSING NOTES PT RESTING IN ROOM. ALERT, ORIENTED X4. ON ROOM AIR, AMBULATORY. DENIES PAIN/SOB. NO DISTRESS NOTED. NO BEHAVIORAL ISSUES NOTED. SAFETY MEASURES IN PLACED. CALL LIGHT WITHIN REACH. WILL ADMINISTER MEDICATIONS SCHEDULED. WILL ENDORSE TO NEXT SHIFT.
--- NOTE | 2022-10-24 19:00 | NUR ---
RN NOTES: FROM THE TIME OF ENDORSEMENT PER OUTGOING RN, HE IS AMBULATING AROUND THE UNIT AND GOING DOWN IN BETWEEN, HE WAS NOT BACK IN HIS ROOM YET.AMBULATORY.
[2022-10-24 20:00] VITALS: BP 129/89
[2022-10-24] MEDS: TAMSULOSIN 0.4 MG CAP.SR.24H PO SCH (21:56)
--- NOTE | 2022-10-24 22:30 | NUR ---
RN NOTES: CAME BACK TO HIS ROOM, DUE MEDS GIVEN, V/S TAKEN, AFTER THAT HE CHANGE AND PROCEED TO SLEEP.
--- NOTE | 2022-10-25 04:00 | NUR ---
RN NOTES; AWAKE, GIVEN COFFEE, WENT DOWN AROUND 0330 AND CAME BACK TO THE UNIT
--- NOTE | 2022-10-25 07:33 | NUR ---
RN NOTES: -AMBULATORY, STABLE, NO BEHAVIORAL CHANGES, ENDORSED FOR CONTINUITY OF CARE.
[2022-10-25 08:00] VITALS: BP 126/83
[2022-10-25] MEDS: HOME MED MISCELLANEOUS PO SCH ×3 (08:26→17:04)
[2022-10-25 16:00] VITALS: BP 153/100
--- NOTE | 2022-10-25 18:39 | NUR ---
END OF SHIFT SUMMARY PATIENT IS A/O X4. FREQUENTLY AMBULATES IN THE HALLWAY. ABLE TO MAKE NEEDS KNOWN. NO REPORTS OF TREMORS AND [place]. SAFETY MEASURES MAINTAINED. BED IN LOWEST POSITION, BRAKES LOCKED. SIDE RAILS UP X2. CALL LIGHT WITHIN REACH. WILL ENDORSE CONTINUITY OF CARE TO ONCOMING SHIFT.
[2022-10-25 20:00] VITALS: BP 137/78
--- NOTE | 2022-10-25 20:09 | NUR ---
MS RN OPENING NOTES: RECEIVED PATIENT AWAKE IN BED, BED IN LOW POSITION CALL LIGHTS WITHIN REACH, NO COMPLAIN OF PAIN AND DISCOMFORT AT THIS TIME, ON ROOM AIR SATURATING WELL, PATIENT IS A/O X4 ABLE TO MAKE NEEDS KNOWN, AMBULATORY, ON CLINICAL TRIAL, NO CHANGES IN BEHAVIOR WAS OBSERVED, KEPT CLEAN AND DRY ALL NEEDS MDET WILL CONTINUE TO MONITOR.
[2022-10-25] MEDS: TAMSULOSIN 0.4 MG CAP.SR.24H PO SCH (21:51)
--- NOTE | 2022-10-26 06:45 | NUR ---
MS RN CLOSING NOTES: PATIENT SLEEP IN BED COMFORTABLY, AROUSABLE TO VERBAL STIMULI, BED IN LOW POSITION CALL LIGHTS WITHIN REACH, NO COMPLAIN OF PAIN AND DISCOMFORT AT THIS TIME, ON ROOM AIR SATURATING WELL, PATIENT IS A/O X4 ABLE TO MAKE NEEDS KNOWN, AMBULATORY, ON CLINICAL TRIAL NO CHANGES IN BEHAVIOR WAS OBSERVED, PATIENT KEPT CLEAN AND DRY ALL NEEDS MET ENDORSE TO INCOMING SHIFT.
[2022-10-26 07:00] VITALS: BP 128/81
[2022-10-26] MEDS: HOME MED MISCELLANEOUS PO SCH ×3 (07:47→16:56)
--- NOTE | 2022-10-26 07:59 | NUR ---
MS GALLERY ASSISTANT OPENING NOTE CLINICAL TRIAL: PATIENT RECEIVED AWAKE, ON ROOM AIR, A0X4. AMBULATING, ABLE TO MAKE ALL NEEDS KNOWN. NO S/S OF SOB. DENIES PAIN. SAFETY MEASURES IN PLACE, CALL LIGHT WITHIN REACH.
--- NOTE | 2022-10-26 19:30 | NUR ---
MS RN OPENING NOTE PT NOT IN UNIT AT THIS TIME.
[2022-10-26 20:00] VITALS: BP 135/80
--- NOTE | 2022-10-26 20:00 | NUR ---
RN NOTE PT JUST ARRIVED TO UNIT. PATIENT A/O X4. ON ROOM AIR, WITH NO SOB OR DISTRESS NOTED. DENIES PAIN AT THIS TIME. AMBULATING, ABLE TO MAKE ALL NEEDS KNOWN. SAFETY MEASURES IN PLACE, BED LOCKED AND IN LOWEST POSITION, CALL LIGHT WITHIN REACH. WILL CONTINUE TO MONITOR AND ASSIST.
[2022-10-26] MEDS: TAMSULOSIN 0.4 MG CAP.SR.24H PO SCH (22:22)
[2022-10-27 07:00] VITALS: BP 134/103
--- NOTE | 2022-10-27 07:28 | NUR ---
MS RN CLOSING NOTES PT IN BED RESTING AT THIS TIME. A/O X4. STABLE ON ROOM AIR, WITH NO SOB OR DISTRESS NOTED. DENIES PAIN AT THIS TIME. AMBULATING, ABLE TO MAKE ALL NEEDS KNOWN. ALL CARE PROVIDED AND MEDS TOLERATED WELL. SAFETY MEASURES MAINTAINED, BED LOCKED AND IN LOWEST POSITION, CALL LIGHT WITHIN REACH. WILL ENDORSE ULICES TO DAY SHIFT NURSE.
[2022-10-27] MEDS: HOME MED MISCELLANEOUS PO SCH ×3 (08:31→17:10)
--- NOTE | 2022-10-27 19:02 | NUR ---
MS RN CLOSING NOTES PT IN BED WATCHING TV AT THIS TIME. A/O X4. STABLE ON ROOM AIR, WITH NO SOB OR DISTRESS NOTED. DENIES PAIN AT THIS TIME. AMBULATING, ABLE TO MAKE ALL NEEDS KNOWN. ALL CARE PROVIDED AND MEDS TOLERATED WELL. SAFETY MEASURES MAINTAINED, BED LOCKED AND IN LOWEST POSITION, CALL LIGHT WITHIN REACH. WILL ENDORSE ULICES TO COOKY PACKER NURSE FOR ULICES.
[2022-10-27 20:00] VITALS: BP 143/85
--- NOTE | 2022-10-27 20:00 | NUR ---
PATIENT IN ROOM, CALM, NO COMPLAIN OF HALLUCINATIONS. NEEDS ATTENDED, WILL CONTINUE TO MONITOR.
[2022-10-27] MEDS: TAMSULOSIN 0.4 MG CAP.SR.24H PO SCH (22:00)
--- NOTE | 2022-10-28 06:15 | NUR ---
NO BEHAVIORAL DISTURBANCE, CALM AND COOPERATIVE. NO PRN GIVEN. NOTIFY DR. HE FOR ANY BEHAVIORAL CHANGES.
--- NOTE | 2022-10-28 07:20 | NUR ---
MS RN OPENING NOTES RECEIVED PT IN BED RESTING AT THIS TIME. A/O X4. STABLE ON ROOM AIR, WITH NO SOB OR DISTRESS NOTED. DENIES PAIN AT THIS TIME. AMBULATING, ABLE TO MAKE ALL NEEDS KNOWN. SAFETY MEASURES MAINTAINED, BED LOCKED AND IN LOWEST POSITION, CALL LIGHT WITHIN REACH. WILL CONTINUE TO MONITOR THE PATIENT FOR ULICES
[2022-10-28] MEDS: HOME MED MISCELLANEOUS PO SCH ×3 (08:21→16:01)
[2022-10-28 09:32] VITALS: BP 145/95
[2022-10-28 16:28] VITALS: BP 110/62
--- NOTE | 2022-10-28 18:34 | NUR ---
MS RN CLOSING NOTES PT IN BED, RESTING, A/O X4. STABLE ON ROOM AIR, WITH NO SOB OR DISTRESS NOTED. DENIES PAIN AT THIS TIME. AMBULATING, ABLE TO MAKE ALL NEEDS KNOWN. ALL MEDS GIVEN PRESCRIBED AND CARE PROVIDED DURING THE SHIFT. PATIENT MOVING IN & OUT OF THE UNIT MULTIPLE TIMES DURING THE DAY. SAFETY MEASURES MAINTAINED, BED LOCKED, IN LOWEST POSITION, CALL LIGHT WITHIN REACH. WILL ENDORSE ULICES TO PM SHIFT NURSE FOR ULICES.
[2022-10-28 20:15] VITALS: BP 123/75
[2022-10-28] MEDS: TAMSULOSIN 0.4 MG CAP.SR.24H PO SCH (21:17)
--- NOTE | 2022-10-29 06:32 | NUR ---
RN CT CLOSING NOTES PATIENT IS IN BED, AWAKE AND COHERENT. AMBULATORY ON CLINICAL TRIAL. NO COMPLAIN OF PAIN OR DISCOMFOR AT THIS TIME. ALL DUE MEDICATIONS GIVEN ALL NEEDS ATTENDED. KEPT BED ON LOWER LOCKED POSITION KEPT SIDE RAILS UP X 2 ALL THE TIME. NO BEHAVIORAL CHANGES NOTED. KEPT CALL LIGHT WITHIN AT REACH, WILL CONTINUE TO MONITOR FOR ULICES
[2022-10-29 07:00] VITALS: BP 124/82
--- NOTE | 2022-10-29 07:45 | NUR ---
MS RN NOTES; RECEIVED PATIENT AWAKE IN BED, A/0 X3-4, ABLE TO MAKE NEEDS KNOWN, AMBULATORY, ON CLINICAL TRIAL STATUS. NO COMPLAIN OF PAIN OR DISCOMFORT AT THIS TIME.SAFETY MEASURES IN PLACE. KEPT CALL LIGHT AND TABLE WITHIN REACH, WILL CONT WITH PLAN OF CARE DURING SHIFT.
[2022-10-29] MEDS: HOME MED MISCELLANEOUS PO SCH ×3 (08:20→17:00)
--- NOTE | 2022-10-29 18:47 | NUR ---
RN NOTES: 1700 MED NON ADMIN, PT NOT PRESENT IN THE UNIT.
--- NOTE | 2022-10-29 18:57 | NUR ---
TECHNICAL INTERNSHIP CLOSING NOTE PATIENT ON CLINICAL TRIAL, NOT PRESENT IN HIS ROOM. CALLED TO HOME PHONE NUMBER LEFT A MESSAGE TO CHECK IN . PROVIDED UNIT PHONE NUMBER.
--- NOTE | 2022-10-29 19:46 | NUR ---
RN OPENING NOTES PATIENT CAME BACK TO THE UNIT AT 1946. ALERT ORIENTED TIMES 4. AMBULATORY. ABLE TO MAKE NEEDS KNOWN. NO PAIN NOTED. NO SOB NOTED. NO DISTRESS NOTED. ALL NEEDS ATTENDED. ALL SAFETY MEASURES IN PLACE. BED LOCKED IN THE LOWEST POSITION. CALL LIGHT AND TABLE IN EASY REACH. SIDE RAILS UP TIMES 2. WILL CONTINUE TO MONITOR CLOSELY.
[2022-10-29 20:00] VITALS: BP 147/87
[2022-10-29] MEDS: TAMSULOSIN 0.4 MG CAP.SR.24H PO SCH (21:53)
--- NOTE | 2022-10-30 06:49 | NUR ---
RN CLOSING NOTES RIP ENT IS ALERT ORIENTED TIMES 4. AMBULATORY. ABLE TO MAKE NEEDS KNOWN. NO PAIN NOTED. NO SOB NOTED. NO DISTRESS NOTED. ALL NEEDS ATTENDED. ALL SAFETY MEASURES IN PLACE. BED LOCKED IN THE LOWEST POSITION. CALL LIGHT AND TABLE IN EASY REACH. SIDE RAILS UP TIMES 2. DUE MEDS GIVEN ORDERED. WILL ENDORSE FOR ULICES..
--- NOTE | 2022-10-30 07:50 | NUR ---
MS RN OPENING NOTES PT WENT BACK TO ROOM AROUND 0750. PT IS AWAKE, A/O X4. STABLE ON ROOM AIR, WITH NO SOB OR DISTRESS NOTED. DENIES PAIN AT THIS TIME. AMBULATING, ABLE TO MAKE ALL NEEDS KNOWN. SAFETY MEASURES MAINTAINED, BED LOCKED AND IN LOWEST POSITION, CALL LIGHT WITHIN REACH. WILL CONTINUE TO MONITOR THE PATIENT FOR ULICES AND ADMINISTER SCHEDULED MEDS
[2022-10-30 08:00] VITALS: BP 144/94
[2022-10-30] MEDS: HOME MED MISCELLANEOUS PO SCH ×3 (08:02→18:33)
--- NOTE | 2022-10-30 09:15 | NUR ---
RN NOTES INSERTED NEW IV ACCESS ON LFA 20 G. RUNNING NS 100 ML/HR. NICOTINE PATCH GIVEN ON 924 ON LEFT UPPER ARM.
--- NOTE | 2022-10-30 18:37 | NUR ---
MS RN OPENING NOTES PT IS AWAKE, A/O X4. RESTING IN BED. STABLE ON ROOM AIR, WITH NO SOB OR DISTRESS NOTED. DENIES PAIN AT THIS TIME. AMBULATING, ABLE TO MAKE ALL NEEDS KNOWN. SAFETY MEASURES MAINTAINED, BED LOCKED AND IN LOWEST POSITION, CALL LIGHT WITHIN REACH. WILL CONTINUE TO MONITOR THE PATIENT FOR ULICES. ALL SCHEDULED ADMINISTERED. WILL ENDORSE TO NEXT SHIFT.
--- NOTE | 2022-10-30 19:30 | NUR ---
noc rn opening Patient not present in unit during ULICES report.
[2022-10-30 20:00] VITALS: BP 150/92
[2022-10-30] MEDS: TAMSULOSIN 0.4 MG CAP.SR.24H PO SCH (22:11)
[2022-10-30 23:41] VITALS: BP 132/79
--- NOTE | 2022-10-31 07:26 | NUR ---
noc rn note All needs attended. all scheduled medications administered. safety in place. endorsed to shaan Rizzo RN for continuity of care.
[2022-10-31] MEDS: HOME MED MISCELLANEOUS PO SCH ×6 (09:00→18:46)
[2022-10-31] MEDS ORDERED: ZOLPIDEM TARTRATE 10 MG TABLET PO PRN (13:00)
[2022-10-31] MEDS ORDERED: LORAZEPAM 1 MG TABLET FOR AGITATION PO PRN (13:00)
[2022-10-31 16:22] VITALS: BP 130/87
--- NOTE | 2022-10-31 18:51 | NUR ---
MS RN CLOSING NOTES PT IS AWAKE, A/O X4. RESTING IN BED. STABLE ON ROOM AIR, WITH NO SOB OR DISTRESS NOTED. DENIES PAIN AT THIS TIME. AMBULATING, ABLE TO MAKE ALL NEEDS KNOWN. SAFETY MEASURES MAINTAINED, BED LOCKED AND IN LOWEST POSITION, CALL LIGHT WITHIN REACH. WILL CONTINUE TO MONITOR THE PATIENT FOR ULICES. ALL SCHEDULED ADMINISTERED. WILL ENDORSE TO NEXT SHIFT.
--- NOTE | 2022-10-31 19:50 | NUR ---
MS RN OPENING NOTE PT IS AWAKE, RESTING IN BED. PT A/O X4, ABLE TO MAKE NEEDS KNOWN. STABLE ON ROOM AIR, WITH NO SOB OR DISTRESS NOTED. NO C/O PAIN OR DISCOMFORT AT THIS TIME. NO IV ACCESS, PT ON CLINICAL TRIAL. SAFETY MEASURES MAINTAINED, BED LOCKED AND IN LOWEST POSITION, CALL LIGHT WITHIN REACH. WILL CONTINUE TO MONITOR PATIENT.
[2022-10-31 20:00] VITALS: BP 138/92
[2022-10-31] MEDS: TAMSULOSIN 0.4 MG CAP.SR.24H PO SCH (21:55)
--- NOTE | 2022-11-01 06:49 | NUR ---
MS RN OPENING NOTE LEFT PT AWAKE, RESTING IN BED. PT A/O X4, ABLE TO MAKE NEEDS KNOWN. STABLE ON ROOM AIR, WITH NO SOB OR DISTRESS NOTED. NO C/O PAIN OR DISCOMFORT AT THIS TIME. NO IV ACCESS, PT ON CLINICAL TRIAL. SAFETY MEASURES MAINTAINED, BED LOCKED AND IN LOWEST POSITION, CALL LIGHT WITHIN REACH. WILL ENDORSE PATIENT TO MORNING SHIFT NURSE FOR CONTINUITY OF CARE.
[2022-11-01 07:00] VITALS: BP 152/83
--- NOTE | 2022-11-01 07:30 | NUR ---
RN OPENING NOTE- AOX4, INTERACTIVE, CALM, DENIES SI HI AH VH, NO EPS OR TREMORS NOTED. CHEST CLEAR TO AUSCULTATION, AMBULATORY, SKIN INTACT BRP. MONITOR / ASSIST
[2022-11-01] MEDS: HOME MED MISCELLANEOUS PO SCH ×3 (08:32→17:30)
--- NOTE | 2022-11-01 18:47 | NUR ---
RN CLOSING NOTES PT IS A/O X4, . STABLE, UNDERSTAND HIS NEEDS, COOPERATIVE. INTERACTIVE, CALM, DENIES SI HI AH VH, NO EPS OR TREMORS NOTED. AMBULATORY, SKIN INTACT. BRP. MONITOR / ASSIST. SAFETY MEASURES IN PLACE. ENDORSE TO NEXT SHIFT .
--- NOTE | 2022-11-01 19:30 | NUR ---
MS RN OPENING NOTE RECEIVED PATIENT FROM AM NURSE; A/O X4, ABLE TO MAKE NEEDS KNOWN; STABLE ON ROOM AIR, WITH NO SOB OR DISTRESS NOTED; NO COMPLAINTS OF PAIN OR DISCOMFORT AT THIS TIME; NO IV ACCESS, PT ON CLINICAL TRIAL; ENCOURAGED VERBALIZATION OF NEEDS; SAFETY MEASURES MAINTAINED, BED LOCKED AND IN LOWEST POSITION, CALL LIGHT WITHIN REACH; WILL CONTINUE TO MONITOR THROUGHOUT SHIFT
[2022-11-01] MEDS: TAMSULOSIN 0.4 MG CAP.SR.24H PO SCH (21:05)
[2022-11-01 21:41] VITALS: BP 141/94
--- NOTE | 2022-11-02 06:51 | NUR ---
MS RN CLOSING NOTE PATIENT IN BED, A/O X4, ABLE TO MAKE NEEDS KNOWN; STABLE ON ROOM AIR, WITH NO SOB OR DISTRESS NOTED; NO COMPLAINTS OF PAIN OR DISCOMFORT AT THIS TIME; NO IV ACCESS, PATIENT ON CLINICAL TRIAL; ADMINISTERED MEDICATIONS PRESCRIBED; PATIENT'S NEEDS ATTENDED; SAFETY MEASURES MAINTAINED, BED LOCKED AND IN LOWEST POSITION, CALL LIGHT WITHIN REACH; WILL ENDORSE TO AM NURSE FOR ULICES.
[2022-11-02 07:00] VITALS: BP 133/103
--- NOTE | 2022-11-02 07:39 | NUR ---
MS RN OPENING NOTE RECEIVED PATIENT FROM AM NURSE; A/O X4, ABLE TO MAKE NEEDS KNOWN; STABLE ON ROOM AIR, WITH NO SOB OR DISTRESS NOTED; NO COMPLAINTS OF PAIN OR DISCOMFORT AT THIS TIME, PT ON CLINICAL TRIAL; ENCOURAGED VERBALIZATION OF NEEDS; SAFETY MEASURES MAINTAINED, BED LOCKED AND IN LOWEST POSITION, CALL LIGHT WITHIN REACH; WILL MONITOR FOR ANY CHANGES
[2022-11-02] MEDS: HOME MED MISCELLANEOUS PO SCH ×3 (07:56→17:24)
--- NOTE | 2022-11-02 07:57 | NUR ---
RN NOTES PATIENT REQUESTED TO TAKE HIS PILLS EARLY
--- NOTE | 2022-11-02 18:58 | NUR ---
MS RN CLOSING NOTE PATIENT IN BED, A/O X4, ABLE TO MAKE NEEDS KNOWN; STABLE ON ROOM AIR, WITH NO SOB OR DISTRESS NOTED; NO COMPLAINTS OF PAIN OR DISCOMFORT AT THIS TIME; PATIENT ON CLINICAL TRIAL; ADMINISTERED MEDICATIONS PRESCRIBED; PATIENT'S NEEDS ATTENDED; SAFETY MEASURES MAINTAINED, BED LOCKED AND IN LOWEST POSITION, CALL LIGHT WITHIN REACH; WILL ENDORSE TO NEXT SHIFT , PATIENT WENT OUT ON PASS AT THIS TIME
--- NOTE | 2022-11-02 19:45 | NUR ---
MS RN OPENING NOTE PATIENT IN BED, A/O X4, ABLE TO MAKE NEEDS KNOWN; STABLE ON ROOM AIR, WITH NO SOB OR DISTRESS NOTED; NO COMPLAINTS OF PAIN OR DISCOMFORT AT THIS TIME; PATIENT ON CLINICAL TRIAL; PATIENT'S NEEDS ATTENDED; SAFETY MEASURES MAINTAINED, BED LOCKED AND IN LOWEST POSITION, CALL LIGHT WITHIN REACH.
[2022-11-02] MEDS: TAMSULOSIN 0.4 MG CAP.SR.24H PO SCH (22:01)
--- NOTE | 2022-11-03 06:40 | NUR ---
MS RN CLOSING NOTE PATIENT IN BED, A/O X4, ABLE TO MAKE NEEDS KNOWN; STABLE ON ROOM AIR, WITH NO SOB OR DISTRESS NOTED; NO COMPLAINTS OF PAIN OR DISCOMFORT AT THIS TIME; PATIENT ON CLINICAL TRIAL; PATIENT'S NEEDS ATTENDED; SAFETY MEASURES MAINTAINED, BED LOCKED AND IN LOWEST POSITION, CALL LIGHT WITHIN REACH.
[2022-11-03 08:00] VITALS: BP 141/95
[2022-11-03] MEDS: HOME MED MISCELLANEOUS PO SCH ×3 (08:29→17:00)
--- NOTE | 2022-11-03 09:33 | NUR ---
RN-NOTES RECEIVED PATIENT AROUND 0710 IN THE ROOM AWAKE,A/OX4 ,NO ACUTE DISTRESS NOTED.
[2022-11-03 16:00] VITALS: BP 137/83
--- NOTE | 2022-11-03 18:36 | NUR ---
RN-NOTES PATIENT IS VISIBLE IN THE UNIT A/O X4 GUARDED, COOPERATIVE WITH STAFF.AMBULATORY STEADY GAIT.COMPLIANT WITH MEDICATIONS. ABLE TO MAKE NEEDS KNOWN TO THE STAFF.PATIENT OFF THE UNIT SEVERAL TIMES FOR FRESH AIR AND SMOKE BREAK. 1700 PM MEDICATION WAS NOT ADMINISTER DUE TO IS OFF THE UNIT. PATIENT IS STILL OFF THE UNIT UNTIL THIS TIME. WILL ENDORSE TO INCOMING NURSE FOR THE CONTINUITY OF CARE.
--- NOTE | 2022-11-03 19:55 | NUR ---
RN-NOTES PATIENT IS VISIBLE IN THE UNIT A/O X4 FRIENDLY, COOPERATIVE WITH STAFF.AMBULATORY STEADY GAIT. ABLE TO MAKE NEEDS KNOWN TO THE STAFF. PT RETURNED TO UNIT.
[2022-11-03] MEDS: TAMSULOSIN 0.4 MG CAP.SR.24H PO SCH (22:01)
[2022-11-04 07:00] VITALS: BP 141/93
--- NOTE | 2022-11-04 07:55 | NUR ---
MS RN OPENING NOTE PATIENT IN BED, A/O X4, ABLE TO MAKE NEEDS KNOWN; STABLE ON ROOM AIR, WITH NO SOB OR DISTRESS NOTED; NO COMPLAINTS OF PAIN OR DISCOMFORT AT THIS TIME; PATIENT ON CLINICAL TRIAL; SAFETY MEASURES MAINTAINED, BED LOCKED AND IN LOWEST POSITION, CALL LIGHT WITHIN REACH.
[2022-11-04] MEDS: HOME MED MISCELLANEOUS PO SCH ×3 (08:13→17:10)
--- NOTE | 2022-11-04 19:40 | NUR ---
RN Opening Notes Received pt in room, awake. AOx4, able to make needs known. On 5LPM and tolerating well. No SOB noted. No s/sx of respiratory distress noted. No IV access due to clinical trial status. Safety precautions in place: bed in lowest, locked position, siderails upX2, and brake on. Table and call light within reach. All needs met at this time.
[2022-11-04 20:00] VITALS: BP 144/93
[2022-11-04] MEDS: TAMSULOSIN 0.4 MG CAP.SR.24H PO SCH (21:29)
--- NOTE | 2022-11-05 06:52 | NUR ---
RN Closing Notes Pt not in room at this time. Will endorse to oncoming shift for ULICES
--- NOTE | 2022-11-05 07:35 | NUR ---
MS RN OPENING NOTE PATIENT RESTING IN HIS BED, A/O X4, ABLE TO MAKE NEEDS KNOWN; STABLE ON ROOM AIR, WITH NO SOB OR DISTRESS NOTED; NO COMPLAINTS OF PAIN OR DISCOMFORT AT THIS TIME; PATIENT ON CLINICAL TRIAL; SAFETY MEASURES MAINTAINED, BED LOCKED AND IN LOWEST POSITION, CALL LIGHT WITHIN REACH.
[2022-11-05] MEDS: HOME MED MISCELLANEOUS PO SCH ×3 (08:10→16:16)
[2022-11-05 16:00] VITALS: BP 149/100
--- NOTE | 2022-11-05 19:25 | NUR ---
MSRN AMBULATORY, STATED WILL GO OUT FOR FEW MINUTES. SAFETY PRECAUTIONS EMPHASIZED WELL UNDERSTOOD.
[2022-11-05 20:00] VITALS: BP 106/54
[2022-11-05] MEDS: TAMSULOSIN 0.4 MG CAP.SR.24H PO SCH (21:07)
[2022-11-05 22:00] VITALS: BP 106/54
--- NOTE | 2022-11-05 22:40 | NUR ---
MSRN DUE MED ADMINISTERED. WENT BACK TO SLEEP.
[2022-11-06 07:00] VITALS: BP 141/96
--- NOTE | 2022-11-06 07:00 | NUR ---
MSRN HAD GOOD AMOUNT OF SLEEP. NO OTHER NEEDS MADE.
[2022-11-06] MEDS: HOME MED MISCELLANEOUS PO SCH ×3 (08:09→16:32)
[2022-11-06 16:00] VITALS: BP 144/90
--- NOTE | 2022-11-06 18:30 | NUR ---
END OF SHIFT SUMMARY PATIENT IS A/O X4. AMBULATORY WITH STEADY GAIT. ABLE TO MAKE NEEDS KNOWN. SATURATING WELL ON RA. NO REPORTS OF TREMORS/AKATHIS[place]. INDEPENDENT WITH REPOSITIONING. HOLD ATIVAN AND AMBIEN AT 2300. SAFETY MEASURES MAINTAINED. BED IN LOWEST POSITION, BRAKES LOCKED. SIDE RAILS UP X2. CALL LIGHT WITHIN REACH. WILL ENDORSE CONTINUITY OF CARE TO ONCOMING SHIFT.
[2022-11-06] MEDS: TAMSULOSIN 0.4 MG CAP.SR.24H PO SCH (21:40)
[2022-11-06 22:00] VITALS: BP 140/91
--- NOTE | 2022-11-07 06:24 | NUR ---
END OF SHIFT REPORT Patient in bed, Alert Oriented x4. Independent with ADL's. Slept most of the night, hours of sleep 6. Patient compliant with medication and treatment. Facing, calm. Denies pain or any discomfort. Plan for continue Clinical Trial of new Antipsychotic medication. Hold Lorazepam, Ambien on 11/13/2022 at 2300. NPO after 2100 on 11/13/2022. Water, study medication okay to give as per instruction on Clinical Trial Protocol under care of Dr. Collins. Will endorse to oncoming RN.
[2022-11-07] MEDS: HOME MED MISCELLANEOUS PO SCH ×3 (07:38→18:24)
--- NOTE | 2022-11-07 07:40 | NUR ---
RN MS NOTES PT IN BED, AWAKE, ALERT AND ORIENTED, NO COMPLAINT OF PAIN OR ANY DISCOMFORT, NOT IN DISTRESS, BLOOD PRESSURE TAKEN, BP MEDS GIVEN EARLIER REQUESTED BY PT, NEEDS ATTENDED.
[2022-11-07] MEDS ORDERED: LORAZEPAM 1 MG TABLET FOR AGITATION PO PRN (13:00)
[2022-11-07] MEDS ORDERED: ZOLPIDEM TARTRATE 10 MG TABLET PO PRN (13:00)
--- NOTE | 2022-11-07 18:37 | NUR ---
RN MS NOTES PT JUST GOT BACK IN THE UNIT, BP TAKEN, BP MEDS GIVEN ORDERED, NO BEHAVIOR ISSUES NOTED, NEEDS ATTENDED.
[2022-11-07 20:00] VITALS: BP 132/100
--- NOTE | 2022-11-07 20:30 | NUR ---
MS RN OPENING NOTES: RECEIVED PATIENT JUST CAME FROM BREAK, WENT STRAIGHT TO ROOM, PATIENT IS A/O X4 ABLE TO MAKE NEEDS KNOWN, AMBULATORY, ON ROOM AIR NO SOB WAS OBSERVED, NO BEHAVIORAL CHANGES WAS OBSERVED, PATIENT APPEARS CALM, PLEASANT, KEPT CLEAN AND DRY ALL NEEDS MET WILL CONTINUE TO MONITOR.
[2022-11-07 20:50] VITALS: BP 132/100
[2022-11-07] MEDS: TAMSULOSIN 0.4 MG CAP.SR.24H PO SCH (22:00)
--- NOTE | 2022-11-08 06:53 | NUR ---
MS RN CLOSING NOTES: PATIENT SLEEP IN BED COMFORTABLY, AROUSABLE TO VERBAL STIMULI, BED IN LOW POSITION CALL LIGHTS WITHIN REACH, NO COMPLAIN OF PAIN AND DISCOMFORT AT THIS TIME, ON ROOM AIR SATURATING WELL, PATIENT IS A/O X4 ABLE TO MAKE NEEDS KNOWN, AMBULATORY, ON CLINICAL TRIAL, NO CHANGES IN BEHAVIOR WAS OBSERVED, WILL CONTINUE TO MONITOR.
--- NOTE | 2022-11-08 07:55 | NUR ---
MS RN OPENING NOTES: PATIENT NOT IN ROOM AT THIS TIME, WILL CHECK AGAIN LATER. TO MONITOR.
[2022-11-08 08:14] VITALS: BP 126/86
[2022-11-08] MEDS: HOME MED MISCELLANEOUS PO SCH ×3 (09:00→16:58)
[2022-11-08 16:26] VITALS: BP 118/72
--- NOTE | 2022-11-08 18:35 | NUR ---
MS RN CLOSING NOTES: PATIENT AWAKE IN BED, A/OX4. BED IN LOW POSITION CALL LIGHTS WITHIN REACH, NO COMPLAIN OF PAIN AND DISCOMFORT AT THIS TIME, ON ROOM AIR SATURATING WELL, PATIENT IS A/O X4 ABLE TO MAKE NEEDS KNOWN, AMBULATORY, ON CLINICAL TRIAL, NO CHANGES IN BEHAVIOR WAS OBSERVED, WILL ENDORSE TO NEXT SHIFT NURSE FOR CONTINUING PT CARE.
--- NOTE | 2022-11-08 19:30 | NUR ---
RN opening notes Received Pt from morning nurse. Pt is sitting in bed comfortably. Pt is alert and orientedX4. Pt is a clinical trial. On room air. No SOB. No S/S of distress noted. Safety precautions is maintained. bed at low position, brakes locked, side rails upX2, hob elevated and call light is within reach. will continue to monitor.
[2022-11-08 20:00] VITALS: BP_SYST 114; BP_DIAS 100; BP_DIAS 60
[2022-11-08] MEDS: TAMSULOSIN 0.4 MG CAP.SR.24H PO SCH (21:21)
--- NOTE | 2022-11-09 06:30 | NUR ---
RN closing notes Pt is resting in bed comfortably. Pt is alert and orientedX4. Pt is a clinical trial. On room air. No SOB. No S/S of distress noted. VS is stable. Kept Pt clean, dry and comfortable. Safety precautions is maintained. bed at low position, brakes locked, side rails upX2, hob elevated and call light is within reach. Will endorse to am nurse for ULICES.
--- NOTE | 2022-11-09 07:38 | NUR ---
RN opening notes Patient was seen in the hallway and left the unit, advised to come back for his medications. Pt is alert and orientedX4. Pt is a clinical trial. On room air. No SOB. No S/S of distress noted. will continue to monitor
[2022-11-09] MEDS: HOME MED MISCELLANEOUS PO SCH ×3 (08:34→17:47)
--- NOTE | 2022-11-09 18:18 | NUR ---
RN closing notes Pt is resting in bed comfortably, alert and orientedX4. Pt is a clinical trial. On room air. No SOB. No S/S of distress noted. VS is stable. Kept Pt clean, dry and comfortable. Safety precautions is maintained. bed at low position, brakes locked, side rails upX2, hob elevated and call light is within reach. Will endorse to night nurse for ULICES.
[2022-11-09 20:00] VITALS: BP 98/58
--- NOTE | 2022-11-09 20:18 | NUR ---
RN OPENING NOTE Pt is resting in bed comfortably, alert and orientedX4. Pt is a clinical trial. On room air. No SOB. No S/S of distress noted. VS is stable. Kept Pt clean, dry and comfortable. Safety precautions is maintained. bed at low position, brakes locked, side rails upX2, hob elevated and call light is within reach.
[2022-11-09] MEDS: TAMSULOSIN 0.4 MG CAP.SR.24H PO SCH (21:09)
--- NOTE | 2022-11-10 06:49 | NUR ---
RN CLOSING NOTE Pt is resting in bed comfortably, alert and orientedX4. Pt is a clinical trial. On room air. No SOB. No S/S of distress noted. VS is stable. Kept Pt clean, dry and comfortable. No behavioral changed noted throughout the shift.Safety precautions is maintained. bed at low position, brakes locked, side rails upX2, hob elevated and call light is within reach.
--- NOTE | 2022-11-10 07:05 | NUR ---
RN OPENING NOTE RECEIVED PATIENT IN BED, AWAKE, A/O X4, VERBALLY RESPONSIVE AND ABLE TO MAKE NEEDS KNOWN. NO SIGNS OF ACUTE DISTRESS NOTED. STABLE ON ROOM AIR. DENIES ANY PAIN OR DISCOMFORT. REMAINS ON CLINICAL TRIAL. NO IV ACCESS. SAFETY MEASURE IN PLACE. BED IN LOW AND LOCKED POSITION. SIDE RAILS UP X2, CALL LIGHT PLACED WITHIN EASY REACH. WILL CONTINUE TO MONITOR PATIENT.
[2022-11-10] MEDS: HOME MED MISCELLANEOUS PO SCH ×3 (09:03→17:05)
[2022-11-10 16:00] VITALS: BP 115/76
--- NOTE | 2022-11-10 18:59 | NUR ---
RN CLOSING NOTE PATIENT IN BED, AWAKE, A/O X4, VERBALLY RESPONSIVE AND ABLE TO MAKE NEEDS KNOWN. NO SIGNS OF ACUTE DISTRESS NOTED. REMAINS STABLE ON ROOM AIR. BREATHING EVEN AND UNLABORED. DENIES ANY PAIN OR DISCOMFORT. ALL DUE MEDS GIVEN, TAKEN WELL. REMAINS ON CLINICAL TRIAL. NO UNTOWARD BEHAVIOR NOTED THROUGHOUT THE SHIFT. SAFETY MEASURE MAINTAINED. WILL ENDORSE TO PANEL GLUER FOR CONTINUITY OF CARE.
--- NOTE | 2022-11-10 19:35 | NUR ---
RN OPENING NOTE RECEIVED PATIENT IN BED, AWAKE, A/O X4, VERBALLY RESPONSIVE AND ABLE TO MAKE NEEDS KNOWN.NO SIGN BEHAVIORAL CHANGES AT THIS TIME,SAFETY MEASURE IN PLACE. BED IN LOW AND LOCKED POSITION. SIDE RAILS UP X2, CALL LIGHT PLACED WITHIN EASY REACH. WILL CONTINUE TO MONITOR.
[2022-11-10] MEDS: TAMSULOSIN 0.4 MG CAP.SR.24H PO SCH (21:10)
--- NOTE | 2022-11-11 06:31 | NUR ---
RN CLOSING NOTE;316 PATIENT IN BED, AWAKE, A/O X4, VERBALLY RESPONSIVE AND ABLE TO MAKE NEEDS KNOWN.NO SIGN BEHAVIORAL CHANGES AT THIS TIME,SAFETY MEASURE IN PLACE. BED IN LOW AND LOCKED POSITION. SIDE RAILS UP X2, CALL LIGHT PLACED WITHIN EASY REACH,WILL ENDORSED TO NEXT SHIFT.
[2022-11-11] MEDS: HOME MED MISCELLANEOUS PO SCH ×3 (08:45→16:24)
--- NOTE | 2022-11-11 17:25 | NUR ---
JAQUELINE NOTE- ARRIVED FROM ED FOR ADMISSION, ACUTE ABDOMEN/GASTRITIS/DIVERTICULOSIS. BEGIN ADMISSION PROCESS Addendum: 11/11/22 at 1759 by NORM HANCOCK RN ABOVE CHARTED WRONG PATIENT / USER ERROR
--- NOTE | 2022-11-11 19:30 | NUR ---
MS RN OPENING NOTES - RECEIVED PATIENT SITTING ON BED. A/O X4, GUARDED BEHAVIOR NOTED. BREATHING EVEN AND NON-LABORED ON ROOM AIR. NOT IN APPARENT DISTRESS. DENIES ANY PAIN AT THIS TIME. NO IV ACCESS, ON CLINICAL TRIAL. HE SAID HIS LAST BM WAS FROM THIS MORNING. SAFETY PRECAUTIONS IN PLACE: BED LOCKED AND IN LOW POSITION, SIDE RAILS UP X2, CALL LIGHT WITHIN REACH. WILL CONTINUE PLAN OF CARE.
[2022-11-11 20:00] VITALS: BP 142/95
[2022-11-11] MEDS: TAMSULOSIN 0.4 MG CAP.SR.24H PO SCH (21:05)
--- NOTE | 2022-11-12 06:55 | NUR ---
MS RN CLOSING NOTES - PATIENT WATCHING TV. ABLE TO VERBALIZE NEEDS. NO RESPIRATORY OR CARDIAC DISTRESS NOTED. NO UNWANTED BEHAVIOR NOTED. NO C/O PAIN OR DISCOMFORT AT THIS TIME. PATIENT SEEN WALKING IN THE HALLWAY AT 0330. ALL NEEDS ATTENDED AND ANTICIPATED. SAFETY PRECAUTIONS MAINTAINED. WILL ENDORSE TO NEXT SHIFT FOR ULICES.
--- NOTE | 2022-11-12 07:30 | NUR ---
RN- OPENING NOTES RECEIVED PATIENT AWAKE, A/O X4, AMBULATING IN THE HALLWAY. BREATHING EVEN AND NON LABORED WITH NO S/S OF DISTRESS. PATIENT IS A CLINICAL TRIAL. PATIENT IS VERBALLY RESPONSIVE AND ABLE TO MAKE NEEDS KNOWN. DENIES ANY PAIN OR DISCOMFORT. NO SIGNS OF BEHAVIORAL CHANGES AT THIS TIME. SAFETY MEASURES IN PLACE, BED IN LOCKED AND LOWEST POSITION, SIDE RAILS UP X2, BEDSIDE TABLE AND CALL LIGHT WITHIN REACH. WILL CONTINUE WITH PLAN OF CARE INDICATED.
[2022-11-12 08:00] VITALS: BP 136/92
[2022-11-12] MEDS: HOME MED MISCELLANEOUS PO SCH ×3 (08:20→17:41)
--- NOTE | 2022-11-12 18:51 | NUR ---
RN- CLOSING NOTES PATIENT AWAKE, A/O X4, CURRENTLY SIGNED OUT OF THE UNIT. BREATHING EVEN AND NON LABORED WITH NO S/S OF DISTRESS. PATIENT IS A CLINICAL TRIAL. PATIENT IS VERBALLY RESPONSIVE AND ABLE TO MAKE NEEDS KNOWN. DENIES ANY PAIN OR DISCOMFORT. ALL MEDICATIONS ADMINISTERED THROUGHOUT THE SHIFT. NO SIGNS OF BEHAVIORAL CHANGES AT THIS TIME. SAFETY MEASURES IN PLACE, BED IN LOCKED AND LOWEST POSITION, SIDE RAILS UP X2, BEDSIDE TABLE AND CALL LIGHT WITHIN REACH. WILL ENDORSE TO PIPE SMOKING MACHINE OPERATOR NURSE FOR CONTINUATION OF CARE.
[2022-11-12 21:20] VITALS: BP 129/81
[2022-11-12] MEDS: TAMSULOSIN 0.4 MG CAP.SR.24H PO SCH (21:54)
--- NOTE | 2022-11-13 06:32 | NUR ---
RN CLOSING NOTE; PATIENT IN BED, AWAKE, A/O X4, VERBALLY RESPONSIVE AND ABLE TO MAKE NEEDS KNOWN.NO SIGN BEHAVIORAL CHANGES DURING ,SAFETY MEASURE IN PLACE. BED IN LOW AND LOCKED POSITION. SIDE RAILS UP X2, CALL LIGHT PLACED WITHIN EASY REACH,WILL ENDORSED TO NEXT SHIFT.
--- NOTE | 2022-11-13 07:25 | NUR ---
MS RN OPENING NOTE RECEIVED PATIENT WHILE IN THE BATHROOM, A/O X4, ABLE TO MAKE NEEDS KNOWN; STABLE ON ROOM AIR, WITH NO SOB OR DISTRESS NOTED; NO COMPLAINTS OF PAIN OR DISCOMFORT AT THIS TIME; NO IV ACCESS, PT ON CLINICAL TRIAL, DENIES SI/HI AT THE MOMENT. SAFETY MEASURES MAINTAINED, BED LOCKED AND IN LOWEST POSITION, CALL LIGHT WITHIN REACH; WILL CONTINUE TO MONITOR THROUGHOUT SHIFT
[2022-11-13 08:00] VITALS: BP 145/90
[2022-11-13] MEDS: HOME MED MISCELLANEOUS PO SCH ×3 (08:38→17:11)
[2022-11-13 16:00] VITALS: BP 142/88
--- NOTE | 2022-11-13 19:12 | NUR ---
MS RN CLOSING NOTE PATIENT IN BED WATCHING TV, A/O X4, ABLE TO MAKE NEEDS KNOWN. NO SIGN BEHAVIORAL CHANGES NOTED DURING MY SHIFT. PATIENT HAS NO SI/DI. PATIENT IS AWARE OF NPO TONIGHT. SAFETY MEASURES MAINTAINED: BED IN LOWEST AND LOCKED POSITION, SIDE RAILS UP X2, CALL LIGHT PLACED WITHIN EASY REACH. ENDORSED TO SCIENCE INSTRUCTOR.
--- NOTE | 2022-11-13 19:50 | NUR ---
MS RN OPENING NOTES-CT RECEIVED PATIENT IN BED, AWAKE, AMBULATORY. A/O X4, ABLE TO MAKE NEEDS KNOWN. NO PAIN OR DISCOMFORT AT THIS TIME. ON ROOM AIR, NO SIGNS OF ACUTE DISTRESS NOTED. PATIENT ON CLINICAL TRIAL. NO IV ACCESS. ALL SAFETY MEASURES IN PLACE: BED LOCKED AND IN LOWEST POSITION, SIDE RAILS UP X 2, CALL LIGHT AND TRAY TABLE WITHIN EASY REACH. WILL CONTINUE TO MONITOR CLOSELY.
[2022-11-13] MEDS: TAMSULOSIN 0.4 MG CAP.SR.24H PO SCH (22:55)
[2022-11-14 07:00] VITALS: BP 149/101
--- NOTE | 2022-11-14 07:30 | NUR ---
MS RN OPENING NOTES-CT RECEIVED PATIENT IN BED, AWAKE, AMBULATORY. A/O X4, ABLE TO MAKE NEEDS KNOWN. NO PAIN OR DISCOMFORT AT THIS TIME. ON ROOM AIR, NO SIGNS OF ACUTE DISTRESS NOTED. PATIENT ON CLINICAL TRIAL. NO IV ACCESS. ALL SAFETY MEASURES IN PLACE: BED LOCKED AND IN LOWEST POSITION, SIDE RAILS UP X 2, CALL LIGHT AND TRAY TABLE WITHIN EASY REACH. WILL ADMINISTER SCHEDULED MEDS AND OBSERVE FOR ULICES.
--- NOTE | 2022-11-14 07:43 | NUR ---
MS RN CLOSING NOTES-CT PATIENT IN BED, AWAKE, AMBULATORY. A/O X4, ABLE TO MAKE NEEDS KNOWN. NO PAIN OR DISCOMFORT AT THIS TIME. ON ROOM AIR, NO SIGNS OF ACUTE DISTRESS NOTED. PATIENT ON CLINICAL TRIAL. NO IV ACCESS. SAFETY MEASURES MAINTAINED. WILL ENDORSE TO THE NEXT SHIFT.
[2022-11-14] MEDS: HOME MED MISCELLANEOUS PO SCH ×3 (08:26→17:06)
[2022-11-14] MEDS ORDERED: LORAZEPAM 1 MG TABLET FOR AGITATION PO PRN (13:00)
[2022-11-14] MEDS ORDERED: ZOLPIDEM TARTRATE 10 MG TABLET PO PRN (13:00)
[2022-11-14 16:00] VITALS: BP 104/47
--- NOTE | 2022-11-14 18:30 | NUR ---
MS RN CLOSING NOTES-CT PATIENT RESTING IN BED, AWAKE, AMBULATORY. A/O X4, ABLE TO MAKE NEEDS KNOWN. NO PAIN OR DISCOMFORT AT THIS TIME. ON ROOM AIR, NO SIGNS OF ACUTE DISTRESS NOTED. PATIENT ON CLINICAL TRIAL. NO IV ACCESS. ALL SAFETY MEASURES IN PLACE: BED LOCKED AND IN LOWEST POSITION, SIDE RAILS UP X 2, CALL LIGHT AND TRAY TABLE WITHIN EASY REACH. ALL MEDS ADMINISTERED SCHEDULED. WILL ENDORSE TO NEXT SHIFT.
--- NOTE | 2022-11-14 19:30 | NUR ---
RN opening notes Received Pt from morning nurse. Pt is laying in bed comfortably. Pt is alert and orientedX4. Pt is a clinical trial. On room air. No SOB. No S/S of distress noted. VS is stable. Safety precautions is maintained. Bed at low position, brakes locked, side rails upX2, hob elevated and call light is within reach. Will continue to monitor.
[2022-11-14 20:00] VITALS: BP 154/87
[2022-11-14] MEDS: TAMSULOSIN 0.4 MG CAP.SR.24H PO SCH (20:11)
[2022-11-15] MEDS: HOME MED MISCELLANEOUS PO SCH ×3 (08:17→18:21)
--- NOTE | 2022-11-15 20:09 | NUR ---
RN closing notes Pt is alert and orientedX4 on clinical trial. On room air. No SOB. No S/S of distress noted during the shift. Patient is out of the unit most of the time. VS is stable. Kept Pt clean, dry and comfortable. Safety precautions is maintained. bed at low position, brakes locked, side rails upX2, hob elevated and call light is within reach. Will endorse to pm nurse for ULICES.
[2022-11-15] MEDS: TAMSULOSIN 0.4 MG CAP.SR.24H PO SCH (21:30)
[2022-11-16 07:00] VITALS: BP 155/98
--- NOTE | 2022-11-16 07:06 | NUR ---
RN closing notes Pt is alert and orientedX4 on clinical trial. On room air. No SOB. No S/S of distress noted during the shift. Patient is out of the unit most of the time. VS is stable. Kept Pt clean, dry and comfortable. Safety precautions is maintained. bed at low position, brakes locked, side rails upX2, hob elevated and call light is within reach.
[2022-11-16 07:11] VITALS: BP 132/65
[2022-11-16] MEDS: HOME MED MISCELLANEOUS PO SCH ×3 (08:14→19:14)
[2022-11-16 20:00] VITALS: BP 148/105
[2022-11-16 20:24] VITALS: BP 148/105
--- NOTE | 2022-11-16 21:17 | NUR ---
RN closing notes Pt is A/OX4 on clinical trial. On room air. No SOB. No S/S of distress noted during the shift. Patient is out of the unit most of the time. Patient took all medications as ordered. VS is stable. Kept Pt clean, dry and comfortable. Safety precautions is maintained. bed at low position, brakes locked, side rails upX2, hob elevated and call light is within reach. Endorsed to pm nurse for ULICES.
[2022-11-16] MEDS: TAMSULOSIN 0.4 MG CAP.SR.24H PO SCH (21:58)
--- NOTE | 2022-11-17 05:09 | NUR ---
CLOSING NOTES SLEPT THRU THE NIGHT PRIOR TO SETTLING FOR SLEEP WAS COOPERATIVE AND [employer] CONTACT SPEECH CLEAR
--- NOTE | 2022-11-17 07:00 | NUR ---
MS RN OPENING NOTES: RECEIVED PT IN BED AWAKE, ALERT AND ORIENTED X 4 AND ABLE TO MAKE NEEDS KNOWN, NO SOB OR CARDIAC DISTRESS NOTED, DENIES PAIN AT THIS TIME. NO BEHAVIORAL CHANGES HAPPENED IN SHEET METAL ROOFER PER ELECTRIC VEHICLE ELECTRICIANSHEET METAL ROOFER. NO IV ACCESS. SAFETY MEASURES MAINTAINED: BED LOCKED AND IN LOWEST POSITION, SIDE RAILS UP X 2. CALL LIGHT IN EASY REACH AND WILL MONITOR FOR ANY SIGNIFICANT CHANGES.
[2022-11-17 08:00] VITALS: BP 129/92
[2022-11-17] MEDS: HOME MED MISCELLANEOUS PO SCH ×4 (09:27→17:34)
--- NOTE | 2022-11-17 19:01 | NUR ---
RN CLOSING NOTES: PATIENT IS OUT IN THE UNIT. ENDORSED TO BOX OFFICE AGENT RN FOR CONTINUITY OF CARE. UNABLE TO GIVE 1700 MEDS PT UNAVAILABLE.
[2022-11-17 20:00] VITALS: BP 119/84
--- NOTE | 2022-11-17 21:00 | NUR ---
MS RN OPENING NOTES: PATIENT CAME BACK AT 1999 ON STABLE CONDITION, AMBULATORY NO COMPLAIN OF PAIN AND DISCOMFORT AT THIS TIME, ON ROOM AIR SATURATING WELL, PATIENT IS A/O X4 ABLE TO MAKE NEEDS KNOWN, ON CLINICAL TRIAL NO CHANGES IN BEHAVIOR WAS OBSERVED, PATIENT KEPT CLEAN AND DRY ALL NEEDS MET WILL CONTINUE TO MONITOR.
[2022-11-17] MEDS: TAMSULOSIN 0.4 MG CAP.SR.24H PO SCH (22:02)
[2022-11-18 07:00] VITALS: BP 148/100
--- NOTE | 2022-11-18 07:30 | NUR ---
MS RN OPENING NOTES: RECEIVED PATIENT IN ROOM. AWAKE COMFORTABLE, AROUSABLE TO VERBAL STIMULI, BED IN LOW POSITION, CALL LIGHTS WITHIN REACH, NO COMPLAIN OF PAIN AND DISCOMFORT, ON ROOM AIR SATURATING WELL, NO BEHAVIORAL CHANGES DURING THE SHIFT, PATIENT KEPT CLEAN AND DRY. WILL ADMINSTEER SCHEDULED MEDS AND MONITOR FOR ULICES
--- NOTE | 2022-11-18 07:47 | NUR ---
MS RN CLOSING NOTES: PATIENT SLEEP IN BED COMFORTABLY, AROUSABLE TO VERBAL STIMULI, BED IN LOW POSITION, CALL LIGHTS WITHIN REACH, NO COMPLAIN OF PAIN AND DISCOMFORT, ON ROOM AIR SATURATING WELL, NO BEHAVIORAL CHANGES DURING THE SHIFT, PATIENT KEPT CLEAN AND DRY ALL NEEDS MET ENDORSE TO INCOMING SHIFT.
[2022-11-18] MEDS: HOME MED MISCELLANEOUS PO SCH ×3 (08:05→19:43)
--- NOTE | 2022-11-18 18:47 | NUR ---
MS RN CLOSING NOTES PT NOT PRESENT IN ROOM. UNABLE TO GIVE PM MEDS. WILL ENDORSE TO NEXT SHIFT.
--- NOTE | 2022-11-18 19:57 | NUR ---
MS RN OPENING NOTES: PATIENT CAME IN FROM OUTSIDE NO COMPLAIN OF PAIN AND DISCOMFORT AT THIS TIME ,ON ROOM AIR SATURATING WELL, NO COMPLAIN OF PAIN OF PAIN AND DISCOMFORT NO BEHAVIORAL CHANGES WAS OBSERVED, PATIENT KEPT CLEAN AND DRY ALL NEEDS MET WILL CONTINUE TO MONITOR.
[2022-11-18 20:00] VITALS: BP 124/86
[2022-11-18] MEDS: TAMSULOSIN 0.4 MG CAP.SR.24H PO SCH (22:16)
--- NOTE | 2022-11-19 06:14 | NUR ---
MS RN CLOSING NOTES: PATIENT SLEEP IN BED COMFORTABLY AROUSABLE TO VERBAL STIMULI, BED IN LOW POSITION, CALL LIGHTS WITHIN REACH, NO COMPLAIN OF PAIN AND DISCOMFORT AT THIS TIME, ON ROOM AIR SATURATING WELL, PATIENT ON CLINICAL TRILA NO CHANGES IN BEHAVIOR WAD OBSERVE, WILL CONTINUE TO MONITOR.
[2022-11-19 07:00] VITALS: BP 130/89
[2022-11-19] MEDS: HOME MED MISCELLANEOUS PO SCH ×3 (07:41→18:29)
--- NOTE | 2022-11-19 07:45 | NUR ---
MS RN OPENING NOTES: RECEIVED PATIENT IN ROOM. AWAKE COMFORTABLE, AROUSABLE TO VERBAL STIMULI, BED IN LOW POSITION, CALL LIGHTS WITHIN REACH, NO COMPLAIN OF PAIN AND DISCOMFORT, ON ROOM AIR SATURATING WELL, NO BEHAVIORAL CHANGES DURING THE SHIFT, PATIENT KEPT CLEAN AND DRY. ADMINISTERED BP MEDS EARLY PER PT REQUEST. V/S WITHIN NORMAL LIMITS. WILL CONTINUE TO MONITOR FOR ULICES.
[2022-11-19 18:29] VITALS: BP 139/86
--- NOTE | 2022-11-19 18:33 | NUR ---
MS RN CLOSING NOTES: PATIENT IN ROOM. AWAKE COMFORTABLE, AROUSABLE TO VERBAL STIMULI, BED IN LOW POSITION, CALL LIGHTS WITHIN REACH, NO COMPLAIN OF PAIN AND DISCOMFORT, ON ROOM AIR SATURATING WELL, NO BEHAVIORAL CHANGES DURING THE SHIFT, PATIENT KEPT CLEAN AND DRY. ADMINISTERED BP MEDS EARLY PER PT REQUEST. V/S WITHIN NORMAL LIMITS. WILL ENDORSE TO NEXT SHIFT. ALL MEDS ADMINISTERED ORDERED.
--- NOTE | 2022-11-19 19:25 | NUR ---
RN OPENING NOTE RECEIVED PATIENT IN BED, AWAKE, A/O X4, VERBALLY RESPONSIVE AND ABLE TO MAKE NEEDS KNOWN.NO SIGN BEHAVIORAL CHANGES AT THIS TIME,SAFETY MEASURE IN PLACE. BED IN LOW AND LOCKED POSITION. SIDE RAILS UP X2, CALL LIGHT WITHIN EASY REACH. WILL CONTINUE TO MONITOR.
[2022-11-19 20:00] VITALS: BP 118/71
[2022-11-19] MEDS: TAMSULOSIN 0.4 MG CAP.SR.24H PO SCH (21:05)
--- NOTE | 2022-11-20 06:18 | NUR ---
RN CLOSING NOTE; PATIENT IN BED, AWAKE, A/O X4, VERBALLY RESPONSIVE AND ABLE TO MAKE NEEDS KNOWN.NO SIGN BEHAVIORAL CHANGES DURING SHIFT,DUE MEDS GIVEN ORDER,ALL NEEDS ATTENDED,SAFETY MEASURE IN PLACE. BED IN LOW AND LOCKED POSITION. SIDE RAILS UP X2, CALL LIGHT WITHIN EASY REACH. WILL ENDORSED TO NEXT SHIFT.
[2022-11-20 08:00] VITALS: BP 123/89
[2022-11-20] MEDS: HOME MED MISCELLANEOUS PO SCH ×3 (08:03→17:00)
--- NOTE | 2022-11-20 18:51 | NUR ---
MS RN CLOSING NOTES PT NOT PRESENT IN ROOM. UNABLE TO GIVE PM MEDS. WILL ENDORSE TO NEXT SHIFT.
[2022-11-20 20:09] VITALS: BP 140/81
[2022-11-20] MEDS: TAMSULOSIN 0.4 MG CAP.SR.24H PO SCH (21:10)
--- NOTE | 2022-11-21 07:16 | NUR ---
MS RN OPENING NOTE RECEIVED PATIENT IN ROOM, A/O X4, ABLE TO MAKE NEEDS KNOWN, COOPERATIVE, STABLE ON ROOM AIR, WITH NO SOB OR DISTRESS NOTED; NO COMPLAINTS OF PAIN OR DISCOMFORT AT THIS TIME; NO IV ACCESS, PT ON CLINICAL TRIAL, DENIES SI/HI AT THE MOMENT. SAFETY MEASURES MAINTAINED, BED LOCKED AND IN LOWEST POSITION, CALL LIGHT WITHIN REACH; WILL CONTINUE TO MONITOR THROUGHOUT SHIFT
[2022-11-21 08:00] VITALS: BP 136/96
[2022-11-21] MEDS: HOME MED MISCELLANEOUS PO SCH ×3 (08:44→21:36)
[2022-11-21] MEDS ORDERED: LORAZEPAM 1 MG TABLET FOR AGITATION PO PRN (13:00)
[2022-11-21] MEDS ORDERED: ZOLPIDEM TARTRATE 10 MG TABLET PO PRN (13:00)
--- NOTE | 2022-11-21 19:30 | NUR ---
MS RN CLOSING NOTES PATIENT NOT IN HIS ROOM. ENDORSED PM MEDS TO NIGHT RN.
--- NOTE | 2022-11-21 20:30 | NUR ---
MS RN OPENING NOTE PATIENT CAME BACK TO THE UNIT. ALERT AND ORIENTED X 4. ABLE TO COMMUNICATE NEEDS WITH THE STAFFS. AFEBRILE AND NOT IN ANY FORM OF ACUTE DISTRESS. BREATHING EVEN AND NON LABORED. NO C/O PAIN OR DISCOMFORT. ON CLINICAL TRIAL, MONITORED FOR ANY BEHAVIORAL CHANGES. SAFETY MEASURES IN PLACE. KEPT BED IN LOCKED AND IN LOW POSITION. SIDE RAILS UP X2. ADVISED TO USE THE CALL LIGHT WHEN IN NEED OF ASSISTANCE.
[2022-11-21] MEDS: TAMSULOSIN 0.4 MG CAP.SR.24H PO SCH (21:36)
--- NOTE | 2022-11-22 06:30 | NUR ---
MS RN CLOSING NOTE PATIENT IN BED, AWAKE, ALERT AND ORIENTED X 4. ABLE TO COMMUNICATE NEEDS WITH THE STAFFS. AFEBRILE AND NOT IN ANY FORM OF ACUTE DISTRESS. BREATHING EVEN AND NON LABORED. NO C/O PAIN OR DISCOMFORT THROUGHOUT THE SHIFT. ON CLINICAL TRIAL, MONITORED FOR ANY BEHAVIORAL CHANGES. MEDICATED ORDERED. SAFETY MEASURES IN PLACE. KEPT BED IN LOCKED AND IN LOW POSITION. SIDE RAILS UP X2. ADVISED TO USE THE CALL LIGHT WHEN IN NEED OF ASSISTANCE. ALL NURSING NEEDS ATTENDED. ENDORSED TO INCOMING SHIFT FOR CONTINUITY OF CARE.
[2022-11-22 08:30] VITALS: BP 161/89
[2022-11-22] MEDS: HOME MED MISCELLANEOUS PO SCH ×3 (08:37→17:00)
--- NOTE | 2022-11-22 19:42 | NUR ---
MS RN CLOSING NOTES PATIENT NOT IN HIS ROOM. ENDORSED PM MEDS TO NIGHT RN.
--- NOTE | 2022-11-22 19:50 | NUR ---
MS RN OPENING NOTE RECEIVED PATIENT IN BED, AWAKE, ALERT AND ORIENTED X4. ABLE TO COMMUNICATE NEEDS WITH THE STAFFS. AFEBRILE AND NOT IN ANY FORM OF ACUTE DISTRESS. BREATHING EVEN AND NON LABORED. NO C/O PAIN OR DISCOMFORT AT THIS TIME. ON CLINICAL TRIAL, MONITORED FOR ANY BEHAVIORAL CHANGES. SAFETY MEASURES IN PLACE. KEPT BED IN LOCKED AND IN LOW POSITION. SIDE RAILS UP X2. ADVISED TO USE THE CALL LIGHT WHEN IN NEED OF ASSISTANCE.
[2022-11-22 20:09] VITALS: BP 122/45
--- NOTE | 2022-11-22 20:29 | NUR ---
MS RN NOTE CHECKED PATIENT'S BP 109/45 AND PATIENT REFUSED TO TAKE [place] SINCE BP WAS ALREADY LOW.
[2022-11-22] MEDS: TAMSULOSIN 0.4 MG CAP.SR.24H PO SCH (21:22)
--- NOTE | 2022-11-23 06:31 | NUR ---
MS RN CLOSING NOTE PATIENT IN BED, AWAKE, ALERT AND ORIENTED X4. ABLE TO MAKE NEEDS KNOWNS. AFEBRILE AND NOT IN ANY FORM OF ACUTE DISTRESS. BREATHING EVEN AND NON LABORED. ON CLINICAL TRAIL, MONITORED FOR ANY BEHAVIORAL CHANGES. MEDICATED ORDERED. CONSTANT VISUAL CHECK DONE TO ENSURE SAFETY. KEPT BED IN LOCKED AND IN LOW POSITION. SIDE RAILS UP X2. ADVISED TO USE THE CALL LIGHT WHEN IN NEED OF ASSISTANCE. ALL NURSING NEEDS ATTENDED. ENDORSED TO INCOMING SHIFT FOR CONTINUITY OF CARE.
[2022-11-23 08:00] VITALS: BP 130/91
--- NOTE | 2022-11-23 08:00 | NUR ---
MS (CLINICAL TRIAL) RN OPENING NOTE (DAY SHIFT) RECEIVED PATIENT IN ROOM, A/O X4, ABLE TO MAKE NEEDS KNOWN, COOPERATIVE, STABLE ON ROOM AIR, WITH NO SOB OR DISTRESS NOTED; NO COMPLAINTS OF PAIN OR DISCOMFORT AT THIS TIME; NO IV ACCESS, PT ON CLINICAL TRIAL, DENIES SI/HI AT THE MOMENT. SAFETY MEASURES MAINTAINED, BED LOCKED AND IN LOWEST POSITION, CALL LIGHT WITHIN REACH; WILL CONTINUE TO MONITOR AND CARE FOR PATIENT THROUGHOUT SHIFT PER MD POC.
[2022-11-23] MEDS: HOME MED MISCELLANEOUS PO SCH ×3 (09:24→18:46)
[2022-11-23 16:00] VITALS: BP 123/85
--- NOTE | 2022-11-23 18:55 | NUR ---
MS (CLINICAL TRIAL) RN CLOSING NOTE (DAY SHIFT) Patient showed no new behavioral changes, was cooperative and took all scheduled medicationsas prescribed. Denies SI and no signs of depression nor aggression observed. Will endose to manufacturing shift supervisor RNLakesha, for ULICES.
--- NOTE | 2022-11-23 19:30 | NUR ---
MS/CLINICAL TRIAL RN NOTES RECEIVED IN ROOM,LYING ON BED,A/O X4,AMBULATORY,VERBALIZED NEEDS,ED COMPLIANT,CALL LIGHT IN REACH,NEEDS ANTICIPATED.
[2022-11-23 20:00] VITALS: BP 113/54
[2022-11-23] MEDS: TAMSULOSIN 0.4 MG CAP.SR.24H PO SCH (21:19)
--- NOTE | 2022-11-23 21:19 | NUR ---
MS/CLINICAL TRIAL RN NOTES DUE PO FLOMAX ADMINISTERED
--- NOTE | 2022-11-24 06:18 | NUR ---
MS/CLINICAL TRIAL RN NOTES NO SIGNIFICANT CHANGE IN BEHAVIOR,SLEEP WELL WITHOUT PHARMACOLOGICAL INTERVENTION MED COMPLIANT.NO DISTRESS.
--- NOTE | 2022-11-24 07:09 | NUR ---
MS RN OPENING NOTE RECEIVED PATIENT RESTING IN BED, A/OX4, COMFORTABLE, ON ROOM AIR, NO S/S OF RESPIRATORY DISTRESS, NI IV ACCESS, PATIENT IS CLINICAL TRAL, BRP, SKIN IS INTACT, AMBULATES, FALL AND SAFETY MEASURES IN PLACE, BED IN LOW AND LOCK POSITION, CALL LIGHT AND TABLE WITHIN EASY REACH, SIDE RAILS UP X2.
[2022-11-24 08:00] VITALS: BP 132/77
[2022-11-24] MEDS: HOME MED MISCELLANEOUS PO SCH ×3 (08:26→20:28)
--- NOTE | 2022-11-24 18:27 | NUR ---
RN NOTES PATIENT STILL OFF UNIT, EVENING LOSARTAN UNABLE TO ADMINISTER.
--- NOTE | 2022-11-24 18:37 | NUR ---
MS RN CLOSING NOTE PATIENT IS STILL OF UNIT, A/OX4, COMFORTABLE, STABLE ON ROOM AIR, NO S/S OF RESPIRATORY DISTRESS, NI IV ACCESS, PATIENT IS ON CLINICAL TRIAL, BRP, SKIN IS INTACT,AMBULATES, FALL AND SAFETY MEASURES IN PLACE, BED IN LOW AND LOCK POSITION, CALL LIGHT AND TABLE WITHIN EASY REACH, SIDE RAILS UP X2.
--- NOTE | 2022-11-24 19:36 | NUR ---
noc rn opening Patient absent in unit during ha report.
[2022-11-24 20:00] VITALS: BP 110/72
--- NOTE | 2022-11-24 20:58 | NUR ---
bulmaro rn note Patient came in at around this time and asked for his 1700 Losartan tab. BP 110/72, hr of 106. Given late d/t that reason.
[2022-11-24] MEDS: TAMSULOSIN 0.4 MG CAP.SR.24H PO SCH (22:01)
--- NOTE | 2022-11-25 07:03 | NUR ---
noc rn closing note no behavioral changes throughout shift. will endorse to morning shift rn for continuity of care.
--- NOTE | 2022-11-25 07:06 | NUR ---
MS RN OPENING NOTES RECEIVED PATIENT IN BED, RESTING, A/Ox4, ON ROOM AIR, NO S/S OF RESPIRATORY DISTRESS. PATIENT IS CLINICAL TRIAL, NO IV ACCESS, SKIN INTACT. AMBULATORY. SAFETY MEASURES IN PLACE: BED LOCKED AND IN LOWEST POSITION, HOB ELEVATED, CALL LIGHT WITHIN REACH. SIDE RAILS UPx2. WILL CONTINUE TO MONITOR.
[2022-11-25 08:00] VITALS: BP 132/95
[2022-11-25] MEDS: HOME MED MISCELLANEOUS PO SCH ×3 (09:00→21:31)
--- NOTE | 2022-11-25 18:42 | NUR ---
MS RN CLOSING NOTES PATIENT NOT IN ROOM. A/Ox4, STABLE ON ROOM AIR, NO S/S OF RESPIRATORY DISTRESS. PATIENT IS CLINICAL TRIAL, NO IV ACCESS, SKIN INTACT. AMBULATORY. WILL ENDORSE TO NEXT SHIFT ANY ULICES.
--- NOTE | 2022-11-25 19:30 | NUR ---
RN NOTE PT NOT IN UNIT AT THIS TIME.
--- NOTE | 2022-11-25 21:00 | NUR ---
MS RN OPENING NOTES RECEIVED PATIENT AWAKE IN BED, A/Ox4. ON ROOM AIR, NO S/S OF RESPIRATORY DISTRESS. PATIENT IS CLINICAL TRIAL, NO IV ACCESS, SKIN INTACT. AMBULATORY. SAFETY MEASURES IN PLACE: BED LOCKED AND IN LOWEST POSITION, HOB ELEVATED, CALL LIGHT WITHIN REACH. SIDE RAILS UPx2. WILL CONTINUE TO MONITOR.
[2022-11-25] MEDS: TAMSULOSIN 0.4 MG CAP.SR.24H PO SCH (21:30)
--- NOTE | 2022-11-25 21:34 | NUR ---
RN NOTE PT HOME MED LOSARTAN 50 MG LATE ADMIN DUE TO PT NOT IN UNIT WHEN MED IS DUE. BP 126/79, HR 98.
[2022-11-25 21:44] VITALS: BP 126/79
--- NOTE | 2022-11-26 06:55 | NUR ---
MS RN CLOSING NOTES PATIENT STAYED IN ROOM DURING SHIFT, LEFT UNIT AT AROUND 0600. A/Ox4, ABLE TO MAKE NEEDS KNOWN. STABLE ON ROOM AIR, NO S/S OF RESPIRATORY DISTRESS. PATIENT IS CLINICAL TRIAL, NO IV ACCESS, SKIN INTACT. ALL CARE PROVIDED AND MEDS TOLERATED WELL. AMBULATORY. SAFETY MEASURES IN PLACE: BED LOCKED AND IN LOWEST POSITION, HOB ELEVATED, CALL LIGHT WITHIN REACH. SIDE RAILS UPx2. WILL ENDORSE ULICES TO DAY SHIFT NURSE.
--- NOTE | 2022-11-26 07:20 | NUR ---
RN OPENING NOTE RECEIVED PATIENT SITTING IN BED, AWAKE. NO SIGNS OF ACUTE DISTRESS NOTED. ON ROOM AIR, NO SOB NOTED, BREATHING EVEN AND UNLABORED. DENIES ANY PAIN OR DISCOMFORT. REMAINS ON CLINICAL TRIAL. NO IV ACCESS. SAFETY MEASURE IN PLACE. BED IN LOW AND LOCKED POSITION, SIDE RAILS UP X2, CALL LIGHT PLACED WITHIN EASY REACH. WILL CONTINUE TO MONITOR PATIENT.
[2022-11-26 08:00] VITALS: BP 140/89
[2022-11-26] MEDS: HOME MED MISCELLANEOUS PO SCH ×3 (09:04→17:18)
--- NOTE | 2022-11-26 12:28 | NUR ---
RN NOTE AT AROUND 0835, PER WITNESS JAVIER(RN), PATIENT JUST CAME OUT FROM THE UNIT'S RESTROOM AND LOST HIS BALANCE. PATIENT WAS ABLE TO HOLD ONTO THE RAILS SO HE DID NOT FALL HARD OR HIT HIS HEAD. PATIENT WAS THEN ASSISTED TO THE W/C WITH 2 PERSON ASSIST. ENCOURAGED PATIENT TO GO TO HIS ROOM AND PHYSICALLY ASSESS HIM BUT PATIENT REFUSE AND SAID THAT HE IS OK AND WANTS TO GO OUT FOR SMOKE. PATIENT WITHOUT ANY C/O PAIN. ABLE TO STAND UP AND AMBULATE INDEPENDENTLY WITHOUT DIFFICULTY. PATIENT LEFT THE UNIT AND WENT OUT TO SMOKE. DR. HE MADE AWARE OF INCIDENT. FALL PREVENTION EDUCATION PROVIDED TO PATIENT. ENCOURAGED TO WEAR NON-SLIP SLIPPERS/SHOES. WILL CONTINUE TO MONITOR PATIENT.
--- NOTE | 2022-11-26 19:00 | NUR ---
RN NOTE PATIENT STILL NOT BACK FROM OUT ON PASS. ENDORSED TO NIGHT NURSE.
--- NOTE | 2022-11-26 19:40 | NUR ---
RN OPENING NOTE PATIENT OUT THE HOSPITAL AT THIS TIME.
[2022-11-26 20:00] VITALS: BP 121/66
[2022-11-26] MEDS: TAMSULOSIN 0.4 MG CAP.SR.24H PO SCH (21:12)
--- NOTE | 2022-11-27 06:20 | NUR ---
MS RN CLOSING NOTE; PATIENT IN BED, AWAKE, AMBULATORY. A/O X4, ABLE TO MAKE NEEDS KNOWN. NO PAIN OR DISCOMFORT AT THIS TIME. ON ROOM AIR, NO SIGNS OF ACUTE DISTRESS NOTED. PATIENT ON CLINICAL TRIAL. NO IV ACCESS. SAFETY MEASURES MAINTAINED. WILL ENDORSE TO THE NEXT SHIFT.
--- NOTE | 2022-11-27 07:25 | NUR ---
MS RN OPENING NOTE; PATIENT IN BED, AWAKE, A/O X4, ABLE TO MAKE NEEDS KNOWN. NO SIGNS OF ACUTE DISTRESS NOTED. PATIENT ON CLINICAL TRIAL. NO IV ACCESS. SAFETY MEASURES MAINTAINED. WILL CONTINUE TO MONITOR THE PATIENT
[2022-11-27 08:00] VITALS: BP 135/88
[2022-11-27] MEDS: HOME MED MISCELLANEOUS PO SCH ×3 (08:27→17:34)
[2022-11-27] MEDS: ACETAMINOPHEN ES 500 MG TABLET PO PRN (14:26)
--- NOTE | 2022-11-27 19:35 | NUR ---
MS RN CLOSING NOTE; PATIENT IN BED, AWAKE, AMBULATORY. A/O X4, ABLE TO MAKE NEEDS KNOWN. NO PAIN OR DISCOMFORT AT THIS TIME. ON ROOM AIR, NO SIGNS OF ACUTE DISTRESS NOTED. PATIENT ON CLINICAL TRIAL. NO IV ACCESS. SAFETY MEASURES MAINTAINED. WILL BE ENDORSED TO PM SHIFT NURSE FOR ULICES
--- NOTE | 2022-11-27 19:36 | NUR ---
MS RN OPENING NOTES - RECEIVED PATIENT STEPPING OUT OF THE ELEVATOR. A/O X4. BREATHING EVEN AND NON-LABORED ON ROOM AIR. NOT IN APPARENT DISTRESS. NO C/O PAIN OR DISCOMFORT AT THIS TIME. ON CLINICAL TRIAL, NO IV ACCESS. SAFETY PRECAUTIONS IN PLACE: BED LOCKED AND IN LOW POSITION, SIDE RAILS UP X2, CALL LIGHT WITHIN REACH. WILL CONTINUE PLAN OF CARE.
[2022-11-27 20:00] VITALS: BP 126/74
[2022-11-27 20:59] VITALS: BP 126/74
[2022-11-27] MEDS: TAMSULOSIN 0.4 MG CAP.SR.24H PO SCH (21:28)
[2022-11-28 07:00] VITALS: BP 148/69
--- NOTE | 2022-11-28 07:01 | NUR ---
MS RN CLOSING NOTES - PATIENT AWAKE AND RESTING COMFORTABLY, ABLE TO VERBALIZE NEEDS. NO SOB OR NOTED, SATURATING WELL IN ROOM AIR. NO ACUTE DISTRESS. AFEBRILE. NO BEHAVIORAL CHANGES NOTED. ALL DUE MEDS GIVEN AND NEEDS ATTENDED. SAFETY PRECAUTIONS MAINTAINED. WILL ENDORSE TO NEXT SHIFT FOR ULICES.
[2022-11-28] MEDS: HOME MED MISCELLANEOUS PO SCH ×3 (08:46→16:24)
--- NOTE | 2022-11-28 10:05 | NUR ---
RN NOTE PT C/O PAIN ON RIGHT KNEE, SCALE OF 10/10. ASSESSED RIGHT KNEE PAIN, NO SWELLING, NO REDNESS NOTED. OFFERED TYLENOL BUT PATIENT REFUSED. ONLY WANTS TO HAVE X-RAY. DR. HE MADE AWARE WITH ORDER RECEIVED FOR RIGHT KNEE X-RAY, CARRIED OUT. PATIENT MADE AWARE OF ORDER.
[2022-11-28] MEDS ORDERED: ZOLPIDEM TARTRATE 10 MG TABLET PO PRN (13:00)
[2022-11-28] MEDS ORDERED: LORAZEPAM 1 MG TABLET FOR AGITATION PO PRN (13:00)
[2022-11-28] MEDS: ACETAMINOPHEN ES 500 MG TABLET PO PRN ×3 (13:54→15:57)
--- NOTE | 2022-11-28 13:56 | NUR ---
RN NOTE WENT TO PATIENT ROOM, INFORMED HIM OF RIGHT KNEE X-RAY RESULT. RESULT: NO EVIDENCE OF ACUTE FRACTURE OR DISLOCATION. PATIENT SAID HE STILL HAS A LITTLE BIT OF PAIN, OFFERED TYLENOL ORDERED AND SAID HE'LL TAKE IT, HE ALSO ASKED FOR VANILLA PUDDING WENT BACK TO THE PATIENT'S ROOM WITH VANILLA PUDDING AND TYLENOL, PATIENT SAID THAT HE DOESN'T NEED THE TYLENOL RIGHT NOW AND WILL JUST LET ME KNOW WHEN HE WANTS IT.
[2022-11-28 16:00] VITALS: BP 119/87
--- NOTE | 2022-11-28 16:05 | NUR ---
RN NOTE PATIENT REQUESTING FOR KNEE BRACE FOR C/O PAIN ON RIGHT KNEE. INFORMED DR. HE WITH ORDER RECEIVED. APPLIED ELASTIC BANDAGE/ADAM WRAP TO RIGHT KNEE FOR NOW WHILE WAITING FOR THE KNEE BRACE.
--- NOTE | 2022-11-28 18:00 | NUR ---
RN NOTE PATIENT LEFT UNIT TO SMOKE OUTSIDE.
--- NOTE | 2022-11-28 19:00 | NUR ---
RN NOTE PATIENT NOTE BACK YET TO THE UNIT. ENDORSED TO NEXT SHIFT.
--- NOTE | 2022-11-28 19:35 | NUR ---
RN OPENING NOTE PATIENT AWAKE IN ROOM (JUST RETURNING FROM SMOKE BREAK). A/OX4. NO S/S OF DISTRESS, BREATHING WITHOUT DIFFICULTY ON ROOM AIR. PATIENT PRESENTS IN COOPERATIVE MOOD, WELL KEMPT, AND NON-MALODOROUS (SAVE FOR CIGARETTE SCENT). SAFETY MEASURES IN PLACE: BED LOCKED AND AT LOWEST POSITION, RAILS UP X2, CALL MICHELLE WITHIN REACH. WILL CONTINUE TO MONITOR PATIENT.
[2022-11-28 20:00] VITALS: BP 127/66
[2022-11-28] MEDS: TAMSULOSIN 0.4 MG CAP.SR.24H PO SCH (21:20)
--- NOTE | 2022-11-29 06:59 | NUR ---
RN CLOSING NOTE PATIENT AWAKE IN BED. A/OX4. NO S/S OF DISTRESS, BREATHING WITHOUT DIFFICULTY ON ROOM AIR. PATIENT HAS BEEN COOPERATIVE AND IN A CONSISTENT PLEASANT MOOD. SAFETY MEASURES IN PLACE: BED LOCKED AND AT LOWEST POSITION, RAILS UP X2, CALL MICHELLE WITHIN REACH. WILL ENDORSE TO NEXT SHIFT FOR ULICES.
[2022-11-29 07:00] VITALS: BP 133/78
--- NOTE | 2022-11-29 07:15 | NUR ---
ms rn received patient awake,alert,oriented x4,not in any form of distress, on room air, denies pain at this time, clinical trial of dr. morse, will monitor patient.
--- NOTE | 2022-11-29 07:43 | NUR ---
ms rn patient having shower at this time, reminded to be in his room by 9 am for am meds.
--- NOTE | 2022-11-29 07:50 | NUR ---
ms rn patient went out, reminded again to come back for am meds since meds still not available at this time.
--- NOTE | 2022-11-29 10:31 | NUR ---
ms rn patient still not here at this time, waiting for him to come back for am meds.
[2022-11-29] MEDS: HOME MED MISCELLANEOUS PO SCH ×3 (11:39→20:20)
--- NOTE | 2022-11-29 19:00 | NUR ---
ms rn patirnt still outside, waiting for him to give his 1700 meds, endorsed to power and recovery shift engineer for ha.
--- NOTE | 2022-11-29 19:30 | NUR ---
noc rn opening Patient absent during ha report.
--- NOTE | 2022-11-29 20:22 | NUR ---
noc rn note Patient came back at around this time. V/S taken. Patient asked for his Losartan BP 129/75. 1700 Losartan given at this time.
[2022-11-29 20:57] VITALS: BP 129/75
[2022-11-29] MEDS: TAMSULOSIN 0.4 MG CAP.SR.24H PO SCH (22:23)
--- NOTE | 2022-11-30 07:20 | NUR ---
noc rn closing patient did not exhibit any behavioral changes. pleasant and compliant. endorsed to JAQUELINE Childs for continuity of care.
--- NOTE | 2022-11-30 07:30 | NUR ---
RN OPENING NOTE RECEIVED PATIENT IN BED, AWAKE, A/O X4, VERBALLY RESPONSIVE AND ABLE TO MAKE NEEDS KNOWN. NO SIGNS OF ACUTE DISTRESS NOTED. ON ROOM AIR, BREATHING EVEN AND UNLABORED. DENIES ANY PAIN AT THIS TIME. REMAINS ON CLINICAL TRIAL. NO IV ACCESS. PATIENT INDEPENDENT WITH ADL'S. WILL CONTINUE TO MONITOR FOR SAFETY AND BEHAVIOR.
[2022-11-30 08:00] VITALS: BP 122/81
[2022-11-30] MEDS: HOME MED MISCELLANEOUS PO SCH ×3 (08:33→18:50)
--- NOTE | 2022-11-30 09:20 | NUR ---
RN NOTE PATIENT WENT OUT TO SMOKE. IN STABLE CONDITION.
--- NOTE | 2022-11-30 16:10 | NUR ---
RN NOTE PATIENT WENT OUT TO SMOKE. REMINDED HIM OF HIS EVENING MEDS, PER PATIENT HE'LL TAKE IT WHEN HE COMES BACK.
--- NOTE | 2022-11-30 18:51 | NUR ---
RN NPOTE PATIENT BACK TO THE UNIT. EVENING MEDICATION GIVEN ORDERED. OFFERED NO COMPLAINTS. PATIENT JUST ASKED FOR A CUP OF COFFEE. WILL ENDORSE TO NEXT SHIFT FOR ULICES.
--- NOTE | 2022-11-30 19:00 | NUR ---
RN OPENING NOTE RECEIVED PT AWAKE IN BED. A/O X 4, ABLE TO MAKE NEEDS KNOWN. PT IS IN RA TOLERATING WELL, BREATHING EVEN AND UNLABORED @ THIS TIME. PT HAS NO IV PRESENT. SAFETY MEASURE IS IN PLACE. BED IN LOWEST & LOCKED POSITION. SIDE RAILS UP X 2. BEDSIDE TABLE AND CALL LIGHT IS WITHIN REACH. WILL CONTINUE TO MONITOR PT ACCORDINGLY.
[2022-11-30 20:00] VITALS: BP 113/74
[2022-11-30] MEDS: TAMSULOSIN 0.4 MG CAP.SR.24H PO SCH (21:41)
--- NOTE | 2022-12-01 06:40 | NUR ---
RN CLOSING NOTE PT AWAKE & RESTING COMFORTABLY IN BED. A/O X 4, RESPONSIVE AND FOLLOWS VERBAL COMMAND. PT IS IN RA W/ NO S &SX OF RESPIRATORY DISTRESS NOTED @ THIS TIME. PT HAS NO IV PRESENT. NO BEHAVIORAL CHANGES OBSERVED @ THIS TIME. ADMINISTERED MEDICATION ACCORDINGLY PER MD'S ORDER. SAFETY MEASURE IS IN PLACE. BED IN LOWEST & LOCKED POSITION. SIDE RAILS UP X 2. BEDSIDE TABLE AND CALL LIGHT IS WITHIN REACH. BED ALARM IS ON. WILL ENDORSE PT TO THE NEXT SHIFT FOR ULICES.
--- NOTE | 2022-12-01 07:17 | NUR ---
MS RN OPENING NOTE RECEIVED PATIENT IN BED, AWAKE, ALERT AND ORIENTED X4, ABLE TO MAKE NEEDS KNOWN. NO SIGNS OF ACUTE DISTRESS NOTED. ON ROOM AIR, BREATHING EVEN AND UNLABORED. DENIES ANY PAIN AT THIS TIME. REMAINS ON CLINICAL TRIAL.PATIENT INDEPENDENT WITH ADL'S. WITH GOOD DISPOSITION. WILL CONTINUE WITH PLAN OF CARE.
[2022-12-01 08:00] VITALS: BP 123/82
[2022-12-01] MEDS: HOME MED MISCELLANEOUS PO SCH ×3 (08:12→18:32)
--- NOTE | 2022-12-01 09:00 | NUR ---
ms rn breakfast served,due meds given,tolerated well, patient went out after.reminded him to come back for pm meds.
--- NOTE | 2022-12-01 14:30 | NUR ---
MS RN NOTE ENDORSED TO JAQUELINE MAHER FOR CONTINUITY OF CARE.
--- NOTE | 2022-12-01 14:35 | NUR ---
rn received report from Nneka shah, clinical trial patient awake,alert,oriented x4,not in any form of distress, on room air, tolerating diet well, denies pain at this time. wi;; continue to monitor patient.
--- NOTE | 2022-12-01 17:10 | NUR ---
RN NOTE WENT INSIDE PATIENT'S ROOM TO ADMINISTER SCHEDULED HOME MEDICATION HOWEVER PATIENT IS NOT IN ROOM.
[2022-12-01 18:28] VITALS: BP 106/68
--- NOTE | 2022-12-01 18:34 | NUR ---
ms rn on bed, no distress noted,all needs attended,will continue plan of care.
--- NOTE | 2022-12-01 18:34 | NUR ---
ms rn patient just came back, due meds given,tolerate dwell.
--- NOTE | 2022-12-01 19:15 | NUR ---
MS CLINICAL TRIAL RN NOTES NOT IN THE ROOM.
--- NOTE | 2022-12-01 20:30 | NUR ---
MS PARSONS CLINICAL TRIAL NOTES BACK FROM DOWNSTAIRS.
[2022-12-01] MEDS: TAMSULOSIN 0.4 MG CAP.SR.24H PO SCH (21:41)
--- NOTE | 2022-12-01 21:45 | NUR ---
MS RN NOTES DUE PO MEDS GIVEN SCHEDULED.
--- NOTE | 2022-12-02 06:22 | NUR ---
MS RN NOTES NO SIGNIFICANT CHANGE IN BEHAVIOR.CALL LIGHT IN REACH,NEEDS ATTENDED.
[2022-12-02 07:00] VITALS: BP 148/92
--- NOTE | 2022-12-02 07:30 | NUR ---
MS RN OPENING NOTE RECEIVED PATIENT IN BED, AWAKE, A/O X4, ABLE TO MAKE NEEDS KNOWN. NO SIGNS OF ACUTE DISTRESS NOTED. ON ROOM AIR, NO SOB NOTED, BREATHING EVEN AND UNLABORED. DENIES ANY PAIN AT THIS TIME. REMAINS ON CLINICAL TRIAL.PATIENT INDEPENDENT WITH ADL'S. WITH GOOD DISPOSITION. SAFETY MEASURES IN PLACE. BED IN LOW AND LOCKED POSITION. WILL CONTINUE WITH PLAN OF CARE.
[2022-12-02] MEDS: HOME MED MISCELLANEOUS PO SCH ×4 (08:27→18:30)
--- NOTE | 2022-12-02 17:10 | NUR ---
RN NOTE WENT INSIDE PATIENT'S ROOM TO ADMINISTER SCHEDULED HOME MEDICATION HOWEVER PATIENT IS NOT IN ROOM.
--- NOTE | 2022-12-02 18:06 | NUR ---
RN NOTE PATIENT IS NOT YET IN HIS ROOM.
--- NOTE | 2022-12-02 19:21 | NUR ---
RN CLOSING NOTES. PATIENT IS OFF UNIT. ENDORSED TO ON SITE SOIL EVALUATOR NURSE FOR CONTINUITY OF CARE.
[2022-12-02 20:00] VITALS: BP 106/75
--- NOTE | 2022-12-02 21:13 | NUR ---
MS RN OPENING NOTE PATIENT JUST CAME BACK TO THE UNIT, IN STABLE CONDITION AND NOT IN ANY FORM OF ACUTE DISTRESS. BREATHING EVEN AND NON LABORED. NO C/O PAIN OR DISCOMFORT REPORTED. NO BEHAVIORAL ISSUES NOTED AT THIS TIME. ON CLINICAL TRAIL. SAFETY MEASURES IN PLACE. KEPT BED IN LOCKED AND IN LOW POSITION. SIDE RAILS UP X2. ADVISED TO USE THE CALL LIGHT WHEN IN NEED OF ASSISTANCE.
[2022-12-02] MEDS: TAMSULOSIN 0.4 MG CAP.SR.24H PO SCH (21:15)
--- NOTE | 2022-12-03 06:30 | NUR ---
MS RN CLOSING NOTE PATIENT IN BED, AWAKE, ALERT AND ORIENTED X4. ABLE TO COMMUNICATE NEEDS WITH THE STAFFS. AFEBRILE AND NOT IN ANY FORM OF ACUTE DISTRESS. BREATHING EVEN AND NON LABORED. NO C/O PAIN OR DISCOMFORT THROUGHOUT THE SHIFT. ON CLINICAL TRIAL, MONITORED FOR ANY BEHAVIORAL CHANGES. DUE MEDS GIVEN. SAFETY MEASURES IN PLACE. KEPT BED IN LOCKED AND IN LOW POSITION. SIDE RAILS UP X2. ADVISED TO USE THE CALL LIGHT WHEN IN NEED OF ASSISTANCE. ALL NURSING NEEDS ATTENDED. ENDORSED TO INCOMING SHIFT FOR CONTINUITY OF CARE.
--- NOTE | 2022-12-03 07:00 | NUR ---
MS RN OPENING NOTE RECEIVED PATIENT IN STABLE CONDITION AND NOT IN ANY FORM OF ACUTE DISTRESS. BREATHING EVEN AND NON LABORED. NO C/O PAIN OR DISCOMFORT REPORTED. ON CLINICAL TRAIL. NO BEHAVIORAL ISSUES NOTED AT THIS TIME. SAFETY MEASURES IN PLACE. KEPT BED IN LOCKED AND IN LOW POSITION. SIDE RAILS UP X2. ADVISED TO USE THE CALL LIGHT WHEN IN NEED OF ASSISTANCE.
[2022-12-03 08:00] VITALS: BP 122/92
[2022-12-03] MEDS: HOME MED MISCELLANEOUS PO SCH ×3 (09:30→17:24)
--- NOTE | 2022-12-03 18:37 | NUR ---
MS RN CLOSING NOTE PATIENT IN BED, AWAKE, ALERT AND ORIENTED X4. PATIENT ON CLINICAL TRIAL, ABLE TO COMMUNICATE NEEDS, AFEBRILE, NO C/O PAIN OR DISCOMFORT, NOT IN ANY FORM OF ACUTE DISTRESS, BREATHING EVENLY AND UNLABORED. PATIENT MONITORED THROUGHOUT SHIFT FOR ANY BEHAVIORAL CHANGES. DUE MEDS GIVEN. SAFETY MEASURES IN PLACE. KEPT BED IN LOCKED, LOW POSITION, SIDE RAILS UP X2, CALL LIGHT WITHIN REACHED, WILL BE ENDORSED TO PM NURSE FOR ULICES.
--- NOTE | 2022-12-03 19:45 | NUR ---
SR. MANAGER MARKETING CLINICAL TRIAL NOTES Received report from am nurse and seen patient in the lobby talking to the information security systems instructor and saying that he stayed there for a while. He's pleasant , cooperative and calmed. will continue monitoring.
[2022-12-04] MEDS: TAMSULOSIN 0.4 MG CAP.SR.24H PO SCH ×2 (00:31→22:17)
--- NOTE | 2022-12-04 07:40 | NUR ---
MS RN OPENING NOTE RECEIVED PATIENT AWAKE IN BED, A/O X 4, ABLE TO MAKE NEEDS KNOWN; STABLE ON ROOM AIR, BREATHING EVEN AND UNLABORED. NO S/S OF DISTRESS NOTED; NO PAIN AT THIS TIME. NO IV ACCESS. SAFETY MEASURES IMPLEMENTED, BED LOCKED IN LOWEST POSITION, SIDE RAILS UP X 2, CALL LIGHT AND TABLE WITHIN REACH; WILL CONTINUE TO MONITOR PATIENT THROUGHOUT SHIFT.
[2022-12-04 08:00] VITALS: BP 114/82
[2022-12-04] MEDS: HOME MED MISCELLANEOUS PO SCH ×3 (09:13→18:24)
--- NOTE | 2022-12-04 19:44 | NUR ---
MS RN CLOSING NOTE PATIENT IN BED, AWAKE, ALERT AND ORIENTED X4. PATIENT ON CLINICAL TRIAL, ABLE TO COMMUNICATE NEEDS, NO PAIN OR DISCOMFORT, NOT IN ANY FORM OF ACUTE DISTRESS, BREATHING EVEN AND UNLABORED. PATIENT MONITORED THROUGHOUT SHIFT FOR ANY BEHAVIORAL CHANGES. DUE MEDS GIVEN. SAFETY MEASURES IN PLACE. KEPT BED IN LOCKED, LOW POSITION, SIDE RAILS UP X2, CALL LIGHT WITHIN REACHED, WILL BE ENDORSED TO NIGHT NURSE.
--- NOTE | 2022-12-04 19:45 | NUR ---
MS RN OPENING NOTES - RECEIVED PATIENT RESTING IN BED. A/O X4. BREATHING EVEN AND NON-LABORED ON ROOM AIR. NOT IN ACUTE DISTRESS. DENIES PAIN AT THIS TIME. NO IV ACCESS, ON CLINICAL TRIAL. SAFETY PRECAUTIONS IN PLACE: BED LOCKED AND IN LOW POSITION, SIDE RAILS UP X2, CALL LIGHT WITHIN REACH. WILL CONTINUE PLAN OF CARE.
[2022-12-04 20:00] VITALS: BP 95/48
[2022-12-04 20:19] VITALS: BP 95/48
[2022-12-04 22:35] VITALS: BP 102/71
--- NOTE | 2022-12-05 07:18 | NUR ---
MS RN OPENING NOTE RECEIVED PATIENT IN BED, A/O X 4, ABLE TO MAKE NEEDS KNOWN; IN GOOD DISPOSITION. STABLE ON ROOM AIR, BREATHING EVEN AND UNLABORED. NO S/S OF DISTRESS NOTED; NO COMPLAIN OF PAIN AT THIS TIME. SAFETY MEASURES ENSURED WITH BED LOCKED IN LOWEST POSITION, SIDE RAILS UP X 2, CALL LIGHT AND TABLE WITHIN REACH; WILL CONTINUE WITH PLAN OF CARE.
--- NOTE | 2022-12-05 07:28 | NUR ---
MS RN CLOSING NOTES - PATIENT RESTING IN BED. ABLE TO VERBALIZE NEEDS. NO CARDIAC OR RESPIRATORY DISTRESS THROUGHOUT THE NIGHT. DENIES PAIN AT THIS TIME. AFEBRILE. NO UNUSUAL BEHAVIOR NOTED. ALL DUE MEDS GIVEN AND NEEDS ATTENDED. INDEPENDENT ON ADLS. SAFETY PRECAUTIONS MAINTAINED. WILL ENDORSE TO NEXT SHIFT FOR ULICES.
[2022-12-05 08:00] VITALS: BP 138/90
[2022-12-05] MEDS: HOME MED MISCELLANEOUS PO SCH ×3 (08:42→17:00)
[2022-12-05] MEDS ORDERED: ZOLPIDEM TARTRATE 10 MG TABLET PO PRN (13:00)
[2022-12-05] MEDS ORDERED: LORAZEPAM 1 MG TABLET PO PRN (13:00)
--- NOTE | 2022-12-05 18:50 | NUR ---
MS RN NOTE PATIENT STEPPED OUT AROUND 1400. PATIENT STILL NOT BACK, UNABLE TO GIVE MEDICATION FOR 1700H. WILL ENDORSE ACCORDINGLY TO NEXT SHIFT FOR CONTINUITY OF CARE.
--- NOTE | 2022-12-05 19:42 | NUR ---
MS RN OPENING NOTE - PATIENT STILL NOT BACK IN ROOM AT THIS TIME.
--- NOTE | 2022-12-05 21:00 | NUR ---
PATIENT BACK TO THE UNIT. NO C/O PAIN, SOB OR . NO ACUTE DISTRESS NOTED. ON CLINICAL TRIAL. WILL CONTINUE TO MONITOR FOR SAFETY AND BEHAVIOR.
[2022-12-05] MEDS: TAMSULOSIN 0.4 MG CAP.SR.24H PO SCH (21:35)
--- NOTE | 2022-12-06 06:58 | NUR ---
MS RN CLOSING NOTES - PATIENT IN ROOM, ABLE TO VERBALIZE NEEDS. NO SOB OR NOTED. AFEBRILE. DENIES PAIN. NO BEHAVIORAL CHANGES NOTED. ALL NEEDS ATTENDED AND ANTICIPATED. SAFETY PRECAUTIONS MAINTAINED. WILL ENDORSE TO NEXT SHIFT FOR ULICES.
--- NOTE | 2022-12-06 07:18 | NUR ---
MS RN OPENING NOTE RECEIVED PATIENT IN BED, A/O X 4, ABLE TO MAKE NEEDS KNOWN; IN GOOD DISPOSITION. STABLE ON ROOM AIR, BREATHING EVEN AND UNLABORED. NO S/S OF DISTRESS NOTED; NO COMPLAIN OF PAIN AT THIS TIME. SAFETY MEASURES ENSURED WITH BED LOCKED IN LOWEST POSITION, SIDE RAILS UP X 2, CALL LIGHT AND TABLE WITHIN REACH; WILL CONTINUE WITH PLAN OF CARE.PATIENT SAID HE WILL BE DISCHARGED TODAY. WILL VERIFY WITH MD.
--- NOTE | 2022-12-06 08:15 | NUR ---
MS RN NOTE RECEIVED A CALL FROM DR. HE TO DISCHARGE PATIENT. ORDERS READ AND VERIFIED. PATIENT STEPPED OUT OF THE FACILITY.
--- NOTE | 2022-12-06 10:30 | NUR ---
MS RN NOTE PATIENT RETURNED AND WAS READY FOR DISCHARGE. DISCHARGE INSTRUCTIONS AND DISCHARGE ORDERS GIVEN AND VERBALIZED UNDERSTANDING. PATIENT SIGNED PAPER WORKS. PATIENT ACCOMPANIED TO PHARMACY TO PILL MAKER MEDICATIONS AND ACCOMPANIED TO HOSPITAL LOBBY FOR DISCHARGE. ENDORSED ACCORDINGLY.
== END 2022-12-06 11:55 | disposition home or self-care (01) | DRG 951 ==
LOC: MED 14:21
PROVIDERS: ADMIT Psychiatry & Neurology Psychiatry; ATTEND Psychiatry & Neurology Psychiatry
DX: Z00.6 Encounter for examination for normal comparison and control in clinical research program (principal); F20.0 Paranoid schizophrenia; I10 Essential (primary) hypertension; Z20.822 Contact with and (suspected) exposure to COVID-19
CPT/HCPCS: 73564-TC; 87081-TC; G0378

== ENCOUNTER 2023-10-29 11:23 | Emergency (ER) | payer OTHER ==
[~2023-10-29] VITALS: Ht 177.8 cm; Wt 108.9 kg
[2023-10-29] MEDS ORDERED: ACETAMINOPHEN ES 500 MG TABLET ONE (13:22)
[2023-10-29] MEDS: ACETAMINOPHEN ES 500 MG TABLET PO ONE (13:27)
[2023-10-29 13:33] VITALS: BP 128/62; TEMP 98.2; O2SAT 100
== END 2023-10-29 13:33 ==
LOC: ER 11:40
DX: M79.642 Pain in left hand (principal); I10 Essential (primary) hypertension; G89.29 Other chronic pain; V89.2XXA Person injured in unspecified motor-vehicle accident, traffic, initial encounter; Y93.89 Activity, other specified; Y92.89 Other specified places as the place of occurrence of the external cause; Y99.8 Other external cause status